=== PATIENT | male | born 1955 | race African-American/Black ===

== ENCOUNTER 2017-11-27 15:04 | Inpatient (IN) | payer OTHER ==
[~2017-11-27] VITALS: Ht 180.3 cm; Wt 129.4 kg
[~2017-11-27 15:04] MED LIST: AMMONIUM LACTA226 GM TOP; AUGMENTIN 875-1 EACH PO; CARVEDILOL12.5 M1 PO; CARVEDILOL25 M1 PO; ELIQUIS5 M1 PO; FUROSEMIDE40 M1 PO; GABAPENTIN300 M2 PO; HUMALOG100 UNIT/2 SC; HYDROCHLOROTH12.5 M2 PO; KEFLEX500 M1 PO; LATUDA20 M1; LATUDA60 M1 PO; LEVEMIR FL100 UNIT/1 SC; LISINOPRIL20 M1 PO; METFORMIN HCL1000 M1 PO; NORCO 5-325 TA1 EACH PO; NOVOLOG FL100 UNIT/1 SC; PRAVASTATIN SOD40 M2 PO; SERTRALINE HCL25 MG PO; STIOLTO RESPIMAT4 GM INH; VENTOLIN HFA18 GM INH; VICTOZA 3-0.6 MG/0.1 SC; ZOFRAN ODT4 M1 SL
--- NOTE | 2017-11-27 15:27 | ED CARDIAC/CP/PALPITATIONS ---
History of Present Illness General Chief Complaint: General Adult Stated Complaint: BIBA ?RAPID AFIB Source: patient Exam Limitations: no limitations Vital Signs & Intake/Output Vital Signs & Intake/Output Vital Signs Date Time Temp Pulse Resp B/P B/P Pulse O2 O2 Flow FiO2 Mean Ox Delivery Rate 11/27 2239 112 18 139/84 94 Room Air 11/27 2230 124 139/84 11/27 2057 98.6 136 18 123/73 11/27 2056 136 18 123/73 97 Room Air 11/27 2041 113 11/27 1937 139 18 116/85 95 Room Air 11/27 1926 143 111/86 11/27 1813 141 18 106/70 97 Room Air 11/27 1749 143 111/86 11/27 1749 142 18 111/86 97 Room Air 11/27 1704 146 18 120/81 95 Room Air 11/27 1515 Room Air 11/27 1515 98.6 150 18 115/70 94 Room Air Allergies Coded Allergies: No Known Allergies (11/19/16) Reconcile Medications Albuterol Sulfate (Ventolin Hfa) 90 MCG HFA.AER.AD 2 PUF INH AD PRN COPD ( Reported) Ammonium Lactate 12 % LOTION 1 MARISOL TOP PRN RIGHT FOOT (Reported) Apixaban (Eliquis) 5 MG TABLET 1 TAB PO BID BLOOD THINNER (Reported) Carvedilol 25 MG TABLET 1 TAB PO BID HEART/BP (Reported) Furosemide 40 MG TABLET 1 TAB PO BID DIURETIC (Reported) Gabapentin 300 MG CAPSULE 1 CAP PO TID NERVE PAIN (Reported) Insulin Aspart, Recombinant (Novolog Flexpen) (Unknown Strength) INSULN.PEN ( Unknown Dose) SC TIDAC DIABETES (Reported) Insulin Detemir (Levemir Flextouch) 100 UNIT/ML (3 ML) INSULN.PEN 50 UNITS SC QPM DM (Reported) Liraglutide (Victoza 3-Alberto) 0.6 MG/0.1 ML (18 MG/3 ML) PEN.INJCTR 1.8 MG SC DAILY DM (Reported) Lisinopril 20 MG TABLET 1 TAB PO DAILY HEART (Reported) Lurasidone HCl (Latuda) 60 MG TABLET 1 TAB PO DAILY MENTAL HEALTH (Reported) Metformin HCl 1,000 MG TABLET 1 TAB PO Q12H DM (Reported) Pravastatin Sodium 40 MG TABLET 1 TAB PO QPM CHOLESTEROL (Reported) Tiotropium Br/Olodaterol HCl (Stiolto Respimat Inhal [place]) 2.5 MCG-2.5 MCG/ ACTUATION MIST.INHAL 2 PUFF INH BID BREATHING PROBLEMS (Reported) Triage Note: PT [facility] FOR CABAG HAD DONE IN 2016. WHEN PT ARRIVED HR WAS 150'S. REHAB STATED PT WAS IN AFIB, HX OF. PT COMING FROM EMS, 151 SINUS TACHY. NO THINNERS. DENIES CHEST PAIN OR SOB. Triage Nurses Notes Reviewed? yes Onset: Abrupt Duration: day(s): (1), constant, continues in ED Timing: single episode today Activities at Onset: none Prior Chest Pain/Card Workup: stress test, cabg Nitro Today/Relief: no nitro taken today Aspirin Today: no aspirin today HPI: 62 year old male hx of afib, hld, asthma, chf, presents for eval of tachycardia. Patient was going to cardiac rehabilitation today when he took his vital signs as noted that he was tachycardic to the 150. He has a history of atrial afib so it was thought he was in rapid A. fib. Patient offers no complaints she has no chest pain or shortness of breath or palpitations or dizziness no lightheadedness. He feels fine. He's been taking his medications as directed. No recent surgery no lower extremity edema no hemoptysis. (Paul Esparza) Past History Travel History Traveled to [place] past 21 day No Medical History Any Pertinent Medical History? 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 No (Paul Esparza) Review of Systems Review of Systems Constitutional: Reports: no symptoms. EENTM: Reports: no symptoms. Respiratory: Reports: no symptoms. Cardiovascular: Reports: no symptoms. GI: Reports: no symptoms. Genitourinary: Reports: no symptoms. Musculoskeletal: Reports: no symptoms. Skin: Reports: no symptoms. Neurological/Psychological: Reports: no symptoms. Hematologic/Endocrine: Reports: no symptoms. Immunologic/Allergic: Reports: no symptoms. All Other Systems: Reviewed and Negative (Paul Esparza) Physical Exam Physical Exam General Appearance: well developed/nourished, no apparent distress, alert, awake , obese Head: atraumatic, normal appearance Eyes: Bilateral: normal appearance, PERRL, EOMI. Ears, Nose, Throat: normal pharynx, normal ENT inspection, hearing grossly normal Neck: normal inspection, supple, full range of motion Respiratory: normal breath sounds, chest non-tender, no respiratory distress, lungs clear Cardiovascular: normal peripheral pulses, tachycardia Peripheral Pulses: 2+ radial (R), 2+ radial (L) Gastrointestinal: normal bowel sounds, soft, non-tender, no organomegaly Back: normal inspection, normal range of motion Extremities: normal inspection, normal range of motion, no edema Neurologic/Psych: no motor/sensory deficits, awake, alert, oriented x 3, normal gait, normal mood/affect Skin: intact, normal color, warm/dry Core Measures ACS in differential dx? No CVA/TIA Diagnosis No Sepsis Present: No Sepsis Focused Exam Completed? No (Paul Esparza) Progress Differential Diagnosis: AMI, atrial fibrillation, CHF/pulm edema, hyperkalemia, hypovolemia, myocarditis, pancreatitis, pericarditis, pneumonia, pneumothorax, PSVT, pulmonary embolism, PUD/GERD, PVCs/PACs, unstable angina, V-fib/V-Tach, WPW syndrome Plan of Care: Orders Procedure Date/time Status Regular Diet 11/28 B Active ECHOCARDIOGRAM 11/28 0800 Active TROPONIN LEVEL 11/28 0400 Active MAGNESIUM 11/28 0400 Active CBC WITHOUT DIFFERENTIAL 11/28 0400 Active BASIC ELECTROLYTES PLUS BUN&CR 11/28 0400 Active EKG 11/28 0400 Active TROPONIN LEVEL 11/27 2200 Complete EKG 11/27 2199 Active Pathway - chart 11/27 2148 Active Patient Data 11/27 2021 Active OXYGEN SETUP (GEN) 11/27 2017 Active Saline Lock 11/27 2017 Active Admit to inpatient 11/27 2017 Active Vital Signs 11/27 2017 Active Activity/Ambulation 11/27 2017 Active Code Status 11/27 2017 Active Add-on Test (ER Only) 11/27 1540 Active Add-on Test (ER Only) 11/27 1526 Active LACTIC ACID 11/27 1524 Complete D-DIMER 11/27 1524 Complete B-TYPE NATRIURETIC PEP (BNP) 11/27 1524 Complete Intake & Output 11/27 1514 Active TSH REFLEX 11/27 1512 Complete TROPONIN LEVEL 11/27 151 Complete PARTIAL THROMBOPLASTIN TIME 11/27 151 Complete PROTHROMBIN TIME 11/27 1512 Complete MAGNESIUM 11/27 151 Complete COMPREHENSIVE METABOLIC PANEL 11/27 151 Complete CBC WITHOUT DIFFERENTIAL 11/27 151 Complete EKG 11/27 1504 Active VTE Mechanical Prophylaxis 11/27 UNK Active FingerStick- Glucose 11/27 UNK Active Current Medications Sig/[place] Start time Last Medication Dose Stop Time Status Admin Insulin Detemir 50 UNITS QPM 11/28 2100 AC (Levemir) Pravastatin Sodium 40 MG 1700 11/28 1700 AC (Pravachol) Lisinopril 20 MG DAILY 11/28 0900 AC (Prinivil) Insulin Aspart 0 TIDAC 11/28 0800 AC (NovoLOG) Diltiazem HCl 125 MG Q24H 11/27 220 AC (Cardizem DRIP) Sodium Chloride 100 ML (Normal Saline 0.9%) Acetaminophen 650 MG Q6P PRN 11/27 2144 AC (Tylenol) Albuterol Sulfate 2 PUF Q6-PRN PRN 11/27 2144 AC (Ventolin) Apixaban 5 MG BID 11/27 2140 AC 11/27 (Eliquis) 2237 Carvedilol 25 MG BID 11/27 2140 AC 11/27 (Coreg) 2237 Furosemide 40 MG BID 11/27 2140 AC 11/27 (Lasix) 2237 Gabapentin 300 MG TID 11/27 2140 AC 11/27 (Neurontin) 2237 Laboratory Tests 11/27/17 2200: Troponin I 0.05 11/27/17 1601: Anion Gap 10, Estimated GFR > 60, BUN/Creatinine Ratio 18.3, Glucose 177 H, Lactic Acid 1.6, Calcium 9.4, Magnesium 1.3 L, Total Bilirubin 0.5, AST 16 L, ALT 19 L, Alkaline Phosphatase 75, Troponin I 0.06, Fjw-D-Cbyvgkbewfz Pept 4550 H, Total Protein 5.9 L, Albumin 3.1 L, Globulin 2.8, Albumin/Globulin Ratio 1.1, TSH &T3 &Free T4 Intrp 0.489 11/27/17 1524: PT 14.1 H, INR 1.29 H, APTT 32, D-Dimer High Sensitivty < 200, CBC w Diff NO MAN DIFF REQ, RBC 4.96, MCV 88.4, MCH 29.4, MCHC 33.3, RDW 15.2 H, MPV 8.8, Gran % 53.7, Lymphocytes % 34.5, Monocytes % 8.5, Eosinophils % 3.0, Basophils % 0.3, Absolute Granulocytes 4.9, Absolute Lymphocytes 3.1, Absolute Monocytes 0.8 H, Absolute Eosinophils 0.3, Absolute Basophils 0 Patient is here for evaluation of tachycardia. He feels completely fine no symptoms. Labs EKG chest x-ray ordered patient was monitored on telemetry. IV fluids ordered. Blood work is unremarkable other than a mildly decreased magnesium of 1.3. IV magnesium was ordered patient did not respond IV fluids. 5 Lopressor ordered. Negative d-dimer chest x-ray unremarkable. An additional 5 mg of Lopressor was ordered with only a drop in his blood pressure to 100s over 50s. Patient does have a history of CHF making additional fluids risky. Spoke with Dr. Rodriguez the patient's truck sales representative who will review the EKG. Patient will likely need admission. Dr. Rodriguez recommends getting 5 mg of IV Cardizem if this works started on a drip. Patient will be admitted to the hospital for further evaluation and treatment case discussed with Dr. norton and he agrees. Diagnostic Imaging: Viewed by Me: Radiology Read. Discussed w/RAD: Radiology Read. 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 TECHNIQUE: Portable AP semierect view of the chest was obtained. FINDINGS : The patient is status post median sternotomy. EKG leads overlie the chest. The cardiomediastinal silhouette is enlarged, unchanged. Lungs bilaterally are symmetrically expanded. There is some thickening of the right minor fissure, likely due to trace amount of pleural fluid. This is unchanged. No evidence of pulmonary edema, focal consolidation, or pneumothorax is seen. Crowding of bronchovascular lung markings in the medial right lung base are noted. Included bony structures are grossly unremarkable. IMPRESSION: 1. Cardiomegaly. 2. Possible trace pleural fluid in the right minor fissure versus pleural thickening. Findings are unchanged from prior exam. 3. No focal acute pulmonary process seen. DICTATED BY: Maggie Castillo MD DATE/TIME DICTATED:11/27/171553 WOOD FINISHER APPRENTICE:MARQUIS DATE/TIME TRANSCRIBED:11/27/171553 CONFIDENTIAL, DO NOT COPY WITHOUT APPROPRIATE AUTHORIZATION. Initial ED EKG: SINUS TACH RATE 151, LEFT ATRIAL ABN, LVH, ANT ST ELEVATION RELATED TO LVH (Paul Esparza) Departure Departure Disposition: STILL A PATIENT Condition: Stable Clinical Impression Primary Impression: Tachycardia Referrals: Radha Luevano APRN (PCP/Family) Departure Forms: Customer Survey General Discharge Information Admission Note Spoke With: Jo Chua MD Documentation of Exam: Documentation of any treatments & extenuating circumstances including Concerns Regarding Discharge (functional status, medication knowledge or non-compliance, living conditions, etc.) that warrant an admission rather than observation: [ Serial lab serial EKGs telemetry cardiology consult, IV rate control meds] (Paul Esparza) PA/DIESEL ENGINE ASSEMBLER Co-Sign Statement Statement: ED Attending supervision documentation- x I saw and evaluated the patient. I have also reviewed all the pertinent lab results and diagnostic results. I agree with the findings and the plan of care as documented in the PA's/DIESEL ENGINE ASSEMBLER's documentation. Tachycardia not responsive to IV betablocker. [] I have reviewed the ED Record and agree with the PA's/DIESEL ENGINE ASSEMBLER's documentation. [] Additions or exceptions (if any) to the PAs/DIESEL ENGINE ASSEMBLER's note and plan are summarized below: [] (Juanpablo Norton MD) Critical Care Note Critical Care Note Critical Care Time: 75-104 min (Paul Esparza)
[2017-11-27 15:47] LABS: ABSOLUTE BASOPHIL COUNT 0 /CUMM (0.0-0.2); ABSOLUTE EOSINOPHIL COUNT 0.3 /CUMM (0.0-0.7); ABSOLUTE GRANULOCYTE CT 4.9 /CUMM (1.4-6.5); ABSOLUTE LYMPH COUNT 3.1 /CUMM (1.2-3.4); ABSOLUTE MONOCYTE COUNT 0.8 /CUMM (0.10-0.60); BASOPHIL % 0.3 % (0.0-2.0); GRANULOCYTE % 53.7 % (42.2-75.2); HEMATOCRIT 43.8 % (42-52); MEAN CORPUSCULAR HGB 29.4 PG (27.0-31.0); MEAN CORPUSCULAR HGB CONC 33.3 G/DL (33.0-37.0); MEAN CORPUSCULAR VOLUME 88.4 FL (80.0-94.0); MEAN PLATELET VOLUME 8.8 FL (7.4-10.4); PLATELET COUNT 291 /CUMM (130-400); RBC DISTRIBUTION WIDTH 15.2 % (11.5-14.5); RED BLOOD CELL CT 4.96 /CUMM (4.70-6.10); WHITE BLOOD CELL COUNT 9.1 /CUMM (4.8-10.8)
[2017-11-27 15:48] LABS: PT 14.1 SEC (9.4-12.5); PTT 32 SEC (25-37)
--- NOTE | 2017-11-27 16:01 | RADIOLOGY REPORT ---
EXAMINATION: XR PORTABLE CHEST CLINICAL INFORMATION: Atrial fibrillation with rapid ventricular response COMPARISON: Chest x-ray dated 08/12/2017. TECHNIQUE: Portable AP semierect view of the chest was obtained. FINDINGS: The patient is status post median sternotomy. EKG leads overlie the chest. The cardiomediastinal silhouette is enlarged, unchanged. Lungs bilaterally are symmetrically expanded. There is some thickening of the right minor fissure, likely due to trace amount of pleural fluid. This is unchanged. No evidence of pulmonary edema, focal consolidation, or pneumothorax is seen. Crowding of bronchovascular lung markings in the medial right lung base are noted. Included bony structures are grossly unremarkable. IMPRESSION: 1. Cardiomegaly. 2. Possible trace pleural fluid in the right minor fissure versus pleural thickening. Findings are unchanged from prior exam. 3. No focal acute pulmonary process seen.
--- NOTE | 2017-11-27 21:00 | History & Physical ---
Sanju Jenkins MD 11/27/17 2100: General Information and HPI History of Present Illness: 62-year-old man with past medical history of atrial fibrillation on Eliquis, HFpEF (LVEF >60%), CAD status post CABG, hyperlipidemia, asthma, COPD, and insulin-dependent diabetes mellitus sent in from cardiac rehab for tachycardia. Patient reports waking up today feeling well and in his normal state of health. He performs his morning routine including eating breakfast, taking his meds, and getting ready to go out without any symptoms or difficulty. He arrived to cardiac rehab this afternoon where he was found to reportedly have a heart rate around "150" for which she was referred to the [place] ED. Review of systems He otherwise denies any headache, fever, chills, blurred/double vision, lightheadedness/dizziness, chest pain, palpitations, heartburn, shortness breath , cough, nausea, vomiting, diarrhea, abdominal pain, urinary complaints, numbness, tingling, or weakness. Objective Vitals: Temp 98.6, HR 139-150, RR 18, BP 106-120/70-6, SPO2 94-97% on room air Physical exam -General: Well-developed, morbidly obese middle-aged black man in no acute distress -HEENT: NCAT, Patricia, EOMI, anicteric sclera -Neck: Supple, no JVP, trachea midline, no accessory respiratory muscle use -Cardio: Normal S1/S2; tachycardic, irregularly irregular -Pulmonary: Diminished bibasilar airflow -Abdomen: Soft, nontender, nondistended, bowel sounds intact -Neuro: Awake and alert, cranial nerves II through XII grossly intact -Extremities: No edema, normal pulses Labs/imaging/studies -CBC: WBC 9.1, hemoglobin 14.6, hematocrit 43.8, platelet 291 -BMP: NA 140, K 3.6, CL 102, CO2 29, BUN 22, creatinine 1.2, anion gap 10, glucose 177 -LFT: Within normal limits -Miscellaneous: Lactic acid 1.6, magnesium 1.3, troponin I 0.06, INR 1.29, TSH 0.49, BNP 4500, d-dimer <200 -EKG: Regular narrow complex tachycardia, rapid A. fib versus AVNRT/AVRT -Echocardiogram 02/25/17: LVEF >65% without regional wall motion abnormalities and stage I diastolic dysfunction and moderate concentric LVH -CXR: 1. Cardiomegaly. 2. Possible trace pleural fluid in the right minor fissure versus pleural thickening. Findings are unchanged from prior exam. 3. No focal acute pulmonary process seen. Assessment 62-year-old morbidly obese man with multiple medical problems significant for known A. fib on Eliquis, CAD status post CABG, HFpEF, and insulin-dependent diabetes mellitus sent in from cardiac rehab for evaluation of tachycardia. Patient continues to deny any complaints and feels well. Vital signs are significant for heart rate ranging 130s-150s. Physical examination demonstrates a middle-aged man in no acute distress with a tachycardic irregularly irregular rhythm and is otherwise unremarkable. Significant labs include magnesium 1.3, troponin I 0.06, BNP 4500. Chest x-ray demonstrates cardiomegaly with trace right pleural effusion. EKG demonstrates a regular narrow complex tachycardia concerning for rapid A. fib versus AVNRT/AVRT. In the ED the patient received 2 L of normal saline, magnesium sulfate 1 g IV, metoprolol tartrate 5 mg IV 2, and Cardizem 5 mg IV. Clinically patient appears to have atrial fibrillation with rapid ventricular response in the context of known atrial fibrillation previously on anticoagulation and rate control medications. Patient is completely unaware of his symptoms and it is unclear how long he has been in this uncontrolled tachycardic rhythm. Patient was given several boluses of intravenous Cardizem with adequate rate control and was placed on a Cardizem drip and continued on his previous cardiac meds. Patient is to be admitted to the telemetry floor for telemetry monitoring, serial troponin/EKG, transthoracic echocardiogram, rate control, and cardiology consultation. Problem list -Atrial fibrillation, with rapid ventricular response -History of atrial fibrillation, on Eliquis -HFpEF, LVEF >60% with stage I diastolic dysfunction -CAD status post CABG -COPD -Asthma -Insulin-dependent diabetes mellitus -Distant history of drug abuse, last use 5 years ago -Current smoker, 5-6 cigarettes per day -Morbid obesity Plan -Admit to telemetry floor -Telemetry monitoring -Accu-Cheks 3 times daily before meals/at bedtime -Cardizem drip at 5 mL/h, titrate up to heart rate <110 -Continue home meds: Albuterol, Eliquis, Coreg, Lasix, gabapentin, Levemir, lisinopril, pravastatin -Hold oral hypoglycemics, NovoLog sliding scale insulin while in hospital -consult with cardiology for A. fib with RVR -Trend troponin/EKG until peak or 3 negative sets -Transthoracic echocardiogram -Pain control with acetaminophen -Regular diet -DVT prophylaxis with Eliquis -Full code Allergies/Medications Allergies: Coded Allergies: No Known Allergies (11/19/16) Home Med list Albuterol Sulfate (Ventolin Hfa) 90 MCG HFA.AER.AD 2 PUF INH AD PRN COPD ( Reported) Ammonium Lactate 12 % LOTION 1 MARISOL TOP PRN RIGHT FOOT (Reported) Apixaban (Eliquis) 5 MG TABLET 1 TAB PO BID BLOOD THINNER (Reported) Carvedilol 25 MG TABLET 1 TAB PO BID HEART/BP (Reported) Furosemide 40 MG TABLET 1 TAB PO BID DIURETIC (Reported) Gabapentin 300 MG CAPSULE 1 CAP PO TID NERVE PAIN (Reported) Insulin Aspart, Recombinant (Novolog Flexpen) (Unknown Strength) INSULN.PEN ( Unknown Dose) SC TIDAC DIABETES (Reported) Insulin Detemir (Levemir Flextouch) 100 UNIT/ML (3 ML) INSULN.PEN 50 UNITS SC QPM DM (Reported) Liraglutide (Victoza 3-Alberto) 0.6 MG/0.1 ML (18 MG/3 ML) PEN.INJCTR 1.8 MG SC DAILY DM (Reported) Lisinopril 20 MG TABLET 1 TAB PO DAILY HEART (Reported) Lurasidone HCl (Latuda) 60 MG TABLET 1 TAB PO DAILY MENTAL HEALTH (Reported) Metformin HCl 1,000 MG TABLET 1 TAB PO Q12H DM (Reported) Pravastatin Sodium 40 MG TABLET 1 TAB PO QPM CHOLESTEROL (Reported) Tiotropium Br/Olodaterol HCl (Stiolto Respimat Inhal [place]) 2.5 MCG-2.5 MCG/ ACTUATION MIST.INHAL 2 PUFF INH BID BREATHING PROBLEMS (Reported) Past History Travel History Traveled to [place] past 21 day No Medical History Neurological: peripheral neuropathy EENT: NONE Cardiovascular: AFIB, hyperlipidemia Respiratory: asthma, CHF Gastrointestinal: NONE Hepatic: NONE Renal: NONE Musculoskeletal: NONE Psychiatric: NONE Endocrine: diabetes Blood Disorders: NONE Cancer(s): NONE 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 Exam & Diagnostic Data Last 24 Hrs of Vital Signs/I&O Vital Signs Date Time Temp Pulse Resp B/P B/P Pulse O2 O2 Flow FiO2 Mean Ox Delivery Rate 11/28 0025 138 112/62 11/28 0025 138 110/62 11/27 2310 140 18 132/83 11/27 2239 112 18 139/84 94 Room Air 11/27 2230 124 139/84 11/27 205 98.6 136 18 123/73 11/27 2056 136 18 123/73 97 Room Air 11/27 2041 113 11/27 1937 139 18 116/85 95 Room Air 11/27 1926 143 111/86 11/27 1813 141 18 106/70 97 Room Air 11/27 1749 143 111/86 11/27 1749 142 18 111/86 97 Room Air 11/27 1704 146 18 120/81 95 Room Air 11/27 1515 Room Air 11/27 1515 98.6 150 18 115/70 94 Room Air Intake & Output 11/28 0800 11/28 0000 11/27 1600 Intake Total Output Total Balance Patient 127.006 kg Weight Weight Estimated Measurement Method Assessment/Plan As Ranked By This Provider Problem List: 1. Tachycardia Core Measures/Misc (01/20) Acute Coronary Syndrome ACS Diagnosis: No Congestive Heart Failure Congestive Heart Failure Diagnosis No Cerebrovascular Accident CVA/TIA Diagnosis: No VTE (View Protocol) VTE Risk Factors Age>40 No Mechanical VTE Prophylaxis d/t N/A MechProphylax Ordered No VTE Pharm Prophylaxis d/t NA PharmProphylax ordered Sepsis (View protocol) Sepsis Present: No If YES complete Sepsis Event Note If YES complete Sepsis Event Note Jo Chua MD 11/28/17 0127: Core Measures/Misc (01/20) Sepsis (View protocol) If YES complete Sepsis Event Note If YES complete Sepsis Event Note Attending MD Review Statement Attending Statement Attending MD Statement: examined this patient, discuss w/resident/PA/COLLOID MILL OPERATOR, agreed w/resident/PA/COLLOID MILL OPERATOR, reviewed EMR data (avail) Attending Assessment/Plan: 62M PMH IDDM, HTN, paroxysmal atrial fibrillation on Eliquis, CAD was at cardiac rehab when his HR was noted to be in the 150's. He was unaware of this and completely asymptomatic. He was sent to the ED where he continued to be asymptomatic. His HR was 150's in afib in the ER, though at times, particulary on EMS rhythm strip, he was in SVT. He was given Metoprolol 5mg x2 with minimal response, and was placed on Cardizem drip. Patient denies fever, chills, headache, lightheadedness, palpitations, SOB, chest pain, abdominal pain, diarrhea, dysuria. Labs unremarkable, exam benign. 1. Paroxysmal atrial fibrillation with RVR Plan - Admit to telemetry - Cardizem drip - Cardiology consult - Check TSH, Mg - Echocardiogram - Continue Eliquis - Continue Levemir and remaining home medications - DVT PPx
--- NOTE | 2017-11-28 01:31 | Admission Certification ---
Admission Certification Certification Statement - As attending physician, I certify that at the time of - admission, based on clinical presentation, severity of - symptoms, need for further diagnostic testing and - therapeutic interventions, and risk of adverse outcomes - without in-hospital treatment, in my clinical assessment, - this patient requires an acute hospital stay for a minimum - of two nights or longer. I have also considered psychsocial - factors such as support system, advanced age, financial - issues, cognitive issues, and failed out-patient treatments, - past re-admission history, safety of patient, and lack of - compliance as applicable. Specific rationale supporting this admission is: Rapid atrial fibrillation with RVR
[2017-11-28 04:23] LABS: ABSOLUTE BASOPHIL COUNT 0.1 /CUMM (0.0-0.2); ABSOLUTE EOSINOPHIL COUNT 0.3 /CUMM (0.0-0.7); ABSOLUTE GRANULOCYTE CT 4.3 /CUMM (1.4-6.5); ABSOLUTE LYMPH COUNT 3.7 /CUMM (1.2-3.4); ABSOLUTE MONOCYTE COUNT 0.7 /CUMM (0.10-0.60); BASOPHIL % 0.7 % (0.0-2.0); EOSINOPHIL % 3.2 % (0-5); GRANULOCYTE % 47.1 % (42.2-75.2); HEMATOCRIT 40.3 % (42-52); MEAN CORPUSCULAR HGB 29.6 PG (27.0-31.0); MEAN CORPUSCULAR HGB CONC 33.3 G/DL (33.0-37.0); MEAN CORPUSCULAR VOLUME 88.8 FL (80.0-94.0); MEAN PLATELET VOLUME 8.6 FL (7.4-10.4); PLATELET COUNT 256 /CUMM (130-400); RBC DISTRIBUTION WIDTH 15.3 % (11.5-14.5); RED BLOOD CELL CT 4.54 /CUMM (4.70-6.10); WHITE BLOOD CELL COUNT 9.1 /CUMM (4.8-10.8)
--- NOTE | 2017-11-28 07:31 | PN- Housestaff ---
Dilan Harrington 11/28/17 0730: Subjective Follow-up For: Leslie camargo with rapid ventricular rate Complaints: no complaints Tele-Events Since Last Visit: Nahed. raman with rates varying between 100-120 Subjective: Patient was seen and examined this morning. He is alert awake and oriented to time place and person. No acute events noticed . He denies any chest pain short of breath, palpitations, fever or chills. He feels completely asymptomatic Review of Systems Constitutional: Reports: see HPI. Objective Last 24 Hrs of Vital Signs/I&O Vital Signs Date Time Temp Pulse Resp B/P B/P Pulse O2 O2 Flow FiO2 Mean Ox Delivery Rate 11/28 1027 97.9 100 18 11/28 0957 97.9 100 18 11/28 0935 97.9 100 18 102 96 Room Air 11/28 0515 97.8 97 16 112/65 95 Room Air 11/28 0045 105 106/80 11/28 0025 138 112/62 11/28 0025 138 110/62 11/27 2310 140 18 132/83 11/27 2239 112 18 139/84 94 Room Air 11/27 2230 124 139/84 11/278 98.6 136 18 123/73 11/27 2057 136 18 123/73 97 Room Air 11/27 2041 113 11/27 1937 139 18 116/85 95 Room Air 11/27 1926 143 111/86 11/27 1813 141 18 106/70 97 Room Air 11/27 1749 143 111/86 11/27 1749 142 18 111/86 97 Room Air 11/27 1704 146 18 120/81 95 Room Air 11/27 1515 Room Air 11/27 1515 98.6 150 18 115/70 94 Room Air Physical Exam General Appearance: Alert, Oriented X3, Cooperative, No Acute Distress Other Physical Findings: HEENT: NCAT, Patricia, EOMI, anicteric sclera -Neck: Supple, no JVP, trachea midline, no accessory respiratory muscle use -Cardio: Normal S1/S2; tachycardic, irregularly irregular -Pulmonary: Diminished bibasilar airflow -Abdomen: Soft, nontender, nondistended, bowel sounds intact -Neuro: Awake and alert, cranial nerves II through XII grossly intact -Extremities: No edema, normal pulses Current Medications: Current Medications Sig/[place] Start time Last Medication Dose Route Stop Time Status Admin Acetaminophen 650 MG Q6P PRN 11/27 2144 AC PO Albuterol Sulfate 2 PUF Q6-PRN PRN 11/27 2144 AC INH Apixaban 5 MG BID 11/27 214 AC 11/28 PO 1027 Carvedilol 25 MG BID 11/27 2140 AC 11/28 PO 1027 Diltiazem HCl 0 .STK-MED ONE 11/28 0017 DC .ROUTE Diltiazem HCl 10 MG ONCE ONE 11/285 DC 11/28 IV 11/28 0016 0025 Diltiazem HCl 0 .STK-MED ONE 11/27 2214 DC .ROUTE Diltiazem HCl 5 MG ONCE ONE 11/27 2199 DC 11/27 IV 11/27 Diltiazem HCl 125 MG Q24H 11/27 2199 11/27 Sodium Chloride 100 ML IV 2306 Diltiazem HCl 0 .STK-MED ONE 11/28 2051 DC .ROUTE Diltiazem HCl 5 MG ONCE ONE 11/27 2014 DC 11/27 IV 11/27 Furosemide 0 .STK-MED ONE 11/27 2152 DC PO Furosemide 40 MG BID 11/27 2140 AC 11/27 PO 2238 Gabapentin 0 .STK-MED ONE 11/27 2152 DC PO Gabapentin 300 MG TID 11/27 2140 AC 11/28 PO 1027 Insulin Aspart 0 TIDAC 11/28 0800 AC 11/28 AK 1138 Insulin Detemir 50 UNITS QPM 11/28 2100 11/27 AK 2329 Lisinopril 20 MG DAILY 11/28 0900 AC PO Magnesium Sulfate 1 GM Q2H 11/28 1100 AC 11/28 Dextrose/Water 100 ML IV 11/28 1459 1222 Magnesium Sulfate 0 .STK-MED ONE 11/27 171 DC .ROUTE Magnesium Sulfate 1 GM Q2H 11/27 1700 DC 11/27 Dextrose/Water 100 ML IV 11/27 2058 193 Metoprolol Tartrate 0 .STK-MED ONE 11/27 1924 DC IV Metoprolol Tartrate 5 MG ONCE ONE 11/27 191 DC 11/27 IV 11/28 1915 192 Metoprolol Tartrate 0 .STK-MED ONE 11/27 1740 DC IV Metoprolol Tartrate 5 MG ONCE ONE 11/27 1730 DC 11/27 IV 11/27 1731 1749 Potassium Chloride 0 .STK-MED ONE 11/28 1215 DC PO Potassium Chloride 40 MEQ ONCE ONE 11/28 1100 DC 11/28 PO 11/28 1101 1222 Pravastatin Sodium 40 MG 1700 11/28 1700 AC PO Sodium Chloride 1,000 ML BOLUS ONE 11/27 1915 DC 11/27 IV 11/27 2013 192 Sodium Chloride 1,000 ML BOLUS ONE 11/27 1600 DC 11/27 IV 11/27 1659 1606 Last 24 Hrs of Lab/Jose J Results Last 24 Hrs of Labs/Mics: Laboratory Tests 11/28/17 0412: Anion Gap 10, Estimated GFR > 60, BUN/Creatinine Ratio 19.2, Magnesium 1.5 L, Troponin I 0.06, CBC w Diff MAN DIFF ORDERED, RBC 4.54 L, MCV 88.8, MCH 29.6, MCHC 33.3, RDW 15.3 H, MPV 8.6, Gran % 47.1, Lymphocytes % 41.1, Monocytes % 7.9, Eosinophils % 3.2, Basophils % 0.7, Absolute Granulocytes 4.3, Segmented Neutrophils 48, Absolute Lymphocytes 3.7 H, Lymphocytes 41, Monocytes 7, Absolute Monocytes 0.7 H, Eosinophils 4, Absolute Eosinophils 0.3, Absolute Basophils 0.1, Platelet Estimate ADEQUATE, Normochromic RBCs VERIFIED, Ovalocytes FEW, Elliptocytes RARE, Fld Total RBCs Counted 100 11/27/17 2200: Troponin I 0.05 11/27/17 1601: Anion Gap 10, Estimated GFR > 60, BUN/Creatinine Ratio 18.3, Glucose 177 H, Lactic Acid 1.6, Calcium 9.4, Magnesium 1.3 L, Total Bilirubin 0.5, AST 16 L, ALT 19 L, Alkaline Phosphatase 75, Troponin I 0.06, Ivc-F-Htzqnulhmmn Pept 4550 H, Total Protein 5.9 L, Albumin 3.1 L, Globulin 2.8, Albumin/Globulin Ratio 1.1, TSH &T3 &Free T4 Intrp 0.489 11/27/17 1524: PT 14.1 H, INR 1.29 H, APTT 32, D-Dimer High Sensitivty < 200, CBC w Diff NO MAN DIFF REQ, RBC 4.96, MCV 88.4, MCH 29.4, MCHC 33.3, RDW 15.2 H, MPV 8.8, Gran % 53.7, Lymphocytes % 34.5, Monocytes % 8.5, Eosinophils % 3.0, Basophils % 0.3, Absolute Granulocytes 4.9, Absolute Lymphocytes 3.1, Absolute Monocytes 0.8 H, Absolute Eosinophils 0.3, Absolute Basophils 0 Assessment/Plan Assessment: 62-year-old man with past medical history of atrial fibrillation status post cardioversion on Eliquis, HFpEF (LVEF >60%), CAD status post CABG 2015, hyperlipidemia, asthma, COPD, and insulin-dependent diabetes mellitus sent in from cardiac rehab for tachycardia. Patient reports feeling well and in his normal state of health. He arrived to cardiac rehab 11/27 where he was found to reportedly have a heart rate around "150" for which he was referred to the [place] ED. he is completely asymptomatic without chest pain, palpitations, short of breath Objective Vitals: Temp 98.6, HR 139-150, RR 18, BP 106-120/70-6, SPO2 94-97% on room air Labs/imaging/studies -CBC: WBC 9.1, hemoglobin 14.6, hematocrit 43.8, platelet 291 -BMP: NA 140, K 3.6, CL 102, CO2 29, BUN 22, creatinine 1.2, anion gap 10, glucose 177 -LFT: Within normal limits -Miscellaneous: Lactic acid 1.6, magnesium 1.3, troponin I 0.06, INR 1.29, TSH 0.49, BNP 4500, d-dimer <200 -EKG: Regular narrow complex tachycardia, rapid A. fib versus AVNRT/AVRT -Echocardiogram 02/25/17: LVEF >65% without regional wall motion abnormalities and stage I diastolic dysfunction and moderate concentric LVH -CXR: 1. Cardiomegaly. 2. Possible trace pleural fluid in the right minor fissure versus pleural thickening. Findings are unchanged from prior exam. 3. No focal acute pulmonary process seen Atrial fibrillation with rapid ventricular response Clinically patient appears to have atrial fibrillation with rapid ventricular response in the context of known atrial fibrillation previously on anticoagulation and rate control medications. Patient is completely unaware of his symptoms and it is unclear how long he has been in this uncontrolled tachycardic rhythm. Patient was given several boluses of intravenous metoprolol with inadequate rate control and was placed on a Cardizem drip and continued on his previous cardiac meds. * Admitted to telemetry floor * Telemetry monitoring * Vitals every shift * Cardizem drip at 5 mL/h, titrate up to heart rate less than 110 * Continue home dose of Coreg * Continue home dose of apixaban 5 twice daily * Cardiology consulted * Planning to get transthoracic echocardiogram * Patient will be n.p.o. tonight for planned cardioversion tomorrow HFpEF, LVEF >60% with stage I diastolic dysfunction Continue Lasix 40 twice daily follow-up echocardiogram CAD status post CABG Continue home medication Coreg, lisinopril COPD TRC nebs Insulin-dependent diabetes mellitus Accu-Cheks Insulin sliding scale Hold oral hypoglycemic agents Distant history of drug abuse, last use 5 years ago Current smoker, 5-6 cigarettes per day Morbid obesity DVT Prophylaxis on apixaban Pain pathway ordered Full code Consistent carbohydrate diet Problem List: 1. Tachycardia Pain Ratin Pain Location: N./A Pain Goal: Remain pain free Pain Plan: TYLINOL Tomorrow's Labs & Rationales: CBC BEP Dustin Villavicenciomiguel 11/28/17 1243: Attending MD Review Statement Attending Statement Attending MD Statement: examined this patient, discuss w/resident/PA/CHILDREN'S MINISTRY DIRECTOR, agreed w/resident/PA/CHILDREN'S MINISTRY DIRECTOR, discussed with family, reviewed EMR data (avail), discussed with nursing, discussed with case mgmt Attending Assessment/Plan: afib / aflutter with RVR. on eliquis and coreg at home. sent in from cardiac rehab for high HR. Found to be in aflutter with rates around 150-180s. Got iv metoprolol in ER times 2 and then put on cardizem drip. Pt had cardioversion previously in May 2016 at [facility]. Rates now better on cardizem drip. will f/u on cardiology note. Possible cardioversion tomorrow. Hypomagnesemia- will recheck today level and replace accordingly. d/w pt and pts sister over the phone the care plan.
--- NOTE | 2017-11-28 10:04 | Cons- Cardiology ---
General Information and HPI Consulting Request Date of Consult: 11/28/17 Requested By: Saud TANNER,Phil Rasheed Reason for Consult: Recurrent atrial fibrillation/flutter Source of Information: patient, old records Exam Limitations: no limitations History of Present Illness: Deana Rock is a 62-year-old male with multiple risk factors including diabetes, obesity, positive family history of heart disease, and smoking. The patient had coronary bypass surgery in January 2016. Subsequently when he was in rehab he had an episode of atrial fibrration requiring cardioversion in 2015. He was previously followed by Dr. Navarro in [place], but has now moved to the [place] and wants to transfer his care here. At the time of his initial visit I ordered a stress test and an echocardiogram. The echo was done on 02/25/2017 and showed LVH with good left ventricular systolic function, some mild thickening of his mitral valve, otherwise normal valves. Pulmonary artery pressure could not be calculated. He did not have the stress test because of malfunction of the nuclear camera at [place], and this was rescheduled. Some of Deana's records were reviewed from [facility]. This showed that he had bypass surgery on 01/27/2016 with a SEALS to the LAD, saphenous vein graft to the first diagonal, saphenous vein graft to the obtuse marginal. He also had atrial fibrillation with a cardioversion on 04/20/2016, which was a CAMILLA guided cardioversion. Subsequently he had an ER visit for chest pain with a negative evaluation in June 2016. He had a pharmacologic stress test done on 03/12/17 which showed an ejection fraction of 38% although on the echo his ejection fraction previously was normal. There was a small fixed perfusion abnormality involving the inferior wall. Subsequently he has been doing well. I referred him to cardiac rehab, which he has been doing intermittently because of transportation issues. He did have one ER visit on 08/12/2017. He was actually sent from cardiac rehab as a rapid response because of chest pain. This turned out to actually be abdominal pain and he had a mild case of pancreatitis which subsequently resolved. He does complain of shortness of breath on more than usual exertion which is unchanged, but no chest pain, palpitations, dizziness, or syncope. He is currently on carvedilol, Eliquis, Lasix, and pravastatin from a cardiac standpoint. Otherwise the patient was doing well until yesterday. He actually had an appointment to see me today, but he was in cardiac rehab yesterday and was noted to be tachycardic on routine vital signs. Deana was not aware of this. He denied any palpitations chest pain or excessive shortness of breath. He was sent to the emergency room where his initial EKG showed atrial flutter with 2-1 conduction at a rate in the 140s. He was given some beta-srinivas without much effect but then at my advice was started on Cardizem and his ventricular response started to come down. This morning he is feeling fine. He is still on a Cardizem drip. He has been fully anticoagulated for a couple of years. He has no awareness of tachycardia or palpitations, chest pain or shortness of breath at rest. Allergies/Medications Allergies: Coded Allergies: No Known Allergies (11/19/16) Home Med List: Albuterol Sulfate (Ventolin Hfa) 90 MCG HFA.AER.AD 2 PUF INH AD PRN COPD ( Reported) Ammonium Lactate 12 % LOTION 1 MARISOL TOP PRN RIGHT FOOT (Reported) Apixaban (Eliquis) 5 MG TABLET 1 TAB PO BID BLOOD THINNER (Reported) Carvedilol 25 MG TABLET 1 TAB PO BID HEART/BP (Reported) Furosemide 40 MG TABLET 1 TAB PO BID DIURETIC (Reported) Gabapentin 300 MG CAPSULE 1 CAP PO TID NERVE PAIN (Reported) Insulin Aspart, Recombinant (Novolog Flexpen) (Unknown Strength) INSULN.PEN ( Unknown Dose) SC TIDAC DIABETES (Reported) Insulin Detemir (Levemir Flextouch) 100 UNIT/ML (3 ML) INSULN.PEN 50 UNITS SC QPM DM (Reported) Liraglutide (Victoza 3-Alberto) 0.6 MG/0.1 ML (18 MG/3 ML) PEN.INJCTR 1.8 MG SC DAILY DM (Reported) Lisinopril 20 MG TABLET 1 TAB PO DAILY HEART (Reported) Lurasidone HCl (Latuda) 60 MG TABLET 1 TAB PO DAILY MENTAL HEALTH (Reported) Metformin HCl 1,000 MG TABLET 1 TAB PO Q12H DM (Reported) Pravastatin Sodium 40 MG TABLET 1 TAB PO QPM CHOLESTEROL (Reported) Tiotropium Br/Olodaterol HCl (Stiolto Respimat Inhal Cocoa) 2.5 MCG-2.5 MCG/ ACTUATION MIST.INHAL 2 PUFF INH BID BREATHING PROBLEMS (Reported) Current Medications: Current Medications Sig/[place] Start time Last Medication Dose Route Stop Time Status Admin Acetaminophen 650 MG Q6P PRN 11/27 2144 AC PO Albuterol Sulfate 2 PUF Q6-PRN PRN 11/27 2144 AC INH Apixaban 5 MG BID 11/27 2140 AC 11/27 PO 223 Carvedilol 25 MG BID 11/27 2140 AC 11/27 PO 223 Diltiazem HCl 0 .STK-MED ONE 11/287 DC .ROUTE Diltiazem HCl 10 MG ONCE ONE 11/28 14 DC 11/28 IV 11/29 15 0025 Diltiazem HCl 0 .STK-MED ONE 11/27 2214 DC .ROUTE Diltiazem HCl 5 MG ONCE ONE 11/27 2199 DC 11/27 IV 11/27 Diltiazem HCl 125 MG Q24H 11/27 2199 11/27 Sodium Chloride 100 ML IV 2306 Diltiazem HCl 0 .STK-MED ONE 11/28 2051 DC .ROUTE Diltiazem HCl 5 MG ONCE ONE 11/27 2014 DC 11/27 IV 11/27 Furosemide 0 .STK-MED ONE 11/27 2152 DC PO Furosemide 40 MG BID 11/27 2140 AC 11/27 PO 2237 Gabapentin 0 .STK-MED ONE 11/27 2152 DC PO Gabapentin 300 MG TID 11/27 2140 AC 11/27 PO 223 Insulin Aspart 0 TIDAC 11/28 08 AC SC Insulin Detemir 50 UNITS QPM 11/28 2100 AC 11/27 SC 2329 Lisinopril 20 MG DAILY 11/28 09 AC PO Magnesium Sulfate 0 .STK-MED ONE 11/27 171 DC .ROUTE Magnesium Sulfate 1 GM Q2H 11/27 1700 DC 11/27 Dextrose/Water 100 ML IV 11/27 2058 193 Metoprolol Tartrate 0 .STK-MED ONE 11/27 192 DC IV Metoprolol Tartrate 5 MG ONCE ONE 11/27 1915 DC 11/27 IV 11/27 Metoprolol Tartrate 0 .STK-MED ONE 11/27 1740 DC IV Metoprolol Tartrate 5 MG ONCE ONE 11/27 1730 DC 11/27 IV 11/27 1731 1749 Pravastatin Sodium 40 MG 1700 11/28 1700 AC PO Sodium Chloride 1,000 ML BOLUS ONE 11/27 1915 DC 11/27 IV 11/27 2013 192 Sodium Chloride 1,000 ML BOLUS ONE 11/27 1600 DC 11/27 IV 11/27 1659 1606 Review of Systems Review of Systems: Shortness of breath on exertion, which is not a new complaint Past History Travel History Traveled to [place] past 21 day No Medical History Neurological: peripheral neuropathy EENT: NONE Cardiovascular: AFIB, hyperlipidemia Respiratory: asthma, CHF Gastrointestinal: NONE Hepatic: NONE Renal: NONE Musculoskeletal: NONE Psychiatric: NONE Endocrine: diabetes Blood Disorders: NONE Cancer(s): NONE 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 Surgical History Surgical History: CABG Psychosocial History ETOH Use: denies use Illicit Drug Use: denies illicit drug use Exam & Diagnostic Data Vital Signs and I&O Vital Signs Date Time Temp Pulse Resp B/P B/P Pulse O2 O2 Flow FiO2 Mean Ox Delivery Rate 11/28 0935 97.9 100 18 102/67 96 Room Air 11/28 0515 97.8 97 16 112/65 95 Room Air 11/28 0045 105 106/80 11/28 0025 138 112/62 11/28 0025 138 110/62 11/27 2310 140 18 132/83 11/27 2238 112 18 139/84 94 Room Air 11/27 2229 124 139/84 11/27 2057 98.6 136 18 123/73 11/27 2056 136 18 123/73 97 Room Air 11/27 2041 113 11/27 1937 139 18 116/85 95 Room Air 11/27 1926 143 111/86 11/27 1813 141 18 106/70 97 Room Air 11/27 1749 143 111/86 11/27 1749 142 18 111/86 97 Room Air 11/27 1704 146 18 120/81 95 Room Air 11/27 1515 Room Air 11/27 1515 98.6 150 18 115/70 94 Room Air Intake & Output 11/28 1600 11/28 0811/28 0000 11/27 1600 11/27 0800 11/27 0000 Intake Total Output Total Balance Patient 280 lb Weight Weight Estimated Measurement Method Physical Exam: Obese male in no acute distress HEENT exam normal Chest a few rhonchi Heart somewhat irregular rhythm, no murmurs or gallops Extremities no edema Labs/Jose J Results: Laboratory Tests 11/28 11/27 11/27 0412 2200 1601 Chemistry Sodium (137 - 145 mmol/L) 141 140 Potassium (3.5 - 5.1 mmol/L) 3.6 3.6 Chloride (98 - 107 mmol/L) 105 102 Carbon Dioxide (22 - 30 mmol/L) 25 29 Anion Gap (5 - 16) 10 10 BUN (9 - 20 mg/dL) 23 H 22 H Creatinine (0.7 - 1.2 mg/dL) 1.2 1.2 Estimated GFR (>60 ml/min) > 60 > 60 BUN/Creatinine Ratio (7 - 25 %) 19.2 18.3 Glucose (65 - 99 mg/dL) 177 H Lactic Acid (0.7 - 2.1 mmol/L) 1.6 Calcium (8.4 - 10.2 mg/dL) 9.4 Magnesium (1.6 - 2.3 mg/dL) 1.5 L 1.3 L Total Bilirubin (0.2 - 1.3 mg/dL) 0.5 AST (17 - 59 U/L) 16 L ALT (21 - 72 U/L) 19 L Alkaline Phosphatase (< 127 U/L) 75 Troponin I (<0.11 ng/ml) 0.06 0.05 0.06 Ccs-U-Kamtnibtabo Pept (<125 pg/mL) 4550 H Total Protein (6.3 - 8.2 g/dL) 5.9 L Albumin (3.5 - 5.0 g/dL) 3.1 L Globulin (1.9 - 4.2 gm/dL) 2.8 Albumin/Globulin Ratio (1.1 - 2.2 %) 1.1 TSH &T3 &Free T4 Intrp (0.27 - 4.20 uIU/mL) 0.489 Hematology CBC w Diff MAN DIFF ORDERED WBC (4.8 - 10.8 /CUMM) 9.1 RBC (4.70 - 6.10 /CUMM) 4.54 L Hgb (14.0 - 18.0 G/DL) 13.4 L Hct (42 - 52 %) 40.3 L MCV (80.0 - 94.0 FL) 88.8 MCH (27.0 - 31.0 PG) 29.6 MCHC (33.0 - 37.0 G/DL) 33.3 RDW (11.5 - 14.5 %) 15.3 H Plt Count (130 - 400 /CUMM) 256 MPV (7.4 - 10.4 FL) 8.6 Gran % (42.2 - 75.2 %) 47.1 Lymphocytes % (20.5 - 51.1 %) 41.1 Monocytes % (1.7 - 9.3 %) 7.9 Eosinophils % (0 - 5 %) 3.2 Basophils % (0.0 - 2.0 %) 0.7 Absolute Granulocytes (1.4 - 6.5 /CUMM) 4.3 Segmented Neutrophils (42.2 - 75.2 %) 48 Absolute Lymphocytes (1.2 - 3.4 /CUMM) 3.7 H Lymphocytes (20.5 - 51.1 %) 41 Monocytes (1.7 - 9.3 %) 7 Absolute Monocytes (0.10 - 0.60 /CUMM) 0.7 H Eosinophils (0 - 5.0 %) 4 Absolute Eosinophils (0.0 - 0.7 /CUMM) 0.3 Absolute Basophils (0.0 - 0.2 /CUMM) 0.1 Platelet Estimate (ADEQUATE) ADEQUATE Normochromic RBCs VERIFIED Ovalocytes FEW Elliptocytes RARE Other Body Source Fld Total RBCs Counted (%) 100 07/25 1524 Coagulation PT (9.4 - 12.5 SEC) 14.1 H INR (0.90 - 1.17) 1.29 H APTT (25 - 37 SEC) 32 D-Dimer High Sensitivty (0 - 243 ng/ml) < 200 Hematology CBC w Diff NO MAN DIFF REQ WBC (4.8 - 10.8 /CUMM) 9.1 RBC (4.70 - 6.10 /CUMM) 4.96 Hgb (14.0 - 18.0 G/DL) 14.6 Hct (42 - 52 %) 43.8 MCV (80.0 - 94.0 FL) 88.4 MCH (27.0 - 31.0 PG) 29.4 MCHC (33.0 - 37.0 G/DL) 33.3 RDW (11.5 - 14.5 %) 15.2 H Plt Count (130 - 400 /CUMM) 291 MPV (7.4 - 10.4 FL) 8.8 Gran % (42.2 - 75.2 %) 53.7 Lymphocytes % (20.5 - 51.1 %) 34.5 Monocytes % (1.7 - 9.3 %) 8.5 Eosinophils % (0 - 5 %) 3.0 Basophils % (0.0 - 2.0 %) 0.3 Absolute Granulocytes (1.4 - 6.5 /CUMM) 4.9 Absolute Lymphocytes (1.2 - 3.4 /CUMM) 3.1 Absolute Monocytes (0.10 - 0.60 /CUMM) 0.8 H Absolute Eosinophils (0.0 - 0.7 /CUMM) 0.3 Absolute Basophils (0.0 - 0.2 /CUMM) 0 Diagnostic Data EKG Results EKG on presentation showed atrial flutter ventricular rate 141, repeat EKG shows atrial flutter with ventricular rate around 100. CXR Results PATIENT: DEANA ROCK PRESENT AGE: 62 PATIENT ACCOUNT NO: [id number] : 57 LOCATION: [facility] ORDERING PHYSICIAN: Paul BURRELL SERVICE DATE: 11/27/17 EXAM TYPE: RAD - XRY-PORTABLE CHEST XRAY EXAMINATION: XR PORTABLE CHEST CLINICAL INFORMATION: Atrial fibrillation with rapid ventricular response COMPARISON: Chest x-ray dated 08/12/2017. TECHNIQUE: Portable AP semierect view of the chest was obtained. FINDINGS: The patient is status post median sternotomy. EKG leads overlie the chest. The cardiomediastinal silhouette is enlarged, unchanged. Lungs bilaterally are symmetrically expanded. There is some thickening of the right minor fissure, likely due to trace amount of pleural fluid. This is unchanged. No evidence of pulmonary edema, focal consolidation, or pneumothorax is seen. Crowding of bronchovascular lung markings in the medial right lung base are noted. Included bony structures are grossly unremarkable. IMPRESSION: 1. Cardiomegaly. 2. Possible trace pleural fluid in the right minor fissure versus pleural thickening. Findings are unchanged from prior exam. 3. No focal acute pulmonary process seen. DICTATED BY: Anna TANNER,Maggie Freeman DATE/TIME DICTATED:11/27/171553 OUTREACH ASSISTANT:MARQUIS DATE/TIME TRANSCRIBED:11/27/171553 CONFIDENTIAL, DO NOT COPY WITHOUT APPROPRIATE AUTHORIZATION. <Electronically signed in Other Vendor System> SIGNED BY: Maggie Castillo MD N. [id number] Assessment/Plan Assessment/Plan Deana Rock is a 62-year-old man who presents with recurrent atrial arrhythmias. Previously I believe he had atrial fibrillation which also occurred in a cardiac rehab program at [place]. Currently he is in atrial flutter. I would recommend continuing him on IV Cardizem to try and keep his heart rate under 100. If he does not convert spontaneously to sinus rhythm I would suggest a cardioversion, which we can do tomorrow. Since he has been on long-term anticoagulation this can be done without a transesophageal echocardiogram. I would however repeat his transthoracic echocardiogram today. Please keep him n.p.o. after midnight for the cardioversion. Consult Acknowledgment - Thank you for your consult request.
--- NOTE | 2017-11-28 16:02 | Patient Discharge Instructions ---
Discharge Instructions General Discharge Information You were seen/treated for: Atrial fib with rapid ventricular response Special Instructions: Follow-up with PCP in 1 week after discharge Follow-up with cardiology in 1 week after discharge Follow-up with endocrinology on 12/03/2017 at [address] Ulises Grimes after discharge Follow-up with tobacco blender Dr. Garcia in 1-2 weeks after discharge for COPD and obstructive sleep apnea Patient had uncontrolled blood sugars from IV methylprednisolone in the hospital. We are discharging him on an adjusted regimen of NovoLog and Levemir. Patient was instructed about these changes. Diet Continue normal diet: Yes Activity Full Activity/No Limits: Yes Acute Coronary Syndrome Inclusion Criteria At DC or during hospital stay patient has or had the following: ACS DIAGNOSIS No Discharge Core Measures Meds if any: Prescribed or Continued at Discharge Meds if any: NOT Prescribed or Continued at Discharge Congestive Heart Failure Inclusion Criteria At DC or during hospital stay patient has or had the following: CHF DIAGNOSIS No Discharge Core Measures Meds if any: Prescribed or Continued at Discharge Meds if any: NOT Prescribed or Continued at Discharge Cerebrovascular accident Inclusion Criteria At DC or during hospital stay patient has or had the following: CVA/TIA Diagnosis No Discharge Core Measures Meds if any: Prescribed or Continued at Discharge Meds if any: NOT Prescribed or Continued at Discharge Venous thromboembolism Inclusion Criteria VTE Diagnosis No VTE Type NONE VTE Confirmed by (Test) NONE Discharge Core Measures - Per Current guidelines, there needs to be overlap - treatment for the first 5 days of Warfarin therapy. - If discharged on Warfarin prior to 5 days of - overlap therapy, the patient will need to be - assessed for post discharge needs including - *Post discharge parental anticoagulation - *Warfarin and/or parental anticoagulation education - *Follow up date to check INR post discharge At least 5 days overlap therapy as Inpatient No Meds if any: Prescribed or Continued at Discharge Note: Overlap Therapy is Warfarin and Anticoagulant Meds if any: NOT Prescribed or Continued at Discharge
--- NOTE | 2017-11-28 16:02 | Discharge Summary ---
Visit Information Visit Dates Admission Date: 11/27/17 Discharge Date: 12/02/2017 Hospital Course Course Attending Physician: Saud TANNER,Phil Rasheed Primary Care Physician: Radha Luevano APRN Hospital Course: 62-year-old man with past medical history of atrial fibrillation status post cardioversion on Eliquis, HFpEF (LVEF >60%), CAD status post CABG 2016, hyperlipidemia, asthma, COPD, and insulin-dependent diabetes mellitus sent in from cardiac rehab for tachycardia. Patient reported feeling well and in his normal state of health. He arrived to cardiac rehab 11/27 where he was found to reportedly have a heart rate around "150" for which he was referred to the [place] ED. he is completely asymptomatic without chest pain, palpitations, short of breath Objective Vitals: Temp 98.6, HR 139-150, RR 18, BP 106-120/70-6, SPO2 94-97% on room air Labs/imaging/studies -CBC: WBC 9.1, hemoglobin 14.6, hematocrit 43.8, platelet 291 -BMP: NA 140, K 3.6, CL 102, CO2 29, BUN 22, creatinine 1.2, anion gap 10, glucose 177 -LFT: Within normal limits -Miscellaneous: Lactic acid 1.6, magnesium 1.3, troponin I 0.06, INR 1.29, TSH 0.49, BNP 4500, d-dimer <200 -EKG: Regular narrow complex tachycardia, rapid A. fib versus AVNRT/AVRT -Echocardiogram 02/25/17: LVEF >65% without regional wall motion abnormalities and stage I diastolic dysfunction and moderate concentric LVH -CXR: 1. Cardiomegaly. 2. Possible trace pleural fluid in the right minor fissure versus pleural thickening. Findings are unchanged from prior exam. 3. No focal acute pulmonary process seen Atrial fibrillation with rapid ventricular response Clinically patient appeared to have atrial fibrillation with rapid ventricular response in the context of known atrial fibrillation previously on anticoagulation and rate control medications. Patient is completely unaware of his symptoms and it is unclear how long he has been in this uncontrolled tachycardic rhythm. Patient was given several boluses of intravenous metoprolol with inadequate rate control and was placed on a Cardizem drip and continued on his previous cardiac meds. Patient was continued on Cardizem drip. [employer] Policy Specialist on board. He underwent cardioversion 11/29/2017, successful conversion to sinus rhythm. After successful conversion to normal sinus rhythm, Cardizem drip was stopped and he was started on flecainide 100 mg twice daily to maintain sinus rhythm. She was continued on home dose of Coreg and apixaban 5 twice daily Acute hypercarbic respiratory failure on BiPAP most possibly from COPD/asthma exacerbation and MIRZA patient was found to have acutely shortness of breath associated with anxiety after his cardioversion. Stat ABG showed respiratory acidosis 7.22, 55, 201, 22. He was kept on BiPAP on and off with improvement of respiratory status. He is off from BiPAP on the day of discharge, saturating on room air. D-dimers were elevated CTA was done, ruled out pulmonary embolism. Received IV methylprednisolone for couple of days. However after improvement of respiratory status steroids were discontinued. He was given TRC nebs, pulmonary referral was provided for outpatient sleep study and follow-up for MIRZA and COPD Insulin-dependent diabetes mellitus-uncontrolled during hospitalization Patient sugars were running high because of steroids and he feels that he is not taking metformin and Victoza in the hospital. His sugars were above 400 status post steroid treatments. We consulted Dr. urbina ballistic technician. We changed his long-acting and bolus insulin. Patient wants to leave the hospital. We arranged appointment with Dr. Montgomery ballistic technician 12/03/2017 at 11 AM. Patient was given instructions about new regimen and close outpatient follow-up. Heart failure diastolic Continued Lasix 40 twice daily follow-up echocardiogram showed ejection fraction 50% CAD status post CABG Continued home medication Coreg, lisinopril COPD TRC nebs Insulin-dependent diabetes mellitus Accu-Cheks Insulin sliding scale Held oral hypoglycemic agents Distant history of drug abuse, last use 5 years ago Current smoker, 5-6 cigarettes per day Morbid obesity DVT Prophylaxis on apixaban Pain pathway ordered Full code Consistent carbohydrate diet Total time spent counselling pt and coordinating discharge was 38 minutes Allergies: Coded Allergies: No Known Allergies (11/19/16) Significant Procedures: Procedure Date: 11/29/17 Cardiology Procedure(s): electrical cardioversion Pre-Operative Diagnosis: Atrial flutter Post-Operative Diagnosis: Converted to sinus rhythm Estimated Blood Loss: n/a Anesthesia: local monitored anesthesi Procedure Findings: The patient is 62-year-old male with known heart disease, bypass surgery about 2 years ago, previous episode of atrial fibrillation with electrical cardioversion. The patient presented at cardiac rehab 2 days ago tachycardic. He was sent to the ER and found to be in atrial flutter with 2-1 conduction. He has been treated with Cardizem and his rate has improved but he has remained in atrial flutter. The patient has been fully anticoagulated for some time. He was recommended cardioversion. Because he has been anticoagulated it was not felt necessary to do a transesophageal echocardiogram. The patient was brought to the procedure room in the fasting state. Informed consent was signed and timeout was taken and all agreed with the patient, procedure and personnel. The patient was sedated by anesthesia personnel. When he was adequately sedated a 200 J synchronized shock was delivered through anterior-posterior pads. He converted instantly to sinus rhythm. He will be watched until he is fully recovered from anesthesia and then returned to the floor. The Cardizem drip will be discontinued. Impression: Successful electrical cardioversion from atrial flutter to sinus rhythm. Pertinent Lab Results: FINDINGS Left Ventricle Normal size left ventricle. Moderate concentric left ventricular hypertrophy. Mildly reduced global left ventricular systolic function. Left ventricular ejection fraction is estimated at 45-50 %. No obvious regional wall motion abnormalities. Right Ventricle The right ventricle is normal in size and function. Right Atrium The right atrium is normal in size. Left Atrium Moderate left atrial dilatation. Mitral Valve Mild thickening/calcification of the mitral valve leaflets. Mild-to- moderate mitral regurgitation. Aortic Valve Focal thickening of the aortic valve cusps. No aortic stenosis. No aortic regurgitation. Tricuspid Valve Tricuspid valve is normal in structure and function. Mild tricuspid regurgitation. Right ventricular systolic pressure estimated to be elevated at 40-45 mmHg. Pulmonic Valve Pulmonic valve not well visualized, grossly normal. Trace pulmonic regurgitation. Pericardium Normal pericardium without effusion. No pleural effusion. Great Vessels Normal aortic root dimension. The aortic arch and great vessels are not well seen. CONCLUSIONS Moderate concentric left ventricular hypertrophy. Mildly reduced global left ventricular systolic function. Left ventricular ejection fraction is estimated at 45-50 %. Moderate left atrial dilatation. Mild thickening/calcification of the mitral valve leaflets. [id number] mitral regurgitation. Focal thickening of the aortic valve cusps. No aortic stenosis. Right ventricular systolic pressure estimated to be elevated at 40- 45 mmHg. The aortic arch and great vessels are not well seen. Disposition Summary Disposition Principal Diagnosis: A. fib with rapid ventricular rate Acute hypercarbic respiratory failure Uncontrolled blood sugar from IV steroids Additional Diagnosis: status post cardioversion Discharge Disposition: home or self care Discharge Instructions General Discharge Information Code Status: Full Code Patient's Diet: As tolerated Patient's Activity: As tolerated Follow-Up Instructions/Appts: Follow-up with PCP in 1 week after discharge Follow-up with corsetier in 1 week after discharge Follow-up with ballistic technician Dr Montgomery on 12/03/2017 at 11 AM for diabetes follow-up Medications at Discharge Discharge Medications: Continue taking these medications: Furosemide (Furosemide) 40 MG TABLET 1 Tablet ORAL TWICE DAILY Qty = 90 Comments: NOT GIVEN Apixaban (Eliquis) 5 MG TABLET 1 Tablet ORAL TWICE DAILY Qty = 60 Comments: Last Taken: 12/02/17 Time: 9:00 AM Metformin HCl (Metformin HCl) 1,000 MG TABLET 1 Tablet ORAL Q12H Qty = 180 Comments: NOT GIVEN Gabapentin (Gabapentin) 300 MG CAPSULE 1 Capsule ORAL THREE TIMES DAILY Qty = 270 Comments: Last Taken: 12/02/17 Time: 9:00 AM Pravastatin Sodium (Pravastatin Sodium) 40 MG TABLET 1 Tablet ORAL Every night Qty = 90 Comments: Last Taken: 12/01/17 Time: 5:00 PM Tiotropium Br/Olodaterol HCl (Stiolto Respimat Inhal [place]) 2.5 MCG-2.5 MCG/ ACTUATION MIST.INHAL 2 PUFF Inhale through mouth TWICE DAILY Qty = 4 Comments: NOT GIVEN Albuterol Sulfate (Ventolin Hfa) 90 MCG HFA.AER.AD 2 Puff Inhale through mouth As Directed as needed for COPD Qty = 18 Comments: Last Taken: 12/02/17 Time: 9:00 AM Liraglutide (Victoza 3-Alberto) 0.6 MG/0.1 ML (18 MG/3 ML) PEN.INJCTR 1.8 Milligram SC DAILY Qty = 9 Comments: NOT GIVEN Lurasidone HCl (Latuda) 60 MG TABLET 1 Tablet ORAL DAILY Qty = 30 Comments: NOT GIVEN Insulin Detemir (Levemir Flextouch) 100 UNIT/ML (3 ML) INSULN.PEN 40 Units SC TWICE DAILY Qty = 15 Comments: Last Taken: 12/02/17 Time: 9:00 AM Ammonium Lactate (Ammonium Lactate) 12 % LOTION 1 Application On the skin as needed for RIGHT FOOT Qty = 225 Comments: NOT GIVEN Carvedilol (Carvedilol) 25 MG TABLET 1 Tablet ORAL TWICE DAILY Comments: Last Taken: 12/02/17 Time: 9:00 AM Insulin Aspart, Recombinant (Novolog Flexpen) (Unknown Strength) INSULN.PEN Unknown Dose SC 3 TIMES DAILY BEFORE MEALS Instructions: 80-150 10U 151-200 13U 201-250 16U 251-300 19U 301-350 22U 351-400 24U >400- 26U BEDTIME 201-250 2U 251-300 4U 301-350 6U 351-400 8U >400 10U Comments: SHORT ACTING NOVOLOG GIVEN PER SLIDING SCALE Last Taken: 12/02/17 Time: 11:OO AM Lisinopril (Lisinopril) 20 MG TABLET 1 Tablet ORAL DAILY Qty = 90 Comments: Last Taken: 12/02/17 Time: 9:00 AM Start taking the following new medications: Flecainide Acetate (Flecainide Acetate) 100 MG TABLET 1 Tablet ORAL TWICE DAILY Qty = 60 No Refills Instructions: . Comments: Last Taken: 12/02/17 Time: 8:00 AM Copies To: Radha Luevano APRN; Michael TANNER,Julian Mancera
[2017-11-28 18:06] VITALS: BP 142/70
[2017-11-28 22:40] VITALS: BP 140/88
[2017-11-29 06:12] VITALS: BP 122/80
--- NOTE | 2017-11-29 07:18 | PN- Housestaff ---
SravannidhiDilan vincent 11/29/17 0717: Subjective Follow-up For: Leslie camargo with rapid ventricular rate Complaints: no complaints Tele-Events Since Last Visit: SINUS AFTER CARDIOVERSION Subjective: Patient was seen and examined this morning. He is alert awake and oriented to time place and person. No acute events noticed . He denies any chest pain short of breath, palpitations, fever or chills. He feels completely asymptomatic He underwent cardioversion, successfully converted to sinus rhythm Review of Systems Constitutional: Reports: see HPI. Objective Last 24 Hrs of Vital Signs/I&O Vital Signs Date Time Temp Pulse Resp B/P B/P Pulse O2 O2 Flow FiO2 Mean Ox Delivery Rate 11/29 1439 97.5 76 20 126/84 96 Room Air 11/29 0858 100 142/78 11/29 0857 100 142/78 11/29 0800 Room Air Room Air 11/29 0612 98.1 93 20 122/80 94 Room Air 11/29 0000 Room Air 11/28 2240 98.4 109 20 140/88 94 Room Air 11/28 2134 100 18 138/60 11/28 1816 Room Air 11/28 1806 97.7 92 20 142/70 96 Room Air 11/28 1724 98.0 93 18 161/75 100 Room Air Intake & Output 11/29 1600 11/29 0800 11/29 0000 Intake Total 830 120 120 Output Total Balance 830 120 120 Intake, IV 80 Intake, Oral 750 120 120 Patient 135.369 kg Weight Weight Bed scale Measurement Method Physical Exam General Appearance: Alert, Oriented X3, Cooperative, No Acute Distress Other Physical Findings: HEENT: NCAT, Patricia, EOMI, anicteric sclera -Neck: Supple, no JVP, trachea midline, no accessory respiratory muscle use -Cardio: Normal S1/S2; tachycardic, irregularly irregular -Pulmonary: Diminished bibasilar airflow -Abdomen: Soft, nontender, nondistended, bowel sounds intact -Neuro: Awake and alert, cranial nerves II through XII grossly intact -Extremities: No edema, normal pulses Current Medications: Current Medications Sig/[place] Start time Last Medication Dose Route Stop Time Status Admin Acetaminophen 650 MG Q6P PRN 11/27 2144 AC PO Albuterol Sulfate 2 PUF Q6-PRN PRN 11/27 2144 AC INH Apixaban 5 MG BID 11/27 2140 AC 11/29 PO 0858 Carvedilol 25 MG BID 11/27 2141 AC 11/29 PO 0858 Dextrose/Sodium 1,000 ML Q13H 11/29 0030 DC Chloride IV Diltiazem HCl 125 MG Q24H 11/28 1900 DC 11/28 Sodium Chloride 100 ML IV 1840 Flecainide Acetate 100 MG BID 11/29 1145 AC 11/29 PO 1323 Furosemide 40 MG BID 11/27 2141 AC 11/29 PO 0857 Gabapentin 300 MG TID 11/27 2141 AC 11/29 PO 1322 Insulin Aspart 0 TIDAC 11/29 1230 AC 11/29 SC 1321 Insulin Aspart 0 TIDAC 11/28 0800 UT 11/28 SC 1737 Insulin Detemir 50 UNITS QPM 11/28 2100 AC 11/27 SC 2329 Insulin Human Regular 0 Q6 11/29 0029 UT 11/29 SC 0719 Lisinopril 20 MG DAILY 11/28 0900 11/29 PO 0857 Magnesium Sulfate 1 GM ONCE ONE 11/29 0900 DC 11/29 Dextrose/Water 100 ML IV 11/29 1259 1226 Patient Medication 1 ED ONE ONE 11/29 1430 DC Teaching ED 11/29 1431 Pravastatin Sodium 40 MG 1700 11/28 1700 11/28 PO 1840 Last 24 Hrs of Lab/Jose J Results Last 24 Hrs of Labs/Mics: Laboratory Tests 11/29/17 0738: Anion Gap 11, Estimated GFR > 60, BUN/Creatinine Ratio 19.1, Magnesium 1.5 L Assessment/Plan Assessment: 62-year-old man with past medical history of atrial fibrillation status post cardioversion on Eliquis, HFpEF (LVEF >60%), CAD status post CABG 2015, hyperlipidemia, asthma, COPD, and insulin-dependent diabetes mellitus sent in from cardiac rehab for tachycardia. Patient reports feeling well and in his normal state of health. He arrived to cardiac rehab 11/27 where he was found to reportedly have a heart rate around "150" for which he was referred to the [place] ED. he is completely asymptomatic without chest pain, palpitations, short of breath Objective Vitals: Temp 98.6, HR 139-150, RR 18, BP 106-120/70-6, SPO2 94-97% on room air Labs/imaging/studies -CBC: WBC 9.1, hemoglobin 14.6, hematocrit 43.8, platelet 291 -BMP: NA 140, K 3.6, CL 102, CO2 29, BUN 22, creatinine 1.2, anion gap 10, glucose 177 -LFT: Within normal limits -Miscellaneous: Lactic acid 1.6, magnesium 1.3, troponin I 0.06, INR 1.29, TSH 0.49, BNP 4500, d-dimer <200 -EKG: Regular narrow complex tachycardia, rapid A. fib versus AVNRT/AVRT -Echocardiogram 02/25/17: LVEF >65% without regional wall motion abnormalities and stage I diastolic dysfunction and moderate concentric LVH -CXR: 1. Cardiomegaly. 2. Possible trace pleural fluid in the right minor fissure versus pleural thickening. Findings are unchanged from prior exam. 3. No focal acute pulmonary process seen Atrial fibrillation with rapid ventricular response Clinically patient appears to have atrial fibrillation with rapid ventricular response in the context of known atrial fibrillation previously on anticoagulation and rate control medications. Patient is completely unaware of his symptoms and it is unclear how long he has been in this uncontrolled tachycardic rhythm. Patient was given several boluses of intravenous metoprolol with inadequate rate control and was placed on a Cardizem drip and continued on his previous cardiac meds. * Admitted to telemetry floor * Telemetry monitoring * Vitals every shift * Status post cardioversion 11/29/2017, successful conversion to sinus rhythm * Cardizem drip was stopped * Started flecainide 100 mg twice daily to maintain sinus rhythm * Continue home dose of Coreg * Continue home dose of apixaban 5 twice daily Heart failure diastolic Continue Lasix 40 twice daily follow-up echocardiogram showed ejection fraction 50% CAD status post CABG Continue home medication Coreg, lisinopril COPD TRC nebs Insulin-dependent diabetes mellitus Accu-Cheks Insulin sliding scale Hold oral hypoglycemic agents Distant history of drug abuse, last use 5 years ago Current smoker, 5-6 cigarettes per day Morbid obesity DVT Prophylaxis on apixaban Pain pathway ordered Full code Consistent carbohydrate diet Problem List: 1. Tachycardia Pain Ratin Pain Location: N/A Pain Goal: Remain pain free Pain Plan: TYLENOL Tomorrow's Labs & Rationales: CBC BEP Phil Villavicencio 11/29/17 1150: Attending Review Statement Attending Statement Attending MD Statement: examined this patient, discuss w/resident/PA/[employer], agreed w/resident/PA/[employer], reviewed EMR data (avail), discussed with nursing, discussed with case mgmt Attending Assessment/Plan: 62-year-old man with past medical history of atrial fibrillation status post cardioversion on Eliquis, HFpEF (LVEF >60%), CAD status post CABG 2015, hyperlipidemia, asthma, COPD, and insulin-dependent diabetes mellitus sent in from cardiac rehab for tachycardia and found to be in afib/aflutter with RVR. afib / aflutter with RVR. on eliquis and coreg at home. sent in from cardiac rehab for high HR. Found to be in aflutter with rates around 150-180s. Got iv metoprolol in ER times 2 and then put on cardizem drip. Pt had cardioversion previously in May 2016 at [facility]. Currently on coreg and started on flecanide. Pt going for cardioversion today. will see how he does post cardioversion. Rates this morning were still going up to 140s with exertion. Hypomagnesemia- will replace and recheck in am .
--- NOTE | 2017-11-29 09:00 | ECHOCARDIOGRAM REPORT ---
DEANA WINTERS Age: 62 : 1955 Gender: M Exam Date: 11/28/2017 16:35 Exam Location: ER Ht (in): 71 Wt (lb): 280 BSA: 2.57 BP: 102 / 67 Ordering Physician: Sanju Jenkins MD Referring Physician: Julian Rodriguez MD Chief, SoC Technologist: Elizabeth Merida STEPHANIE Room Number: [id number] Indications: Afib/flutter Rhythm: Sinus Technical Quality: Good FINDINGS Left Ventricle Normal size left ventricle. Moderate concentric left ventricular hypertrophy. Mildly reduced global left ventricular systolic function. Left ventricular ejection fraction is estimated at 45-50 %. No obvious regional wall motion abnormalities. Right Ventricle The right ventricle is normal in size and function. Right Atrium The right atrium is normal in size. Left Atrium Moderate left atrial dilatation. Mitral Valve Mild thickening/calcification of the mitral valve leaflets. Mild-to- moderate mitral regurgitation. Aortic Valve Focal thickening of the aortic valve cusps. No aortic stenosis. No aortic regurgitation. Tricuspid Valve Tricuspid valve is normal in structure and function. Mild tricuspid regurgitation. Right ventricular systolic pressure estimated to be elevated at 40-45 mmHg. Pulmonic Valve Pulmonic valve not well visualized, grossly normal. Trace pulmonic regurgitation. Pericardium Normal pericardium without effusion. No pleural effusion. Great Vessels Normal aortic root dimension. The aortic arch and great vessels are not well seen. CONCLUSIONS Moderate concentric left ventricular hypertrophy. Mildly reduced global left ventricular systolic function. Left ventricular ejection fraction is estimated at 45-50 %. Moderate left atrial dilatation. Mild thickening/calcification of the mitral valve leaflets. [id number] mitral regurgitation. Focal thickening of the aortic valve cusps. No aortic stenosis. Right ventricular systolic pressure estimated to be elevated at 40- 45 mmHg. The aortic arch and great vessels are not well seen. Julian Rodriguez M.D. (Electronically Signed) Final Date: 29 November 2017 08:56 MEASUREMENTS (Male / Female) Normal Values 2D ECHO LV Diastolic Diameter PLAX 4.6 cm 4.2 - 5.9 / 3.9 - 5.3 cm LV Systolic Diameter PLAX 4.0 cm 2.1 - 4.0 cm LV Fractional Shortening PLAX 13.0 % 25 - 46 % LV Ejection Fraction 2D Teich 28.1 % IVS Diastolic Thickness 1.4 cm LVPW Diastolic Thickness 1.4 cm LV Relative Wall Thickness 0.6 RV Internal Dim ED PLAX 3.2 cm 1.9 - 3.8 cm LVOT Diameter 1.8 cm Aortic Root Diameter 2.6 cm LA Systolic Diameter LX 4.7 cm 3.0 - 4.0 / 2.7 - 3.8 cm LV Diastolic Length 4C 7.4 cm 6.9 - 10.3 cm LV Diastolic Area 4C 23.0 cm LV Diastolic Volume MOD 4C 60.0 cm LV Ejection Fraction MOD 4C 28.3 % LV Stroke Volume MOD 4C 17.0 cm LV Systolic Length 4C 6.6 cm LV Systolic Area 4C 18.2 cm LV Systolic Volume MOD 4C 43.0 cm LV Ejection Fraction MOD 2C 38.0 % LV Diastolic Volume 4C AL 61.1 cm 85 - 139 / 69 - 109 cm LV Systolic Volume 4C AL 42.4 cm LV Ejection Fraction 4C AL 30.6 % LV Stroke Volume 4C AL 18.7 cm LV Ejection Fraction 2C AL 39.6 % LA Volume 96.0 cm 18 - 58 / 22 - 52 cm Ascending Aorta Diameter 3.0 cm DOPPLER AV Peak Velocity 100.0 cm/s AV Peak Gradient 4.0 mmHg AV Mean Velocity 75.1 cm/s AV Mean Gradient 3.0 mmHg AV Velocity Time Integral 20.9 cm LVOT Peak Velocity 118.0 cm/s LVOT Peak Gradient 5.6 mmHg LVOT Mean Velocity 76.5 cm/s LVOT Mean Gradient 3.0 mmHg LVOT Velocity Time Integral 22.4 cm LVOT Stroke Volume 57.0 cm AV Area Cont Eq vti 2.7 cm AV Area Cont Eq pk 3.0 cm MV Peak Velocity 187.0 cm/s MV Peak Gradient 14.0 mmHg MV Mean Velocity 85.4 cm/s MV Mean Gradient 4.0 mmHg Mitral E Point Velocity 133.0 cm/s Mitral A Point Velocity 133.0 cm/s Mitral E to A Ratio 1.0 MV PHT Velocity 193.0 cm/s MV Deceleration Limestone 1115.0 cm/s MV Pressure Half Time 51.9 ms MV Area PHT 4.2 cm MV Deceleration Time 204.0 ms TR Peak Velocity 284.0 cm/s TR Peak Gradient 32.3 mmHg Right Atrial Pressure 10.0 mmHg Pulmonary Artery Systolic Pressure 42.3 mmHg Right Ventricular Systolic Pressure 42.3 mmHg PV Peak Velocity 67.6 cm/s PV Peak Gradient 1.8 mmHg PV Mean Velocity 52.0 cm/s PV Mean Gradient 1.0 mmHg PV Velocity Time Integral 15.0 cm LV E' Lateral Velocity 7.5 cm/s Mitral E to LV E' Lateral Ratio 17.7 LV E' Septal Velocity 8.1 cm/s Mitral E to LV E' Septal Ratio 16.4
--- NOTE | 2017-11-29 11:28 | Proc Note Cardiology ---
Cardiology Procedure Procedure Date: 11/29/17 Cardiology Procedure(s): electrical cardioversion Pre-Operative Diagnosis: Atrial flutter Post-Operative Diagnosis: Converted to sinus rhythm Estimated Blood Loss: n/a Anesthesia: local monitored anesthesi Procedure Findings: The patient is 62-year-old male with known heart disease, bypass surgery about 2 years ago, previous episode of atrial fibrillation with electrical cardioversion. The patient presented at cardiac rehab 2 days ago tachycardic. He was sent to the ER and found to be in atrial flutter with 2-1 conduction. He has been treated with Cardizem and his rate has improved but he has remained in atrial flutter. The patient has been fully anticoagulated for some time. He was recommended cardioversion. Because he has been anticoagulated it was not felt necessary to do a transesophageal echocardiogram. The patient was brought to the procedure room in the fasting state. Informed consent was signed and timeout was taken and all agreed with the patient, procedure and personnel. The patient was sedated by anesthesia personnel. When he was adequately sedated a 200 J synchronized shock was delivered through anterior-posterior pads. He converted instantly to sinus rhythm. He will be watched until he is fully recovered from anesthesia and then returned to the floor. The Cardizem drip will be discontinued. Impression: Successful electrical cardioversion from atrial flutter to sinus rhythm.
--- NOTE | 2017-11-29 11:33 | PN- Cardiology ---
Subjective Subjective: The patient has remained in atrial flutter overnight. He remains on Cardizem drip for rate control. He is n.p.o. for cardioversion. His echocardiogram showed adequate LV function and dilated atrium. Objective Vital Signs and I&Os Vital Signs Date Time Temp Pulse Resp B/P B/P Pulse O2 O2 Flow FiO2 Mean Ox Delivery Rate 11/29 0858 100 142/78 11/29 0857 100 142/78 11/29 0800 Room Air Room Air 11/29 0612 98.1 93 20 122/80 94 Room Air 11/29 0000 Room Air 11/28 2240 98.4 109 20 140/88 94 Room Air 11/28 2134 100 18 138/60 11/28 1816 Room Air 11/28 1806 97.7 92 20 142/70 96 Room Air 11/28 1724 98.0 93 18 161/75 100 Room Air Intake & Output 11/29 1600 11/29 0800 11/29 0000 11/28 1600 11/28 0800 11/28 0000 Intake Total 120 120 Output Total Balance 120 120 Intake, Oral 120 120 Patient 298 lb Weight Weight Bed scale Measurement Method Physical Exam: No distress HEENT exam normal Chest clear Heart irregular rhythm, no murmurs Extremities no edema Current Medications: Current Medications Sig/[place] Start time Last Medication Dose Route Stop Time Status Admin Acetaminophen 650 MG Q6P PRN 11/27 2144 AC PO Albuterol Sulfate 2 PUF Q6-PRN PRN 11/27 2144 AC INH Apixaban 5 MG BID 11/27 2140 11/29 PO 0858 Carvedilol 25 MG BID 11/27 2140 11/29 PO 0858 Dextrose/Sodium 1,000 ML Q13H 11/29 0030 DC Chloride IV Diltiazem HCl 125 MG Q24H 11/28 1900 11/28 Sodium Chloride 100 ML IV 1840 Diltiazem HCl 125 MG Q24H 11/27 2200 DC 11/27 Sodium Chloride 100 ML IV 2307 Furosemide 40 MG BID 11/27 2140 AC 11/29 PO 0857 Gabapentin 300 MG TID 11/27 2140 AC 11/29 PO 0859 Insulin Aspart 0 TIDAC 11/28 0800 DC 11/28 SC 1737 Insulin Detemir 50 UNITS QPM 11/28 2100 AC 11/27 SC 2329 Insulin Human Regular 0 Q6 11/29 0029 AC 11/29 SC 0719 Lisinopril 20 MG DAILY 11/28 0900 AC 11/29 PO 0857 Magnesium Sulfate 1 GM ONCE ONE 11/29 0900 AC Dextrose/Water 100 ML IV 11/29 1259 Magnesium Sulfate 1 GM Q2H 11/28 1100 DC 11/28 Dextrose/Water 100 ML IV 11/28 1459 1540 Potassium Chloride 0 .STK-MED ONE 11/28 1215 DC PO Pravastatin Sodium 40 MG 1700 11/28 1700 AC 11/28 PO 1840 Results Last 48 Hrs of Labs/Mics: Laboratory Tests 11/29/17 0738: Anion Gap 11, Estimated GFR > 60, BUN/Creatinine Ratio 19.1, Magnesium 1.5 L 11/28/17 0412: Anion Gap 10, Estimated GFR > 60, BUN/Creatinine Ratio 19.2, Magnesium 1.5 L, Troponin I 0.06, CBC w Diff MAN DIFF ORDERED, RBC 4.54 L, MCV 88.8, MCH 29.6, MCHC 33.3, RDW 15.3 H, MPV 8.6, Gran % 47.1, Lymphocytes % 41.1, Monocytes % 7.9, Eosinophils % 3.2, Basophils % 0.7, Absolute Granulocytes 4.3, Segmented Neutrophils 48, Absolute Lymphocytes 3.7 H, Lymphocytes 41, Monocytes 7, Absolute Monocytes 0.7 H, Eosinophils 4, Absolute Eosinophils 0.3, Absolute Basophils 0.1, Platelet Estimate ADEQUATE, Normochromic RBCs VERIFIED, Ovalocytes FEW, Elliptocytes RARE, Fld Total RBCs Counted 100 11/27/17 2200: Troponin I 0.05 11/27/17 1601: Anion Gap 10, Estimated GFR > 60, BUN/Creatinine Ratio 18.3, Glucose 177 H, Lactic Acid 1.6, Calcium 9.4, Magnesium 1.3 L, Total Bilirubin 0.5, AST 16 L, ALT 19 L, Alkaline Phosphatase 75, Troponin I 0.06, Zdw-G-[id number] Pept 4550 H, Total Protein 5.9 L, Albumin 3.1 L, Globulin 2.8, Albumin/Globulin Ratio 1.1, TSH &T3 &Free T4 Intrp 0.489 11/27/17 1524: PT 14.1 H, INR 1.29 H, APTT 32, D-Dimer High Sensitivty < 200, CBC w Diff NO MAN DIFF REQ, RBC 4.96, MCV 88.4, MCH 29.4, MCHC 33.3, RDW 15.2 H, MPV 8.8, Gran % 53.7, Lymphocytes % 34.5, Monocytes % 8.5, Eosinophils % 3.0, Basophils % 0.3, Absolute Granulocytes 4.9, Absolute Lymphocytes 3.1, Absolute Monocytes 0.8 H, Absolute Eosinophils 0.3, Absolute Basophils 0 Recent Imaging Studies: CONCLUSIONS Moderate concentric left ventricular hypertrophy. Mildly reduced global left ventricular systolic function. Left ventricular ejection fraction is estimated at 45-50 %. Moderate left atrial dilatation. Mild thickening/calcification of the mitral valve leaflets. [id number] mitral regurgitation. Focal thickening of the aortic valve cusps. No aortic stenosis. Right ventricular systolic pressure estimated to be elevated at 40- 45 mmHg. The aortic arch and great vessels are not well seen. Julian Rodriguez M.D. (Electronically Signed) Final Date: 29 November 2017 08:56 Assessment/Plan Assessment/Plan The patient underwent successful electrical cardioversion. His IV Cardizem can be discontinued. I would recommend starting him on an antiarrhythmic drug as this is his second episode of atrial fibrillation. I suggest flecainide 100 mg twice daily. If the patient is stable and remains in sinus rhythm he can be discharged in the a.m. Continue telemetry? Yes
[2017-11-29 14:39] VITALS: BP 126/84
[2017-11-29] MEDS ORDERED: FLECAINIDE ACE100 M1 PO (15:51)
[2017-11-29 21:41] VITALS: BP 160/88
--- NOTE | 2017-11-30 02:14 | RADIOLOGY REPORT ---
EXAMINATION: CHEST 1 VIEW CLINICAL INFORMATION: Shortness of breath. COPD. COMPARISON: November 27, 2017. TECHNIQUE: An AP view of the chest is provided. Evaluation is quite limited due to overlying external hardware obscuring the right hemithorax. FINDINGS: The cardiac silhouette is prominent, though stable. Intact midline sternal wires are present. The mediastinal and hilar contours are unremarkable. There are neither pleural effusions nor pneumothoraces. There are no consolidations. The osseous structures are stable. IMPRESSION: Limited examination as stated above. Stable mildly enlarged cardiac silhouette.
--- NOTE | 2017-11-30 03:15 | Event Note ---
Event Note Event Note: Situation-rapid response was called for shortness of breath Background-patient is a 62-year-old gentleman with past medical history of asthma, diabetes, heart failure with preserved ejection fraction, hyperlipidemia CABG, COPD, atrial fibrillation on Eliquis status post cardioversion day 2 suddenly developed shortness of breath Assessment Patient is on 4 L of oxygen sitting on his bed requesting neb treatment. He said he is scared. Patient appears to be in mild distress. Morbidly obese, cardiovascular [id number] no murmur, respiratory system-bilateral lung examination decreased air entry both sides. Plan stat nebulization was given. Patient felt better after nebulization. Stat ABG, chest x-ray, CBCs, BP, d-dimer, CTA was ordered. We will get pulmonology consult in the AM. Patient family has been updated his ABG shows respiratory acidosis. Patient was put on BiPAP. We will do a repeat ABG in an hour to check for improvement of respiratory status.
[2017-11-30 03:39] LABS: ABSOLUTE BASOPHIL COUNT 0 /CUMM (0.0-0.2); ABSOLUTE EOSINOPHIL COUNT 0.2 /CUMM (0.0-0.7); ABSOLUTE LYMPH COUNT 2.3 /CUMM (1.2-3.4); BASOPHIL % 0.2 % (0.0-2.0)
[2017-11-30 03:41] LABS: ABSOLUTE GRANULOCYTE CT 9.2 /CUMM (1.4-6.5); ABSOLUTE MONOCYTE COUNT 0.2 /CUMM (0.10-0.60); EOSINOPHIL % 1.6 % (0-5); MEAN CORPUSCULAR HGB 28.8 PG (27.0-31.0); MEAN CORPUSCULAR HGB CONC 32.1 G/DL (33.0-37.0); MEAN CORPUSCULAR VOLUME 89.8 FL (80.0-94.0); MEAN PLATELET VOLUME 8.9 FL (7.4-10.4); PLATELET COUNT 282 /CUMM (130-400); RBC DISTRIBUTION WIDTH 14.9 % (11.5-14.5); RED BLOOD CELL CT 5.18 /CUMM (4.70-6.10); WHITE BLOOD CELL COUNT 11.8 /CUMM (4.8-10.8)
[2017-11-30 03:44] LABS: GRANULOCYTE % 77.5 % (42.2-75.2); HEMATOCRIT 46.5 % (42-52)
[2017-11-30 04:06] LABS: PT 14.7 SEC (9.4-12.5)
[2017-11-30 06:42] VITALS: BP 138/80
--- NOTE | 2017-11-30 10:51 | PN- Housestaff ---
Dilan Harrington 11/30/17 1044: Subjective Follow-up For: Leslie camargo with rapid ventricular rate Tele-Events Since Last Visit: SINUS AFTER CARDIOVERSION Subjective: Patient was seen and examined this morning. He is alert awake and oriented to time place and person. Rapid response was called early this morning given his shortness of breath and anxiety. Stat ABG was done which showed respiratory acidosis. He was kept on BiPAP overnight. With improvement of ABG. He was given 2 doses of IV methylprednisone and 1 dose of Ativan for anxiety. He continues to report shortness of breath. Denies any chest pain, palpitations , fever or chills. He is status post cardioversion now in sinus rhythm Review of Systems Constitutional: Reports: see HPI. Objective Last 24 Hrs of Vital Signs/I&O Vital Signs Date Time Temp Pulse Resp B/P B/P Pulse O2 O2 Flow FiO2 Mean Ox Delivery Rate 11/30 0900 88 97 11/30 0800 94 BIPAP 40% 11/30 0710 97 Nasal 2.0L Cannula 11/30 0642 97.5 85 22 138/80 98 BIPAP 11/30 0605 83 97 11/30 0559 82 98 11/30 0347 91 98 11/30 0333 95 98 11/30 0051 96 Nasal 2.0L Cannula 11/30 0020 95 Nasal 2.0L Cannula 11/29 2200 93 Nasal 2.0L Cannula 11/29 2141 98.0 80 24 160/88 90 11/29 2132 84 160/88 11/29 1439 97.5 76 20 126/84 96 Room Air Intake & Output 11/30 1600 11/30 0800 11/30 0000 Intake Total 480 480 Output Total Balance 480 480 Intake, Oral 480 480 Number 0 Bowel Movements Physical Exam General Appearance: Alert, Oriented X3, Cooperative, No Acute Distress Other Physical Findings: HEENT: NCAT, Patricia, EOMI, anicteric sclera -Neck: Supple, no JVP, trachea midline, no accessory respiratory muscle use -Cardio: Normal S1/S2; tachycardic, irregularly irregular -Pulmonary: Diminished bibasilar airflow -Abdomen: Soft, nontender, nondistended, bowel sounds intact -Neuro: Awake and alert, cranial nerves II through XII grossly intact -Extremities: No edema, normal pulses Current Medications: Current Medications Sig/[place] Start time Last Medication Dose Route Stop Time Status Admin Acetaminophen 650 MG Q6P PRN 11/27 2145 AC PO Albuterol Sulfate 3 ML ONCE ONE 11/30 0300 DC 11/30 INH 11/30 0301 0254 Albuterol Sulfate 3 ML ONCE ONE 11/30 0045 DC 11/30 INH 11/30 0046 0035 Albuterol Sulfate 2 PUF Q6-PRN PRN 11/27 2145 AC 11/29 INH 2100 Apixaban 5 MG BID 11/27 2141 AC 11/30 PO 1005 Carvedilol 25 MG BID 11/27 2141 AC 11/30 PO 1009 Diltiazem HCl 125 MG Q24H 11/28 1900 DC 11/28 Sodium Chloride 100 ML IV 1840 Flecainide Acetate 100 MG BID 11/29 1145 AC 11/30 PO 1005 Furosemide 40 MG BID 11/27 2141 AC 11/30 PO 1005 Gabapentin 300 MG TID 11/27 2141 AC 11/30 PO 1005 Insulin Aspart 0 TIDAC 11/29 1230 AC 11/30 SC 1009 Insulin Detemir 50 UNITS QPM 11/28 2100 AC 11/29 SC 2132 Insulin Human Regular 0 Q6 11/29 0029 DC 11/29 SC 0719 Ipratropium [place] 2.5 ML ONCE ONE 11/30 0045 DC 11/30 INH 11/30 0046 0035 Lisinopril 20 MG DAILY 11/28 0900 AC 11/30 PO 1005 Lorazepam 0.5 MG ONCE ONE 11/30 0400 DC 11/30 IV 11/30 0401 0401 Magnesium Sulfate 1 GM ONCE ONE 11/29 0900 DC 11/29 Dextrose/Water 100 ML IV 11/29 1259 1226 Methylprednisolone 80 MG ONCE ONE 11/30 0330 DC 11/30 IV 11/30 0331 0336 Methylprednisolone 40 MG ONCE ONE 11/30 0130 DC 11/30 IV 11/30 0131 0148 Patient Medication 1 ED ONE ONE 11/29 1430 DE Teaching ED 11/29 1431 Pravastatin Sodium 40 MG 1700 11/28 1700 AC 11/29 PO 1737 Last 24 Hrs of Lab/Jose J Results Last 24 Hrs of Labs/Mics: Laboratory Tests 11/30/17 0915: pH 7.31 L, pCO2 49 H, pO2 122 H, HCO3 24, ABG O2 Sat (Measured) 97.0, Carboxyhemoglobin 0.8 L, O2 Concentration % 40%, Respiration Rate 24, O2 Delivery Method BIPAP, Vent Mode ST, Expiratory Pressure 6, Inspiratory Pressure 22, Phlebotomy Draw Site RIGHT RADIAL 11/30/17 0700: Anion Gap 11, Estimated GFR 56 L, BUN/Creatinine Ratio 21.5, Magnesium 1.6 11/30/17 0320: Anion Gap 10, Estimated GFR 56 L, BUN/Creatinine Ratio 22.3, Magnesium 1.5 L, PT 14.7 H, INR 1.34 H, D-Dimer High Sensitivty 438 H, CBC w Diff NO MAN DIFF REQ, RBC 5.18, MCV 89.8, MCH 28.8, MCHC 32.1 L, RDW 14.9 H, MPV 8.9, Gran % 77.5 H, Lymphocytes % 19.1 L, Monocytes % 1.6 L, Eosinophils % 1.6, Basophils % 0.2, Absolute Granulocytes 9.2 H, Absolute Lymphocytes 2.3, Absolute Monocytes 0.2, Absolute Eosinophils 0.2, Absolute Basophils 0 11/30/17 0310: pH 7.22 *L, pCO2 55 H, pO2 201 H, HCO3 22, ABG O2 Sat (Measured) 98.0, P-50 ( Temp Corrected) N, Carboxyhemoglobin 0.6 L, O2 Concentration % 100%, Temperature 98.6, O2 Delivery Method NRB, Phlebotomy Draw Site RIGHT RADIAL 11/30/17 0100: Troponin I 0.05 Assessment/Plan Assessment: 62-year-old man with past medical history of atrial fibrillation status post cardioversion on Eliquis, HFpEF (LVEF >60%), CAD status post CABG 2015, hyperlipidemia, asthma, COPD, and insulin-dependent diabetes mellitus sent in from cardiac rehab for tachycardia. Patient reports feeling well and in his normal state of health. He arrived to cardiac rehab 11/27 where he was found to reportedly have a heart rate around "150" for which he was referred to the [place] ED. he is completely asymptomatic without chest pain, palpitations, short of breath Objective Vitals: Temp 98.6, HR 139-150, RR 18, BP 106-120/70-6, SPO2 94-97% on room air Labs/imaging/studies -CBC: WBC 9.1, hemoglobin 14.6, hematocrit 43.8, platelet 291 -BMP: NA 140, K 3.6, CL 102, CO2 29, BUN 22, creatinine 1.2, anion gap 10, glucose 177 -LFT: Within normal limits -Miscellaneous: Lactic acid 1.6, magnesium 1.3, troponin I 0.06, INR 1.29, TSH 0.49, BNP 4500, d-dimer <200 -EKG: Regular narrow complex tachycardia, rapid A. fib versus AVNRT/AVRT -Echocardiogram 02/25/17: LVEF >65% without regional wall motion abnormalities and stage I diastolic dysfunction and moderate concentric LVH -CXR: 1. Cardiomegaly. 2. Possible trace pleural fluid in the right minor fissure versus pleural thickening. Findings are unchanged from prior exam. 3. No focal acute pulmonary process seen Atrial fibrillation with rapid ventricular response STATUS post cardioversion Clinically patient appears to have atrial fibrillation with rapid ventricular response in the context of known atrial fibrillation previously on anticoagulation and rate control medications. Patient is completely unaware of his symptoms and it is unclear how long he has been in this uncontrolled tachycardic rhythm. Patient was given several boluses of intravenous metoprolol with inadequate rate control and was placed on a Cardizem drip and continued on his previous cardiac meds. * Admitted to telemetry floor * Telemetry monitoring * Vitals every shift * Status post cardioversion 11/29/2017, successful conversion to sinus rhythm * Cardizem drip was stopped * Started flecainide 100 mg twice daily to maintain sinus rhythm * Continue home dose of Coreg * Continue home dose of apixaban 5 twice daily Acute hypercarbic respiratory failure on BiPAP Overnight patient was found to have shortness of breath associated with anxiety. Stat ABG showed respiratory acidosis 7.22, 55, 201, 22. He was kept on BiPAP overnight. * Continue BiPAP * Follow-up ABG * Patient GOT 80 mg of methylprednisolone * D-dimers were elevated however patient is refusing to get CTA * Consider Pulm CONSULT Heart failure diastolic Continue Lasix 40 twice daily follow-up echocardiogram showed ejection fraction 50% CAD status post CABG Continue home medication Coreg, lisinopril COPD TRC nebs Insulin-dependent diabetes mellitus Accu-Cheks Insulin sliding scale Hold oral hypoglycemic agents Distant history of drug abuse, last use 5 years ago Current smoker, 5-6 cigarettes per day Morbid obesity DVT Prophylaxis on apixaban Pain pathway ordered Full code Consistent carbohydrate diet Problem List: 1. Tachycardia Pain Ratin Pain Location: N/A Pain Goal: Remain pain free Pain Plan: TYLINOL Tomorrow's Labs & Rationales: CBC BEP Jonathan TANNER,Amir 11/30/17 1543: Attending MD Review Statement Attending Statement Attending MD Statement: examined this patient, discuss w/resident/PA/BRIM SETTER, agreed w/resident/PA/BRIM SETTER, reviewed EMR data (avail), discussed with nursing Attending Assessment/Plan: events from last night noted. f/u Pulm recs Cont to monitor on tele and f/u cards recs
--- NOTE | 2017-11-30 13:08 | CT SCAN REPORT ---
EXAMINATION: CT ANGIOGRAM OF THE CHEST WITH AND WITHOUT CONTRAST (CT PULMONARY ANGIOGRAM FOR PE) CLINICAL INFORMATION: Shortness of breath. Question PE COMPARISON: 08/12/2017 TECHNIQUE: Prior to contrast administration, noncontrast localization images were obtained. Subsequently, multidetector volumetric imaging was performed from the thoracic inlet to below the diaphragms following the administration of 94 mL Optiray 320 intravenous contrast. No contrast reaction reported. Sagittal, coronal, and MIP oblique sagittal reformatted images were obtained on the CT workstation, uploaded to PACS, and reviewed. FINDINGS: QUALITY OF STUDY/CONTRAST BOLUS: Suboptimal due to patient respiratory motion artifact and contrast under filling particularly in the lower lobes. PULMONARY ARTERIES: No central pulmonary embolus seen. THORACIC AORTA: No aneurysm or dissection. LUNG: There are patchy areas of groundglass opacity and nodular consolidation in the right lower lobe. There is some groundglass opacity in the left lower lobe, as well as motion artifact. There may be subtle peripheral interlobular septal thickening of the right upper lobe. Posterior dependent right lower lobe atelectasis. PLEURA: There is a small right pleural effusion with pleural fluid tracking in the right minor fissure. Trace left pleural effusion. MEDIASTINUM: Borderline right hilar lymphadenopathy. Prominent mediastinal lymph nodes. There is subcarinal lymphadenopathy measuring 3.1 x 1.4 cm. Sternal wires and mediastinal vascular clips. Mild cardiomegaly. No evidence of septal bowing or right heart strain. CHEST WALL/AXILLA: Bilateral gynecomastia. No internal mammary or axillary lymphadenopathy. OSSEOUS STRUCTURES: No acute or suspicious osseous abnormality. Degenerative changes of the visualized thoracolumbar spine. UPPER ABDOMEN: No adrenal mass. There is reflux of contrast into the hepatic veins consistent with right-sided heart failure. IMPRESSION: Although the study is suboptimal, no central pulmonary embolus is seen. There is reflux of contrast into the hepatic veins suggesting right-sided heart failure. There is also subtle peripheral interlobular septal thickening of the right upper lobe which can be seen with interstitial pulmonary edema. There is a small right, trace left pleural effusions as well. There are patchy areas of groundglass opacity and nodular consolidation in the right lower lobe. The appearance is nonspecific. The findings are new since 08/12/2017 arguing against a neoplasm. These could represent infection, inflammation, atelectasis, or pulmonary edema. Borderline right hilar lymphadenopathy and prominent mediastinal lymph nodes including subcarinal lymphadenopathy. Findings are nonspecific, possibly reactive.
[2017-11-30 18:03] VITALS: BP 142/80
[2017-11-30 22:25] VITALS: BP 172/98
[2017-12-01 07:07] VITALS: BP 166/90
[2017-12-01 08:37] LABS: ABSOLUTE BASOPHIL COUNT 0 /CUMM (0.0-0.2); ABSOLUTE EOSINOPHIL COUNT 0 /CUMM (0.0-0.7); ABSOLUTE GRANULOCYTE CT 15.3 /CUMM (1.4-6.5); ABSOLUTE LYMPH COUNT 1.3 /CUMM (1.2-3.4); ABSOLUTE MONOCYTE COUNT 0.4 /CUMM (0.10-0.60); BASOPHIL % 0.2 % (0.0-2.0); EOSINOPHIL % 0 % (0-5); HEMATOCRIT 43.5 % (42-52); MEAN CORPUSCULAR HGB CONC 33.5 G/DL (33.0-37.0); MEAN CORPUSCULAR VOLUME 89.6 FL (80.0-94.0); MEAN PLATELET VOLUME 9.7 FL (7.4-10.4); PLATELET COUNT 249 /CUMM (130-400); RED BLOOD CELL CT 4.85 /CUMM (4.70-6.10)
--- NOTE | 2017-12-01 09:23 | PN- Housestaff ---
Subjective Follow-up For: Leslie camargo with rapid ventricular rate Acute hypercarbic respiratory failure Tele-Events Since Last Visit: SINUS AFTER CARDIOVERSION Subjective: Patient was seen and examined this morning. He is alert awake and oriented to time place and person. He continues to report shortness of breath. Denies any chest pain, palpitations , fever or chills. He is status post cardioversion now in sinus rhythm. He is on 3 L nasal cannula oxygen supplementation. Off from BiPAP Reports choking on his food this morning, will get formal swallow evaluation Review of Systems Constitutional: Reports: see HPI. Objective Last 24 Hrs of Vital Signs/I&O Vital Signs Date Time Temp Pulse Resp B/P B/P Pulse O2 O2 Flow FiO2 Mean Ox Delivery Rate 12/01 0824 90 166/90 12/01 0707 98.4 90 22 166/90 91 12/01 0000 95 Nasal 3.0L Cannula 11/30 2315 94 Nasal 3.0L Cannula 11/30 2225 98.0 86 18 172/98 97 Nasal 3.0L Cannula 11/30 2143 164/82 11/30 1803 98.3 90 20 142/80 95 Nasal 3.0L Cannula 11/30 1600 Nasal 3.0L Cannula 11/30 1327 Nasal 3.0L Cannula 11/30 1130 88 94 Intake & Output 12/01 1600 12/01 0800 12/01 0000 Intake Total 600 600 Output Total Balance 600 600 Intake, Oral 600 600 Patient 129.444 kg Weight Weight Chair scale Measurement Method Physical Exam General Appearance: Alert, Oriented X3, Cooperative, No Acute Distress Other Physical Findings: -HEENT: NCAT, Patricia, EOMI, anicteric sclera -Neck: Supple, no JVP, trachea midline, no accessory respiratory muscle use -Cardio: Normal S1/S2; tachycardic, irregularly irregular -Pulmonary: Diminished bibasilar airflow -Abdomen: Soft, nontender, nondistended, bowel sounds intact -Neuro: Awake and alert, cranial nerves II through XII grossly intact -Extremities: No edema, normal pulses Current Medications: Current Medications Sig/[place] Start time Last Medication Dose Route Stop Time Status Admin Acetaminophen 650 MG Q6P PRN 11/27 2145 AC PO Albuterol Sulfate 2 PUF Q6 11/30 1800 AC 11/30 INH 1723 Albuterol Sulfate 3 ML Q4P PRN 11/30 1300 AC INH Albuterol Sulfate 2 PUF Q6-PRN PRN 11/27 2145 DC 11/29 INH 2100 Apixaban 5 MG BID 11/27 214 AC 12/01 PO 0824 Azithromycin 500 MG DAILY 11/30 1600 DC PO Carvedilol 25 MG BID 11/27 2141 AC 12/01 PO 0824 Flecainide Acetate 100 MG BID 11/29 1145 AC 12/01 PO 0824 Furosemide 40 MG BID 11/27 214 AC 12/01 PO 0824 Gabapentin 300 MG TID 11/27 214 AC 12/01 PO 0824 Insulin Aspart 0 TIDAC/HS 11/30 1200 AC 12/01 SC 0823 Insulin Detemir 50 UNITS QPM 11/28 2100 AC 11/30 SC 2144 Lisinopril 20 MG DAILY 11/28 0900 AC 12/01 PO 0824 Lorazepam 1 MG ONCE ONE 11/30 1200 DC 11/30 IV 11/30 1201 1204 Methylprednisolone 40 MG Q12 11/30 2100 AC 12/01 IV 12/01 2300 0828 Pravastatin Sodium 40 MG 1700 11/28 1700 AC 11/30 PO 1722 Prednisone 40 MG DAILY 12/02 0900 AC PO Last 24 Hrs of Lab/Jose J Results Last 24 Hrs of Labs/Mics: Laboratory Tests 12/01/17 0710: Anion Gap 12, Estimated GFR > 60, BUN/Creatinine Ratio 28.2 H, CBC w Diff NO MAN DIFF REQ, RBC 4.85, MCV 89.6, MCH 30.0, MCHC 33.5, RDW 15.0 H, MPV 9.7, Gran % 89.5 H, Lymphocytes % 7.7 L, Monocytes % 2.6, Eosinophils % 0, Basophils % 0.2, Absolute Granulocytes 15.3 H, Absolute Lymphocytes 1.3, Absolute Monocytes 0.4, Absolute Eosinophils 0, Absolute Basophils 0 Assessment/Plan Assessment: 62-year-old man with past medical history of atrial fibrillation status post cardioversion on Eliquis, HFpEF (LVEF >60%), CAD status post CABG 2015, hyperlipidemia, asthma, COPD, and insulin-dependent diabetes mellitus sent in from cardiac rehab for tachycardia. Patient reports feeling well and in his normal state of health. He arrived to cardiac rehab 11/27 where he was found to reportedly have a heart rate around "150" for which he was referred to the [place] ED. he is completely asymptomatic without chest pain, palpitations, short of breath Objective Vitals: Temp 98.6, HR 139-150, RR 18, BP 106-120/70-6, SPO2 94-97% on room air Labs/imaging/studies -CBC: WBC 9.1, hemoglobin 14.6, hematocrit 43.8, platelet 291 -BMP: NA 140, K 3.6, CL 102, CO2 29, BUN 22, creatinine 1.2, anion gap 10, glucose 177 -LFT: Within normal limits -Miscellaneous: Lactic acid 1.6, magnesium 1.3, troponin I 0.06, INR 1.29, TSH 0.49, BNP 4500, d-dimer <200 -EKG: Regular narrow complex tachycardia, rapid A. fib versus AVNRT/AVRT -Echocardiogram 02/25/17: LVEF >65% without regional wall motion abnormalities and stage I diastolic dysfunction and moderate concentric LVH -CXR: 1. Cardiomegaly. 2. Possible trace pleural fluid in the right minor fissure versus pleural thickening. Findings are unchanged from prior exam. 3. No focal acute pulmonary process seen Atrial fibrillation with rapid ventricular response STATUS post cardioversion Clinically patient appears to have atrial fibrillation with rapid ventricular response in the context of known atrial fibrillation previously on anticoagulation and rate control medications. Patient is completely unaware of his symptoms and it is unclear how long he has been in this uncontrolled tachycardic rhythm. Patient was given several boluses of intravenous metoprolol with inadequate rate control and was placed on a Cardizem drip and continued on his previous cardiac meds. * Admitted to telemetry floor * Telemetry monitoring * Vitals every shift * Status post cardioversion 11/29/2017, successful conversion to sinus rhythm * Cardizem drip was stopped * Started flecainide 100 mg twice daily to maintain sinus rhythm * Continue home dose of Coreg * Continue home dose of apixaban 5 twice daily Acute hypercarbic respiratory failure on BiPAP most possibly from COPD and asthma exacerbation patient was found to have shortness of breath associated with anxiety. Stat ABG showed respiratory acidosis 7.22, 55, 201, 22. He was kept on BiPAP on and off with improvement of respiratory status * Continue BiPAP as needed * On IV methylprednisone 40 every 12 * D-dimers were elevated CTA was done, ruled out pulmonary embolism * Patient is requiring 3 L oxygen supplementation * TRC nebs Heart failure diastolic Continue Lasix 40 twice daily follow-up echocardiogram showed ejection fraction 50% CAD status post CABG Continue home medication Coreg, lisinopril COPD TRC nebs Insulin-dependent diabetes mellitus Accu-Cheks Insulin sliding scale Hold oral hypoglycemic agents Distant history of drug abuse, last use 5 years ago Current smoker, 5-6 cigarettes per day Morbid obesity DVT Prophylaxis on apixaban Pain pathway ordered Full code Consistent carbohydrate diet Problem List: 1. Tachycardia Pain Ratin Pain Location: n/a Pain Goal: Remain pain free Pain Plan: tylinol Tomorrow's Labs & Rationales: cbc bep
[2017-12-01 09:52] LABS: GRANULOCYTE % 89.5 % (42.2-75.2)
--- NOTE | 2017-12-01 12:30 | PN- Cardiology ---
Subjective Subjective: Patient continues to complain of cough which is primarily nonproductive. Tells me he feels like he was choking on his food this morning. Objective Vital Signs and I&Os Vital Signs Date Time Temp Pulse Resp B/P B/P Pulse O2 O2 Flow FiO2 Mean Ox Delivery Rate 12/01 1223 91 Nasal 3.0L Cannula 12/01 0824 90 166/90 12/01 0707 98.4 90 22 166/90 91 12/01 0000 95 Nasal 3.0L Cannula 11/30 2315 94 Nasal 3.0L Cannula 11/30 2225 98.0 86 18 172/98 97 Nasal 3.0L Cannula 11/30 2143 164/82 11/30 1803 98.3 90 20 142/80 95 Nasal 3.0L Cannula 11/30 1600 Nasal 3.0L Cannula 11/30 1327 Nasal 3.0L Cannula Intake & Output 12/01 1600 12/01 0800 12/01 0000 11/30 1600 11/30 0800 11/30 0000 Intake Total 600 600 500 480 480 Output Total Balance 600 600 500 480 480 Intake, Oral 600 600 500 480 480 Number 0 Bowel Movements Patient 285 lb Weight Weight Chair scale Measurement Method Physical Exam: General: no apparent distress. Alert. Eyes: No obvious scleral icterus. HEENT: No jugular venous distention or abnormal jugular venous pulsations. Cardiovascular: Normal intensity S1/S2. Regular Respiratory: Trace scattered wheezes Abdomen: guarding or rebound tenderness. Musculoskeletal: No clubbing or cyanosis noted Skin: warm Current Medications: Current Medications Sig/[place] Start time Last Medication Dose Route Stop Time Status Admin Acetaminophen 650 MG Q6P PRN 11/27 2144 AC PO Albuterol Sulfate 2 PUF Q6 11/30 1800 AC 12/01 INH 1211 Albuterol Sulfate 3 ML Q4P PRN 11/30 1300 AC INH Albuterol Sulfate 2 PUF Q6-PRN PRN 11/27 2145 DC 11/29 INH 2100 Apixaban 5 MG BID 11/27 2140 AC 12/01 PO 0824 Azithromycin 500 MG DAILY 11/30 1600 DC PO Carvedilol 25 MG BID 11/27 214 AC 12/01 PO 0824 Flecainide Acetate 100 MG BID 11/29 1145 AC 12/01 PO 0824 Furosemide 40 MG BID 11/27 2140 AC 12/01 PO 0824 Gabapentin 300 MG TID 11/27 2141 AC 12/01 PO 0824 Insulin Aspart 0 TIDAC/HS 11/30 1200 AC 12/01 SD 1211 Insulin Detemir 50 UNITS QPM 11/28 2099 11/30 SC 214 Lisinopril 20 MG DAILY 11/28 0900 AC 12/01 PO 0824 Methylprednisolone 40 MG Q12 11/30 2099 AC 12/01 IV 12/01 2300 0828 Pravastatin Sodium 40 MG 1700 11/28 1700 AC 11/30 PO 1722 Prednisone 40 MG DAILY 12/02 09 PO Results Last 48 Hrs of Labs/Mics: Laboratory Tests 12/01/17 0710: Anion Gap 12, Estimated GFR > 60, BUN/Creatinine Ratio 28.2 H, CBC w Diff NO MAN DIFF REQ, RBC 4.85, MCV 89.6, MCH 30.0, MCHC 33.5, RDW 15.0 H, MPV 9.7, Gran % 89.5 H, Lymphocytes % 7.7 L, Monocytes % 2.6, Eosinophils % 0, Basophils % 0.2, Absolute Granulocytes 15.3 H, Absolute Lymphocytes 1.3, Absolute Monocytes 0.4, Absolute Eosinophils 0, Absolute Basophils 0 11/30/17 0915: pH 7.31 L, pCO2 49 H, pO2 122 H, HCO3 24, ABG O2 Sat (Measured) 97.0, Carboxyhemoglobin 0.8 L, O2 Concentration % 40%, Respiration Rate 24, O2 Delivery Method BIPAP, Vent Mode ST, Expiratory Pressure 6, Inspiratory Pressure 22, Phlebotomy Draw Site RIGHT RADIAL 11/30/17 0700: Anion Gap 11, Estimated GFR 56 L, BUN/Creatinine Ratio 21.5, Magnesium 1.6 11/30/17 0500: Methadone Screen Cancelled, Barbiturate Screen Cancelled, Ur Phencyclidine Scrn Cancelled, Amphetamines Screen Cancelled, U Benzodiazepines Scrn Cancelled, Urine Cocaine Screen Cancelled, Urine Cannabis Screen Cancelled 11/30/17 0320: Anion Gap 10, Estimated GFR 56 L, BUN/Creatinine Ratio 22.3, Magnesium 1.5 L, PT 14.7 H, INR 1.34 H, D-Dimer High Sensitivty 438 H, CBC w Diff NO MAN DIFF REQ, RBC 5.18, MCV 89.8, MCH 28.8, MCHC 32.1 L, RDW 14.9 H, MPV 8.9, Gran % 77.5 H, Lymphocytes % 19.1 L, Monocytes % 1.6 L, Eosinophils % 1.6, Basophils % 0.2, Absolute Granulocytes 9.2 H, Absolute Lymphocytes 2.3, Absolute Monocytes 0.2, Absolute Eosinophils 0.2, Absolute Basophils 0 11/30/17 0310: pH 7.22 *L, pCO2 55 H, pO2 201 H, HCO3 22, ABG O2 Sat (Measured) 98.0, P-50 ( Temp Corrected) N, Carboxyhemoglobin 0.6 L, O2 Concentration % 100%, Temperature 98.6, O2 Delivery Method NRB, Phlebotomy Draw Site RIGHT RADIAL 11/30/17 0100: Troponin I 0.05 Recent Imaging Studies: Telemetry tracings are personally reviewed and shows sinus rhythm Assessment/Plan Assessment/Plan 1. Cough 2. Coronary artery disease 3. Paroxysmal atrial fibrillation status post cardioversion 4. Hypertension Agree with swallow evaluation. Hemoglobin remains stable on Eliquis. He remains in sinus rhythm. If blood pressure remains above goal can consider adding extended release Cardizem. Ankit Brower MD [facility] Continue telemetry? Yes
[2017-12-01 14:58] VITALS: BP 142/76
[2017-12-01 21:36] VITALS: BP 158/82
[2017-12-02 05:50] VITALS: BP 138/86
--- NOTE | 2017-12-02 07:30 | PN- Housestaff ---
Dilan Harrington 12/02/17 0730: Subjective Follow-up For: Leslie camargo with rapid ventricular rate Acute hypercarbic respiratory failure uncontrolleed diabetes mellitus Complaints: no complaints Tele-Events Since Last Visit: SINUS AFTER CARDIOVERSION Subjective: Patient was seen and examined this morning. He is alert awake and oriented to time place and person. He denied shortness of breath. Denies any chest pain, palpitations, fever or chills. He is status post cardioversion now in sinus rhythm. Saturating at 95% on room air, off from BiPAP Blood sugars are not under control since last evening from high dose of steroids he received in the past 48 hours. He is getting extra doses of NovoLog. Review of Systems Constitutional: Reports: see HPI. Objective Last 24 Hrs of Vital Signs/I&O Vital Signs Date Time Temp Pulse Resp B/P B/P Pulse O2 O2 Flow FiO2 Mean Ox Delivery Rate 12/02 1111 95 Room Air Room Air 12/02 0822 96 148/86 12/02 0821 96 148/86 12/02 0800 Room Air Room Air 12/02 0550 98.2 86 18 138/86 95 12/02 0000 Nasal 2.0L Cannula 12/01 2136 98.4 93 20 158/82 97 Nasal 2.0L Cannula 12/01 2129 98 Nasal 3.0L Cannula 12/01 2119 94 18 158/82 12/01 1600 93 Room Air 12/01 1458 97.5 86 18 142/76 94 Nasal Cannula 12/01 1223 91 Nasal 3.0L Cannula Intake & Output 12/02 1600 12/02 0800 12/02 0000 Intake Total 120 240 Output Total Balance 120 240 Intake, Oral 120 240 Patient 129.444 kg Weight Physical Exam General Appearance: Alert, Oriented X3, Cooperative, No Acute Distress Other Physical Findings: -HEENT: NCAT, Patricia, EOMI, anicteric sclera -Neck: Supple, no JVP, trachea midline, no accessory respiratory muscle use -Cardio: Normal S1/S2; tachycardic, irregularly irregular -Pulmonary: Diminished bibasilar airflow -Abdomen: Soft, nontender, nondistended, bowel sounds intact -Neuro: Awake and alert, cranial nerves II through XII grossly intact -Extremities: No edema, normal pulses Current Medications: Current Medications Sig/[place] Start time Last Medication Dose Route Stop Time Status Admin Acetaminophen 650 MG Q6P PRN 11/27 2145 AC PO Albuterol Sulfate 2 PUF Q6 11/30 1800 AC 12/02 INH 1052 Albuterol Sulfate 3 ML Q4P PRN 11/30 1300 AC INH Apixaban 5 MG BID 11/27 2141 AC 12/02 PO 0821 Carvedilol 25 MG BID 11/27 2141 AC 12/02 PO 0821 Flecainide Acetate 100 MG BID 11/29 1145 AC 12/02 PO 0822 Furosemide 40 MG BID 11/27 2141 AC 12/02 PO 0821 Gabapentin 300 MG TID 11/27 2141 AC 12/02 PO 0821 Insulin Aspart 10 UNITS ONCE ONE 12/02 2345 [facility] 12/02 2346 Insulin Aspart 10 UNITS ONCE ONE 12/02 1045 DC 12/02 TN 12/02 1046 1052 Insulin Aspart 10 UNITS ONCE ONE 12/02 0830 [place] 12/02 TN 12/02 0831 0838 Insulin Aspart 14 UNITS ONCE ONE 12/02 0430 MI 12/02 TN 12/02 0431 0456 Insulin Aspart 10 UNITS ONCE ONE 12/02 0045 DC 12/02 TN 12/02 0046 0046 Insulin Aspart 0 TIDAC/HS 11/30 1200 AC 12/02 TN 0818 Insulin Detemir 40 UNITS BID 12/02 2100 AC TN Insulin Detemir 35 UNITS BID 12/02 0900 DC 12/02 TN 0838 Insulin Detemir 50 UNITS .STK-MED ONE 12/02 2127 [facility] 12/01 2128 Insulin Detemir 50 UNITS QPM 11/28 2100 [place] 12/01 TN 213 Insulin Human Regular 6 UNITS ONCE ONE 12/01 2100 DC 12/01 TN 12/01 210 213 Lisinopril 20 MG DAILY 11/28 0900 AC 12/02 PO 0822 Methylprednisolone 40 MG Q12 11/30 2100 DC 12/01 IV 12/01 2300 2134 Pravastatin Sodium 40 MG 1700 11/28 1700 AC 12/01 PO 1715 Prednisone 40 MG DAILY 12/02 0900 CAN PO Last 24 Hrs of Lab/Jose J Results Last 24 Hrs of Labs/Mics: Laboratory Tests 12/02/17 0956: Anion Gap 13, Estimated GFR > 60, BUN/Creatinine Ratio 25.8 H, Magnesium 1.9, CBC w Diff NO MAN DIFF REQ, RBC 4.88, MCV 89.6, MCH 29.2, MCHC 32.6 L, RDW 15.3 H, MPV 9.1, Gran % 91.0 H, Lymphocytes % 5.0 L, Monocytes % 4.0, Eosinophils % 0, Basophils % 0, Absolute Granulocytes 16.8 H, Absolute Lymphocytes 0.9 L, Absolute Monocytes 0.7 H, Absolute Eosinophils 0, Absolute Basophils 0 Assessment/Plan Assessment: 62-year-old man with past medical history of atrial fibrillation status post cardioversion on Eliquis, HFpEF (LVEF >60%), CAD status post CABG 2015, hyperlipidemia, asthma, COPD, and insulin-dependent diabetes mellitus sent in from cardiac rehab for tachycardia. Patient reports feeling well and in his normal state of health. He arrived to cardiac rehab 11/27 where he was found to reportedly have a heart rate around "150" for which he was referred to the [place] ED. he is completely asymptomatic without chest pain, palpitations, short of breath Objective Vitals: Temp 98.6, HR 139-150, RR 18, BP 106-120/70-6, SPO2 94-97% on room air Labs/imaging/studies -CBC: WBC 9.1, hemoglobin 14.6, hematocrit 43.8, platelet 291 -BMP: NA 140, K 3.6, CL 102, CO2 29, BUN 22, creatinine 1.2, anion gap 10, glucose 177 -LFT: Within normal limits -Miscellaneous: Lactic acid 1.6, magnesium 1.3, troponin I 0.06, INR 1.29, TSH 0.49, BNP 4500, d-dimer <200 -EKG: Regular narrow complex tachycardia, rapid A. fib versus AVNRT/AVRT -Echocardiogram 02/25/17: LVEF >65% without regional wall motion abnormalities and stage I diastolic dysfunction and moderate concentric LVH -CXR: 1. Cardiomegaly. 2. Possible trace pleural fluid in the right minor fissure versus pleural thickening. Findings are unchanged from prior exam. 3. No focal acute pulmonary process seen Atrial fibrillation with rapid ventricular response STATUS post cardioversion Clinically patient appears to have atrial fibrillation with rapid ventricular response in the context of known atrial fibrillation previously on anticoagulation and rate control medications. Patient is completely unaware of his symptoms and it is unclear how long he has been in this uncontrolled tachycardic rhythm. Patient was given several boluses of intravenous metoprolol with inadequate rate control and was placed on a Cardizem drip and continued on his previous cardiac meds. * Admitted to telemetry floor * Telemetry monitoring * Vitals every shift * Status post cardioversion 11/29/2017, successful conversion to sinus rhythm * Cardizem drip was stopped * Started flecainide 100 mg twice daily to maintain sinus rhythm * Continue home dose of Coreg * Continue home dose of apixaban 5 twice daily Acute hypercarbic respiratory failure on BiPAP most possibly from COPD and asthma exacerbation cersus MIRZA patient was found to have shortness of breath associated with anxiety. Stat ABG showed respiratory acidosis 7.22, 55, 201, 22. He was kept on BiPAP on and off with improvement of respiratory status. He is off from BiPAP now, saturating on room air. * D-dimers were elevated CTA was done, ruled out pulmonary embolism * Stopped steroids * TRC nebs * Pulmonology Referal was provided for outpatient sleep study. Heart failure diastolic Continue Lasix 40 twice daily follow-up echocardiogram showed ejection fraction 50% CAD status post CABG Continue home medication Coreg, lisinopril COPD TRC nebs Insulin-dependent diabetes mellitus Patient sugars were running high because of steroids and he feels that he is not taking metformin and Victoza in the hospital. Overnight his sugars were above 400. We consulted Dr. urbina card tender. We changed his long-acting and bolus insulin. Patient wants to leave today. We arranged appointment with Dr. Montgomery card tender tomorrow at 11 AM. Patient was given instructions about new regimen and close outpatient follow-up. Distant history of drug abuse, last use 5 years ago Current smoker, 5-6 cigarettes per day Morbid obesity DVT Prophylaxis on apixaban Pain pathway ordered Full code Consistent carbohydrate diet Problem List: 1. Tachycardia Pain Ratin Pain Location: n/a Pain Goal: Remain pain free Pain Plan: tylenol Tomorrow's Labs & Rationales: none Dayna Cobb MD 12/02/17 1143: Attending MD Review Statement Attending Statement Attending MD Statement: examined this patient, discuss w/resident/PA/DECK[employer] CLAM [employer]EDGE, agreed w/resident/PA/DE[employer]HAND CLAM [employer]EDGE, reviewed EMR data (avail), discussed with nursing, discussed with case mgmt, reviewed images Attending Assessment/Plan: Pt feels well and is very eager to go home. He feels his sugars are high because of steroids and because he did not get his metformin and Victoza in the hospital. This is a 62-year-old male with a past medical history of diabetes on insulin and Victoza and metformin as an outpatient with Leslie camargo. He is here status post cardioversion and now on flecainide to keep him in normal sinus rhythm. We spoke to Dr. urbina at length. We are going to let the patient leave, he is going to take his Victoza, metformin and a changed dose of the long-acting and bolus insulin. We spoke to him at length and he clearly understands the need for close outpatient follow-up. He has an appointment with Dr. Montgomery - the card tender for tomorrow that is the day after discharge at 11 AM and we have talked to him at length about keeping that appointment. He is stable to leave on the new insulin regimen with close outpatient follow-up.
[2017-12-02 08:22] VITALS: BP 148/86
--- NOTE | 2017-12-02 09:05 | PN- Cardiology ---
Subjective Subjective: The patient remained in the hospital over the weekend because of acute respiratory distress and hypercarbic respiratory failure. He is better from that now. He required BiPAP for a period. He has fortunately remained in sinus rhythm since the cardioversion and is tolerating flecainide well. The patient's diabetes has become uncontrolled with the use of steroids and endocrine will be seeing him. Objective Vital Signs and I&Os Vital Signs Date Time Temp Pulse Resp B/P B/P Pulse O2 O2 Flow FiO2 Mean Ox Delivery Rate 12/02 0822 96 148/86 12/02 0821 96 148/86 12/02 0550 98.2 86 18 138/86 95 12/02 0000 Nasal 2.0L Cannula 12/01 2136 98.4 93 20 158/82 97 Nasal 2.0L Cannula 12/01 2129 98 Nasal 3.0L Cannula 12/01 2119 94 18 158/82 12/01 1600 93 Room Air 12/01 1458 97.5 86 18 142/76 94 Nasal Cannula 12/01 1223 91 Nasal 3.0L Cannula Intake & Output 12/02 1600 12/02 0800 12/02 0000 12/01 1600 12/01 0800 12/01 0000 Intake Total 120 240 600 600 600 Output Total Balance 120 240 600 600 600 Intake, Oral 120 240 600 600 600 Patient 285 lb Weight Weight Chair scale Measurement Method Physical Exam: HEENT exam normal Chest clear Heart regular rhythm and no murmurs Assessment/Plan Assessment/Plan Patient is stable from a cardiac standpoint. He remains in sinus rhythm. His respiratory status seems improved. His diabetes is going to require some adjustment of medications. Hopefully he can be discharged today. I will see him in the office soon. Continue telemetry? Yes
[2017-12-02] MEDS ORDERED: FLECAINIDE ACE100 M1 PO (10:45)
--- NOTE | 2017-12-02 11:05 | Cons- Endocrinology ---
See Addendum General Information and HPI Consulting Request Date of Consult: 12/02/17 Requested By: medical team Reason for Consult: management of uncontrolled diabetes. Source of Information: patient, old records Exam Limitations: no limitations History of Present Illness: 62-year-old man with past medical history of atrial fibrillation on Eliquis, HFpEF (LVEF >60%), CAD status post CABG, hyperlipidemia, asthma, COPD, and diabetes type 2 who was admitted for tachycardia. At home, he was on Levemir 50 units daily, Novolog before meals between 8 and 14 units, metformin and victoza 1.8 mg daily. In hospital, he was put on solumedrol which was discontinued on 12/01/2017. His FSGs were > 400. His FSG was 485 this morning. Currently he is on Levemir 50 units daily, Novolog coverage before meals. Allergies/Medications Allergies: Coded Allergies: No Known Allergies (11/19/16) Home Med List: Albuterol Sulfate (Ventolin Hfa) 90 MCG HFA.AER.AD 2 PUF INH AD PRN COPD ( Reported) Ammonium Lactate 12 % LOTION 1 MARISOL TOP PRN RIGHT FOOT (Reported) Apixaban (Eliquis) 5 MG TABLET 1 TAB PO BID BLOOD THINNER (Reported) Carvedilol 25 MG TABLET 1 TAB PO BID HEART/BP (Reported) Flecainide Acetate 100 MG TABLET 1 TAB PO BID AFIB . Furosemide 40 MG TABLET 1 TAB PO BID DIURETIC (Reported) Gabapentin 300 MG CAPSULE 1 CAP PO TID NERVE PAIN (Reported) Insulin Aspart, Recombinant (Novolog Flexpen) (Unknown Strength) INSULN.PEN ( Unknown Dose) SC TIDAC DIABETES (Reported) 80-150 10U 151-200 13U 201-250 16U 251-300 19U 301-350 22U 351-400 24U >400- 26U BEDTIME 201-250 2U 251-300 4U 301-350 6U 351-400 8U >400 10U Insulin Detemir (Levemir Flextouch) 100 UNIT/ML (3 ML) INSULN.PEN 40 UNITS SC BID DM (Reported) Liraglutide (Victoza 3-Alberto) 0.6 MG/0.1 ML (18 MG/3 ML) PEN.INJCTR 1.8 MG SC DAILY DM (Reported) Lisinopril 20 MG TABLET 1 TAB PO DAILY HEART (Reported) Lurasidone HCl (Latuda) 60 MG TABLET 1 TAB PO DAILY MENTAL HEALTH (Reported) Metformin HCl 1,000 MG TABLET 1 TAB PO Q12H DM (Reported) Pravastatin Sodium 40 MG TABLET 1 TAB PO QPM CHOLESTEROL (Reported) Tiotropium Br/Olodaterol HCl (Stiolto Respimat Inhal [place]) 2.5 MCG-2.5 MCG/ ACTUATION MIST.INHAL 2 PUFF INH BID BREATHING PROBLEMS (Reported) Review of Systems Review of Systems Constitutional: Reports: see HPI. Cardiovascular: Denies: chest pain. Respiratory: Denies: short of breath. GI: Denies: abdominal pain. Hematologic/Endocrine: Denies: polyuria, polydipsia. 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 Home Smoking Status: Current Everyday Smoker ETOH Use: denies use Illicit Drug Use: denies illicit drug use Exam & Diagnostic Data Last 24 Hrs of Vital Signs/I&O Vital Signs Date Time Temp Pulse Resp B/P B/P Pulse O2 O2 Flow FiO2 Mean Ox Delivery Rate 12/02 0822 96 148/86 12/02 0821 96 148/86 12/02 0800 Room Air Room Air 12/02 0550 98.2 86 18 138/86 95 12/02 0000 Nasal 2.0L Cannula 12/01 2136 98.4 93 20 158/82 97 Nasal 2.0L Cannula 12/01 2129 98 Nasal 3.0L Cannula 12/01 2119 94 18 158/82 12/01 1600 93 Room Air 12/01 1458 97.5 86 18 142/76 94 Nasal Cannula 12/01 1223 91 Nasal 3.0L Cannula Intake & Output 12/02 1600 12/02 0800 12/02 0000 Intake Total 120 240 Output Total Balance 120 240 Intake, Oral 120 240 Physical Exam General Appearance: no apparent distress Neck: normal inspection Respiratory: decreased breath sounds Cardiovascular: irregularly irregular Extremities: no edema Labs/Jose J Results: Laboratory Tests 12/02 0956 Chemistry Sodium Pending Potassium Pending Chloride Pending Carbon Dioxide Pending Anion Gap Pending BUN Pending Creatinine Pending BUN/Creatinine Ratio Pending Magnesium Pending Hematology CBC w Diff Pending WBC Pending RBC Pending Hgb Pending Hct Pending MCV Pending MCH Pending MCHC Pending RDW Pending Plt Count Pending MPV Pending Assessment/Plan Assessment/Plan 62-year-old man with past medical history of atrial fibrillation on Eliquis, HFpEF (LVEF >60%), CAD status post CABG, hyperlipidemia, asthma, COPD, and diabetes type 2 who was admitted for tachycardia. In hospital, he was put on solumedrol which was discontinued on 12/01/2017. His FSGs were > 400. At home, he was on Levemir 50 units daily, Novolog before meals between 8 and 14 units, metformin and victoza 1.8 mg daily. Plan: 1. increase Levemir to 35 units twice a day; 2. adjust Novolog coverage before meals and add Novolog coverage at bedtime; detail see the inpatient DM orders; 3. monitor FSGs. Inpatient Diabetes Orders Before Each Meal: Bolus Insulin: Novolog < 80 mg/dl: no coverage 80-100 mg/dl: 10 units 101-120 mg/dl: 10 units 121-150 mg/dl: 10 units 151-200 mg/dl: 13 units 201-250 mg/dl: 16 units 251-300 mg/dl: 19 units 301-350 mg/dl: 22 units 351-400 mg/dl: 24 units > 400 mg/dl: 26 units Bedtime: Bolus Insulin: Novolog < 80 mg/dl: no coverage 80-100 mg/dl: no coverage 101-120 mg/dl: no coverage 121-150 mg/dl: no coverage 151-200 mg/dl: no coverage 201-250 mg/dl: 2 units 251-300 mg/dl: 4 units 301-350 mg/dl: 6 units 351-400 mg/dl: 8 units > 400 mg/dl: 10 units Consult Acknowledgment - Thank you for your consult request.
[2017-12-02 11:06] LABS: ABSOLUTE BASOPHIL COUNT 0 /CUMM (0.0-0.2); ABSOLUTE EOSINOPHIL COUNT 0 /CUMM (0.0-0.7); ABSOLUTE GRANULOCYTE CT 16.8 /CUMM (1.4-6.5); ABSOLUTE LYMPH COUNT 0.9 /CUMM (1.2-3.4); ABSOLUTE MONOCYTE COUNT 0.7 /CUMM (0.10-0.60); BASOPHIL % 0 % (0.0-2.0); EOSINOPHIL % 0 % (0-5); HEMATOCRIT 43.7 % (42-52); MEAN CORPUSCULAR HGB 29.2 PG (27.0-31.0); MEAN CORPUSCULAR HGB CONC 32.6 G/DL (33.0-37.0); MEAN CORPUSCULAR VOLUME 89.6 FL (80.0-94.0); MEAN PLATELET VOLUME 9.1 FL (7.4-10.4); PLATELET COUNT 295 /CUMM (130-400); RBC DISTRIBUTION WIDTH 15.3 % (11.5-14.5); RED BLOOD CELL CT 4.88 /CUMM (4.70-6.10); WHITE BLOOD CELL COUNT 18.4 /CUMM (4.8-10.8)
[2017-12-03] MEDS ORDERED: ALBUTEROL2.5 MG/3 M INH/SOL (17:25)
[2017-12-03] MEDS ORDERED: LIDODERM1 EACH TOP (17:25)
== END 2017-12-02 12:00 | DRG 201 ==
LOC: ERH 15:04 → ERHI 20:18 → 1NO 20:18 → ERHI 11-28 07:32 → ENRESERV 11-28 13:21 → CANRESERV 11-28 13:21 → ENRESERV 11-28 15:37 → ENTRNSPT 11-28 17:34 → EDTRNSPTSTS 11-28 17:46 → EDTRNSPT 11-28 17:46 → 1NO 11-28 17:52 → CMPTRNSPT 11-28 18:08 → 1NO 11-29 20:52 → ENPENDDIS 12-02 11:00 → 1NO 12-02 12:00
PROVIDERS: Hospitalist; Internal Medicine Interventional Cardiology; Physician Assistant Medical; Student in an Organized Health Care Education/Training Program
PROC: 5A2204Z Restoration of Cardiac Rhythm, Single (ICD-10-PCS; principal; 2017-11-29)
PROC: 5A09357 Assistance with Respiratory Ventilation, Less than 24 Consecutive Hours, Continuous Positive Airway Pressure (ICD-10-PCS; 2017-11-30)
DX: I48.92 Unspecified atrial flutter (principal); I25.10 Atherosclerotic heart disease of native coronary artery without angina pectoris; Z95.1 Presence of aortocoronary bypass graft; Z68.39 Body mass index [BMI] 39.0-39.9, adult; E83.42 Hypomagnesemia; I50.32 Chronic diastolic (congestive) heart failure; Z79.01 Long term (current) use of anticoagulants; F17.210 Nicotine dependence, cigarettes, uncomplicated; E78.5 Hyperlipidemia, unspecified; I11.0 Hypertensive heart disease with heart failure; Z98.61 Coronary angioplasty status; E66.01 Morbid (severe) obesity due to excess calories; Z79.4 Long term (current) use of insulin; Z79.51 Long term (current) use of inhaled steroids; E11.42 Type 2 diabetes mellitus with diabetic polyneuropathy; I48.0 Paroxysmal atrial fibrillation; J96.02 Acute respiratory failure with hypercapnia; E11.65 Type 2 diabetes mellitus with hyperglycemia; J44.1 Chronic obstructive pulmonary disease with (acute) exacerbation; J45.901 Unspecified asthma with (acute) exacerbation; T38.0X5A Adverse effect of glucocorticoids and synthetic analogues, initial encounter
CPT/HCPCS: 1NP; 1NSP; ERO; 36415; 36592; 71045; 80307; 82436; 93005; 93010; 93306; 94799; 96365; 96375; 96376; 99291; J1815; J2920; J2930; J3490; Q9965

== ENCOUNTER 2018-01-14 12:01 | Inpatient (IN) | payer OTHER ==
[~2018-01-14] VITALS: Ht 180.3 cm; Wt 120.7 kg
[~2018-01-14 12:01] MED LIST changes: +ALBUTEROL2.5 MG/3 M INH/SOL; +FLECAINIDE ACE100 M1 PO; +LIDODERM1 EACH TOP
--- NOTE | 2018-01-14 12:09 | ED GENERAL ADULT ---
History of Present Illness General Chief Complaint: Dyspnea (COPD, CHF, Other) Stated Complaint: DIFFICULTY BREATHING WITH FLUID RETENTION Source: patient Exam Limitations: no limitations Vital Signs & Intake/Output Vital Signs & Intake/Output Vital Signs Date Time Temp Pulse Resp B/P B/P Pulse O2 O2 Flow FiO2 Mean Ox Delivery Rate 01/14 1329 93 Nasal 4.0L Cannula 01/14 1218 108 20 108/66 93 Nasal 4.0L Cannula Allergies Coded Allergies: No Known Allergies (11/19/16) Reconcile Medications Albuterol Sulfate (Ventolin Hfa) 90 MCG HFA.AER.AD 2 PUF INH AD PRN COPD ( Reported) Albuterol Sulfate 2.5 MG/3 ML (0.083 %) VIAL.NEB 1 Vial INH/LUPE Q4P PRN SOB Apixaban (Eliquis) 5 MG TABLET 1 TAB PO BID BLOOD THINNER (Reported) Carvedilol 25 MG TABLET 1 TAB PO BID HEART/BP (Reported) Diltiazem HCl (Diltiazem 24HR ER) 180 MG CAP.ER.24H 1 CAP PO DAILY HEART ( Reported) Empagliflozin (Jardiance) 10 MG TABLET 1 TAB PO DAILY DIABETES (Reported) Flecainide Acetate 100 MG TABLET 1 TAB PO BID AFIB . Fluticasone Propionate (Flovent Hfa) 110 MCG/ACTUATION AER.W.ADAP 2 PUF INH BID BREATHING PROBLEMS (Reported) Furosemide 40 MG TABLET 1 TAB PO BID DIURETIC (Reported) Gabapentin 300 MG CAPSULE 1 CAP PO TID NERVE PAIN (Reported) Insulin Aspart, Recombinant (Novolog Flexpen) (Unknown Strength) INSULN.PEN ( Unknown Dose) SC TIDAC DIABETES (Reported) 80-150 10U 151-200 13U 201-250 16U 251-300 19U 301-350 22U 351-400 24U >400- 26U BEDTIME 201-250 2U 251-300 4U 301-350 6U 351-400 8U >400 10U Insulin Detemir (Levemir Flextouch) 100 UNIT/ML (3 ML) INSULN.PEN 70 UNITS SC DAILY DIABETES (Reported) Liraglutide (Victoza 3-Alberto) 0.6 MG/0.1 ML (18 MG/3 ML) PEN.INJCTR 1.8 MG SC DAILY DM (Reported) Lisinopril 20 MG TABLET 1 TAB PO DAILY HEART (Reported) Metformin HCl 1,000 MG TABLET 1 TAB PO Q12H DM (Reported) Pravastatin Sodium 40 MG TABLET 1 TAB PO QPM CHOLESTEROL (Reported) Tiotropium Br/Olodaterol HCl (Stiolto Respimat Inhal [place]) 2.5 MCG-2.5 MCG/ ACTUATION MIST.INHAL 2 PUFF INH BID BREATHING PROBLEMS (Reported) Triage Nurses Notes Reviewed? yes HPI: This is a 62-year-old man with history of COPD, CAD status post CABG, insulin- dependent diabetes, CHF, hypertension, hyperlipidemia, prior drug abuse, A. fib on anticoagulation presented to the emergency department with progressive shortness of breath for several weeks which has been associated with bilateral leg edema, scrotal edema, abdominal edema. Patient states he has been compliant with all his medications, but has been eating a relatively high salt diet. He describes severe orthopnea and exertional dyspnea with inability to perform his ADLs secondary to shortness of breath. He endorses regular urination. He denies any fever, chills, cough, diaphoresis, nausea, abdominal pain. He does describe some mild chest tightness which is intermittent. Past History Travel History Traveled to [place] past 21 day No Medical History Any Pertinent Medical History? 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 No Review of Systems Review of Systems Constitutional: Reports: no symptoms. EENTM: Reports: no symptoms. Respiratory: Reports: orthopnea, short of breath. Cardiovascular: Reports: see HPI. All Other Systems: Reviewed and Negative Physical Exam Physical Exam General Appearance: well developed/nourished Comments: Obese middle-aged gentleman, obvious mild shortness of breath. Able to speak in 5-6 word sentences and is mildly hypoxic on 4 L of oxygen. Unable to lay flat secondary to dyspnea. HEENT exam unremarkable. Neuro exam unremarkable. Cardio pulmonary exam significant for diminished breath sounds bilateral bases with scattered rales. No obvious murmur. Abdomen exam significant for distention and edema. Scrotal edema noted. Bilateral pedal edema noted. Positive JVD. Core Measures ACS in differential dx? Yes CVA/TIA Diagnosis: No Sepsis Present: No Sepsis Focused Exam Completed? No Progress Differential Diagnoses I considered the following diagnoses in my evaluation of the patient: CHF exacerbation, concomitant reactive airway exacerbation, ACS, lower suspicion for pneumonia. Doubt pulmonary embolism at this time. Some concern for underlying metabolic derangement. Plan of Care: Orders Procedure Date/time Status CHF Diet 01/14 D Active Admit to inpatient 01/14 1352 Active Vital Signs 01/14 1352 Active Telemetry/Impregnation Operator 01/14 1352 Active Code Status 01/14 1352 Active TROPONIN LEVEL 01/14 1226 Complete MAGNESIUM 01/14 1226 Complete COMPREHENSIVE METABOLIC PANEL 01/14 1226 Complete CBC WITHOUT DIFFERENTIAL 01/14 1226 Complete B-TYPE NATRIURETIC PEP (BNP) 01/14 1226 Complete EKG 01/14 1219 Active Laboratory Tests 01/14/18 1231: Anion Gap 9, Estimated GFR > 60, BUN/Creatinine Ratio 15.0, Glucose 197 H, Calcium 8.5, Magnesium 1.8, Total Bilirubin 0.4, AST 21, ALT 27, Alkaline Phosphatase 106, Troponin I 0.02, Wsq-H-Idrbsevtghb Pept 1410 H, Total Protein 6.0 L, Albumin 3.1 L, Globulin 2.9, Albumin/Globulin Ratio 1.1, CBC w Diff NO MAN DIFF REQ, RBC 4.71, MCV 90.5, MCH 29.5, MCHC 32.6 L, RDW 15.1 H, MPV 8.2, Gran % 63.5, Lymphocytes % 26.0, Monocytes % 8.4, Eosinophils % 1.6, Basophils % 0.5, Absolute Granulocytes 5.1, Absolute Lymphocytes 2.1, Absolute Monocytes 0.7 H, Absolute Eosinophils 0.1, Absolute Basophils 0 Labs, CXR, ECG, Lasix, likely admission. Labs and imaging consistent with CHF exacerbation. Patient admitted to hospitalist service for further management. Initial ED EKG: normal axis, normal intervals, a flutter; lateral TWI noted; no ALANNA Departure Departure Time of Disposition: 1349 Disposition: STILL A PATIENT Condition: Stable Clinical Impression Primary Impression: CHF exacerbation Secondary Impressions: Hypoxia, Pulmonary edema Referrals: Radha Luevano APRN (PCP/Family) Departure Forms: Customer Survey General Discharge Information Admission Note Spoke With: Phil Villavicencio MD Documentation of Exam: Documentation of any treatments & extenuating circumstances including Concerns Regarding Discharge (functional status, medication knowledge or non-compliance, living conditions, etc.) that warrant an admission rather than observation: IV diuresis, telemetry, frequent labs and reassessment, physical therapy. Critical Care Note Critical Care Note Critical Care Time: non-applicable
[2018-01-14 12:43] LABS: ABSOLUTE BASOPHIL COUNT 0 /CUMM (0.0-0.2); ABSOLUTE EOSINOPHIL COUNT 0.1 /CUMM (0.0-0.7); ABSOLUTE GRANULOCYTE CT 5.1 /CUMM (1.4-6.5); ABSOLUTE LYMPH COUNT 2.1 /CUMM (1.2-3.4); ABSOLUTE MONOCYTE COUNT 0.7 /CUMM (0.10-0.60); BASOPHIL % 0.5 % (0.0-2.0); EOSINOPHIL % 1.6 % (0-5); GRANULOCYTE % 63.5 % (42.2-75.2); HEMATOCRIT 42.7 % (42-52); MEAN CORPUSCULAR HGB 29.5 PG (27.0-31.0); MEAN CORPUSCULAR HGB CONC 32.6 G/DL (33.0-37.0); MEAN CORPUSCULAR VOLUME 90.5 FL (80.0-94.0); MEAN PLATELET VOLUME 8.2 FL (7.4-10.4); PLATELET COUNT 313 /CUMM (130-400); RBC DISTRIBUTION WIDTH 15.1 % (11.5-14.5); RED BLOOD CELL CT 4.71 /CUMM (4.70-6.10)
[2018-01-14] MEDS ORDERED: DILTIAZEM 24HR180 MG PO (13:06)
--- NOTE | 2018-01-14 13:09 | RADIOLOGY REPORT ---
EXAMINATION: XR CHEST CLINICAL INFORMATION: Shortness of breath. Presumptive diagnosis of CHF. COMPARISON: Chest x-ray dated 12/03/2017, 11/30/2017, 11/27/2017, and 08/12/2017. TECHNIQUE: AP semierect and lateral views of the chest were obtained. FINDINGS: The patient is status post median sternotomy and CABG surgery. The cardiomediastinal silhouette is enlarged. Right pulmonary hilum is enlarged as well, unchanged from prior exam and shown on prior CTA of the chest from 11/30/2017 to represent right hilar adenopathy. Trace right-sided pleural effusion is seen tracking into the right minor fissure. No definite left-sided pleural effusion is seen. There is central vascular indistinctness and enlargement with perihilar reticular prominence, consistent with central vascular congestion and mild pulmonary edema, similar to the prior exam. No pneumothorax is seen. Bony structures are unremarkable. IMPRESSION: 1. Findings are consistent with mild congestive heart failure, similar to the previous exam. 2. Right hilar adenopathy is also similar to prior exam.
[2018-01-14] MEDS ORDERED: JARDIANCE10 M1 PO (13:10)
[2018-01-14] MEDS ORDERED: FLOVENT HFA12 G1 INH (13:11)
--- NOTE | 2018-01-14 15:06 | History & Physical ---
Ildefonso Sung 01/14/18 1506: General Information and HPI MD Statement: I have seen and personally examined DEANA WINTERS and documented this H&P. The patient is a 62 year old M who presented with a patient stated chief complaint of [shortness of breath]. Source of Information: patient, old records Exam Limitations: no limitations History of Present Illness: This is a 18-year-old gentleman with past medical history of hypertension hyperlipidemia coronary artery disease status post triple-vessel bypass in 2016 who is presenting with several days history of progressive shortness of breath. Patient reports that today the shortness of breath was so bad he felt like he is going to and because of that decided to come to the ER. He was last admitted here in November 27, 2017 when he presented with A. fib and rapid ventricular rate. He volunteers history of orthopnea paroxysmal nocturnal dyspnea and lower limb edema that has been getting worse extending to the scrotum. He has been using 4 pillows to sleep and if during the night somehow changes to lying flat he wakes up from his sleep breathing very deeply. He denies any chest pain though he reports chest discomfort. The patient reports that he has been taking all his medications as instructed however this patient last HbA1c was above 10 and before I left the room he insisted that she will get regular diet and has nothing to do with diabetic diet during this hospital. He reports taking substantial amount of salt citing the fact that he lives with his sister and has no control of what kind of food he eats. He reports to follow with cardiac clinic 3 times a week although this information will need to be corroborated. Patient denies any fevers chills nausea vomiting decreased appetite or change in bowel motions. Has no dizziness or lightheadedness. Allergies/Medications Allergies: Coded Allergies: No Known Allergies (11/19/16) Home Med list Albuterol Sulfate (Ventolin Hfa) 90 MCG HFA.AER.AD 2 PUF INH AD PRN COPD ( Reported) Albuterol Sulfate 2.5 MG/3 ML (0.083 %) VIAL.NEB 1 Vial INH/ULPE Q4P PRN SOB Apixaban (Eliquis) 5 MG TABLET 1 TAB PO BID BLOOD THINNER (Reported) Carvedilol 25 MG TABLET 1 TAB PO BID HEART/BP (Reported) Diltiazem HCl (Diltiazem 24HR ER) 180 MG CAP.ER.24H 1 CAP PO DAILY HEART ( Reported) Empagliflozin (Jardiance) 10 MG TABLET 1 TAB PO DAILY DIABETES (Reported) Flecainide Acetate 100 MG TABLET 1 TAB PO BID AFIB . Fluticasone Propionate (Flovent Hfa) 110 MCG/ACTUATION AER.W.ADAP 2 PUF INH BID BREATHING PROBLEMS (Reported) Furosemide 40 MG TABLET 1 TAB PO BID DIURETIC (Reported) Gabapentin 300 MG CAPSULE 1 CAP PO TID NERVE PAIN (Reported) Insulin Aspart, Recombinant (Novolog Flexpen) (Unknown Strength) INSULN.PEN ( Unknown Dose) SC TIDAC DIABETES (Reported) 80-150 10U 151-200 13U 201-250 16U 251-300 19U 301-350 22U 351-400 24U >400- 26U BEDTIME 201-250 2U 251-300 4U 301-350 6U 351-400 8U >400 10U Insulin Detemir (Levemir Flextouch) 100 UNIT/ML (3 ML) INSULN.PEN 70 UNITS SC DAILY DIABETES (Reported) Liraglutide (Victoza 3-Alberto) 0.6 MG/0.1 ML (18 MG/3 ML) PEN.INJCTR 1.8 MG SC DAILY DM (Reported) Lisinopril 20 MG TABLET 1 TAB PO DAILY HEART (Reported) Metformin HCl 1,000 MG TABLET 1 TAB PO Q12H DM (Reported) Pravastatin Sodium 40 MG TABLET 1 TAB PO QPM CHOLESTEROL (Reported) Tiotropium Br/Olodaterol HCl (Stiolto Respimat Inhal [place]) 2.5 MCG-2.5 MCG/ ACTUATION MIST.INHAL 2 PUFF INH BID BREATHING PROBLEMS (Reported) Past History Travel History Traveled to [place] past 21 day No Medical History Neurological: peripheral neuropathy EENT: NONE Cardiovascular: AFIB, hyperlipidemia Respiratory: asthma, CHF Gastrointestinal: NONE Hepatic: NONE Renal: NONE Musculoskeletal: NONE Psychiatric: NONE Endocrine: diabetes Blood Disorders: NONE 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 Review of Systems Review of Systems Constitutional: Denies: chills, fever. Cardiovascular: Reports: see HPI, peripheral edema. Denies: chest pain, palpitations. Respiratory: Reports: see HPI, short of breath. Denies: cough. GI: Denies: no symptoms. Genitourinary: Denies: no symptoms. Musculoskeletal: Denies: no symptoms. All Other Systems: Reviewed and Negative Exam & Diagnostic Data Last 24 Hrs of Vital Signs/I&O Vital Signs Date Time Temp Pulse Resp B/P B/P Pulse O2 O2 Flow FiO2 Mean Ox Delivery Rate 01/14 1415 98.0 108 20 122/79 97 Room Air 01/14 1329 93 Nasal 4.0L Cannula 01/14 1218 108 20 108/66 93 Nasal 4.0L Cannula Intake & Output 01/14 1600 01/14 0800 01/14 0000 Intake Total 0 Output Total 300 Balance -300 Intake, IV 0 Output, Urine 300 Patient 300 lb Weight Weight Estimated Measurement Method Physical Exam General Appearance Alert, Oriented X3, Cooperative, Mild Distress Skin No Rashes, venous stasis changes on bilateral lower limbs Skin Temp/Moisture Exam: Warm/Dry Sepsis Skin Exam (color): Normal for Ethnicity HEENT Atraumatic, Mucous Membr. moist/pink Neck Supple, JVD raised Cardiovascular Normal S1, Normal S2, Irregularly irregular Lungs Bilateral basal cracles, expiratory wheeze Abdomen Normal Bowel Sounds, Soft, No Tenderness, globally distended Neurological Normal Speech, Normal Tone Extremities No Clubbing, No Cyanosis, Pitting edema bilaterally to above the knees Last 24 Hrs of Labs/Jose J: Laboratory Tests 01/14/18 1231: Anion Gap 9, Estimated GFR > 60, BUN/Creatinine Ratio 15.0, Glucose 197 H, Hemoglobin A1c Pending, Calcium 8.5, Magnesium 1.8, Total Bilirubin 0.4, AST 21, ALT 27, Alkaline Phosphatase 106, Troponin I 0.02, Vfa-K-Jsgrjvwrote Pept 1410 H, Total Protein 6.0 L, Albumin 3.1 L, Globulin 2.9, Albumin/Globulin Ratio 1.1, CBC w Diff NO MAN DIFF REQ, RBC 4.71, MCV 90.5, MCH 29.5, MCHC 32.6 L, RDW 15.1 H, MPV 8.2, Gran % 63.5, Lymphocytes % 26.0, Monocytes % 8.4, Eosinophils % 1.6, Basophils % 0.5, Absolute Granulocytes 5.1, Absolute Lymphocytes 2.1, Absolute Monocytes 0.7 H, Absolute Eosinophils 0.1, Absolute Basophils 0 Diagnostic Data EKG Results Atrial flutter irregularly irregular CXR Results Mild pulmonary congestion Assessment/Plan Assessment: This is a 62 years gentleman with past medical history of CHF, coronary artery disease status post triple bypass, diabetes mellitus who is presenting with several week history of progressive shortness of breath that is getting worse associated with orthopnea paroxysmal nocturnal dyspnea and edema of the lower limbs. On presentation the patient was found to have raised JVD, edema of the lower limbs to above the knees, bilateral basilar crackles with x-ray showing evidence of pulmonary congestion. CHF exacerbation Uncontrolled diabetes mellitus last HbA1c above 10 A. fib with rate controlled Pulmonary hypertension Probably obstructive sleep apnea Morbid obesity Admit the patient to telemetry floor Continuous media monitor Strict I and O's Daily weights Lasix 40 mg IV twice daily Serial troponin and EKG 3 sets Accu-Cheks before meals Levemir insulin 70 units daily Insulin sliding scale medium level Endo consult a.m. Check HBA1c For A. fib continue home medication carvedilol 25 mg twice a day, diltiazem 180 mg daily and flecainide 100 mg daily Continue oral anticoagulation with apixaban 5 mg twice a day Peripheral neuropathy continue gabapentin 300 mg 3 times a day Patient is full code Will be on CHF diet As Ranked By This Provider Problem List: 1. CHF exacerbation 2. Hyperglycemia 3. Diabetes mellitus Core Measures/Misc (01/20) Acute Coronary Syndrome ACS Diagnosis: No Congestive Heart Failure Congestive Heart Failure Diagnosis Yes Last Known EF % 45 Cerebrovascular Accident CVA/TIA Diagnosis: No VTE (View Protocol) VTE Risk Factors Age>40 No Mechanical VTE Prophylaxis d/t N/A MechProphylax Ordered No VTE Pharm Prophylaxis d/t NA PharmProphylax ordered Sepsis (View protocol) Sepsis Present: No If YES complete Sepsis Event Note If YES complete Sepsis Event Note Phil Villavicencio 01/14/18 1659: Core Measures/Misc (01/20) Sepsis (View protocol) If YES complete Sepsis Event Note If YES complete Sepsis Event Note Attending MD Review Statement Attending Statement Attending MD Statement: examined this patient, discuss w/resident/PA/METROLOGY TECHNICIAN, agreed w/resident/PA/METROLOGY TECHNICIAN, reviewed EMR data (avail), discussed with nursing Attending Assessment/Plan: 62 yr M with pmh of HTN, HLD and CAD s/p triple-vessel bypass in 2016, Nicotine dependence ( currently smokes 6 cigs/day- previously a heavy smoker), prior substance abuse with cocaine , DM - uncontrolled , CHF systolic with EF of 45-50 % on echo in 11/2017 who is presenting with several days history of progressive shortness of breath. Pt gives h/o being non compliant with his DM diet and does not follow salt restricted diet. Pt was eating doritos and chips while in ER out of his bag. Pt gives h/o orthopnea, PND and uses lots of pillows at night. Looking back he has gianed about 9 kg of wt since his prior discharge. Pt in ER on cxr was found to be in fluid overload. Acute on chronic systolic chf- likely secondaty to his non compliance with salt intake. will start him on iv lasix 40mg iv bid and will monitor him on tele and will f/u on intake and output. will consider increasing the lasix to tid if not appropriate response. will get cardiology consult in am. Uncontrolled DM - pt is non compliant with his DM diet. Pt after discussion with him finally agreed to be on diabetic diet. Nicotine dependenc- encouraged pt to quit smoking. will put him on 7mg/daily nicotine patch. d/w pt the care plan.
--- NOTE | 2018-01-14 16:42 | Admission Certification ---
Admission Certification Certification Statement - As attending physician, I certify that at the time of - admission, based on clinical presentation, severity of - symptoms, need for further diagnostic testing and - therapeutic interventions, and risk of adverse outcomes - without in-hospital treatment, in my clinical assessment, - this patient requires an acute hospital stay for a minimum - of two nights or longer. I have also considered psychsocial - factors such as support system, advanced age, financial - issues, cognitive issues, and failed out-patient treatments, - past re-admission history, safety of patient, and lack of - compliance as applicable. Specific rationale supporting this admission is: acute on chronic chf systolic and ? COPD exacerbation
[2018-01-14 16:45] VITALS: BP 140/90
[2018-01-14 22:52] VITALS: BP 124/80
[2018-01-15 06:32] VITALS: BP 112/76
--- NOTE | 2018-01-15 08:04 | PN- Housestaff ---
Subjective Follow-up For: Acute hypoxic respiratory failure due to acute on chronic diastolic congestive heart failure. Uncontrolled diabetes Tele-Events Since Last Visit: Patient remained a flutter with heart rate between [id number] Subjective: No overnight events. Patient remained afebrile. Seen and examined this morning. He denies chest pain, palpitation, nausea, vomiting, chill, fever, abdominal pain dysuria. Patient is eating drinking orally. Patient is on room air maintaining saturation 96%. His urine output is adequate on IV Lasix. Review of Systems Constitutional: Denies: chills, fever. EENTM: Denies: blurred vision, visual changes. Cardiovascular: Denies: chest pain, palpitations, syncope. Respiratory: Denies: cough, short of breath, sputum production. Gastrointestinal: Denies: abdominal pain, constipation, diarrhea, nausea, vomiting. Genitourinary: Reports: no symptoms. Musculoskeletal: Reports: no symptoms. Neurological/Psychological: Denies: anxiety, confusion, depressed, headache. Objective Last 24 Hrs of Vital Signs/I&O Vital Signs Date Time Temp Pulse Resp B/P B/P Pulse O2 O2 Flow FiO2 Mean Ox Delivery Rate 01/15 0844 140/90 01/15 0844 96 140/90 01/15 0814 94 Nasal 1.0L Cannula 01/15 0632 97.8 96 20 112/76 96 Nasal Cannula 01/15 0000 Nasal 4.0L Cannula 01/14 2252 98.4 110 20 124/80 98 Nasal Cannula 01/14 2005 98 Nasal 4.0L Cannula 01/14 1957 92 162/80 01/14 1929 98 Nasal 4.0L Cannula 01/14 1922 Nasal 4.0L Cannula 01/14 1645 97.9 108 20 140/90 98 Nasal 4.0L Cannula 01/14 1643 97 Nasal 4.0L Cannula 01/14 1415 98.0 108 20 122/79 97 Room Air 01/14 1329 93 Nasal 4.0L Cannula 01/14 1218 108 20 108/66 93 Nasal 4.0L Cannula Intake & Output 01/15 1600 12 0800 01/15 0000 Intake Total 350 Output Total 300 Balance 350 -300 Intake, Oral 350 Output, Urine 300 Patient 257 lb Weight Weight Bed scale Measurement Method Physical Exam General Appearance: Alert, Oriented X3, Cooperative Skin Temp/Moisture Exam: Warm/Dry Sepsis Skin Exam (color): Normal for Ethnicity HEENT: Atraumatic, PERRLA, EOMI Neck: Supple Cardiovascular: Normal S1, Normal S2 Lungs: Clear to Auscultation Abdomen: Soft, No Tenderness Neurological: Normal Speech, Strength at 5/5 X4 Ext, Normal Tone, Sensation Intact Extremities: B/L PEDAL EDEMA Assessment/Plan Assessment: 62 yo M, currently smokes 6 cigs/day- previously a heavy smoker with PMH of HTN , HLD and CAD s/p triple-vessel bypass in 2016, A. fib on anticoagulation, nicotine dependence, prior substance abuse with cocaine , uncontrolled diabetes, CHF with EF of 45-50% on echo in 11/2017 who is presenting with several days history of progressive shortness of breath. Seeing the patient on telemetry floor for following problems: Acute hypoxic respiratory failure due to acute on chronic diastolic and systolic heart failure:(improving) -Patient has last echocardiogram in November 2017 that showed mild reduced global left ventricular systolic function with ejection fraction 4550% and moderate concentric ventricular hypertrophy. -Continue IV Lasix 40 mg daily -Continue monitoring his input and output -His troponin and EKGs remain negative. -Continue monitoring his weight daily -His oxygen was discontinued and he is saturating 95% on room air. -Follow-up cardiology recommendations History of CAD status post CABG: -Continue lisinopril -Continue carvedilol History of A. fib: -Continue Eliquis -Continue diltiazem for rate control -Continue flecainide for rhythm control History of hypertension hyperlipidemia: -Continue lisinopril and diltiazem -Continue Lipitor History of uncontrolled diabetes: -On admission his HbA1c was 9.1 -Continue Accu-Cheks. His blood sugar was 233 this morning. -Continue Levemir 70 units daily -Follow-up endocrinology recommendations -Holding his metformin and jardiance. History of peripheral neuropathy: -Continue gabapentin History of COPD: -Continue nebulizer treatment -TRC nebulization as needed DVT prophylaxis; Mechanical and patient already on Eliquis CODE STATUS: Full Problem List: 1. Hypoxia 2. CHF exacerbation 3. Uncontrolled diabetes mellitus Pain Ratin Pain Location: none Pain Goal: Remain pain free Pain Plan: pain pathway Tomorrow's Labs & Rationales: bep/mag
--- NOTE | 2018-01-15 10:06 | PN- Att Addend ---
Attending Addendum Attending Brief Note Patient seen and examined. Agree with resident's note. This is a 62-year-old male with a past medical history of hypertension, diabetes with difficult to control blood sugar, CHF with chronic diastolic heart failure, CAD and obesity. He is here with what appears to be an acute on chronic diastolic heart failure exacerbation. We switched his p.o. Lasix to IV Lasix and will follow his I's and O's and electrolytes closely. We have also called endocrinology to see him to help us out with the sugar management and will follow closely.
--- NOTE | 2018-01-15 12:57 | Cons- Endocrinology ---
General Information and HPI Consulting Request Date of Consult: 01/15/18 Requested By: medical team Reason for Consult: uncontriolled diabetes Source of Information: patient, old records Exam Limitations: poor historian History of Present Illness: This 62-year-old male has a known history of diabetes type 2 for at least 10 years associated with morbid obesity. Apparently he does have some background retinopathy but denies any evidence of kidney disease. The patient came to the emergency room because of shortness of breath. He has a history of coronary artery disease status post CABG and also atrial fibrillation. He has noticed increased swelling of his legs. At home with regard to his diabetes the patient takes 70 units of Levemir and sliding scale NovoLog before meals starting with 10 units of 880-150. His hemoglobin A1c which was over 14% is now 9.1% on this admission. The patient was also on Jardiance and Victoza at home. There is a mention of an episode of mild pancreatitis in August 2018 with a lipase of over 800. The patient suffers from diabetic neuropathy. Allergies/Medications Allergies: Coded Allergies: No Known Allergies (11/19/16) Home Med List: Albuterol Sulfate (Ventolin Hfa) 90 MCG HFA.AER.AD 2 PUF INH AD PRN COPD ( Reported) Albuterol Sulfate 2.5 MG/3 ML (0.083 %) VIAL.NEB 1 Vial INH/LUPE Q4P PRN SOB Apixaban (Eliquis) 5 MG TABLET 1 TAB PO BID BLOOD THINNER (Reported) Carvedilol 25 MG TABLET 1 TAB PO BID HEART/BP (Reported) Diltiazem HCl (Diltiazem 24HR ER) 180 MG CAP.ER.24H 1 CAP PO DAILY HEART ( Reported) Empagliflozin (Jardiance) 10 MG TABLET 1 TAB PO DAILY DIABETES (Reported) Flecainide Acetate 100 MG TABLET 1 TAB PO BID AFIB . Fluticasone Propionate (Flovent Hfa) 110 MCG/ACTUATION AER.W.ADAP 2 PUF INH BID BREATHING PROBLEMS (Reported) Furosemide 40 MG TABLET 1 TAB PO BID DIURETIC (Reported) Gabapentin 300 MG CAPSULE 1 CAP PO TID NERVE PAIN (Reported) Insulin Aspart, Recombinant (Novolog Flexpen) (Unknown Strength) INSULN.PEN ( Unknown Dose) SC TIDAC DIABETES (Reported) 80-150 10U 151-200 13U 201-250 16U 251-300 19U 301-350 22U 351-400 24U >400- 26U BEDTIME 201-250 2U 251-300 4U 301-350 6U 351-400 8U >400 10U Insulin Detemir (Levemir Flextouch) 100 UNIT/ML (3 ML) INSULN.PEN 70 UNITS SC DAILY DIABETES (Reported) Liraglutide (Victoza 3-Alberto) 0.6 MG/0.1 ML (18 MG/3 ML) PEN.INJCTR 1.8 MG SC DAILY DM (Reported) Lisinopril 20 MG TABLET 1 TAB PO DAILY HEART (Reported) Metformin HCl 1,000 MG TABLET 1 TAB PO Q12H DM (Reported) Pravastatin Sodium 40 MG TABLET 1 TAB PO QPM CHOLESTEROL (Reported) Tiotropium Br/Olodaterol HCl (Stiolto Respimat Inhal [place]) 2.5 MCG-2.5 MCG/ ACTUATION MIST.INHAL 2 PUFF INH BID BREATHING PROBLEMS (Reported) Review of Systems Review of Systems Constitutional: Denies: chills, fever. Cardiovascular: Denies: chest pain. Respiratory: Reports: short of breath. GI: Denies: nausea, vomiting. Genitourinary: Reports: no symptoms. Skin: Reports: change in skin color (lower legs). Neurological/Psychological: Reports: anxiety. 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 Psychosocial History Smoking Status: Former Smoker Exam & Diagnostic Data Last 24 Hrs of Vital Signs/I&O Vital Signs Date Time Temp Pulse Resp B/P B/P Pulse O2 O2 Flow FiO2 Mean Ox Delivery Rate 01/15 0844 140/90 01/15 0844 96 140/90 01/15 0814 94 Nasal 1.0L Cannula 01/15 0800 100 Nasal 4.0L Cannula 01/15 0632 97.8 96 20 112/76 96 Nasal Cannula 01/15 0000 Nasal 4.0L Cannula 01/142 98.4 110 20 124/80 98 Nasal Cannula 09/11 2005 98 Nasal 4.0L Cannula 01/14 1957 92 162/80 01/14 1929 98 Nasal 4.0L Cannula 01/14 192 Nasal 4.0L Cannula 01/14 1645 97.9 108 20 140/90 98 Nasal 4.0L Cannula 01/14 164 97 Nasal 4.0L Cannula 01/14 1415 98.0 108 20 122/79 97 Room Air 01/14 1329 93 Nasal 4.0L Cannula Intake & Output 01/15 0801/15 0000 Intake Total 350 Output Total 300 Balance 350 -300 Intake, Oral 350 Output, Urine 300 Patient 257 lb Weight Weight Bed scale Measurement Method Vital Signs Date Time Temp Pulse Resp B/P B/P Pulse O2 O2 Flow FiO2 Mean Ox Delivery Rate 01/15 0844 140/90 01/15 0844 96 140/90 01/15 0814 94 Nasal 1.0L Cannula 01/15 0800 100 Nasal 4.0L Cannula 01/15 0632 97.8 96 20 112/76 96 Nasal Cannula 01/15 0000 Nasal 4.0L Cannula 01/14 2252 98.4 110 20 124/80 98 Nasal Cannula 01/14 2005 98 Nasal 4.0L Cannula 01/14 1957 92 162/80 01/14 1929 98 Nasal 4.0L Cannula 01/14 1922 Nasal 4.0L Cannula 01/14 1645 97.9 108 20 140/90 98 Nasal 4.0L Cannula 01/14 1643 97 Nasal 4.0L Cannula 01/14 1415 98.0 108 20 122/79 97 Room Air 01/14 1329 93 Nasal 4.0L Cannula Intake & Output 01/15 0801/15 0000 Intake Total 350 Output Total 300 Balance 350 -300 Intake, Oral 350 Output, Urine 300 Patient 257 lb Weight Weight Bed scale Measurement Method Physical Exam General Appearance: alert, awake, obese Head: normal appearance Eyes: Bilateral: normal appearance. Neck: normal inspection Respiratory: normal breath sounds Cardiovascular: regular rate/rhythm, tachycardia Gastrointestinal: normal bowel sounds, distention Extremities: swelling Labs/Jose J Results: Laboratory Tests 01/15 01/15 01/14 01/14 0619 0010 1855 1231 Chemistry Sodium (137 - 145 mmol/L) 137 138 Potassium (3.5 - 5.1 mmol/L) 3.7 3.8 Chloride (98 - 107 mmol/L) 99 101 Carbon Dioxide (22 - 30 mmol/L) 33 H 28 Anion Gap (5 - 16) 5 9 BUN (9 - 20 mg/dL) 18 18 Creatinine (0.7 - 1.2 mg/dL) 1.1 1.2 Estimated GFR (>60 ml/min) > 60 > 60 BUN/Creatinine Ratio (7 - 25 %) 16.4 15.0 Glucose (65 - 99 mg/dL) 197 H Hemoglobin A1c (4.2 - 5.8 %) 9.1 H Calcium (8.4 - 10.2 mg/dL) 8.5 Magnesium (1.6 - 2.3 mg/dL) 1.8 Total Bilirubin (0.2 - 1.3 mg/dL) 0.4 AST (17 - 59 U/L) 21 ALT (21 - 72 U/L) 27 Alkaline Phosphatase (< 127 U/L) 106 Troponin I (<0.11 ng/ml) 0.03 0.02 0.02 Saq-Q-Zokfljcjofo Pept (<125 pg/mL) 1410 H Total Protein (6.3 - 8.2 g/dL) 6.0 L Albumin (3.5 - 5.0 g/dL) 3.1 L Globulin (1.9 - 4.2 gm/dL) 2.9 Albumin/Globulin Ratio (1.1 - 2.2 %) 1.1 Hematology CBC w Diff NO MAN DIFF REQ WBC (4.8 - 10.8 /CUMM) 8.0 RBC (4.70 - 6.10 /CUMM) 4.71 Hgb (14.0 - 18.0 G/DL) 13.9 L Hct (42 - 52 %) 42.7 MCV (80.0 - 94.0 FL) 90.5 MCH (27.0 - 31.0 PG) 29.5 MCHC (33.0 - 37.0 G/DL) 32.6 L RDW (11.5 - 14.5 %) 15.1 H Plt Count (130 - 400 /CUMM) 313 MPV (7.4 - 10.4 FL) 8.2 Gran % (42.2 - 75.2 %) 63.5 Lymphocytes % (20.5 - 51.1 %) 26.0 Monocytes % (1.7 - 9.3 %) 8.4 Eosinophils % (0 - 5 %) 1.6 Basophils % (0.0 - 2.0 %) 0.5 Absolute Granulocytes (1.4 - 6.5 /CUMM) 5.1 Absolute Lymphocytes (1.2 - 3.4 /CUMM) 2.1 Absolute Monocytes (0.10 - 0.60 /CUMM) 0.7 H Absolute Eosinophils (0.0 - 0.7 /CUMM) 0.1 Absolute Basophils (0.0 - 0.2 /CUMM) 0 01/13 01/13 1457 1457 Chemistry Sodium (137 - 145 mmol/L) 139 Potassium (3.5 - 5.1 mmol/L) 3.5 Chloride (98 - 107 mmol/L) 101 Carbon Dioxide (22 - 30 mmol/L) 31 H Anion Gap (5 - 16) 7 BUN (9 - 20 mg/dL) 20 Creatinine (0.7 - 1.2 mg/dL) 1.2 Estimated GFR (>60 ml/min) > 60 BUN/Creatinine Ratio (7 - 25 %) 16.7 Glucose (65 - 99 mg/dL) 216 H Calcium (8.4 - 10.2 mg/dL) 8.4 C-Telopeptide Pending Urines Ur Random Creatinine (mg/dL) 44.7 Ur Random Microalbumin (<1.7 mg/dl) 11.4 H U Cystine/Creat Ratio (mcg/mg) 255.03 Assessment/Plan Assessment/Plan This patient has type 2 diabetes associated with morbid obesity. He presents with evidence of congestive heart failure and massive fluid overload. He states that he had a history of asthma in the past. He has evidence of atrial fibrillation with increased ventricular rate. With regard to the patient's diabetes he is presently on 70 units of Levemir once a day.The patient's fingerstick blood sugar this morning was 233 before breakfast, and his sugar before lunch was 236. He is on a relatively small dose of NovoLog before meals. Suggest reduce the patient's Levemir to 60 units once a day. Change his sliding scale NovoLog before meals to 80-150 give 8 units NovoLog, 151-200 give 10 units NovoLog, 201-250 give 12 units NovoLog, 251-300 give 14 units NovoLog, 301-350 give 16 units NovoLog, 351-400 give 18 units NovoLog. A separate bedtime sliding scale NovoLog should be written. Sliding scale NovoLog at bedtime should be less than 250 give no insulin, 251-300 give 3 units NovoLog, 301-350 give 4 units NovoLog, 351-400 give 5 units NovoLog. The patient would benefit from restarting his Jardiance 10 mg once a day because this will help with not only controlling his blood sugar but also in bringing about a better diuresis. Continue to follow his BUN/creatinine and electrolytes carefully. I would not place the patient back on Victoza in view of the fact that he had an episode of mild pancreatitis in August 2017. Cardiology consult should be obtained. In addition the patient should be investigated for obstructive sleep apnea. We should also collect a 24-hour urine for total protein to try to quantify the amount of protein in his urine. In view of the history of mild pancreatitis in the past a lipid profile including triglycerides should be done. Consult Acknowledgment - Thank you for your consult request.
[2018-01-15 14:34] VITALS: BP 144/88
--- NOTE | 2018-01-15 14:53 | Cons- Cardiology ---
General Information and HPI Consulting Request Date of Consult: 01/15/18 Requested By: Reza TANNER,Dayna Nelson Reason for Consult: CHF History of Present Illness: Mr Rock is a patient of Dr Rodriguez who last saw him at the clinic on 2017. He is a 62-year-old male with multiple risk factors including diabetes, obesity, positive family history of heart disease, and smoking. The patient had coronary bypass surgery in January 2016. He had an initial echocardiogram with Dr Rodriguez on 02/25/2017 which showed LVH with good left ventricular systolic function, some mild thickening of his mitral valve, otherwise normal valves. The records from [facility] showed that he had bypass surgery on 01/27/2016 with a SEALS to the LAD, saphenous vein graft to the first diagonal, saphenous vein graft to the obtuse marginal. He also had atrial fibrillation with a cardioversion on 04/20/2016, which was a CAMILLA guided cardioversion. Subsequently he had an ER visit for chest pain with a negative evaluation in June 2016. . He had a pharmacologic stress test done on 03/12/17 which showed an ejection fraction of 38%, although on the echo his ejection fraction previously was normal. There was a small fixed perfusion abnormality involving the inferior wall. He had one ER visit on 08/12/2017. He was actually sent from cardiac rehab as a rapid response because of chest pain. This turned out to actually be abdominal pain and he had a mild case of pancreatitis which has subsequently resolved. Subsequently Frantz was admitted to the hospital on 11/27/2017. He was found to have a heart rate of 150. In the ED his EKG showed atrial flutter with 2:1 AV conduction, echocardiogram showed a LVEF of 45-50%. He was started on Cardizem, sent out to the floor, and monitored for a couple of days. His heart rate improved, but it did not go back to sinus rhythm spontaneously so dr Rodriguez did a cardioversion on him on 11/29. This was a straight cardioversion as he had been permanently anticoagulated already. He was able to be cardioverted to sinus rhythm with a single 200 Joule synchronized shock. He was also started on flecainide for rhythm control and referred to Dr Jones in , whom he has not seen yet, for flutter ablation. He has returned with SOB and atrial flutter with a rate of ~110 bpm, and bipedal edema. Allergies/Medications Allergies: Coded Allergies: No Known Allergies (11/19/16) Home Med List: Albuterol Sulfate (Ventolin Hfa) 90 MCG HFA.AER.AD 2 PUF INH AD PRN COPD ( Reported) Albuterol Sulfate 2.5 MG/3 ML (0.083 %) VIAL.NEB 1 Vial INH/LUPE Q4P PRN SOB Apixaban (Eliquis) 5 MG TABLET 1 TAB PO BID BLOOD THINNER (Reported) Carvedilol 25 MG TABLET 1 TAB PO BID HEART/BP (Reported) Diltiazem HCl (Diltiazem 24HR ER) 180 MG CAP.ER.24H 1 CAP PO DAILY HEART ( Reported) Empagliflozin (Jardiance) 10 MG TABLET 1 TAB PO DAILY DIABETES (Reported) Flecainide Acetate 100 MG TABLET 1 TAB PO BID AFIB . Fluticasone Propionate (Flovent Hfa) 110 MCG/ACTUATION AER.W.ADAP 2 PUF INH BID BREATHING PROBLEMS (Reported) Furosemide 40 MG TABLET 1 TAB PO BID DIURETIC (Reported) Gabapentin 300 MG CAPSULE 1 CAP PO TID NERVE PAIN (Reported) Insulin Aspart, Recombinant (Novolog Flexpen) (Unknown Strength) INSULN.PEN ( Unknown Dose) SC TIDAC DIABETES (Reported) 80-150 10U 151-200 13U 201-250 16U 251-300 19U 301-350 22U 351-400 24U >400- 26U BEDTIME 201-250 2U 251-300 4U 301-350 6U 351-400 8U >400 10U Insulin Detemir (Levemir Flextouch) 100 UNIT/ML (3 ML) INSULN.PEN 70 UNITS SC DAILY DIABETES (Reported) Liraglutide (Victoza 3-Alberto) 0.6 MG/0.1 ML (18 MG/3 ML) PEN.INJCTR 1.8 MG SC DAILY DM (Reported) Lisinopril 20 MG TABLET 1 TAB PO DAILY HEART (Reported) Metformin HCl 1,000 MG TABLET 1 TAB PO Q12H DM (Reported) Pravastatin Sodium 40 MG TABLET 1 TAB PO QPM CHOLESTEROL (Reported) Tiotropium Br/Olodaterol HCl (Stiolto Respimat Inhal [place]) 2.5 MCG-2.5 MCG/ ACTUATION MIST.INHAL 2 PUFF INH BID BREATHING PROBLEMS (Reported) Past History Travel History Traveled to [place] past 21 day No Medical History Neurological: peripheral neuropathy EENT: NONE Cardiovascular: AFIB, hyperlipidemia Respiratory: asthma, CHF Gastrointestinal: NONE Hepatic: NONE Renal: NONE Musculoskeletal: NONE Psychiatric: NONE Endocrine: diabetes Blood Disorders: NONE 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 Psychosocial History Smoking Status: Former Smoker Exam & Diagnostic Data Vital Signs and I&O Vital Signs Date Time Temp Pulse Resp B/P B/P Pulse O2 O2 Flow FiO2 Mean Ox Delivery Rate 01/15 1434 97.3 113 20 144/88 93 Room Air 01/15 0844 140/90 01/15 0844 96 140/90 01/15 0814 94 Nasal 1.0L Cannula 01/15 0800 100 Nasal 4.0L Cannula 01/15 0632 97.8 96 20 112/76 96 Nasal Cannula 01/15 0000 Nasal 4.0L Cannula 01/14 2252 98.4 110 20 124/80 98 Nasal Cannula 01/14 2005 98 Nasal 4.0L Cannula 01/14 195 92 162/80 01/14 1929 98 Nasal 4.0L Cannula 01/14 192 Nasal 4.0L Cannula 01/14 1645 97.9 108 20 140/90 98 Nasal 4.0L Cannula 01/14 1643 97 Nasal 4.0L Cannula Intake & Output 01/15 1600 01/15 0800 01/15 0000 01/14 1600 01/14 0800 01/14 0000 Intake Total 600 350 0 Output Total 850 300 300 Balance -250 350 -300 -300 Intake, IV 0 Intake, Oral 600 350 Output, Urine 850 300 300 Patient 257 lb 300 lb Weight Weight Bed scale Estimated Measurement Method Physical Exam: General Appearance: Alert, Oriented X3, Cooperative HEENT: Atraumatic, PERRLA, EOMI Neck: Supple, trachea midline, jugulars 10 cm Cardiovascular: Normal S1, Normal S2, no audible murmur, no S4. Lungs: Clear to Auscultation, good air entry bilaterally Abdomen: Soft, No Tenderness Neurological: Normal Speech, Strength symmetrical in 4 limbs Extremities: Bilateral ankle edema Labs/Jose J Results: Laboratory Tests 01/15 01/15 01/14 01/14 0619 0010 1855 1231 Chemistry Sodium (137 - 145 mmol/L) 137 138 Potassium (3.5 - 5.1 mmol/L) 3.7 3.8 Chloride (98 - 107 mmol/L) 99 101 Carbon Dioxide (22 - 30 mmol/L) 33 H 28 Anion Gap (5 - 16) 5 9 BUN (9 - 20 mg/dL) 18 18 Creatinine (0.7 - 1.2 mg/dL) 1.1 1.2 Estimated GFR (>60 ml/min) > 60 > 60 BUN/Creatinine Ratio (7 - 25 %) 16.4 15.0 Glucose (65 - 99 mg/dL) 197 H Hemoglobin A1c (4.2 - 5.8 %) 9.1 H Calcium (8.4 - 10.2 mg/dL) 8.5 Magnesium (1.6 - 2.3 mg/dL) 1.8 Total Bilirubin (0.2 - 1.3 mg/dL) 0.4 AST (17 - 59 U/L) 21 ALT (21 - 72 U/L) 27 Alkaline Phosphatase (< 127 U/L) 106 Troponin I (<0.11 ng/ml) 0.03 0.02 0.02 Qbc-[id number]-Ewzlpxvaxkb Pept (<125 pg/mL) 1410 H Total Protein (6.3 - 8.2 g/dL) 6.0 L Albumin (3.5 - 5.0 g/dL) 3.1 L Globulin (1.9 - 4.2 gm/dL) 2.9 Albumin/Globulin Ratio (1.1 - 2.2 %) 1.1 Hematology CBC w Diff NO MAN DIFF REQ WBC (4.8 - 10.8 /CUMM) 8.0 RBC (4.70 - 6.10 /CUMM) 4.71 Hgb (14.0 - 18.0 G/DL) 13.9 L Hct (42 - 52 %) 42.7 MCV (80.0 - 94.0 FL) 90.5 MCH (27.0 - 31.0 PG) 29.5 MCHC (33.0 - 37.0 G/DL) 32.6 L RDW (11.5 - 14.5 %) 15.1 H Plt Count (130 - 400 /CUMM) 313 MPV (7.4 - 10.4 FL) 8.2 Gran % (42.2 - 75.2 %) 63.5 Lymphocytes % (20.5 - 51.1 %) 26.0 Monocytes % (1.7 - 9.3 %) 8.4 Eosinophils % (0 - 5 %) 1.6 Basophils % (0.0 - 2.0 %) 0.5 Absolute Granulocytes (1.4 - 6.5 /CUMM) 5.1 Absolute Lymphocytes (1.2 - 3.4 /CUMM) 2.1 Absolute Monocytes (0.10 - 0.60 /CUMM) 0.7 H Absolute Eosinophils (0.0 - 0.7 /CUMM) 0.1 Absolute Basophils (0.0 - 0.2 /CUMM) 0 01/13 01/13 1457 1457 Chemistry Sodium (137 - 145 mmol/L) 139 Potassium (3.5 - 5.1 mmol/L) 3.5 Chloride (98 - 107 mmol/L) 101 Carbon Dioxide (22 - 30 mmol/L) 31 H Anion Gap (5 - 16) 7 BUN (9 - 20 mg/dL) 20 Creatinine (0.7 - 1.2 mg/dL) 1.2 Estimated GFR (>60 ml/min) > 60 BUN/Creatinine Ratio (7 - 25 %) 16.7 Glucose (65 - 99 mg/dL) 216 H Calcium (8.4 - 10.2 mg/dL) 8.4 C-Telopeptide Pending Urines Ur Random Creatinine (mg/dL) 44.7 Ur Random Microalbumin (<1.7 mg/dl) 11.4 H U Cystine/Creat Ratio (mcg/mg) 255.03 Assessment/Plan Assessment/Plan Ischemic cardiomyopathy with secondary systolic and diastolic HF, with significant improvement of his LVEF. Recent onset atrial flutter which is very poorly tolerated. Failure of rhythm control post cardioversion + flecainide. History of atrial fibrillation. CAT: stop flecainide. Continue cardizem alone. Continue anticoagulation. Will see Dr Jones next week, to organize flutter ablation, until then we could attemp to temporarily return him to SR with electrical cardioversion (+/- CAMILLA, he has been anticoagulated for months). Consult Acknowledgment - Thank you for your consult request.
[2018-01-15 22:01] VITALS: BP 138/80
[2018-01-16 06:50] VITALS: BP 138/84
--- NOTE | 2018-01-16 07:44 | PN- Housestaff ---
[facility]: Subjective Follow-up For: Acute hypoxic respiratory failure due to acute on chronic diastolic congestive heart failure. Uncontrolled diabetes Atrial fibrillation Tele-Events Since Last Visit: Patient remained in A. fib with heart rate [place] [address] Subjective: No overnight events. Patient remained afebrile. Seen and examined this morning. Overnight he was using 1 L of oxygen and maintaining saturation 96%. Patient denied chest pain, short of breath, nausea, vomiting, chill, fever, abdominal pain dysuria. He reported that at home he was using his nebulizers frequently during nighttime but he is feeling better with 1 L of oxygen during nighttime. We will check his saturation on ambulation and at rest with and without oxygen today. Review of Systems Constitutional: Denies: chills, fever. EENTM: Reports: no symptoms. Cardiovascular: Denies: chest pain, palpitations. Respiratory: Denies: cough, short of breath, sputum production. Gastrointestinal: Denies: abdominal pain, bloating, constipation, diarrhea, nausea, vomiting. Genitourinary: Reports: no symptoms. Musculoskeletal: Reports: no symptoms. Neurological/Psychological: Reports: no symptoms. Objective Last 24 Hrs of Vital Signs/I&O Vital Signs Date Time Temp Pulse Resp B/P B/P Pulse O2 O2 Flow FiO2 Mean Ox Delivery Rate 01/16 0650 97.5 64 20 138/84 96 Nasal 1.0L Cannula 01/16 0107 87 Room Air 01/16 0000 88 Room Air 01/15 2201 97.9 114 20 138/80 90 Room Air 01/15 2015 113 144/88 01/15 1607 94 Nasal 1.0L Cannula 01/15 1434 97.3 113 20 144/88 93 Room Air 01/15 0844 140/90 01/15 0844 96 140/90 01/15 0814 94 Nasal 1.0L Cannula 01/15 0800 100 Nasal 4.0L Cannula Intake & Output 01/16 0800 01/16 0000 01/15 1600 Intake Total 600 600 Output Total 2380 850 Balance -1780 -250 Intake, Oral 600 600 Output, Urine 2380 850 Patient 307 lb Weight Weight Bed scale Measurement Method Physical Exam General Appearance: Alert, Oriented X3, Cooperative Skin Temp/Moisture Exam: Warm/Dry Sepsis Skin Exam (color): Normal for Ethnicity HEENT: Atraumatic, PERRLA, EOMI Neck: Supple Cardiovascular: Normal S1, Normal S2 Lungs: Clear to Auscultation Abdomen: Soft, No Tenderness Neurological: Normal Speech, Strength at 5/5 X4 Ext, Normal Tone Extremities: b/l pedal edema Assessment/Plan Assessment: 62 yo M, morbid obese, currently smokes 6 cigs/day- previously a heavy smoker with PMH of HTN, HLD and CAD s/p triple-vessel bypass in 2016, A. fib on anticoagulation, nicotine dependence, prior substance abuse with cocaine , uncontrolled diabetes, CHF with EF of 45-50% on echo in 11/2017 who is presenting with several days history of progressive shortness of breath. Seeing the patient on telemetry floor for following problems: Acute hypoxic respiratory failure due to acute on chronic diastolic and systolic heart failure:(improving) -Patient has last echocardiogram in November 2017 that showed mild reduced global left ventricular systolic function with ejection fraction 4550% and moderate concentric ventricular hypertrophy. -Patient is using 1 L of oxygen during nighttime and maintaining saturation 96%. -Supplemental oxygen as needed to keep his saturation above 92%. -Continue IV Lasix 40 mg bid -Continue monitoring his input and output -His troponin and EKGs remain negative. -Continue monitoring his weight daily -His oxygen was discontinued and he is saturating 95% on room air. -Follow-up cardiology recommendations History of CAD status post CABG: -Continue lisinopril -Disontinued carvedilol History of A. fib: -Continue Eliquis -Continue diltiazem for rate control -His flecainide was discontinued as it did not convert the patient to sinus rhythm and he is in heart failure at this point. -Amiodarone 400mg bid started and carvedilol was disontinued -Possible electrical cardioversion today to convert his rhythm back to sinus. History of hypertension hyperlipidemia: -Continue lisinopril and diltiazem -Continue Lipitor History of uncontrolled diabetes: -On admission his HbA1c was 9.1 -Continue Accu-Cheks. His blood sugar was 231 this morning. -Continue Levemir 70 units daily -Follow-up endocrinology recommendations -Holding his metformin. -Continue jauardiance 10 mg that can help to get rate of excessive fluid and to control blood sugar level. History of peripheral neuropathy: -Continue gabapentin History of COPD: -Continue nebulizer treatment -TRC nebulization as needed DVT prophylaxis; Mechanical and patient already on Eliquis CODE STATUS: Full code Problem List: 1. CHF exacerbation 2. Uncontrolled diabetes mellitus 3. Hypoxia Pain Ratin Pain Location: none Pain Goal: Remain pain free Pain Plan: pain pathway Tomorrow's Labs & Rationales: bep/Dayna Vera MD 01/16/18 0943: Attending MD Review Statement Attending Statement Attending MD Statement: examined this patient, discuss w/resident/PA/[employer]YE[employer] STITCHER, agreed w/resident/PA/GO[employer]YEAR STITCHER, reviewed EMR data (avail), discussed with nursing, discussed with case mgmt Attending Assessment/Plan: Patient feels well and is eager to leave. Appreciate cardiology evaluation and we are stopping his flecainide, continuing the IV Lasix. Endocrine has recommended restarting the Jardiance for osmotiic diuresis and to stop the Victoza because of the history of pancreatitis. Will touch base with cardiology regarding optimal discharge date.
--- NOTE | 2018-01-16 07:48 | PN- Diabetes ---
Assessment/Plan Diabetes Assessment: This 62-year-old male has a history of diabetes mellitus type 2 associated with morbid obesity. He was on large doses of insulin at home prior to admission as well as Jardiance and Victoza. The patient entered the hospital with congestive heart failure and fluid overload. He has a degree of proteinuria. He also suffers from diabetic neuropathy. Patient states he feels improved. He has diuresed a lot of fluid. Jardiance was restarted because it can help with his diuresis as well as control his sugar. His breathing is better. He remains in atrial fibrillation. The patient's insulin regimen was adjusted yesterday. His blood sugars later in the day yesterday were 276 before dinner and 242 at bedtime. This morning his fingerstick blood sugar is 231. He is presently n.p.o. considering whether or not he may undergo a cardioversion. Plan: Suggest continue the present insulin. Continue Jardiance. Continue to monitor BUN/creatinine and electrolytes carefully. Subjective Subjective: Feels improved Review of Systems Constitutional: Denies: chills, fever. Cardiovascular: Denies: chest pain. Respiratory: Reports: short of breath. Gastrointestinal: Denies: abdominal pain, nausea, vomiting. Skin: Reports: no symptoms. Objective Last 24 Hrs of Vital Signs/I&O Vital Signs Date Time Temp Pulse Resp B/P B/P Pulse O2 O2 Flow FiO2 Mean Ox Delivery Rate 01/16 0650 97.5 64 20 138/84 96 Nasal 1.0L Cannula 01/16 0107 87 Room Air 01/16 0000 88 Room Air 01/151 97.9 114 20 138/80 90 Room Air 01/15 2015 113 144/88 01/15 1607 94 Nasal 1.0L Cannula 01/15 1434 97.3 113 20 144/88 93 Room Air 01/15 0844 140/90 01/15 0844 96 140/90 01/15 0814 94 Nasal 1.0L Cannula 01/15 0800 100 Nasal 4.0L Cannula Vital Signs Date Time Temp Pulse Resp B/P B/P Pulse O2 O2 Flow FiO2 Mean Ox Delivery Rate 01/16 0650 97.5 64 20 138/84 96 Nasal 1.0L Cannula 01/16 0107 87 Room Air 01/16 0000 88 Room Air 01/15 2201 97.9 114 20 138/80 90 Room Air 01/15 2015 113 144/88 01/15 1607 94 Nasal 1.0L Cannula 01/15 1434 97.3 113 20 144/88 93 Room Air 01/15 0844 140/90 01/15 0844 96 140/90 01/15 0814 94 Nasal 1.0L Cannula 01/15 0800 100 Nasal 4.0L Cannula Intake & Output 01/16 0800 01/16 0000 01/15 1600 Intake Total 600 600 Output Total 2380 850 Balance -1780 -250 Intake, Oral 600 600 Output, Urine 2380 850 Patient 307 lb Weight Weight Bed scale Measurement Method Physical Exam General Appearance: alert, awake, comfortable Head: normal appearance Neck: normal inspection Cardiovascular: tachycardia Abdomen: normal bowel sounds Extremities: swelling Current Medications: Current Medications Sig/[place] Start time Last Medication Dose Route Stop Time Status Admin Albuterol Sulfate 3 ML EVERY 4 HRS/AWAKE 01/15 1600 AC 01/16 INH 0547 Albuterol Sulfate 1 PUF Q2P PRN 01/15 0100 AC 01/16 INH 0051 Albuterol Sulfate 3 ML EVERY 4 HRS/AWAKE .. 01/14 1950 DC 01/15 INH 01/15 1559 1246 Apixaban 5 MG BID 01/14 2100 AC 01/15 PO 2015 Carvedilol 25 MG BID 01/14 2100 AC 01/15 PO 2015 Diltiazem HCl 180 MG DAILY 01/15 09 AC 01/15 PO 0844 Flecainide Acetate 100 MG DAILY 01/15 0900 DC 01/15 PO 0844 Fluticasone 2 PUF BID 01/14 2100 AC 01/15 Propionate INH 2028 Furosemide 40 MG 0800 & 1700 01/14 1700 AC 01/15 IV 1715 Gabapentin 300 MG TID 01/14 2100 AC 01/15 PO 2015 Insulin Aspart 0 .STK-MED ONE 01/15 1710 DC SC Insulin Aspart 0 TIDAC/HS 01/15 1700 AC 01/15 SC 2332 Insulin Aspart 0 TIDAC 01/14 1700 DC 01/15 SC 1156 Insulin Detemir 60 UNITS DAILY 01/16 0900 AC SC Insulin Detemir 70 UNITS DAILY 01/15 0900 DC 01/15 SC 0816 Lisinopril 20 MG DAILY 01/15 0900 AC 01/15 PO 0844 Non-Formulary 0 SEE ADMIN CRITERIA 01/15 0100 CAN Medication ANY Patient Own 2 UNIT DAILY 01/16 0900 DC Medication INH Patient Own 1 UNIT DAILY 01/15 1800 AC 01/15 Medication PO 2014 Patient Own 2 UNIT DAILY 01/15 1400 AC 01/15 Medication INH 1325 Potassium Chloride 40 MEQ ONCE ONE 01/15 1030 DC 01/15 PO 01/15 1031 1156 Pravastatin Sodium 20 MG 1700 01/14 1700 AC 01/15 PO 1715 Findings Pertinent Lab/Jose J Results: Laboratory Tests 01/16 01/15 01/15 01/15 01/14 0615 1548 0619 0010 1855 Chemistry Sodium (137 - 145 mmol/L) Pending 137 Potassium (3.5 - 5.1 mmol/L) Pending 3.7 Chloride (98 - 107 mmol/L) Pending 99 Carbon Dioxide (22 - 30 mmol/L) Pending 33 H Anion Gap (5 - 16) Pending 5 BUN (9 - 20 mg/dL) Pending 18 Creatinine (0.7 - 1.2 mg/dL) Pending 1.1 Estimated GFR (>60 ml/min) > 60 BUN/Creatinine Ratio (7 - 25 %) Pending 16.4 Magnesium Pending Troponin I (<0.11 ng/ml) 0.03 0.02 Total Protein Cancelled Triglycerides Pending Cholesterol Pending LDL Cholesterol, Calc Pending HDL Cholesterol Pending Cholesterol/HDL Ratio Pending 01/14 1231 Chemistry Sodium (137 - 145 mmol/L) 138 Potassium (3.5 - 5.1 mmol/L) 3.8 Chloride (98 - 107 mmol/L) 101 Carbon Dioxide (22 - 30 mmol/L) 28 Anion Gap (5 - 16) 9 BUN (9 - 20 mg/dL) 18 Creatinine (0.7 - 1.2 mg/dL) 1.2 Estimated GFR (>60 ml/min) > 60 BUN/Creatinine Ratio (7 - 25 %) 15.0 Glucose (65 - 99 mg/dL) 197 H Hemoglobin A1c (4.2 - 5.8 %) 9.1 H Calcium (8.4 - 10.2 mg/dL) 8.5 Magnesium (1.6 - 2.3 mg/dL) 1.8 Total Bilirubin (0.2 - 1.3 mg/dL) 0.4 AST (17 - 59 U/L) 21 ALT (21 - 72 U/L) 27 Alkaline Phosphatase (< 127 U/L) 106 Troponin I (<0.11 ng/ml) 0.02 Ndk-P-Nqxdzzpfigt Pept (<125 pg/mL) 1410 H Total Protein (6.3 - 8.2 g/dL) 6.0 L Albumin (3.5 - 5.0 g/dL) 3.1 L Globulin (1.9 - 4.2 gm/dL) 2.9 Albumin/Globulin Ratio (1.1 - 2.2 %) 1.1 Hematology CBC w Diff NO MAN DIFF REQ WBC (4.8 - 10.8 /CUMM) 8.0 RBC (4.70 - 6.10 /CUMM) 4.71 Hgb (14.0 - 18.0 G/DL) 13.9 L Hct (42 - 52 %) 42.7 MCV (80.0 - 94.0 FL) 90.5 MCH (27.0 - 31.0 PG) 29.5 MCHC (33.0 - 37.0 G/DL) 32.6 L RDW (11.5 - 14.5 %) 15.1 H Plt Count (130 - 400 /CUMM) 313 MPV (7.4 - 10.4 FL) 8.2 Gran % (42.2 - 75.2 %) 63.5 Lymphocytes % (20.5 - 51.1 %) 26.0 Monocytes % (1.7 - 9.3 %) 8.4 Eosinophils % (0 - 5 %) 1.6 Basophils % (0.0 - 2.0 %) 0.5 Absolute Granulocytes (1.4 - 6.5 /CUMM) 5.1 Absolute Lymphocytes (1.2 - 3.4 /CUMM) 2.1 Absolute Monocytes (0.10 - 0.60 /CUMM) 0.7 H Absolute Eosinophils (0.0 - 0.7 /CUMM) 0.1 Absolute Basophils (0.0 - 0.2 /CUMM) 0
[2018-01-16 15:27] VITALS: BP 142/92
--- NOTE | 2018-01-16 21:03 | PN- Cardiology ---
Subjective Subjective: Patient is still in atrial flutter it seems. No EKG today. HR remains ~100. Patient is still dyspneic with minor efforts but has improved. No chest pains. Objective Vital Signs and I&Os Vital Signs Date Time Temp Pulse Resp B/P B/P Pulse O2 O2 Flow FiO2 Mean Ox Delivery Rate 01/16 2031 96 Nasal 1.0L Cannula 01/16 1527 97.6 95 20 142/92 97 Nasal Cannula 01/16 1319 105 130/82 01/16 0857 64 138/84 01/16 0856 64 138/84 01/16 0843 95 Nasal 1.0L Cannula 01/16 0800 96 Nasal 1.0L Cannula 01/16 0650 97.5 64 20 138/84 96 Nasal 1.0L Cannula 01/16 0107 87 Room Air 01/16 0000 88 Room Air 01/15 2201 97.9 114 20 138/80 90 Room Air Intake & Output 01/16 1600 01/16 0800 01/16 0000 01/15 1600 01/15 0800 01/15 0000 Intake Total 715 600 600 350 Output Total 1025 2380 850 300 Balance -310 -1780 -250 350 -300 Intake, IV 15 Intake, Oral 700 600 600 350 Output, Urine 1025 2380 850 300 Patient 307 lb 257 lb Weight Weight Bed scale Bed scale Measurement Method Physical Exam: General Appearance: Alert, Oriented X3, Cooperative HEENT: Atraumatic, PERRLA, EOMI Neck: Supple, trachea midline Cardiovascular: no audible murmur, no S4. Lungs: Clear to Auscultation, good air entry bilaterally Abdomen: Soft, No Tenderness Neurological: Normal Speech, Strength symmetrical in 4 limbs Extremities: Bilateral ankle edema Current Medications: Current Medications Sig/[place] Start time Last Medication Dose Route Stop Time Status Admin Acetaminophen 650 MG Q6P PRN 01/16 0830 AC PO Albuterol Sulfate 3 ML BID 01/16 2100 AC 01/16 INH 203 Albuterol Sulfate 3 ML EVERY 4 HRS/AWAKE 01/15 1600 DC 01/16 INH 1222 Albuterol Sulfate 1 PUF Q2P PRN 01/15 0100 AC 01/16 INH 0051 Amiodarone HCl 400 MG BID 01/16 1300 AC 01/16 PO 1319 Apixaban 5 MG BID 01/14 2100 AC 01/16 PO 09 Carvedilol 25 MG BID 01/14 2100 DC 01/16 PO 0856 Diltiazem HCl 180 MG DAILY 01/15 0900 AC 01/16 PO 0856 Fluticasone 2 PUF BID 01/14 2100 AC 01/16 Propionate INH 0907 Furosemide 40 MG 0800 & 1700 01/14 1700 AC 01/16 IV 1713 Gabapentin 300 MG TID 01/14 2100 AC 01/16 PO 1303 Insulin Aspart 0 TIDAC/HS 01/15 1700 AC 01/16 SC 1712 Insulin Detemir 60 UNITS DAILY 01/16 0900 AC 01/16 SC 0903 Lisinopril 20 MG DAILY 01/15 0900 AC 01/16 PO 0857 Patient Own 2 UNIT DAILY 01/16 0900 DC Medication INH Patient Own 1 UNIT DAILY 01/15 1800 AC 01/16 Medication PO 0858 Patient Own 2 UNIT DAILY 01/15 1400 AC 01/16 Medication INH 0907 Pravastatin Sodium 20 MG 1700 01/14 1700 AC 01/16 PO 1712 Results Last 48 Hrs of Labs/Mics: Laboratory Tests 01/16/18 0615: Anion Gap 7, Estimated GFR 56 L, BUN/Creatinine Ratio 18.5, Magnesium 2.2, Triglycerides 93, Cholesterol 124, LDL Cholesterol, Calc 62 L, HDL Cholesterol 44, Cholesterol/HDL Ratio 3 01/15/18 2005: Urine Total Volume 4200 H, Ur Total Protein 24 Hr 1176.0 H 01/15/18 1548: Total Protein Cancelled 01/15/18 0619: Anion Gap 5, Estimated GFR > 60, BUN/Creatinine Ratio 16.4 01/15/18 0010: Troponin I 0.03 Assessment/Plan Assessment/Plan Atrial flutter seems to be the main problem in this patient with diastolic heart failure. He has in past presented atrial fibrillation, but i do believe he has been in flutter since admission (although some EKGs are less obvious). After discussion with dr Jones, patient will be started on amiodarone 400 mg PO bid, an electrical cardioversion will be attempted tomorrow (without prior CAMILLA as he has been continuously anticoagulated for >3 months), for symptomatic relief, and will be evaluated by dr Jones on saturday to plan ablation (flutter + /- afib). Please repeat EKG in the morning. Continue telemetry? Yes
[2018-01-16 22:41] VITALS: BP 130/80
--- NOTE | 2018-01-17 04:03 | Event Note ---
Event Note Event Note: Situation: I was notified by the nurse the patient is asking for albuterol because he believes that he has asthma attack. Background: He is a 62-year-old gentleman with a past medical history significant for COPD, asthma, hypertension, hyperlipidemia, coronary artery disease S/P triple-vessel bypass in 2016 who presented to ED with chief complaint of progressive shortness of breath for the past few days. He also has history of atrial fibrillation, title examiner believes that the patient has had atrial flutter although it was not easily visible on EKGs. Assessment: I visited and examined the patient, he was anxious and sitting in his bed stating that he had difficulty breathing, but he was able to speak in full sentences with no difficulty. On chest examination minimal diffuse rales was heard but no wheezing. I explained to the patient that this medication is going to cause tachycardia and is going to worsen your atrial fibrillation. He was not convinced and he insisted on having albuterol and said that he will leave if he does not have the medication. I talked to the pharmacist to see if they have levalbuterol (which has less tachycardic effects) available, or any other short acting bronchodilator which does not cause tachycardia; he said that they do not have anything available. Plan: Since the patient is already in the hospital in the have him on the rn cardiac and his current heart rate was in low 80s, and he has been on diltiazem and amiodarone I think it is prudent to give him 2 puffs of albuterol. After he had 2 puffs of albuterol, he was relieved and not anxious anymore. I followed up the heart rates, no tachycardia was induced, and will continue to monitor the patient closely. I discussed the case with my senior resident.
--- NOTE | 2018-01-17 07:16 | PN- Housestaff ---
See Addendum [place] 01/17/18 0715: Subjective Follow-up For: Acute hypoxic respiratory failure due to acute on chronic diastolic congestive heart failure. Uncontrolled diabetes Atrial fibrillation/flutter PRAVEEN Tele-Events Since Last Visit: remained in a.flutter/fib with HR between 80-85 Subjective: Over night patient was asking for albuterol inhaler as patient was assuming asthema attack. He was using one liter O2 and maintaining sat 95%. He denied chest pain, palpitation, shortness of breath and abdominal pain. He is npo for cardioversion today. Review of Systems Constitutional: Denies: chills, fever. EENTM: Reports: no symptoms. Cardiovascular: Denies: chest pain, palpitations, syncope. Respiratory: Denies: cough, short of breath, sputum production. Gastrointestinal: Denies: abdominal pain, constipation, diarrhea, nausea, vomiting. Genitourinary: Reports: no symptoms. Musculoskeletal: Reports: no symptoms. Neurological/Psychological: Reports: no symptoms. Objective Last 24 Hrs of Vital Signs/I&O Vital Signs Date Time Temp Pulse Resp B/P B/P Pulse O2 O2 Flow FiO2 Mean Ox Delivery Rate 01/17 0830 90 126/80 01/17 0830 90 126/80 01/17 0800 96 Nasal 1.0L Cannula 01/17 0718 97.8 80 20 126/80 95 Nasal Cannula 01/17 0000 Room Air 01/16 2241 97.6 88 20 130/80 95 Room Air 01/16 2141 88 134/64 01/16 2031 96 Nasal 1.0L Cannula 01/16 1527 97.6 95 20 142/92 97 Nasal Cannula 01/16 1319 105 130/82 Intake & Output 01/17 1600 01/17 0800 01/17 0000 Intake Total 600 Output Total 500 750 Balance -500 -150 Intake, Oral 600 Number 0 Bowel Movements Output, Urine 500 750 Patient 266 lb Weight Weight Bed scale Measurement Method Physical Exam General Appearance: Alert, Oriented X3, Cooperative Skin Temp/Moisture Exam: Warm/Dry Sepsis Skin Exam (color): Normal for Ethnicity HEENT: Atraumatic, PERRLA, EOMI Neck: Supple Cardiovascular: Normal S1, Normal S2 Lungs: Clear to Auscultation Abdomen: Soft, No Tenderness Neurological: Normal Speech, Strength at 5/5 X4 Ext, Normal Tone Extremities: b/l pedal edema Assessment/Plan Assessment: 62 yo M, morbid obese, currently smokes 6 cigs/day- previously a heavy smoker with PMH of HTN, HLD and CAD s/p triple-vessel bypass in 2016, A. fib on anticoagulation, nicotine dependence, prior substance abuse with cocaine , uncontrolled diabetes, CHF with EF of 45-50% on echo in 11/2017 who is presenting with several days history of progressive shortness of breath. Seeing the patient on telemetry floor for following problems: Acute hypoxic respiratory failure due to acute on chronic diastolic and systolic heart failure:(improving) -Patient has last echocardiogram in November 2017 that showed mild reduced global left ventricular systolic function with ejection fraction 4550% and moderate concentric ventricular hypertrophy. -Patient is using 1 L of oxygen during nighttime and maintaining saturation 96%. -Supplemental oxygen as needed to keep his saturation above 92%. -IV lasix changed to po 80mg bid as recommended by cardiology. -Continue monitoring his input and output -His troponin and EKGs remain negative. -Continue monitoring his weight daily -His oxygen was discontinued and he is saturating 95% on room air. -Follow-up cardiology recommendations Acute kidney injury: -Cr 1.3 and GFR is 56 -possibly due to lasix use. -We will follow his kidney functions History of CAD status post CABG: -Continue lisinopril -Disontinued carvedilol History of A. fib: -At this time patient is in atrial flutter and this arrhythmia also contributing to patient's heart failure. -Continue Eliquis -Continue diltiazem for rate control -His flecainide was discontinued as it did not convert the patient to sinus rhythm and he is in heart failure at this point. -Amiodarone 400mg bid started and carvedilol was disontinued -Possible electrical cardioversion today to convert his rhythm back to sinus. History of hypertension hyperlipidemia: -Continue lisinopril and diltiazem -Continue Lipitor History of uncontrolled diabetes: -On admission his HbA1c was 9.1 -Continue Accu-Cheks. His blood sugar was 231 this morning. -Continue Levemir 70 units daily -Follow-up endocrinology recommendations -Holding his metformin. -Continue jauardiance 10 mg that can help to get rate of excessive fluid and to control blood sugar level. History of peripheral neuropathy: -Continue gabapentin History of COPD: -Continue nebulizer treatment -TRC nebulization as needed DVT prophylaxis; Mechanical and patient already on Eliquis CODE STATUS: Full code Problem List: 1. Uncontrolled diabetes mellitus 2. CHF exacerbation 3. Acute kidney injury Pain Ratin Pain Location: none Pain Goal: Remain pain free Pain Plan: pain pathway Tomorrow's Labs & Rationales: gabriel Cobb MD,Dayna 01/17/18 0949: Attending MD Review Statement Attending Statement Attending MD Statement: examined this patient, discuss w/resident/PA/JUNIOR ORACLE DBA, agreed w/resident/PA/JUNIOR ORACLE DBA, reviewed EMR data (avail), discussed with nursing, discussed with case mgmt, reviewed images Attending Assessment/Plan: Patient is doing okay. He is n.p.o. for cardioversion today. He is a 62-year- old male with obesity, brittle diabetes, diastolic heart failure and atrial flutter. We have him on amiodarone with loading him as every time he goes into a flutter his heart failure gets worse. Will follow-up as per cardiology after the cardioversion.
[2018-01-17 07:18] VITALS: BP 126/80
--- NOTE | 2018-01-17 09:44 | PN- Diabetes ---
Assessment/Plan Diabetes Assessment: This 62-year-old male has a history of diabetes mellitus type 2 associated with morbid obesity. He was on 70 units of Levemir, metformin 1000 mg bid, Victoza 1.8 mg daily, and Jardiance 10 mg daily at home. The patient entered the hospital with congestive heart failure and fluid overload. He has a degree of proteinuria. He also suffers from diabetic neuropathy. His blood glucose has gone below 200 now. Plan: Please change diet to carbohydrate level 1. Please continue current insulin regimen and Jardiance. He will have an appointment with me on Jan 30. He should not take Victoza after discharge (it can precipitate tachycardia and pancreatitis) Will follow Subjective Subjective: He feels better today. His glucose level went down below 200. Objective Last 24 Hrs of Vital Signs/I&O Vital Signs Date Time Temp Pulse Resp B/P B/P Pulse O2 O2 Flow FiO2 Mean Ox Delivery Rate 01/17 0830 90 126/80 01/17 0830 90 126/80 01/17 0800 96 Nasal 1.0L Cannula 01/17 0718 97.8 80 20 126/80 95 Nasal Cannula 01/17 0000 Room Air 01/16 2241 97.6 88 20 130/80 95 Room Air 01/16 2141 88 134/64 01/16 2031 96 Nasal 1.0L Cannula 01/16 1527 97.6 95 20 142/92 97 Nasal Cannula 01/16 1319 105 130/82 Intake & Output 01/17 1600 01/17 0800 01/17 0000 Intake Total 600 Output Total 500 750 Balance -500 -150 Intake, Oral 600 Number 0 Bowel Movements Output, Urine 500 750 Patient 266 lb Weight Weight Bed scale Measurement Method
--- NOTE | 2018-01-17 13:11 | Patient Discharge Instructions ---
Discharge Instructions General Discharge Information You were seen/treated for: Acute hypoxic respiratory failure due to acute on chronic systolic and diastolic heart failure. A.flutter/fib Uncontrolled diabetes Watch for these problems: Chest pain, shortness of breath, palpitation, lightheadedness, increased swelling in legs, nausea, vomiting and abdominal pain. If you experience any of the symptoms please come to endocardial primary care physician. Special Instructions: Follow-up with your primary care physician in 1 week Follow-up with your occupational psychologist in 1 week Follow-up with your side laster staple on 30 January. -Please follow-up outpatient pulmonology for sleep study for obstructive sleep apnea Diet Recommended Diet: Diabetic Activity Activity Self Limited: Yes Acute Coronary Syndrome Inclusion Criteria At DC or during hospital stay patient has or had the following: ACS DIAGNOSIS No Discharge Core Measures Meds if any: Prescribed or Continued at Discharge Meds if any: NOT Prescribed or Continued at Discharge Congestive Heart Failure Inclusion Criteria At DC or during hospital stay patient has or had the following: CHF DIAGNOSIS Yes Discharge Core Measures Meds if any: Prescribed or Continued at Discharge Meds if any: NOT Prescribed or Continued at Discharge Comment already on lISINOPRIL Cerebrovascular accident Inclusion Criteria At DC or during hospital stay patient has or had the following: CVA/TIA Diagnosis No Discharge Core Measures Meds if any: Prescribed or Continued at Discharge Meds if any: NOT Prescribed or Continued at Discharge Venous thromboembolism Inclusion Criteria VTE Diagnosis No VTE Type NONE VTE Confirmed by (Test) NONE Discharge Core Measures - Per Current guidelines, there needs to be overlap - treatment for the first 5 days of Warfarin therapy. - If discharged on Warfarin prior to 5 days of - overlap therapy, the patient will need to be - assessed for post discharge needs including - *Post discharge parental anticoagulation - *Warfarin and/or parental anticoagulation education - *Follow up date to check INR post discharge At least 5 days overlap therapy as Inpatient No Meds if any: Prescribed or Continued at Discharge Note: Overlap Therapy is Warfarin and Anticoagulant Meds if any: NOT Prescribed or Continued at Discharge
--- NOTE | 2018-01-17 13:30 | Discharge Summary ---
Visit Information Visit Dates Admission Date: 01/14/18 Discharge Date: 01/18/18 Hospital Course Course Attending Physician: Reza TANNER,Dayna Nelson Primary Care Physician: Radha Luevano APRN Hospital Course: 62 yo M, morbid obese, currently smokes 6 cigs/day- previously a heavy smoker with PMH of HTN, HLD and CAD s/p triple-vessel bypass in 2016, A. fib on anticoagulation, nicotine dependence, prior substance abuse with cocaine , uncontrolled diabetes, CHF with EF of 45-50% on echo in 11/2017 who is presenting with several days history of progressive shortness of breath. ED course: Vital: Temperature 97.8, respiratory rate 20, pulse 108, blood pressure 108/66, oxygen saturation 93% on 4 L of oxygen. Labs: WBC count 9.0, hemoglobin 13.9, hematocrit 42.7, platelet count 313, sodium 138, potassium 3.8, BUN 10, creatinine 1.2, glucose 197, calcium 8.5, proBNP 1410, troponin 0 0.02, AST 21, ALT 27, alkaline phosphatase 106 Acute hypoxic respiratory failure due to acute on chronic diastolic and systolic heart failure: Patient was presented with acute hypoxic respiratory failure due to acute on chronic diastolic and systolic heart failure. His last echocardiogram was done in November 2017 that showed mild reduced global left ventricular systolic function with ejection fraction 4550% and moderate concentric ventricular hypertrophy. Initially he was kept on 4 L of oxygen to keep his saturation above 92%. Later on his oxygen was titrated down to room air and he was maintaining saturation above 92%. Patient possibly has obstructive sleep apnea and he will follow outpatient pulmonology for sleep study. He was using 1 L of oxygen at nighttime and keeping his saturation above 92%. Patient was started on IV Lasix to diurese him. His electrolytes were monitored while on Lasix. Daily weight and input output was monitored. Patient was strictly instructed to use low-salt diet. His troponins remain negative for any ischemic cardiac injury. Later on his Lasix was changed to p.o. Patient was instructed to follow cardiology as outpatient. He was instructed to follow Dr. Ernst as outpatient on Saturday, 01/20 for assessment of possible ablation in future. He was also instructed to follow pulmonology as outpatient for sleep study for possible obstructive sleep apnea. Atrial flutter status post electrical cardioversion: Patient was found to be in atrial flutter rhythm that was also contributing to his heart failure. Patient was using flecainide so considering his heart failure and left ventricular changes that was discontinued by cardiology. Patient was started on amiodarone but his rhythm remained in flutter. Later on elective electrical cardioversion was done and his rhythm was changed to sinus. Patient was already on anticoagulation with Eliquis for months so CAMILLA was not done. Patient will follow Dr. Ernst as outpatient for possible ablation therapy in the future. Acute kidney injury: During hospital stay due to use of Lasix patient's creatinine level elevated to 1.3 and GFR was in 50s. His kidney function and electrolytes were followed while he was on Lasix. History of CAD status post CABG: His lisinopril was continued but carvedilol was discontinued as patient was on Cardizem and amiodarone. History of A. fib: Patient had history of atrial fibrillation but this time he presented with atrial flutter. His Eliquis was continued for anticoagulation to prevent stroke. His flecainide was discontinued considering his left ventricular changes in heart failure. We continued Cardizem for rate control. Considering the patient was found in atrial flutter amiodarone was added to convert the rhythm to sinus. Later on as patient remained in flutter elective electrical cardioversion was done. History of hypertension hyperlipidemia: His lisinopril and Lipitor were continued. History of uncontrolled diabetes: On admission his HbA1c was 9.1. Accu-Cheks were done and patient was placed on diabetic diet to control his diabetes. Endocrinology consult with obtained and recommendations were followed. His Levemir units were decreased to 66 units daily and he was getting insulin NovoLog according to sliding scale. His metformin was held while in hospital. Patient's juardiance 10 mg tablet was continued and it will help her to get rid of excessive fluid and will control his blood sugar level. His Victoza was discontinued as it could precipitate his pancreatitis and his tachycardia. We will keep him off from Victoza even after the discharge. Patient was instructed to follow his disc recordist on 30 January after the discharge. History of peripheral neuropathy: Continued gabapentin History of COPD: The continue TRC nebulization as needed and his inhalers. DVT prophylaxis; Mechanical and patient already on Eliquis CODE STATUS: Full code Allergies: Coded Allergies: No Known Allergies (11/19/16) Pertinent Lab Results: Chest x-ray on 01/14/18: IMPRESSION: 1. Findings are consistent with mild congestive heart failure, similar to the previous exam. 2. Right hilar adenopathy is also similar to prior exam. Disposition Summary Disposition Principal Diagnosis: Acute hypoxic respiratory failure due to acute on chronic diastolic and systolic heart failure Atrial flutter status post electrical cardioversion Uncontrolled diabetes Acute kidney injury Additional Diagnosis: History of atrial fibrillation History of peripheral neuropathy History of COPD History of CAD status post CABG Discharge Disposition: home or self care Discharge Instructions General Discharge Information Code Status: Full Code Patient's Diet: Diabetic diet Patient's Activity: Self-limited Follow-Up Instructions/Appts: Follow-up with your primary care physician in 1 week Follow-up with your tap grinder in 1 week Follow-up with your disc recordist in 1 week Medications at Discharge Discharge Medications: Stop taking the following medications: Liraglutide (Victoza 3-Alberto) 0.6 MG/0.1 ML (18 MG/3 ML) PEN.INJCTR SC DAILY Qty = 9 Carvedilol (Carvedilol) 25 MG TABLET ORAL TWICE DAILY Flecainide Acetate (Flecainide Acetate) 100 MG TABLET ORAL TWICE DAILY Qty = 60 Continue taking these medications: Apixaban (Eliquis) 5 MG TABLET 1 Tablet ORAL TWICE DAILY Qty = 60 Comments: Last Taken: 01/18/18 Time: 8:00 AM Metformin HCl (Metformin HCl) 1,000 MG TABLET 1 Tablet ORAL Q12H Qty = 180 Comments: NOT GIVEN Gabapentin (Gabapentin) 300 MG CAPSULE 1 Capsule ORAL THREE TIMES DAILY Qty = 270 Comments: Last Taken: 01/18/18 Time: 8:00 AM Pravastatin Sodium (Pravastatin Sodium) 40 MG TABLET 1 Tablet ORAL Every night Qty = 90 Comments: Last Taken: 01/17/18 Time: 4:30 PM Tiotropium Br/Olodaterol HCl (Stiolto Respimat Inhal [place]) 2.5 MCG-2.5 MCG/ ACTUATION MIST.INHAL 2 PUFF Inhale through mouth TWICE DAILY Qty = 4 Comments: Last Taken: 01/18/18 Time: 8:00 AM Albuterol Sulfate (Ventolin Hfa) 90 MCG HFA.AER.AD 2 Puff Inhale through mouth As Directed as needed for COPD Qty = 18 Comments: Last Taken: 01/17/18 Time: 3:00 AM Lisinopril (Lisinopril) 20 MG TABLET 1 Tablet ORAL DAILY Qty = 90 Comments: Last Taken: 01/18/18 Time: 8:00 AM Albuterol Sulfate (Albuterol Sulfate) 2.5 MG/3 ML (0.083 %) VIAL.NEB 1 Vial Inhale Solution EVERY 4 HOURS NEEDED as needed for SOB Qty = 50 Comments: Last Taken: 01/18/18 Time: 8:30 AM Diltiazem HCl (Diltiazem 24HR ER) 180 MG CAP.ER.24H 1 Capsule ORAL DAILY Qty = 60 Comments: Last Taken: 01/18/18 Time: 8:00 AM Empagliflozin (Jardiance) 10 MG TABLET 1 Tablet ORAL DAILY Qty = 90 Comments: NOT GIVEN Fluticasone Propionate (Flovent Hfa) 110 MCG/ACTUATION AER.W.ADAP 2 Puff Inhale through mouth TWICE DAILY Qty = 12 Comments: Last Taken: 01/18/18 Time: 8:00 AM Start taking the following new medications: Amiodarone (Cordarone) 200 MG TAB 2 Tablet ORAL TWICE DAILY Qty = 30 No Refills Comments: Last Taken: 01/18/18 Time: 8:00 AM The following medications have been changed: Old: Furosemide (Furosemide) 40 MG TABLET 1 Tablet ORAL TWICE DAILY Qty = 90 New: Furosemide (Furosemide) 40 MG TABLET 1 Tablet ORAL TWICE DAILY Qty = 90 Instructions: TAKE TWO PILLS TWICE A DAY TILL 01/20/18 AND FROM Saturday01/21/18 START TAKING 1 PILL TWICE A DAY. Comments: Last Taken: 01/18/18 Time: 8:00 AM Old: Insulin Detemir (Levemir Flextouch) 100 UNIT/ML (3 ML) INSULN.PEN 70 Units SC DAILY Qty = 15 New: Insulin Detemir (Levemir Flextouch) 100 UNIT/ML (3 ML) INSULN.PEN 66 Units SC DAILY Qty = 15 Comments: Last Taken: 01/18/18 Time: 8:00 AM Old: Insulin Aspart, Recombinant (Novolog Flexpen) (Unknown Strength) INSULN.PEN Unknown Dose SC 3 TIMES DAILY BEFORE MEALS New: Insulin Aspart, Recombinant (Novolog Flexpen) 100 UNIT/ML INSULN.PEN 0 SC BEFORE MEALS AND AT BEDTIME Qty = 20 Instructions: Before Each Meal: < 80 mg/dl: 0 80-100 mg/dl: 8 101-120 mg/dl: 10 121-150 mg/dl: 10 151-200 mg/dl: 12 201-250 mg/dl: 14 251-300 mg/dl: 16 301-350 mg/dl: 18 351-400 mg/dl: 20 > 400 mg/dl: 22 Bedtime: 151-200 mg/dl: 2 201-250 mg/dl: 4 251-300 mg/dl: 6 301-350 mg/dl: 8 351-400 mg/dl: 10 > 400 mg/dl: 12 Comments: Before Each Meal: < 80 mg/dl: 0 80-100 mg/dl: 8 101-120 mg/dl: 10 121-150 mg/dl: 10 151-200 mg/dl: 12 201-250 mg/dl: 14 251-300 mg/dl: 16 301-350 mg/dl: 18 351-400 mg/dl: 20 > 400 mg/dl: 22 Bedtime: 151-200 mg/dl: 2 201-250 mg/dl: 4 251-300 mg/dl: 6 301-350 mg/dl: 8 351-400 mg/dl: 10 > 400 mg/dl: 12 SHORT ACTING NOVOLOG GIVEN PER SLIDING SCALE Last Taken: 12/02/17 Time: 11:OO AM Copies To: Radha Luevano APRN; Michael TANNER,Julian Mancera; Ulises TANNER,Cornelio
[2018-01-17 14:40] VITALS: BP 108/70
[2018-01-17 22:28] LABS: ABSOLUTE BASOPHIL COUNT 0 /CUMM (0.0-0.2); ABSOLUTE EOSINOPHIL COUNT 0.2 /CUMM (0.0-0.7); ABSOLUTE GRANULOCYTE CT 6.5 /CUMM (1.4-6.5); BASOPHIL % 0.2 % (0.0-2.0); EOSINOPHIL % 1.7 % (0-5); GRANULOCYTE % 67.2 % (42.2-75.2); HEMATOCRIT 42.8 % (42-52); MEAN CORPUSCULAR HGB 29.4 PG (27.0-31.0); MEAN CORPUSCULAR HGB CONC 32.4 G/DL (33.0-37.0); MEAN CORPUSCULAR VOLUME 90.6 FL (80.0-94.0); MEAN PLATELET VOLUME 7.7 FL (7.4-10.4); PLATELET COUNT 330 /CUMM (130-400); RBC DISTRIBUTION WIDTH 15.6 % (11.5-14.5); RED BLOOD CELL CT 4.72 /CUMM (4.70-6.10); WHITE BLOOD CELL COUNT 9.7 /CUMM (4.8-10.8)
[2018-01-17 22:30] VITALS: BP 148/80
[2018-01-18 07:13] VITALS: BP 112/84
--- NOTE | 2018-01-18 07:21 | PN- Housestaff ---
[facility]: Subjective Follow-up For: Acute hypoxic respiratory failure due to acute on chronic diastolic congestive heart failure. Uncontrolled diabetes Atrial fibrillation/flutter status post electrical cardioversion PRAVEEN Tele-Events Since Last Visit: Patient remained in sinus rhythm with heart rate between 6778 Subjective: Patient remained afebrile. Seen and examined this morning. Patient reported difficulty in breathing last night he was using 1 L of oxygen and maintaining saturation 99%. Later on he was kept on 3 L and he received Ativan 0.5. Then he slept. He also received 1 dose of Solu-Medrol 125 mg. Patient was asking for CPAP use. Patient denied chest pain, palpitation, nausea, vomiting, short of breath, abdominal pain dysuria. Last night ABGs were ordered that showed pH 7.42, PCO2 43 and PO2 65. Review of Systems Constitutional: Denies: chills, fever. EENTM: Reports: no symptoms. Cardiovascular: Denies: chest pain, palpitations. Respiratory: Denies: cough, short of breath, sputum production. Gastrointestinal: Denies: abdominal pain, constipation, diarrhea, nausea, vomiting. Genitourinary: Reports: no symptoms. Neurological/Psychological: Reports: see HPI. Objective Last 24 Hrs of Vital Signs/I&O Vital Signs Date Time Temp Pulse Resp B/P B/P Pulse O2 O2 Flow FiO2 Mean Ox Delivery Rate 01/18 0713 98.4 69 22 112/84 99 Nasal Cannula 01/18 0000 Nasal 3.0L Cannula 01/17 2240 67 108/70 01/17 2230 98.6 64 22 148/80 96 Nasal Cannula 01/17 1950 95 Nasal 2.0L Cannula 01/17 1600 94 Nasal 2.0L Cannula 01/17 1440 98.2 67 20 108/70 96 Nasal 2.0L Cannula 01/17 0830 90 126/80 01/17 0830 90 126/80 01/17 0800 96 Nasal 1.0L Cannula Intake & Output 01/18 0800 01/18 0000 01/17 1600 Intake Total 600 1200 400 Output Total 1000 650 Balance 600 200 -250 Intake, Oral 600 1200 400 Output, Urine 1000 650 Patient 266 lb Weight Weight Bed scale Measurement Method Physical Exam General Appearance: Alert, Oriented X3, Cooperative Skin Temp/Moisture Exam: Warm/Dry Sepsis Skin Exam (color): Normal for Ethnicity HEENT: Atraumatic, PERRLA, EOMI Neck: Supple Cardiovascular: Normal S1, Normal S2 Lungs: Clear to Auscultation Abdomen: Soft, No Tenderness Neurological: Normal Speech, Strength at 5/5 X4 Ext, Normal Tone Extremities: B/L PEDAL EDEMA Assessment/Plan Assessment: 62 yo M, morbid obese, currently smokes 6 cigs/day- previously a heavy smoker with PMH of HTN, HLD and CAD s/p triple-vessel bypass in 2016, A. fib on anticoagulation, nicotine dependence, prior substance abuse with cocaine , uncontrolled diabetes, CHF with EF of 45-50% on echo in 11/2017 who is presenting with several days history of progressive shortness of breath. Seeing the patient on telemetry floor for following problems: Acute hypoxic respiratory failure due to acute on chronic diastolic and systolic heart failure:(improving) -Patient has last echocardiogram in November 2017 that showed mild reduced global left ventricular systolic function with ejection fraction 4550% and moderate concentric ventricular hypertrophy. -Supplemental oxygen as needed to keep his saturation above 92%. -Continue p.o. Lasix 80 mg twice daily. -Continue monitoring his input and output -His troponin and EKGs remain negative. -Continue monitoring his weight daily -On room air maintaining saturation 99%. -Follow-up cardiology recommendations Acute kidney injury: -Cr 1.3 and GFR is 56 -possibly due to lasix use. -We will follow his kidney functions History of CAD status post CABG: -Continue lisinopril -Disontinued carvedilol Atrial flutter status post electrical cardioversion: -Patient had atrial flutter and he was cardioverted electrically yesterday. -Patient staying in sinus rhythm at this point. -Continue amiodarone 400 mg twice daily. -Continue Cardizem 180 mg daily History of A. fib: -Continue Eliquis -Continue diltiazem for rate control -His flecainide was discontinued as it did not convert the patient to sinus rhythm and he is in heart failure at this point. -Amiodarone 400mg bid started and carvedilol was disontinued -Possible electrical cardioversion today to convert his rhythm back to sinus. History of hypertension hyperlipidemia: -Continue lisinopril and diltiazem -Continue Lipitor History of uncontrolled diabetes: -On admission his HbA1c was 9.1 -Continue Accu-Cheks. His fasting blood sugar is 349 today. -Continue Levemir 60 units daily -Follow-up endocrinology recommendations -Holding his metformin. -Continue jauardiance 10 mg that can help to get rate of excessive fluid and to control blood sugar level. History of peripheral neuropathy: -Continue gabapentin History of COPD: -Continue nebulizer treatment -TRC nebulization as needed DVT prophylaxis; Mechanical and patient already on Eliquis CODE STATUS: Full code Problem List: 1. Acute kidney injury 2. Uncontrolled diabetes mellitus 3. CHF exacerbation Pain Ratin Pain Location: NONE Pain Goal: Remain pain free Pain Plan: PAIN PATHWAY Tomorrow's Labs & Rationales: CHRISTINE Cobb MD,Dayna 01/18/18 0910: Attending MD Review Statement Attending Statement Attending MD Statement: examined this patient, discuss w/resident/PA/STUDENT LIFE ADVISOR, agreed w/resident/PA/STUDENT LIFE ADVISOR, reviewed EMR data (avail), discussed with nursing, reviewed images Attending Assessment/Plan: Patient was short of breath yesterday. His Lasix has been changed from IV to p.o. but a higher dose of 80 p.o. twice daily. He has diastolic heart failure in association with atrial fibrillation and was cardioverted yesterday he is also being loaded on p.o. amiodarone. I am worried about his sugars as as it is he has brittle diabetes and now with the Solu-Medrol he got yesterday, the sugars out of control. Will need to talk to endocrinology. Will also need to talk to cardiology his heart rate is better and he is keen on going home if cleared by cardiology.
[2018-01-18] MEDS ORDERED: AMIODARONE HCL200 M1 PO (09:13)
--- NOTE | 2018-01-18 10:14 | PN- Diabetes ---
Assessment/Plan Diabetes Assessment: This 62-year-old male has a history of diabetes mellitus type 2 associated with morbid obesity. He was on 70 units of Levemir, metformin 1000 mg bid, Victoza 1.8 mg daily, and Jardiance 10 mg daily at home. The patient entered the hospital with congestive heart failure and fluid overload. He has a degree of proteinuria. He also suffers from diabetic neuropathy. He had received one dose of methylprednisolone last night, and BG went up over night. The primary team do not plan to give more steroid today. Plan: Please increase Levemir to 66 units a day. Please change the Novolog coverage according to the scale below. I am informed by the housestaff that patient might be discharged today. Patient should continue the same regimen after discharge as he is getting in the hospital (Levemir, Novolog or Humalog, and Jardiance) He will have an appointment with me on Jan 30. He should not take Victoza after discharge (it can precipitate tachycardia and pancreatitis). I will decide on whether he can resume metformin after he comes back for office visit He should continue to check blood glucose ACHS at home and bring the numbers back on the office visit. Informed the patient and discussed with housestaff Inpatient Diabetes Orders Before Each Meal: < 80 mg/dl: 0 80-100 mg/dl: 8 101-120 mg/dl: 10 121-150 mg/dl: 10 151-200 mg/dl: 12 201-250 mg/dl: 14 251-300 mg/dl: 16 301-350 mg/dl: 18 351-400 mg/dl: 20 > 400 mg/dl: 22 Bedtime: 151-200 mg/dl: 2 201-250 mg/dl: 4 251-300 mg/dl: 6 301-350 mg/dl: 8 351-400 mg/dl: 10 > 400 mg/dl: 12 Subjective Subjective: He received a dose of methylprednisolone last night, and his glucose level went up. Objective Last 24 Hrs of Vital Signs/I&O Vital Signs Date Time Temp Pulse Resp B/P B/P Pulse O2 O2 Flow FiO2 Mean Ox Delivery Rate 01/18 0850 94 Room Air 01/18 0800 94 Nasal 2.0L Cannula 01/18 0713 98.4 69 22 112/84 99 Nasal Cannula 01/18 0000 Nasal 3.0L Cannula 01/17 2240 67 108/70 01/17 2230 98.6 64 22 148/80 96 Nasal Cannula 01/17 1950 95 Nasal 2.0L Cannula 01/17 1600 94 Nasal 2.0L Cannula 01/17 1440 98.2 67 20 10870 96 Nasal 2.0L Cannula Intake & Output 01/18 1600 01/18 0800 01/18 0000 Intake Total 600 1200 Output Total 1000 Balance 600 200 Intake, Oral 600 1200 Output, Urine 1000 Patient 266 lb Weight Weight Bed scale Measurement Method
[2018-01-18] MEDS ORDERED: LEVEMIR FL100 UNIT/1 SC (11:28)
[2018-01-18] MEDS ORDERED: NOVOLOG FL100 UNIT/1 SC (11:28)
[2018-01-18] MEDS ORDERED: FUROSEMIDE40 M1 PO (11:45)
--- NOTE | 2018-01-18 13:12 | PN- Cardiology ---
Subjective Subjective: Patient cardioverted to sinus rhythm yesterday with 1 shock of 200J. Has been in SR since. Walking on the unit this morning, making himself breakfast in the kitchen. Is on room air this morning, still complaining of SOB. No chest pains. Objective Vital Signs and I&Os Vital Signs Date Time Temp Pulse Resp B/P B/P Pulse O2 O2 Flow FiO2 Mean Ox Delivery Rate 01/18 0850 94 Room Air 01/18 0800 94 Nasal 2.0L Cannula 01/18 0713 98.4 69 22 112/84 99 Nasal Cannula 01/18 0000 Nasal 3.0L Cannula 01/17 2240 67 108/70 01/17 2230 98.6 64 22 148/80 96 Nasal Cannula 01/17 1950 95 Nasal 2.0L Cannula 01/17 1600 94 Nasal 2.0L Cannula 01/17 1440 98.2 67 20 108/70 96 Nasal 2.0L Cannula Intake & Output 01/18 1600 01/18 0800 01/18 0000 01/17 1600 01/17 0800 01/17 0000 Intake Total 600 1200 400 600 Output Total 1000 650 500 750 Balance 600 200 -250 -500 -150 Intake, Oral 600 1200 400 600 Number 0 Bowel Movements Output, Urine 1000 650 500 750 Patient 266 lb 266 lb Weight Weight Bed scale Bed scale Measurement Method Physical Exam: General Appearance: Alert, Oriented X3, Cooperative Neck: Supple, trachea midline Cardiovascular: no audible murmur, no S4. Lungs: Clear to Auscultation, good air entry bilaterally Abdomen: Soft, No Tenderness Neurological: Normal Speech, Strength symmetrical in 4 limbs Extremities: Bilateral ankle edema Current Medications: Current Medications Sig/[place] Start time Last Medication Dose Route Stop Time Status Admin Acetaminophen 650 MG Q6P PRN 01/16 0830 AC PO Albuterol Sulfate 3 ML BID 01/16 2100 AC 01/18 INH 0833 Albuterol Sulfate 1 PUF Q2P PRN 01/15 0100 AC 01/17 INH 0308 Amiodarone HCl 400 MG BID 01/16 1300 AC 01/18 PO 0808 Apixaban 5 MG BID 01/14 2100 AC 01/18 PO 0807 Diltiazem HCl 180 MG DAILY 01/15 09 AC 01/18 PO 0808 Fluticasone 2 PUF BID 01/14 2100 AC 01/18 Propionate INH 0811 Furosemide 80 MG 7:30 AM, & 4:30 PM 01/17 1630 AC 01/18 PO 0808 Gabapentin 300 MG TID 01/14 2100 AC 01/18 PO 1238 Insulin Aspart 0 TIDAC/HS 01/15 1700 AC 01/18 SC 1238 Insulin Detemir 66 UNITS DAILY 01/19 0900 AC SC Insulin Detemir 60 UNITS DAILY 01/16 0900 DC 01/18 SC 0807 Lisinopril 20 MG DAILY 01/15 0900 AC 01/18 PO 0807 Lorazepam 0.5 MG ONCE ONE 01/18 0030 DC 01/18 PO 01/18 0031 0029 Lorazepam 0 .STK-MED ONE 01/18 0028 DC PO Methylprednisolone 125 MG ONCE ONE 01/17 2145 DC 01/17 IV 01/17 2146 2239 Patient Medication 1 ED ONE ONE 01/18 2000 [place] Teaching ED 01/17 2001 Patient Own 1 UNIT DAILY 01/15 1800 AC 01/18 Medication PO 0808 Patient Own 2 UNIT DAILY 01/15 1400 AC 01/18 Medication INH 0811 Pravastatin Sodium 20 MG 1700 01/14 1700 AC 01/17 PO 1641 Results Last 48 Hrs of Labs/Mics: Laboratory Tests 01/18/18 0615: Anion Gap 12, Estimated GFR 52 L, BUN/Creatinine Ratio 26.4 H 01/17/18 2200: Anion Gap 9, Estimated GFR 48 L, BUN/Creatinine Ratio 21.3, Magnesium 2.1, Troponin I 0.03, D-Dimer High Sensitivty < 200, CBC w Diff NO MAN DIFF REQ, RBC 4.72, MCV 90.6, MCH 29.4, MCHC 32.4 L, RDW 15.6 H, MPV 7.7, Gran % 67.2, Lymphocytes % 20.9, Monocytes % 10.0 H, Eosinophils % 1.7, Basophils % 0.2, Absolute Granulocytes 6.5, Absolute Lymphocytes 2.0, Absolute Monocytes 1.0 H, Absolute Eosinophils 0.2, Absolute Basophils 0 01/17/185: pH 7.42, pCO2 43, pO2 65 L, HCO3 28, ABG O2 Sat (Measured) 91.0 L, Carboxyhemoglobin 1.2 L, O2 Concentration % 2LPM, O2 Delivery Method NC, Phlebotomy Draw Site LEFT RADIAL 01/17/18 0625: Anion Gap 7, Estimated GFR 56 L, BUN/Creatinine Ratio 20.8 Assessment/Plan Assessment/Plan Atrial flutter seems to be the main problem in this patient with diastolic heart failure. He has in past presented atrial fibrillation also. Cardioversion successful on 01/17/2018, and amiodarone to be continued at 400 mg PO bid. Patient still has some fluid overload, i would discharge hime with lasix 80 mg PO bid X 2 days and then reduce to 40 mg PO bid. Will see Dr Jones on saturday01/20/2018 to evaluate/plan ablation. Continue telemetry? No
--- NOTE | 2018-01-18 16:40 | Event Note ---
Event Note Event Note: Mr Rock wanted to get a copy of his medical records before he gets discharged. He was explained that he can get all his records fromthe medical records depatment which opens up on Saturday. The webpage for the medical record section to register an account is non-functional today and he was explained that as well. He seemed upset about that too, but agreed that he will follow up with medical records section/department on Saturday as he was getting discharged. Attending and nursing staff well aware of the issue as we all tried explaining him the same.
== END 2018-01-18 16:40 | DRG 194 ==
LOC: ERH 12:01 → 1NO 13:52 → ERHI 13:52 → ENRESERV 14:21 → ENTRNSPT 16:12 → EDTRNSPTSTS 16:14 → 1NO 16:41 → CMPTRNSPT 16:44 → 1NO 01-15 08:33 → ENTRNSPT 01-18 16:28 → 1NO 01-18 16:40 → CMPTRNSPT 01-18 16:45
PROVIDERS: Student in an Organized Health Care Education/Training Program
PROC: 5A2204Z Restoration of Cardiac Rhythm, Single (ICD-10-PCS; principal; 2018-01-17)
DX: I11.0 Hypertensive heart disease with heart failure (principal); I50.43 Acute on chronic combined systolic (congestive) and diastolic (congestive) heart failure; E78.5 Hyperlipidemia, unspecified; I48.91 Unspecified atrial fibrillation; Z79.01 Long term (current) use of anticoagulants; I25.10 Atherosclerotic heart disease of native coronary artery without angina pectoris; Z91.11 Patient's noncompliance with dietary regimen; Z68.39 Body mass index [BMI] 39.0-39.9, adult; E11.65 Type 2 diabetes mellitus with hyperglycemia; E11.42 Type 2 diabetes mellitus with diabetic polyneuropathy; Z79.4 Long term (current) use of insulin; Z79.84 Long term (current) use of oral hypoglycemic drugs; R09.02 Hypoxemia; I27.20 Pulmonary hypertension, unspecified; G47.33 Obstructive sleep apnea (adult) (pediatric); E66.01 Morbid (severe) obesity due to excess calories; F14.11 Cocaine abuse, in remission; J44.9 Chronic obstructive pulmonary disease, unspecified; I25.5 Ischemic cardiomyopathy; I48.92 Unspecified atrial flutter; N17.9 Acute kidney failure, unspecified; Z98.61 Coronary angioplasty status; Z79.51 Long term (current) use of inhaled steroids; F17.210 Nicotine dependence, cigarettes, uncomplicated; Z95.1 Presence of aortocoronary bypass graft
CPT/HCPCS: 1NP; 1NSP; 82523; 36415; 36592; 71046; 82436; 82570; 93005; 93010; 96374; 99291; J1815; J1940; J2930; J3490

== ENCOUNTER 2018-01-20 09:56 | Inpatient (IN) | payer OTHER ==
[~2018-01-20] VITALS: Ht 180.3 cm; Wt 128.4 kg
[~2018-01-20 09:56] MED LIST changes: +AMIODARONE HCL200 M1 PO; +DILTIAZEM 24HR180 MG PO; +FLOVENT HFA12 G1 INH; +JARDIANCE10 M1 PO
[2018-01-20 10:46] LABS: ABSOLUTE BASOPHIL COUNT 0 /CUMM (0.0-0.2); ABSOLUTE EOSINOPHIL COUNT 0.1 /CUMM (0.0-0.7); ABSOLUTE GRANULOCYTE CT 6.8 /CUMM (1.4-6.5); ABSOLUTE LYMPH COUNT 2.2 /CUMM (1.2-3.4); ABSOLUTE MONOCYTE COUNT 0.7 /CUMM (0.10-0.60); BASOPHIL % 0.5 % (0.0-2.0); EOSINOPHIL % 0.8 % (0-5); GRANULOCYTE % 69.5 % (42.2-75.2); HEMATOCRIT 41.7 % (42-52); MEAN CORPUSCULAR HGB 29.4 PG (27.0-31.0); MEAN CORPUSCULAR HGB CONC 32.6 G/DL (33.0-37.0); MEAN CORPUSCULAR VOLUME 90.1 FL (80.0-94.0); MEAN PLATELET VOLUME 8.1 FL (7.4-10.4); PLATELET COUNT 315 /CUMM (130-400); RBC DISTRIBUTION WIDTH 15.3 % (11.5-14.5); RED BLOOD CELL CT 4.62 /CUMM (4.70-6.10); WHITE BLOOD CELL COUNT 9.8 /CUMM (4.8-10.8)
--- NOTE | 2018-01-20 11:52 | ED DYSPNEA/ASTHMA COMPLAINT ---
History of Present Illness General Chief Complaint: Dyspnea (COPD, CHF, Other) Stated Complaint: SOB Source: patient Exam Limitations: no limitations Vital Signs & Intake/Output Vital Signs & Intake/Output Vital Signs Date Time Temp Pulse Resp B/P B/P Pulse O2 O2 Flow FiO2 Mean Ox Delivery Rate 01/23 1421 98.3 69 17 148/80 98 Nasal 2.0L Cannula 01/23 0907 98.3 73 20 138/62 01/23 0906 98.3 73 20 138/62 01/23 0834 98 Nasal 3.0L Cannula 01/23 0800 Nasal 3.0L Cannula 01/23 0556 98.3 73 20 138/62 96 Nasal Cannula 01/22 2222 98.6 78 20 130/76 93 Nasal Cannula 01/22 2040 93 Nasal 3.0L Cannula 01/22 203 78 130/76 01/22 2035 78 130/76 ED Intake and Output 01/23 0000 01/22 1200 Intake Total 1860 Output Total 2600 Balance -740 Intake, Oral 1860 Number 1 Bowel Movements Output, Urine 2600 Patient 283 lb Weight Allergies Coded Allergies: No Known Allergies (11/19/16) Triage Note: PT TO ED C/O CP/SOB. STATES THAT HE WAS ADMITTED LAST WEEK FOR THE SAME WITH CHF AND ALSO HAD A CARDIOVERSION. PT STATES HE HAS AN APPT WITH PULMONOLOGY TODAY AT 1PM, ALSO IS REQUESTING THAT HE HAS PROOF THAT HE WAS HERE IN THE ER TO BE SENT TO THE [facility]. Triage Nurses Notes Reviewed? yes HPI: Patient is a 62-year-old male with a past medical history of hypertension, hyperlipidemia, coronary artery, diabetes mellitus, CHF who is presenting to the emergency department with complaints of shortness of breath. Patient was recently hospitalized from 01/14-01/18 for several days of progressive shortness of breath. During the admission patient was treated with IV Lasix, which resulted in improvement in the patient's symptoms, however today he is stating that on Saturday he was still experiencing shortness of breath upon discharge. Patient does endorse drinking a lot of water while at home because he said his mouth continue to feel thirsty, endorses eating a high salt diet. (Jd TANNER,Nathanael) Reconcile Medications Albuterol Sulfate (Ventolin Hfa) 90 MCG HFA.AER.AD 2 PUF INH Q4P PRN COPD ( Reported) Albuterol Sulfate 2.5 MG/3 ML (0.083 %) VIAL.NEB 1 Vial INH/LUPE Q4P PRN SOB Amiodarone (Cordarone) 200 MG TAB 400 MG PO BID afib You will take this dose for one month and then decrease to 200MG BID till when reviewed by your Associate Web Developer Amiodarone (Cordarone) 200 MG TAB 2 TAB PO BID Heart rhythm Apixaban (Eliquis) 5 MG TABLET 1 TAB PO BID BLOOD THINNER (Reported) Carvedilol 6.25 MG TABLET 6.25 MG PO BID AFIB Diltiazem HCl (Diltiazem 24HR ER) 180 MG CAP.ER.24H 1 CAP PO DAILY HEART ( Reported) Empagliflozin (Jardiance) 10 MG TABLET 1 TAB PO DAILY DIABETES (Reported) [ENTRESTO 49MG/51MG] 1 TAB PO BID CHF Fluticasone Propionate (Flovent Hfa) 110 MCG/ACTUATION AER.W.ADAP 2 PUF INH BID BREATHING PROBLEMS (Reported) Furosemide 40 MG TABLET 1 TAB PO BID DIURETIC TAKE TWO PILLS TWICE A DAY TILL 01/20/18 AND FROM Saturday01/21/18 START TAKING 1 PILL TWICE A DAY. Gabapentin 300 MG CAPSULE 1 CAP PO TID NERVE PAIN (Reported) Insulin Aspart, Recombinant (Novolog Flexpen) 100 UNIT/ML INSULN.PEN 0 SC TIDAC/HS DIABETES Before Each Meal: < 80 mg/dl: 0 80-100 mg/dl: 8 101-120 mg/dl: 10 121-150 mg/dl: 10 151-200 mg/dl: 12 201-250 mg/dl: 14 251-300 mg/dl: 16 301-350 mg/dl: 18 351-400 mg/dl: 20 > 400 mg/dl: 22 Bedtime: 151-200 mg/dl: 2 201-250 mg/dl: 4 251-300 mg/dl: 6 301-350 mg/dl: 8 351-400 mg/dl: 10 > 400 mg/dl: 12 Insulin Detemir (Levemir Flextouch) 100 UNIT/ML (3 ML) INSULN.PEN 66 UNITS SC DAILY DIABETES Lisinopril 20 MG TABLET 1 TAB PO DAILY HEART (Reported) Metformin HCl 1,000 MG TABLET 1 TAB PO Q12H DM (Reported) Pravastatin Sodium 40 MG TABLET 1 TAB PO QPM CHOLESTEROL (Reported) Tiotropium Br/Olodaterol HCl (Stiolto Respimat Inhal [place]) 2.5 MCG-2.5 MCG/ ACTUATION MIST.INHAL 2 PUFF INH BID BREATHING PROBLEMS (Reported) (Sofia TANNER,Franko Mason) Past History Travel History Traveled to [place] past 21 day No Medical History Any Pertinent Medical History? 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 Hx Contributory? Yes (Nathanael Miles MD) Review of Systems Review of Systems Constitutional: Reports: see HPI. (Jd TANNER,Nathanael) Physical Exam Physical Exam General Appearance: well developed/nourished, mild distress Head: atraumatic, normal appearance Eyes: Bilateral: PERRL, EOMI. Neck: normal inspection, Did not appreciate carotid bruit or JVD Respiratory: normal breath sounds Cardiovascular: regular rate/rhythm Peripheral Pulses: 4+ dorsalis pedis (R), 4+ dorsalis pedis (L) Gastrointestinal: normal bowel sounds, non-tender, Tense, distended abdomen Extremities: +2 Pitting edema bilat. Skin: intact, normal color Core Measures ACS in differential dx? No CVA/TIA Diagnosis No Sepsis Present: No Sepsis Focused Exam Completed? No (Nathanael Miles MD) Progress Differential Diagnosis: Acute on chronic CHF Exacerbation Plan of Care: Orders Procedure Date/time Status MAGNESIUM 01/24 06 Active BASIC ELECTROLYTES PLUS BUN&CR 01/24 06 Active Anticipated Discharge 01/23 UNK Active SOCIAL WORK CONSULT 01/23 UNK Active AEROSOL CHG 01/22 UNK Complete OXYGEN 01/22 UNK Complete OXYGEN DAILY CHARGE 01/22 UNK Complete Current Medications Sig/[place] Start time Last Medication Dose Stop Time Status Admin Escitalopram Oxalate 10 MG DAILY 01/24 0900 AC (Lexapro) Insulin Detemir 66 UNITS QAM 01/24 09 AC (Levemir) Insulin Detemir 10 UNITS QPM 01/23 2100 AC (Levemir) Sacubitril/Valsartan 1 TAB BID 01/23 0900 AC 01/23 (ENTRESTO 49MG/51MG) 0915 Acetaminophen 650 MG Q4P PRN 01/23 0100 AC 01/23 (Tylenol) 0059 Neomycin/Polymyxin/ 1 MARISOL BID PRN 01/22 0930 AC Bacitracin (Neosporin Ointment) Ipratropium [place] 2.5 ML Q4P PRN 01/21 0945 AC 01/23 (Atrovent) 0843 Furosemide 80 MG 7:30 AM, & 4:30 PM 01/21 0745 AC 01/23 (Lasix) 1749 Amiodarone HCl 400 MG BID 01/20 2100 AC 01/23 (Cordarone) 0907 Apixaban 5 MG BID 01/20 2100 AC 01/23 (Eliquis) 0906 Carvedilol 6.25 MG BID 01/20 2100 AC 01/23 (Coreg) 0906 Nicotine 21 MG DAILY 01/20 1836 AC 01/20 (Nicoderm) 1934 Insulin Aspart 0 TIDAC/HS 01/20 1700 AC 01/23 (NovoLOG) 1750 Pravastatin Sodium 40 MG 1700 01/20 1700 AC 01/23 (Pravachol) 1750 Albuterol Sulfate 3 ML Q4P PRN 01/20 1400 AC 01/23 (Proventil) 0843 Gabapentin 300 MG TID 01/20 1400 AC 01/23 (Neurontin) 1504 Laboratory Tests 01/23/18 0606: Anion Gap 10, Estimated GFR 52 L, BUN/Creatinine Ratio 20.7 Initial ED EKG: normal axis, normal intervals, normal QRS complex, normal sinus rhythm Comments: Patient is sitting upright in bed and currently on 2 L of oxygen, continues to complain of shortness of breath which she states has not improved since being admitted. I had an extensive conversation with the patient in regards to his CHF, drinking excess fluids, smoking. At one point patient had asked "Doc how much time do I have?". He states to understand the severity of his medical comorbidities. (Miles Nathanael TANNER) Departure Departure Disposition: STILL A PATIENT Condition: Stable Clinical Impression Primary Impression: CHF (congestive heart failure), NYHA class IV Qualifiers: Congestive heart failure type: systolic Congestive heart failure chronicity: acute on chronic Qualified Code: I50.23 - Acute on chronic systolic (congestive) heart failure Secondary Impressions: Hyperlipidemia Qualifiers: Hyperlipidemia type: unspecified Qualified Code: E78.5 - Hyperlipidemia, unspecified Hypertension Uncontrolled diabetes mellitus Qualifiers: Diabetes mellitus type: type 2 Glycemic state: with hypoglycemia Coma presence: without coma Qualified Code: E11.649 - Type 2 diabetes mellitus with hypoglycemia without coma Referrals: Radha Luevano APRN (PCP/Family) Departure Forms: Customer Survey General Discharge Information Admission Note Spoke With: Reza TANNER,Dayna Nelson Documentation of Exam: Documentation of any treatments & extenuating circumstances including Concerns Regarding Discharge (functional status, medication knowledge or non-compliance, living conditions, etc.) that warrant an admission rather than observation: -acute on chronic CHF exacerbation-patient requires inpatient therapy with IV Lasix with constant renal monitoring -Patient requires continued continued cardiac monitoring with his history of atrial fibrillation and atrial flutter -Patient does not seem that he would be able to tolerate much walking, in combination bilateral lower extremity edema he would be unsafe to treat patient as an outpatient before maximizing his cardiac function (Nathanael Miles MD) Departure Prescriptions: Current Visit Scripts [ENTRESTO 49MG/51MG] 1 TAB PO BID #60 TAB Amiodarone (Cordarone) 400 MG PO BID #60 TAB You will take this dose for one month and then decrease to 200MG BID till when reviewed by your Associate Web Developer Carvedilol 6.25 MG PO BID #60 TAB Resident Co-Sign Statement Statement: ED Attending supervision documentation- [X] I saw and evaluated the patient. I have also reviewed all the pertinent lab results and diagnostic results. I agree with the findings and the plan of care as documented in the Resident's documentation. [] I have reviewed the ED Record and agree with the Resident's documentation. [] Additions or exceptions (if any) to the Resident's note and plan are summarized below: [] (Sofia TANNER,Franko Mason) Critical Care Note Critical Care Note Critical Care Time: non-applicable (Nathanael Miles MD)
--- NOTE | 2018-01-20 12:48 | RADIOLOGY REPORT ---
EXAMINATION: XR CHEST CLINICAL INFORMATION: Signs of fluid overload. Shortness of breath. Presumptive diagnosis of CHF. COMPARISON: Chest x-ray dated 01/14/2018. TECHNIQUE: 2 views of the chest were obtained on 3 images. FINDINGS: The patient is status post median sternotomy and CABG surgery. The cardiac mediastinal silhouette is enlarged, unchanged. Central vascular congestion is seen with streaky perihilar opacities, consistent with mild pulmonary edema. Trace right-sided pleural effusion is seen, unchanged. Right hilar fullness is again noted, found to represent adenopathy on prior imaging. Bony structures are unremarkable. IMPRESSION: No significant change in pulmonary edema and trace right-sided pleural effusion.
--- NOTE | 2018-01-20 13:14 | History & Physical ---
Devon Marquez 01/20/18 1313: General Information and HPI MD Statement: I have seen and personally examined DEANA WINTERS and documented this H&P. The patient is a 62 year old M who presented with a patient stated chief complaint of DYSPNEA. Source of Information: patient Exam Limitations: no limitations History of Present Illness: 62 year old male with past medical history of hypertension, hyperlipidemia, coronary artery disease status post triple-vessel bypass in 2016, new onset atrial fibrillation recently admitted at [facility] and cardioverted, discharged 2 days ago, who is presenting with progressive shortness of breath. Patient states that after he was discharged 2 days ago, he was fine for a few hours, but then the shortness of breath began again. He states that he is continuing to have shortness of breath, especially when lying down, and his lower limb edema has returned. It extends up to scrotum Patient denies any chest pain. Patient states that he took all of his medications today except his insulin. Of note the patient did not increase his Lasix after discharge. In the emergency department, patient was found to have maintained sinus rhythm, rate controlled, but does show some premature atrial complexes. Blood glucose was notable at 262, urine glucose over 1000, proBNP 1240. Patient is being admitted to telemetry for agressive diuresis and to monitor his heart for possible atrial arrhythmias. 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 Psychosocial History Where do you live? Home Primary Language: Omani Smoking Status: Current Everyday Smoker Functional Ability ADLs Independent: dressing, eating, toileting, bathing. Ambulation: independent IADLs Independent: shopping, housework, finances, food prep, telephone, transportation , medication admin. Review of Systems Review of Systems Constitutional: Denies: chills, fever. EENTM: Reports: no symptoms. Cardiovascular: Reports: edema. Denies: chest pain, palpitations, syncope. Respiratory: Reports: cough, orthopnea, short of breath, sputum production, wheezing. GI: Reports: bloating, distention. Denies: constipation, diarrhea, vomiting. Genitourinary: Reports: frequency. Musculoskeletal: Reports: no symptoms. Skin: Reports: no symptoms. Neurological/Psychological: Reports: no symptoms. Exam & Diagnostic Data Last 24 Hrs of Vital Signs/I&O Vital Signs Date Time Temp Pulse Resp B/P B/P Pulse O2 O2 Flow FiO2 Mean Ox Delivery Rate 01/20 1220 98.0 68 16 154/72 97 Nasal 2.0L Cannula 01/20 1143 96 Nasal 2.0L Cannula 01/20 1023 96.0 64 16 134/72 91 Room Air Intake & Output 01/20 1600 01/20 0800 01/20 0000 Intake Total 0 Output Total 625 Balance -625 Intake, Oral 0 Output, Urine 625 Physical Exam General Appearance Alert, Oriented X3, Cooperative, Moderate Distress Skin No Rashes, No Breakdown, No Significant Lesion Skin Temp/Moisture Exam: Warm/Dry HEENT Atraumatic, PERRLA, EOMI, Mucous Membr. moist/pink Neck Supple, No JVD, No thryomegaly Cardiovascular Regular Rate, Normal S1, Normal S2, No Murmurs, Gallops, Rubs Lungs wheezes, right > left; globally decreased air movement Abdomen hard, distended; no appreciable sign of ascites Neurological Normal Speech, Strength at 5/5 X4 Ext, Normal Tone, Sensation Intact Extremities No Clubbing, No Cyanosis, edema, bilateral lower extremities, up to the level of the waist Last 24 Hrs of Labs/Jose J: Laboratory Tests 01/20/18 1330: pH 7.34 L, pCO2 56 H, pO2 92, HCO3 29 H, ABG O2 Sat (Measured) 94.0 L, Carboxyhemoglobin 2.2, O2 Concentration % 2L, O2 Delivery Method NC, Phlebotomy Draw Site LEFT RADIAL 01/20/18 1205: Urine Color STRAW, Urine Clarity CLEAR, Urine pH 6.0, Ur Specific [place] 1.010, Urine Protein NEG, Urine Ketones NEG, Urine Nitrite NEG, Urine Bilirubin NEG, Urine Urobilinogen 0.2, Ur Leukocyte Esterase NEG, Ur Microscopic SEDIMENT EXAMINED, Urine RBC 1-3, Ur Epithelial Cells RARE, Urine Hemoglobin SMALL H, Urine Glucose >=1000 H 01/20/18 1034: Anion Gap 8, Estimated GFR 52 L, BUN/Creatinine Ratio 28.6 H, Glucose 262 H, Calcium 8.7, Total Bilirubin 0.4, AST 19, ALT 33, Alkaline Phosphatase 114, Troponin I 0.02, Abd-X-Elsatumqqwv Pept 1240 H, Total Protein 6.0 L, Albumin 3.3 L, Globulin 2.7, Albumin/Globulin Ratio 1.2, CBC w Diff NO MAN DIFF REQ, RBC 4.62 L, MCV 90.1, MCH 29.4, MCHC 32.6 L, RDW 15.3 H, MPV 8.1, Gran % 69.5 , Lymphocytes % 22.1, Monocytes % 7.1, Eosinophils % 0.8, Basophils % 0.5, Absolute Granulocytes 6.8 H, Absolute Lymphocytes 2.2, Absolute Monocytes 0.7 H, Absolute Eosinophils 0.1, Absolute Basophils 0 Diagnostic Data EKG Results Sinus rhythm, with some premature atrial complexes. Normal QRS copmplex CXR Results SERVICE DATE: 01/20/18-1150 EXAM TYPE: RAD - XRY-CHEST XRAY, TWO VIEWS IMPRESSION: No significant change in pulmonary edema and trace right-sided pleural effusion. Assessment/Plan Assessment: 62 year old male with past medical history of hypertension, hyperlipidemia, coronary artery disease status post triple-vessel bypass in 2016, new onset atrial fibrillation recently admitted at [facility] and cardioverted, discharged 2 days ago, who is presenting with progressive shortness of breath. List/plan: CHF exacerbation Uncontrolled diabetes Previous atrial fibrillation Morbid obesity Probable obstructive sleep apnea DVT prophylaxis: Patient on Eliquis, ALPS ordered CHF diet Patient is full code As Ranked By This Provider Problem List: 1. CHF exacerbation 2. Uncontrolled diabetes mellitus Qualifiers Diabetes mellitus type: type 2 Glycemic state: with hypoglycemia Coma presence: without coma Qualified Code: E11.649 - Type 2 diabetes mellitus with hypoglycemia without coma Core Measures/Misc (01/20) Acute Coronary Syndrome ACS Diagnosis: No Congestive Heart Failure Congestive Heart Failure Diagnosis Yes Last Known EF % 50 Cerebrovascular Accident CVA/TIA Diagnosis: No VTE (View Protocol) VTE Risk Factors Age>40 No Mechanical VTE Prophylaxis d/t N/A MechProphylax Ordered No VTE Pharm Prophylaxis d/t NA PharmProphylax ordered Sepsis (View protocol) Sepsis Present: No If YES complete Sepsis Event Note If YES complete Sepsis Event Note Ildefonso Sung 01/20/18 1438: Core Measures/Misc (01/20) Sepsis (View protocol) If YES complete Sepsis Event Note If YES complete Sepsis Event Note Resident Review Statement Resident Statement: examined this patient, discussed with biology internship, agreed with biology internship, discussed with family, reviewed EMR data (avail), reviewed images, amended to note Other Findings: This is a 62-year-old gentleman with past medical history of hypertension hyperlipidemia coronary artery disease status post triple-vessel bypass in 2016 who is presenting with 2 day history of progressive shortness of breath citing the fact that he has not gotten better since when he was discharged from [facility] on Saturday, January 18. Patient reports that he continue taking Lasix 40 mg daily as his previous prescription and instruction instead of taking 80 mg twice a day discharge instruction. He feels like his abdomen has continued to swell and also his lower limbs are more swollen and heavy can him have an unsteady gait. 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 He reports a wheeze and has been taking his nebulizers without any significant relief. Patient volunteers cough reducing slightly yellowish phlegm. He denies any fever chills nausea vomiting chest pain, abdominal pain pain during micturition sense of incomplete bladder emptying. On arrival the patient was afebrile 96.0 heart rate of 64 respiration of 16 blood pressure 134/72 and saturating 91% on room air Physical examination: Patient seated comfortably on the bed not in acute distress calm and cooperative alert and oriented to time place and person Head and neck: Short neck with no evidence of JVD raised Lungs: Decreased breath sounds with mild crackles in the bases more predominantly on the right than the left (significant improvement from previous admission) Heart: Normal S1-S2 regular rate and rhythm no murmurs Extremities: Pitting edema bilaterally with venous stasis changes no cyanosis or clubbing Labs proBNP 1240 this is lower compared to previous admission, initial troponin 0.01, creatinine 1.4 slightly raised BUN of 40 normal WBC of 9.8 CXR no significant change in pulmonary edema and a trace right-sided pleural effusion EKG sinus rhythm with multiple preventricular contractions rate of [address]- T wave changes and QTC of 487 Assessment and plan 62 years old gentleman with extensive cardiac history on diastolic CHF presenting with shortness of breath for the past 2 days since being discharged from [facility]. Patient was not on the recommended dose of Lasix as he was supposed to double his dosage to 80 mg twice a day. He has edema of the lower limbs, abdominal distention and basilar crackles. CHF exacerbation Diastolic heart failure Diabetes mellitus Admit the patient to telemetry floor Continuous potline monitor Vital signs every shift Strict I&O's, daily weights, 2 g sodium limit Diuresis with Lasix 40 mg twice a day Serial troponin and EKG 3 sets Accu-Cheks Levemir 60 units daily NovoLog sliding scale Continued Jardiance to help with diuresis TRC, continue with nebulization and inhalers Consider inpatient Pulmonary consult James for DVT prophylaxis Patient is full code Nurse Unit Manager carbohydrate 1 marian Cobb MD,Dayna 01/20/18 1504: General Information and HPI Allergies/Medications Home Med list Albuterol Sulfate (Ventolin Hfa) 90 MCG HFA.AER.AD 2 PUF INH Q4P PRN COPD ( Reported) Albuterol Sulfate 2.5 MG/3 ML (0.083 %) VIAL.NEB 1 Vial INH/LUPE Q4P PRN SOB Amiodarone (Cordarone) 200 MG TAB 400 MG PO BID afib You will take this dose for one month and then decrease to 200MG BID till when reviewed by your Car Body Inspector Amiodarone (Cordarone) 200 MG TAB 2 TAB PO BID Heart rhythm Apixaban (Eliquis) 5 MG TABLET 1 TAB PO BID BLOOD THINNER (Reported) Carvedilol 6.25 MG TABLET 6.25 MG PO BID AFIB Diltiazem HCl (Diltiazem 24HR ER) 180 MG CAP.ER.24H 1 CAP PO DAILY HEART ( Reported) Empagliflozin (Jardiance) 10 MG TABLET 1 TAB PO DAILY DIABETES (Reported) Fluticasone Propionate (Flovent Hfa) 110 MCG/ACTUATION AER.W.ADAP 2 PUF INH BID BREATHING PROBLEMS (Reported) Furosemide 40 MG TABLET 1 TAB PO BID DIURETIC TAKE TWO PILLS TWICE A DAY TILL 01/20/18 AND FROM Saturday01/21/18 START TAKING 1 PILL TWICE A DAY. Gabapentin 300 MG CAPSULE 1 CAP PO TID NERVE PAIN (Reported) Insulin Aspart, Recombinant (Novolog Flexpen) 100 UNIT/ML INSULN.PEN 0 SC TIDAC/HS DIABETES Before Each Meal: < 80 mg/dl: 0 80-100 mg/dl: 8 101-120 mg/dl: 10 121-150 mg/dl: 10 151-200 mg/dl: 12 201-250 mg/dl: 14 251-300 mg/dl: 16 301-350 mg/dl: 18 351-400 mg/dl: 20 > 400 mg/dl: 22 Bedtime: 151-200 mg/dl: 2 201-250 mg/dl: 4 251-300 mg/dl: 6 301-350 mg/dl: 8 351-400 mg/dl: 10 > 400 mg/dl: 12 Insulin Detemir (Levemir Flextouch) 100 UNIT/ML (3 ML) INSULN.PEN 66 UNITS SC DAILY DIABETES Lisinopril 20 MG TABLET 1 TAB PO DAILY HEART (Reported) Metformin HCl 1,000 MG TABLET 1 TAB PO Q12H DM (Reported) Pravastatin Sodium 40 MG TABLET 1 TAB PO QPM CHOLESTEROL (Reported) Tiotropium Br/Olodaterol HCl (Stiolto Respimat Inhal [place]) 2.5 MCG-2.5 MCG/ ACTUATION MIST.INHAL 2 PUFF INH BID BREATHING PROBLEMS (Reported) Core Measures/Misc (01/20) Sepsis (View protocol) If YES complete Sepsis Event Note If YES complete Sepsis Event Note Attending MD Review Statement Attending Statement Attending MD Statement: examined this patient, discuss w/resident/PA/ANIMAL HANDLER, agreed w/resident/PA/ANIMAL HANDLER, reviewed EMR data (avail), discussed with nursing, discussed with case mgmt, reviewed images Attending Assessment/Plan: 62-year-old male past medical history of diabetes, obesity, difficult to control blood sugar, systolic heart failure acute on chronic and atrial flutter. He was on my service where we treated him for acute systolic heart failure, he was cardioverted on Saturday, January 17, continued on anticoagulation and discharged on Saturday on a higher dose of Lasix at 80 twice daily. It is unclear whether he took the medicine as prescribed and whether he is compliant with his diet as he does admit to drinking a lot of fluid. He is here with what appears to be in acute systolic heart failure exacerbation. His BUN and creatinine are slightly elevated but will bring him and diurese him with IV Lasix and follow that closely. Continue his anticoagulation, continue amiodarone loading him with p.o. Cardizem. Continue his antidiabetic med Giardia and switch promote osmotic diuresis and keep the sugars with the long- acting and bolus insulin as prescribed by endocrinology. Given his underlying history of obstructive sleep apnea would also call pulmonary to see him.
--- NOTE | 2018-01-20 14:56 | Cons- Cardiology ---
General Information and HPI Consulting Request Date of Consult: 01/20/18 Requested By: Yu TANNER,Jeffrey Borrego MD Reason for Consult: I was asked to see Mr. Rock in regards to atrial fibrillation and flutter. He is now admitted with congestive heart failure. He had an appointment with me this afternoon. I have discussed this case in the past with Dr. Borrego. Source of Information: patient, old records Exam Limitations: no limitations History of Present Illness: I was asked by Dr. Rodriguez and Dr. Borrego to see this patient in regards to atrial fibrillation and flutter. He is now admitted in sinus rhythm with congestive heart failure. I discussed this case over the phone with Dr. Borrego in the past and recommended amiodarone. To review his history Mr. Rock is a very pleasant 62-year-old man who has coronary artery disease status post CABG on 01/27/2016 with a SEALS to the LAD and saphenous vein graft to the first diagonal and a saphenous vein graft to the obtuse marginal. He did have post operative atrial fibrillation as far as we can tell had a cardioversion on 04/20/2016. He was found to have an EF of 38% on a stress test on 03/12/2017. He presented with atrial flutter on 11/27/2017 with rapid conduction with 2-1 AV conduction with a heart rate of 150 bpm. An echocardiogram done on 11/28/2017 showed a left atrial size of 4.7 cm and moderate concentric LVH with an EF of 45 -50%. The RV systolic pressure was elevated at 40-50. He did undergo a cardioversion on 11/30/2017 and flecainide was begun. He represented on 01/14/2018 with recurrent atrial flutter. I discussed this case with Dr. Borrego and I recommended stopping the flecainide given the fact that it was not working but also given the fact that the patient had an ischemic cardiomyopathy. He was begun on amiodarone and was successfully cardioverted on 01/17/2018. He was discharged on 01/18/2018 but back in the ER 01/20/2018 and then discharged again. He is now admitted with increasing shortness of breath abdominal girth etc. He has been fairly uncomfortable and is almost definitely in significant congestive heart failure. He is on monitor maintaining sinus rhythm. Allergies/Medications Allergies: Coded Allergies: No Known Allergies (11/19/16) Home Med List: Albuterol Sulfate (Ventolin Hfa) 90 MCG HFA.AER.AD 2 PUF INH Q4P PRN COPD ( Reported) Albuterol Sulfate 2.5 MG/3 ML (0.083 %) VIAL.NEB 1 Vial INH/LUPE Q4P PRN SOB Amiodarone (Cordarone) 200 MG TAB 2 TAB PO BID Heart rhythm Apixaban (Eliquis) 5 MG TABLET 1 TAB PO BID BLOOD THINNER (Reported) Diltiazem HCl (Diltiazem 24HR ER) 180 MG CAP.ER.24H 1 CAP PO DAILY HEART ( Reported) Empagliflozin (Jardiance) 10 MG TABLET 1 TAB PO DAILY DIABETES (Reported) Fluticasone Propionate (Flovent Hfa) 110 MCG/ACTUATION AER.W.ADAP 2 PUF INH BID BREATHING PROBLEMS (Reported) Furosemide 40 MG TABLET 1 TAB PO BID DIURETIC TAKE TWO PILLS TWICE A DAY TILL 01/20/18 AND FROM Saturday01/21/18 START TAKING 1 PILL TWICE A DAY. Gabapentin 300 MG CAPSULE 1 CAP PO TID NERVE PAIN (Reported) Insulin Aspart, Recombinant (Novolog Flexpen) 100 UNIT/ML INSULN.PEN 0 SC TIDAC/HS DIABETES Before Each Meal: < 80 mg/dl: 0 80-100 mg/dl: 8 101-120 mg/dl: 10 121-150 mg/dl: 10 151-200 mg/dl: 12 201-250 mg/dl: 14 251-300 mg/dl: 16 301-350 mg/dl: 18 351-400 mg/dl: 20 > 400 mg/dl: 22 Bedtime: 151-200 mg/dl: 2 201-250 mg/dl: 4 251-300 mg/dl: 6 301-350 mg/dl: 8 351-400 mg/dl: 10 > 400 mg/dl: 12 Insulin Detemir (Levemir Flextouch) 100 UNIT/ML (3 ML) INSULN.PEN 66 UNITS SC DAILY DIABETES Lisinopril 20 MG TABLET 1 TAB PO DAILY HEART (Reported) Metformin HCl 1,000 MG TABLET 1 TAB PO Q12H DM (Reported) Pravastatin Sodium 40 MG TABLET 1 TAB PO QPM CHOLESTEROL (Reported) Tiotropium Br/Olodaterol HCl (Stiolto Respimat Inhal [place]) 2.5 MCG-2.5 MCG/ ACTUATION MIST.INHAL 2 PUFF INH BID BREATHING PROBLEMS (Reported) Current Medications: Current Medications Sig/[place] Start time Last Medication Dose Route Stop Time Status Admin Albuterol Sulfate 3 ML Q4P PRN 01/20 1400 AC INH Albuterol Sulfate 2 PUF Q4-6 PRN PRN 01/20 1400 AC INH Amiodarone HCl 400 MG BID 01/20 2100 AC PO Apixaban 5 MG BID 01/20 2100 AC PO Diltiazem HCl 180 MG DAILY 01/21 0900 AC PO Fluticasone 2 PUF BID 01/20 2100 AC Propionate INH Furosemide 40 MG 7:30 AM, & 4:30 PM 01/20 1430 AC IV Gabapentin 0 .STK-MED ONE 01/20 1412 DC PO Gabapentin 300 MG TID 01/20 1400 AC 01/20 PO 1411 Insulin Aspart 0 TIDAC/HS 01/20 1700 AC SC Insulin Detemir 60 UNITS DAILY 01/20 1400 AC 01/20 SC 1411 Lisinopril 20 MG DAILY 01/21 0900 AC PO Non-Formulary 0 SEE ADMIN CRITERIA 01/20 1400 UNV Medication ANY Non-Formulary 0 SEE ADMIN CRITERIA 01/20 1400 DC Medication ANY Pravastatin Sodium 40 MG 1700 01/20 1700 AC PO Tiotropium [place] 1 PUF DAILY 01/21 0900 AC INH Review of Systems Review of Systems: Constitutional: Negative for decreased appetite, weakness, malaise/fatigue, weight gain, weight loss HENT: Negative for congestion, hearing loss, hoarse voice, nosebleeds, sore throat, tinnitus Eyes: Negative for blurred vision, double vision, photophobia, redness, visual disturbances Cardiovascular: Negative for chest pain, POSITIVE FOR shortness of breath, dyspnea on exertion, NEGATIVE FOR irregular heartbeat/palpitations, swelling, near syncope, syncope, orthopnea, paroxysmal nocturnal dyspnea, claudication, cyanosis Respiratory: Negative for cough, hemoptysis, shortness of breath, snoring, sleep apnea/sleep disordered breathing, sputum production, wheezing Endocrine: Negative for cold intolerance, heat intolerance, missed menstrual periods Hematologic/Lymphatic: Negative for adenopathy, abnormal bleeding, easy bruisability Skin: Negative for flushing, itching, rashes, skin cancer/suspicious lesions Musculoskeletal: Negative for arthritis, back pain, joint swelling, muscle cramps, muscle weakness Gastrointestinal: Negative for abdominal pain, change in bowel habits, constipation, diarrhea, dysphagia, heartburn, hemorrhoids, melena, nausea, vomiting Genitourinary: Negative for urinary incontinence, dysuria, flank pain, frequency , hematuria, nocturia, urgency Neurological: Negative for excessive daytime sleepiness, dizziness, focal weakness, headaches, lightheadedness, numbness, paresthesias, seizures, tremors, vertigo Psychiatric/behavioral: Negative for depression, hallucinations, memory loss, substance abuse, suicidal ideas, thoughts of violence, insomnia, nervousness/ anxiety Allergic/Immunologic: Negative for environmental allergies ALL OTHER SYSTEMS REVIEWED AND ARE NEGATIVE Past History Travel History Traveled to [place] past 21 day No Medical History Neurological: peripheral neuropathy EENT: NONE Cardiovascular: AFIB, hyperlipidemia Respiratory: asthma, CHF Gastrointestinal: NONE Hepatic: NONE Renal: NONE Musculoskeletal: NONE Psychiatric: NONE Endocrine: diabetes Blood Disorders: NONE Cancer(s): NONE 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 Psychosocial History Where Do You Live? Home Smoking Status: Current Everyday Smoker Functional Ability ADLs Independent: dressing, eating, toileting, bathing. Ambulation: independent IADLs Independent: shopping, housework, finances, food prep, telephone, transportation , medication admin. Exam & Diagnostic Data Vital Signs and I&O Vital Signs Date Time Temp Pulse Resp B/P B/P Pulse O2 O2 Flow FiO2 Mean Ox Delivery Rate 01/20 1220 98.0 68 16 154/72 97 Nasal 2.0L Cannula 01/20 1143 96 Nasal 2.0L Cannula 01/20 1023 96.0 64 16 134/72 91 Room Air Intake & Output 01/20 1600 01/20 0800 01/20 0000 01/19 1600 01/19 0800 01/19 0000 Intake Total 0 Output Total 625 Balance -625 Intake, Oral 0 Output, Urine 625 Physical Exam: General/Constitutional: Oriented to person, place, and time. In no distress. Well-developed, well-nourished. Vital signs: see above. Head: Normocephalic/atraumatic Eyes: No xanthelasma or scleral icterus. Conjunctivae normal. Mouth: Moist mucous membranes without pallor or cyanosis Neck: Supple. No jugular venous distention, carotid bruits, thyromegaly Thorax/lungs/pulmonary: No chest deformity. Effort normal without respiratory distress. Lungs clear without wheezes or rales. Heart/Cardiovascular: Normal S1, S2 without murmurs, S3, or S4 Abdomen/GI: ABDOMEN IS DISTENDED, tenderness or masses Extremities: No cyanosis, clubbing, or POSITIVE FOR EDEMA Neuro: Alert and oriented to person, place, time. Grossly non-focal. Skin: Warm and dry. No diaphoresis. No major rashes. No erythema. No pallor or cyanosis. Psychiatric: Normal mood and affect, behavior appears normal. Assessment/Plan Assessment/Plan My assessment is that Mr. Rock is maintaining sinus rhythm and therefore I cannot implicate his atrial arrhythmias in his heart failure unless he has a severe tachycardia induced cardiomyopathy that is lingering. Obviously he needs aggressive diuresis. I would stop his Cardizem and begin low -dose carvedilol 6.25 mg twice a day. This should not exacerbate COPD. I would also consider Entresto in his case as this may significantly help his heart failure. I would continue amiodarone 400 mg a day for a month and then reduce his dose down to 200 mg daily. If he has recurrent atrial arrhythmias on amiodarone I would recommend ablation. I suspect he will need both right and left atrial ablation given the fact that he has had both atrial fibrillation and flutter. We could ultimately stop his amiodarone and proceed with ablation in the future as well to keep him on chronic amiodarone. However he would need to be out of congestive heart failure significantly for this to occur. I would check another echo as the last was done in November and he has been in atrial arrhythmias most of the time since that point to see he had fact has a tachycardia induced cardiomyopathy. I will be available for any questions and happy to see him in the office subsequently as well. Copies To: Salima TANNER,José; Robert TANNER,Eligio Nelson; Michael TANNER,Julian Mancera Consult Acknowledgment - Thank you for your consult request.
--- NOTE | 2018-01-20 15:07 | Admission Certification ---
Admission Certification Certification Statement - As attending physician, I certify that at the time of - admission, based on clinical presentation, severity of - symptoms, need for further diagnostic testing and - therapeutic interventions, and risk of adverse outcomes - without in-hospital treatment, in my clinical assessment, - this patient requires an acute hospital stay for a minimum - of two nights or longer. I have also considered psychsocial - factors such as support system, advanced age, financial - issues, cognitive issues, and failed out-patient treatments, - past re-admission history, safety of patient, and lack of - compliance as applicable. Specific rationale supporting this admission is: Acute congestive heart failure needs IV Lasix.
[2018-01-20] MEDS ORDERED: AMIODARONE HCL200 M1 PO (15:43)
[2018-01-20] MEDS ORDERED: CARVEDILOL6.25 M1 PO (15:43)
--- NOTE | 2018-01-20 15:55 | Cons- Pulmonary ---
General Information and HPI Consulting Request Date of Consult: 01/20/18 Requested By: Dr. Cobb Reason for Consult: history of COPD, evaluation of hypercarbia Source of Information: patient, old records Exam Limitations: no limitations History of Present Illness: Consultation for COPD, evaluation of hypercarbia, concern for sleep apnea. Mr. Rock is 62 years old. PMH significant for HTN, HLD, CAD, hx of CABG in 2016, a.fib s/p recent cardioversion. Recent admission to . Significant dyspnea, orthopnea, leg edema. No chest pain, no nunez, no n/v/d/c. He is in congestive heart failure. CXR is supportive of fluid overload. He is evaluated by Dr. Jones and Tanisha Rodriguez. He is in NSR. BNP 1240. He had an appointment to see me in the office, however secondary to acute illness was not able to attend. In review of Mr. Rock's inhalers they appear to be excessive - they include and he actively takes - Flovent (ICS), Symbicort (ICS/LABA), Stiolto (LABA/LAMA) , proair/ventolin/proventil (mostly empty). PCO2 56 on ABG. Allergies/Medications Allergies: Coded Allergies: No Known Allergies (11/19/16) Home Med List: Albuterol Sulfate (Ventolin Hfa) 90 MCG HFA.AER.AD 2 PUF INH Q4P PRN COPD ( Reported) Albuterol Sulfate 2.5 MG/3 ML (0.083 %) VIAL.NEB 1 Vial INH/LUPE Q4P PRN SOB Amiodarone (Cordarone) 200 MG TAB 400 MG PO BID afib You will take this dose for one month and then decrease to 200MG BID till when reviewed by your Military Equipment Specialist Amiodarone (Cordarone) 200 MG TAB 2 TAB PO BID Heart rhythm Apixaban (Eliquis) 5 MG TABLET 1 TAB PO BID BLOOD THINNER (Reported) Carvedilol 6.25 MG TABLET 6.25 MG PO BID AFIB Diltiazem HCl (Diltiazem 24HR ER) 180 MG CAP.ER.24H 1 CAP PO DAILY HEART ( Reported) Empagliflozin (Jardiance) 10 MG TABLET 1 TAB PO DAILY DIABETES (Reported) Fluticasone Propionate (Flovent Hfa) 110 MCG/ACTUATION AER.W.ADAP 2 PUF INH BID BREATHING PROBLEMS (Reported) Furosemide 40 MG TABLET 1 TAB PO BID DIURETIC TAKE TWO PILLS TWICE A DAY TILL 01/20/18 AND FROM Saturday01/21/18 START TAKING 1 PILL TWICE A DAY. Gabapentin 300 MG CAPSULE 1 CAP PO TID NERVE PAIN (Reported) Insulin Aspart, Recombinant (Novolog Flexpen) 100 UNIT/ML INSULN.PEN 0 SC TIDAC/HS DIABETES Before Each Meal: < 80 mg/dl: 0 80-100 mg/dl: 8 101-120 mg/dl: 10 121-150 mg/dl: 10 151-200 mg/dl: 12 201-250 mg/dl: 14 251-300 mg/dl: 16 301-350 mg/dl: 18 351-400 mg/dl: 20 > 400 mg/dl: 22 Bedtime: 151-200 mg/dl: 2 201-250 mg/dl: 4 251-300 mg/dl: 6 301-350 mg/dl: 8 351-400 mg/dl: 10 > 400 mg/dl: 12 Insulin Detemir (Levemir Flextouch) 100 UNIT/ML (3 ML) INSULN.PEN 66 UNITS SC DAILY DIABETES Lisinopril 20 MG TABLET 1 TAB PO DAILY HEART (Reported) Metformin HCl 1,000 MG TABLET 1 TAB PO Q12H DM (Reported) Pravastatin Sodium 40 MG TABLET 1 TAB PO QPM CHOLESTEROL (Reported) Tiotropium Br/Olodaterol HCl (Stiolto Respimat Inhal [place]) 2.5 MCG-2.5 MCG/ ACTUATION MIST.INHAL 2 PUFF INH BID BREATHING PROBLEMS (Reported) Current Medications: Current Medications Sig/[place] Start time Last Medication Dose Route Stop Time Status Admin Albuterol Sulfate 3 ML Q4P PRN 01/20 1400 AC INH Albuterol Sulfate 2 PUF Q4-6 PRN PRN 01/20 1400 AC INH Amiodarone HCl 400 MG BID 01/20 2100 AC PO Apixaban 5 MG BID 01/20 2100 AC PO Carvedilol 6.25 MG BID 01/20 2100 AC PO Diltiazem HCl 180 MG DAILY 01/21 0900 CAN PO Fluticasone 2 PUF BID 01/20 2100 AC Propionate INH Furosemide 40 MG 7:30 AM, & 4:30 PM 01/20 1430 AC IV Gabapentin 0 .STK-MED ONE 01/20 1412 DC PO Gabapentin 300 MG TID 01/20 1400 AC 01/20 PO 1411 Insulin Aspart 0 TIDAC/HS 01/20 1700 AC SC Insulin Detemir 60 UNITS DAILY 01/20 1400 AC 01/20 SC 1411 Lisinopril 20 MG DAILY 01/21 0900 AC PO Non-Formulary 0 SEE ADMIN CRITERIA 01/20 1400 UNV Medication ANY Non-Formulary 0 SEE ADMIN CRITERIA 01/20 1400 DC Medication ANY Pravastatin Sodium 40 MG 1700 01/20 1700 AC PO Tiotropium [place] 1 PUF DAILY 01/21 0900 AC INH Review of Systems Comments 18pt ros reviewed pertinent positives and negatives in HPI otherwise negative Past History Travel History Traveled to [place] past 21 day No Medical History Neurological: peripheral neuropathy EENT: NONE Cardiovascular: AFIB, hyperlipidemia Respiratory: asthma, CHF Gastrointestinal: NONE Hepatic: NONE Renal: NONE Musculoskeletal: NONE Psychiatric: NONE Endocrine: diabetes Blood Disorders: NONE Cancer(s): NONE 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 Psychosocial History Where Do You Live? Home Primary Language: Puerto Rican Smoking Status: Current Everyday Smoker Functional Ability ADLs Independent: dressing, eating, toileting, bathing. Ambulation: independent IADLs Independent: shopping, housework, finances, food prep, telephone, transportation , medication admin. Exam & Diagnostic Data Last 24 Hrs of Vital Signs/I&O Vital Signs Date Time Temp Pulse Resp B/P B/P Pulse O2 O2 Flow FiO2 Mean Ox Delivery Rate 01/20 1730 97.8 60 18 150/90 20 01/20 1722 Nasal 2.0L Cannula 01/20 1648 98.2 58 18 140/74 98 Room Air 01/20 1220 98.0 68 16 154/72 97 Nasal 2.0L Cannula 01/20 1143 96 Nasal 2.0L Cannula 01/20 1023 96.0 64 16 134/72 91 Room Air Intake & Output 01/20 1600 01/20 0800 01/20 0000 Intake Total 0 Output Total 625 Balance -625 Intake, Oral 0 Output, Urine 625 Physical Exam Other Physical Findings: gen-awake, alert, somewhat lethargic but arousable and appropriate heent-o2, mallampati score 4 cvs-s1,s2 lungs-reduced bs bilaterally, rhonchi scattered abd-increased abdominal girth ext-significant edema Last 48 Hrs of Labs/Jose J: Laboratory Tests 01/20/18 1805: Troponin I Pending 01/20/18 1330: pH 7.34 L, pCO2 56 H, pO2 92, HCO3 29 H, ABG O2 Sat (Measured) 94.0 L, Carboxyhemoglobin 2.2, O2 Concentration % 2L, O2 Delivery Method NC, Phlebotomy Draw Site LEFT RADIAL 01/20/18 1205: Urine Color STRAW, Urine Clarity CLEAR, Urine pH 6.0, Ur Specific [place] 1.010, Urine Protein NEG, Urine Ketones NEG, Urine Nitrite NEG, Urine Bilirubin NEG, Urine Urobilinogen 0.2, Ur Leukocyte Esterase NEG, Ur Microscopic SEDIMENT EXAMINED, Urine RBC 1-3, Ur Epithelial Cells RARE, Urine Hemoglobin SMALL H, Urine Glucose >=1000 H 01/20/18 1034: Anion Gap 8, Estimated GFR 52 L, BUN/Creatinine Ratio 28.6 H, Glucose 262 H, Calcium 8.7, Total Bilirubin 0.4, AST 19, ALT 33, Alkaline Phosphatase 114, Troponin I 0.02, Kox-H-Ctoyzaenstm Pept 1240 H, Total Protein 6.0 L, Albumin 3.3 L, Globulin 2.7, Albumin/Globulin Ratio 1.2, CBC w Diff NO MAN DIFF REQ, RBC 4.62 L, MCV 90.1, MCH 29.4, MCHC 32.6 L, RDW 15.3 H, MPV 8.1, Gran % 69.5 , Lymphocytes % 22.1, Monocytes % 7.1, Eosinophils % 0.8, Basophils % 0.5, Absolute Granulocytes 6.8 H, Absolute Lymphocytes 2.2, Absolute Monocytes 0.7 H, Absolute Eosinophils 0.1, Absolute Basophils 0 Assessment/Plan Impression/Plan: Impression 62 year old man * acute decompensated chf * underlying COPD - poorly controlled and not optimized * hypercarbia - concern for underlying sleep apnea * tobacco dependence Plan -In review of Mr. Rock's inhalers they appear to be excessive - they include and he actively takes - Flovent (ICS), Symbicort (ICS/LABA), Stiolto (LABA/LAMA) , proair/ventolin/proventil (mostly empty). PCO2 56 on ABG. -at this time it would be best to treat his chf/fluid overload aggressively with diuresis and f/u cardiology recommendations -continue TRC/Nebulized therapy with albuterol and ipratropium -would discontinue hand held inhalers - it will create both confusion and excessive administration without any record of complete PFT's -he does not meet criteria for any non-invasive ventilation at this time -he is also on amiodarone and it is essential to obtain baseline lung volumes -he will benefit from outpatient sleep testing, this was discussed -smoking cessation counseling DVT prophylaxis at all times Consult Acknowledgment - Thank you for your consult request.
--- NOTE | 2018-01-20 16:21 | ULTRASOUND REPORT ---
EXAMINATION: US ABDOMEN LIMITED CLINICAL INFORMATION: Congestive heart failure exacerbation. Distended abdomen. Evaluate for ascites. COMPARISON: None TECHNIQUE: 4 quadrant survey of the abdomen was performed with ultrasound. FINDINGS: No ascites demonstrated. IMPRESSION: No ascites.
--- NOTE | 2018-01-20 16:41 | Cons- Cardiology ---
General Information and HPI Consulting Request Date of Consult: 01/20/18 Requested By: Dayna Nicholas MD. Reason for Consult: Recurrent congestive heart failure Source of Information: patient, old records Exam Limitations: no limitations History of Present Illness: Frantz Rock is a 62-year-old man with a history of bypass surgery, recurrent atrial fibrillation and atrial flutter. He was recently in the hospital in November and had a cardioversion for atrial flutter. He was rehospitalized just recently with recurrent congestive heart failure and recurrent atrial flutter and was again cardioverted. I had seen him in the office about a few days prior to the most recent hospitalization when he was back in atrial flutter and recommended outpatient consultation with Dr. Eligio Jones, from electrophysiology. However he came back to the emergency room this morning again complaining of marked shortness of breath and edema. Apparently he was only taking 40 mg of Lasix twice daily, whereas he had been discharged on 80 mg twice daily. He has not had any chest pain, palpitations, dizziness, syncope. In the emergency room he is still in sinus rhythm with some PACs. His chest x-ray documents congestive heart failure. His proBNP is 1240 and his troponin is negative. Allergies/Medications Allergies: Coded Allergies: No Known Allergies (11/19/16) Home Med List: Albuterol Sulfate (Ventolin Hfa) 90 MCG HFA.AER.AD 2 PUF INH Q4P PRN COPD ( Reported) Albuterol Sulfate 2.5 MG/3 ML (0.083 %) VIAL.NEB 1 Vial INH/LUPE Q4P PRN SOB Amiodarone (Cordarone) 200 MG TAB 400 MG PO BID afib You will take this dose for one month and then decrease to 200MG BID till when reviewed by your Vp Software Engineering Amiodarone (Cordarone) 200 MG TAB 2 TAB PO BID Heart rhythm Apixaban (Eliquis) 5 MG TABLET 1 TAB PO BID BLOOD THINNER (Reported) Carvedilol 6.25 MG TABLET 6.25 MG PO BID AFIB Diltiazem HCl (Diltiazem 24HR ER) 180 MG CAP.ER.24H 1 CAP PO DAILY HEART ( Reported) Empagliflozin (Jardiance) 10 MG TABLET 1 TAB PO DAILY DIABETES (Reported) Fluticasone Propionate (Flovent Hfa) 110 MCG/ACTUATION AER.W.ADAP 2 PUF INH BID BREATHING PROBLEMS (Reported) Furosemide 40 MG TABLET 1 TAB PO BID DIURETIC TAKE TWO PILLS TWICE A DAY TILL 01/20/18 AND FROM Saturday01/21/18 START TAKING 1 PILL TWICE A DAY. Gabapentin 300 MG CAPSULE 1 CAP PO TID NERVE PAIN (Reported) Insulin Aspart, Recombinant (Novolog Flexpen) 100 UNIT/ML INSULN.PEN 0 SC TIDAC/HS DIABETES Before Each Meal: < 80 mg/dl: 0 80-100 mg/dl: 8 101-120 mg/dl: 10 121-150 mg/dl: 10 151-200 mg/dl: 12 201-250 mg/dl: 14 251-300 mg/dl: 16 301-350 mg/dl: 18 351-400 mg/dl: 20 > 400 mg/dl: 22 Bedtime: 151-200 mg/dl: 2 201-250 mg/dl: 4 251-300 mg/dl: 6 301-350 mg/dl: 8 351-400 mg/dl: 10 > 400 mg/dl: 12 Insulin Detemir (Levemir Flextouch) 100 UNIT/ML (3 ML) INSULN.PEN 66 UNITS SC DAILY DIABETES Lisinopril 20 MG TABLET 1 TAB PO DAILY HEART (Reported) Metformin HCl 1,000 MG TABLET 1 TAB PO Q12H DM (Reported) Pravastatin Sodium 40 MG TABLET 1 TAB PO QPM CHOLESTEROL (Reported) Tiotropium Br/Olodaterol HCl (Stiolto Respimat Inhal [place]) 2.5 MCG-2.5 MCG/ ACTUATION MIST.INHAL 2 PUFF INH BID BREATHING PROBLEMS (Reported) Current Medications: Current Medications Sig/[place] Start time Last Medication Dose Route Stop Time Status Admin Albuterol Sulfate 3 ML Q4P PRN 01/20 1400 AC INH Albuterol Sulfate 2 PUF Q4-6 PRN PRN 01/20 1400 AC INH Amiodarone HCl 400 MG BID 01/20 2100 AC PO Apixaban 5 MG BID 01/20 2100 AC PO Carvedilol 6.25 MG BID 01/20 2100 AC PO Diltiazem HCl 180 MG DAILY 01/21 0900 CAN PO Fluticasone 2 PUF BID 01/20 2100 AC Propionate INH Furosemide 0 .STK-MED ONE 01/20 1631 DC IV Furosemide 40 MG 7:30 AM, & 4:30 PM 01/20 1430 AC 01/20 IV 1632 Gabapentin 0 .STK-MED ONE 01/20 1412 DC PO Gabapentin 300 MG TID 01/20 1400 AC 01/20 PO 1411 Insulin Aspart 0 TIDAC/HS 01/20 1700 AC 01/20 SC 1633 Insulin Detemir 60 UNITS DAILY 01/20 1400 AC 01/20 SC 1411 Lisinopril 20 MG DAILY 01/21 0900 AC PO Non-Formulary 0 SEE ADMIN CRITERIA 01/20 1400 UNV Medication ANY Non-Formulary 0 SEE ADMIN CRITERIA 01/20 1400 DC Medication ANY Pravastatin Sodium 40 MG 1700 01/20 1700 AC PO Tiotropium [place] 1 PUF DAILY 01/21 0900 AC INH Review of Systems Review of Systems: No other complaints Past History Travel History Traveled to [place] past 21 day No Medical History Neurological: peripheral neuropathy EENT: NONE Cardiovascular: AFIB, hyperlipidemia Respiratory: asthma, CHF Gastrointestinal: NONE Hepatic: NONE Renal: NONE Musculoskeletal: NONE Psychiatric: NONE Endocrine: diabetes Blood Disorders: NONE Cancer(s): NONE 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 Psychosocial History Where Do You Live? Home Primary Language: Kazakh Smoking Status: Current Everyday Smoker Functional Ability ADLs Independent: dressing, eating, toileting, bathing. Ambulation: independent IADLs Independent: shopping, housework, finances, food prep, telephone, transportation , medication admin. Exam & Diagnostic Data Vital Signs and I&O Vital Signs Date Time Temp Pulse Resp B/P B/P Pulse O2 O2 Flow FiO2 Mean Ox Delivery Rate 01/20 1220 98.0 68 16 154/72 97 Nasal 2.0L Cannula 01/20 1143 96 Nasal 2.0L Cannula 01/20 1023 96.0 64 16 134/72 91 Room Air Intake & Output 01/20 1600 01/20 0800 01/20 0000 01/19 1600 01/19 0800 01/19 0000 Intake Total 0 Output Total 625 Balance -625 Intake, Oral 0 Output, Urine 625 Physical Exam: Middle-aged man in mild respiratory distress HEENT exam normal Chest a few basilar rales Heart regular rhythm with some extrasystoles, no murmurs Abdomen distended Extremities 2+ edema Labs/Jose J Results: Laboratory Tests 01/20 01/20 1330 1205 Blood Gas pH (7.35 - 7.45 PH) 7.34 L pCO2 (35 - 45 TORR) 56 H pO2 (80 - 100 TORR) 92 HCO3 (21 - 28 MEQ/L) 29 H ABG O2 Sat (Measured) (>96.0 %) 94.0 L Carboxyhemoglobin (1.5 - 5.0 %) 2.2 O2 Concentration % 2L O2 Delivery Method NC Miscellaneous Phlebotomy Draw Site LEFT RADIAL Urines Urine Color (YEL,AMB,STR) STRAW Urine Clarity (CLEAR) CLEAR Urine pH (5.0 - 8.0) 6.0 Ur Specific [place] (1.001 - 1.035) 1.010 Urine Protein (NEG,<30 MG/DL) NEG Urine Ketones (NEG) NEG Urine Nitrite (NEG) NEG Urine Bilirubin (NEG) NEG Urine Urobilinogen (0.1 - 1.0 EU/dl) 0.2 Ur Leukocyte Esterase (NEG) NEG Ur Microscopic SEDIMENT EXAMINED Urine RBC (0 - 5 /HPF) 1-3 Ur Epithelial Cells (NONE,FEW) RARE Urine Hemoglobin (NEG) SMALL H Urine Glucose (N MG/DL) >=1000 H 01/20 1034 Chemistry Sodium (137 - 145 mmol/L) 137 Potassium (3.5 - 5.1 mmol/L) 4.6 Chloride (98 - 107 mmol/L) 98 Carbon Dioxide (22 - 30 mmol/L) 32 H Anion Gap (5 - 16) 8 BUN (9 - 20 mg/dL) 40 H Creatinine (0.7 - 1.2 mg/dL) 1.4 H Estimated GFR (>60 ml/min) 52 L BUN/Creatinine Ratio (7 - 25 %) 28.6 H Glucose (65 - 99 mg/dL) 262 H Calcium (8.4 - 10.2 mg/dL) 8.7 Total Bilirubin (0.2 - 1.3 mg/dL) 0.4 AST (17 - 59 U/L) 19 ALT (21 - 72 U/L) 33 Alkaline Phosphatase (< 127 U/L) 114 Troponin I (<0.11 ng/ml) 0.02 Akv-G-Lvfxlbhzfyi Pept (<125 pg/mL) 1240 H Total Protein (6.3 - 8.2 g/dL) 6.0 L Albumin (3.5 - 5.0 g/dL) 3.3 L Globulin (1.9 - 4.2 gm/dL) 2.7 Albumin/Globulin Ratio (1.1 - 2.2 %) 1.2 Hematology CBC w Diff NO MAN DIFF REQ WBC (4.8 - 10.8 /CUMM) 9.8 RBC (4.70 - 6.10 /CUMM) 4.62 L Hgb (14.0 - 18.0 G/DL) 13.6 L Hct (42 - 52 %) 41.7 L MCV (80.0 - 94.0 FL) 90.1 MCH (27.0 - 31.0 PG) 29.4 MCHC (33.0 - 37.0 G/DL) 32.6 L RDW (11.5 - 14.5 %) 15.3 H Plt Count (130 - 400 /CUMM) 315 MPV (7.4 - 10.4 FL) 8.1 Gran % (42.2 - 75.2 %) 69.5 Lymphocytes % (20.5 - 51.1 %) 22.1 Monocytes % (1.7 - 9.3 %) 7.1 Eosinophils % (0 - 5 %) 0.8 Basophils % (0.0 - 2.0 %) 0.5 Absolute Granulocytes (1.4 - 6.5 /CUMM) 6.8 H Absolute Lymphocytes (1.2 - 3.4 /CUMM) 2.2 Absolute Monocytes (0.10 - 0.60 /CUMM) 0.7 H Absolute Eosinophils (0.0 - 0.7 /CUMM) 0.1 Absolute Basophils (0.0 - 0.2 /CUMM) 0 Diagnostic Data EKG Results Sinus rhythm with PACs CXR Results CHF Assessment/Plan Assessment/Plan Frantz is in congestive heart failure again. We cannot blame it on atrial arrhythmias at this time since he has maintained sinus rhythm. Possibly he has worsened cardiomyopathy secondary to recent tachycardia. He has been somewhat noncompliant with his medications and probably diet as well. Of note is that his diabetes is very uncontrolled at this time. A follow-up echocardiogram will be useful. I would recommend IV Lasix 80 mg twice daily until his heart failure has resolved. We will keep him on amiodarone to try and keep him in sinus rhythm. He will be seen by Dr. Jones who will make further recommendations regarding management of his atrial arrhythmias. Copies To: Robert TANNER,Eligio A. Consult Acknowledgment - Thank you for your consult request.
[2018-01-20 17:30] VITALS: BP 150/90
[2018-01-20 21:52] VITALS: BP 140/80
[2018-01-21 06:52] VITALS: BP 136/78
--- NOTE | 2018-01-21 07:11 | PN- Housestaff ---
[facility] Subjective Follow-up For: Acute on chronic systolic and diastolic heart failure. Uncontrolled diabetes. Tele-Events Since Last Visit: Patient remained in sinus rhythm with heart rate between 5966 Subjective: Overnight events. Patient remained afebrile. Seen and examined this morning. Patient denied chest pain or palpitation, nausea, vomiting, chill, fever, abdominal pain dysuria. He is on 2 L of oxygen and maintaining saturation 95%. Review of Systems Constitutional: Denies: chills, fever. EENTM: Reports: no symptoms. Cardiovascular: Denies: chest pain, palpitations, syncope. Respiratory: Denies: cough, short of breath, sputum production. Gastrointestinal: Denies: abdominal pain, constipation, diarrhea, nausea, vomiting. Genitourinary: Denies: discharge, frequency. Musculoskeletal: Reports: see HPI. Neurological/Psychological: Reports: see HPI. Objective Last 24 Hrs of Vital Signs/I&O Vital Signs Date Time Temp Pulse Resp B/P B/P Pulse O2 O2 Flow FiO2 Mean Ox Delivery Rate 01/21 0652 98.1 59 18 136/78 95 Room Air 01/21 0011 98 Nasal 2.0L Cannula 01/21 0000 98 Nasal 2.0L Cannula 01/20 2152 98.7 63 20 140/80 96 Room Air 01/20 2047 64 128/64 01/20 1730 97.8 60 18 150/90 20 01/20 1722 Nasal 2.0L Cannula 01/20 1648 98.2 58 18 140/74 98 Room Air 01/20 1220 98.0 68 16 154/72 97 Nasal 2.0L Cannula 01/20 1143 96 Nasal 2.0L Cannula 01/20 1023 96.0 64 16 134/72 91 Room Air Intake & Output 01/21 1600 01/21 0800 01/21 0000 Intake Total 400 600 Output Total 600 1100 Balance -200 -500 Intake, Oral 400 600 Output, Urine 600 1100 Patient 332 lb 325 lb Weight Weight Bed scale Measurement Method Physical Exam General Appearance: Alert, Oriented X3, Cooperative Skin Temp/Moisture Exam: Warm/Dry Sepsis Skin Exam (color): Normal for Ethnicity HEENT: Atraumatic, PERRLA, EOMI Neck: Supple Cardiovascular: Normal S1, Normal S2 Lungs: Clear to Auscultation Abdomen: Soft, No Tenderness Neurological: Normal Speech, Strength at 5/5 X4 Ext, Normal Tone Extremities: b/l pedal edema Assessment/Plan Assessment: 62 YO M, morbid obese, currently smokes 6 cigs/day- previously a heavy smoker with PMH of HTN, HLD and CAD s/p triple-vessel bypass in 2015, A. fib on anticoagulation, prior substance abuse with cocaine , uncontrolled diabetes, CHF with EF of 45-50% on echo in 11/2017, atrial flutter status post cardioversion, discharged on 01/18/18 came to ED with chief complaint of shortness of breath. Seeing the patient on tele floor for following problems. Acute on chronic systolic and diastolic heart failure: -Non compliant to medication and in the setting of ischemic cardiomyopathy. -Supplemental oxygen as needed to keep his saturation above 92%. -Patient had last echocardiogram in November that showed ejection fraction 4550% with mild globally reduced left ventricular systolic function and moderate ventricular hypertrophy. -Continue Lasix IV 80 mg twice daily -Monitor input and output and daily weight -Echocardiogram results -Follow up cardiology recommended. Acute kidney injury: -Cr 1.4 and GFR is 56 -possibly due to lasix use. -We will follow his kidney functions Current smoker: -Smoking cessation -Nicotine patch as needed History of CAD status post CABG: -Discontinued lisinopril and we will start entresto after 36 hrs of washout of lisinopril after discontinuing it. -His carvedilol was continued. Atrial flutter/fibrillation status post electrical cardioversion: -Patient is in sinus rhythm -Continue Eliquis 5 mg twice daily for anticoagulation -Amiodarone 400 mg bid for rhythm control History of hypertension hyperlipidemia: -Continue lisinopril. -Continue Lipitor History of uncontrolled diabetes: -Continue Accu-Cheks. His fasting blood sugar is 247 today. -Continue Levemir 66 units daily -Follow-up endocrinology recommendations -Holding his metformin. -Continue jauardiance 10 mg that can help to get rate of excessive fluid and to control blood sugar level. History of peripheral neuropathy: -Continue gabapentin History of COPD: -Continue nebulizer treatment -TRC nebulization as needed -Follow-up pulmonology recommendations. -He will get outpatient sleep study. DVT prophylaxis: Mechanical and patient already on Eliquis CODE STATUS: Full code Problem List: 1. CHF exacerbation 2. Uncontrolled diabetes mellitus Pain Ratin Pain Location: NONE Pain Goal: Remain pain free Pain Plan: PAIN PATHWAY Tomorrow's Labs & Rationales: BEP/MAG Reza TANNERHoustona 01/21/18 1004: Attending MD Review Statement Attending Statement Attending MD Statement: examined this patient, discuss w/resident/PA/LEGAL REFEREE, agreed w/resident/PA/LEGAL REFEREE, reviewed EMR data (avail), discussed with nursing, discussed with case mgmt, reviewed images Attending Assessment/Plan: 62-year-old male with morbid obesity, diabetes, systolic heart failure and atrial fibrillation. We treated him for the systolic heart failure and discharged him on a high dose of Lasix but he returned with fluid overload. We think that he is not taking his medications as prescribed and is noncompliant with the diet as evidenced by his very high sugars. We could have nutrition see him about diet control, Dr. Montgomery his regular blow torch burner will see him as well. We have him on Lasix 80 mg IV twice daily and cardiology is now recommending Entresto, will need a washout period from the CARMELA inhibitor before we start that. We will keep a close watch on his BUN and creatinine on the Lasix.
--- NOTE | 2018-01-21 08:25 | PN- Cardiology ---
Subjective Subjective: Patient feeling less dyspneic today. Net fluid loss 1.2 L [address]. Evaluated by Dr Jones yesterday. Objective Vital Signs and I&Os Vital Signs Date Time Temp Pulse Resp B/P B/P Pulse O2 O2 Flow FiO2 Mean Ox Delivery Rate 01/21 0652 98.1 59 18 136/78 95 Room Air 01/21 0011 98 Nasal 2.0L Cannula 01/21 0000 98 Nasal 2.0L Cannula 01/20 2152 98.7 63 20 140/80 96 Room Air 01/20 2047 64 128/64 01/20 1730 97.8 60 18 150/90 20 01/20 1722 Nasal 2.0L Cannula 01/20 1648 98.2 58 18 140/74 98 Room Air 01/20 1220 98.0 68 16 154/72 97 Nasal 2.0L Cannula 01/20 1143 96 Nasal 2.0L Cannula 01/20 1023 96.0 64 16 134/72 91 Room Air Intake & Output 01/21 1600 01/21 0800 01/21 0000 01/20 1600 01/20 0800 01/20 0000 Intake Total 400 600 0 Output Total 600 1100 625 Balance -200 -500 -625 Intake, Oral 400 600 0 Output, Urine 600 1100 625 Patient 332 lb 325 lb Weight Weight Bed scale Measurement Method Physical Exam: General Appearance Alert, Oriented X3, Cooperative, Moderate Distress HEENT Atraumatic, PERRLA, EOMI, Mucous Membr. moist/pink Neck Supple, No JVD, No thryomegaly Cardiovascular Regular Rate, Normal S1, Normal S2, No Murmurs, Gallops, Rubs Lungs wheezes, right > left; globally decreased air movement Abdomen hard, distended; no appreciable sign of ascites Neurological Normal Speech, Strength at 5/5 X4 Ext, Normal Tone, Sensation Intact Extremities edema, bilateral lower extremities, up to the level of the waist Current Medications: Current Medications Sig/[place] Start time Last Medication Dose Route Stop Time Status Admin Albuterol Sulfate 3 ML Q4P PRN 01/20 1400 AC 01/21 INH 0010 Albuterol Sulfate 2 PUF Q4-6 PRN PRN 01/20 1400 DC 01/20 INH 204 Amiodarone HCl 400 MG BID 01/20 2100 AC 01/20 PO 2046 Apixaban 5 MG BID 01/20 2100 AC 01/20 PO 2046 Carvedilol 6.25 MG BID 01/20 2100 AC 01/20 PO 2047 Diltiazem HCl 180 MG DAILY 01/21 0900 CAN PO Fluticasone 2 PUF BID 01/20 2100 CAN Propionate INH Furosemide 80 MG 7:30 AM, & 4:30 PM 01/21 1630 DC IV Furosemide 80 MG 7:30 AM, & 4:30 PM 01/21 0745 AC IV Furosemide 0 .STK-MED ONE 01/20 1631 DC IV Furosemide 40 MG 7:30 AM, & 4:30 PM 01/20 1430 DC 01/20 IV 1632 Gabapentin 0 .STK-MED ONE 01/20 1412 DC PO Gabapentin 300 MG TID 01/20 1400 AC 01/20 PO 2046 Insulin Aspart 12 UNITS ONCE ONE 01/20 1830 DC 01/20 SC 01/20 1831 1831 Insulin Aspart 0 TIDAC/HS 01/20 1700 AC 01/20 SC 1633 Insulin Detemir 60 UNITS DAILY 01/20 1400 AC 01/20 SC 1411 Lisinopril 20 MG DAILY 01/21 0900 AC PO Nicotine 21 MG DAILY 01/20 1836 AC 01/20 TOP 1934 Non-Formulary 0 SEE ADMIN CRITERIA 01/20 1400 UNV Medication ANY Non-Formulary 0 SEE ADMIN CRITERIA 01/20 1400 DC Medication ANY Pravastatin Sodium 40 MG 1700 01/20 1700 AC 01/20 PO 1933 Tiotropium [place] 1 PUF DAILY 01/21 0900 CAN INH Results Last 48 Hrs of Labs/Mics: Laboratory Tests 01/21/18 0640: Sodium Pending, Potassium Pending, Chloride Pending, Carbon Dioxide Pending, Anion Gap Pending, BUN Pending, Creatinine Pending, BUN/Creatinine Ratio Pending 01/20/18 2300: Troponin I Cancelled 01/20/18 1805: Troponin I 0.02 01/20/18 1330: pH 7.34 L, pCO2 56 H, pO2 92, HCO3 29 H, ABG O2 Sat (Measured) 94.0 L, Carboxyhemoglobin 2.2, O2 Concentration % 2L, O2 Delivery Method NC, Phlebotomy Draw Site LEFT RADIAL 01/20/18 1205: Urine Color STRAW, Urine Clarity CLEAR, Urine pH 6.0, Ur Specific [place] 1.010, Urine Protein NEG, Urine Ketones NEG, Urine Nitrite NEG, Urine Bilirubin NEG, Urine Urobilinogen 0.2, Ur Leukocyte Esterase NEG, Ur Microscopic SEDIMENT EXAMINED, Urine RBC 1-3, Ur Epithelial Cells RARE, Urine Hemoglobin SMALL H, Urine Glucose >=1000 H 01/20/18 1034: Anion Gap 8, Estimated GFR 52 L, BUN/Creatinine Ratio 28.6 H, Glucose 262 H, Calcium 8.7, Total Bilirubin 0.4, AST 19, ALT 33, Alkaline Phosphatase 114, Troponin I 0.02, Obb-W-Gdogmqpojye Pept 1240 H, Total Protein 6.0 L, Albumin 3.3 L, Globulin 2.7, Albumin/Globulin Ratio 1.2, CBC w Diff NO MAN DIFF REQ, RBC 4.62 L, MCV 90.1, MCH 29.4, MCHC 32.6 L, RDW 15.3 H, MPV 8.1, Gran % 69.5 , Lymphocytes % 22.1, Monocytes % 7.1, Eosinophils % 0.8, Basophils % 0.5, Absolute Granulocytes 6.8 H, Absolute Lymphocytes 2.2, Absolute Monocytes 0.7 H, Absolute Eosinophils 0.1, Absolute Basophils 0 Assessment/Plan Assessment/Plan CHF in patient with ischemic cardiomyopathy and recent onset atrial flutter which was successfully cardioverted last week, and remains in sinus rhythm. History of atrial fibrillation and plan would be to ablate both flutter and fibrillation should he have a recurrence. For the moment we are optimizing CHF treatment, maintain lasix 80 mg IV bid. Continue amiodarone same dose until discharge (400 mg po bid), then 400 mg PO daily. Replace lisonopril with entresto 50 (need 36 hrs washout period after last dose of lisinopril before giving entresto). Continue telemetry? Yes
--- NOTE | 2018-01-21 12:17 | PN- Pulmonary ---
Subjective HPI/Critical Care Issues: pt seen and examined feeling much better able to ambulate dyspnea improved no n/v/d/c, no cp, no nunez Objective Current Medications: Current Medications Sig/[place] Start time Last Medication Dose Route Stop Time Status Admin Albuterol Sulfate 3 ML Q4P PRN 01/20 1400 AC 01/21 INH 1003 Albuterol Sulfate 2 PUF Q4-6 PRN PRN 01/20 1400 DC 01/20 INH 2041 Amiodarone HCl 400 MG BID 01/20 2100 AC 01/21 PO 0839 Apixaban 5 MG BID 01/20 2100 AC 01/21 PO 0838 Carvedilol 6.25 MG BID 01/20 2100 AC 01/21 PO 0839 Diltiazem HCl 180 MG DAILY 01/21 09 CAN PO Fluticasone 2 PUF BID 01/20 2100 CAN Propionate INH Furosemide 80 MG 7:30 AM, & 4:30 PM 01/21 1630 DC IV Furosemide 80 MG 7:30 AM, & 4:30 PM 01/21 0745 AC 01/21 IV 0837 Furosemide 0 .STK-MED ONE 01/20 1631 DC IV Furosemide 40 MG 7:30 AM, & 4:30 PM 01/20 1430 DC 01/20 IV 1632 Gabapentin 0 .STK-MED ONE 01/20 1412 DC PO Gabapentin 300 MG TID 01/20 1400 AC 01/21 PO 0838 Insulin Aspart 12 UNITS ONCE ONE 01/20 1830 DC 01/20 SC 01/20 1831 1831 Insulin Aspart 0 TIDAC/HS 01/20 1700 AC 01/21 SC 0837 Insulin Detemir 66 UNITS DAILY 01/22 0900 AC SC Insulin Detemir 60 UNITS DAILY 01/20 1400 DC 01/21 SC 0837 Ipratropium [place] 2.5 ML Q4P PRN 01/21 0945 AC 01/21 INH 1003 Lisinopril 20 MG DAILY 01/21 0900 DC 01/21 PO 0838 Nicotine 21 MG DAILY 01/20 1836 AC 01/20 TOP 1934 Non-Formulary See Dose DAILY 01/23 09 UNV Medication Insts (1) ANY Non-Formulary 0 SEE ADMIN CRITERIA 01/20 1400 DC Medication ANY Pravastatin Sodium 40 MG 1700 01/20 1700 AC 01/20 PO 1933 Tiotropium [place] 1 PUF DAILY 01/21 0900 CAN INH Dose Instructions: (1)Non-Formulary Medication: Entresto 50 mg daily Vital Signs & I&O Last 24 Hrs of Vitals and I&O: Vital Signs Date Time Temp Pulse Resp B/P B/P Pulse O2 O2 Flow FiO2 Mean Ox Delivery Rate 01/21 1014 Nasal 2.0L Cannula 01/21 1011 95 Nasal 2.0L Cannula 01/21 0839 136/7 01/21 0839 89 136/78 01/21 0838 89 136/78 01/21 0800 95 Nasal 2.0L Cannula 01/21 0652 98.1 59 18 136/78 95 Room Air 01/21 0011 98 Nasal 2.0L Cannula 01/21 0000 98 Nasal 2.0L Cannula 01/20 2152 98.7 63 20 140/80 96 Room Air 01/20 2047 64 128/64 01/20 1730 97.8 60 18 150/90 20 01/20 1722 Nasal 2.0L Cannula 01/20 1648 98.2 58 18 140/74 98 Room Air 01/20 1220 98.0 68 16 154/72 97 Nasal 2.0L Cannula Intake & Output 01/21 1600 01/21 0800 01/21 0000 Intake Total 300 400 600 Output Total 1134 451 2326 Balance -1200 -200 -500 Intake, Oral 300 400 600 Output, Urine 1191 972 0801 Patient 332 lb 325 lb Weight Weight Bed scale Measurement Method Exam Other Physical Findings: gen-awake, alert, somewhat lethargic but arousable and appropriate heent-o2, mallampati score 4 cvs-s1,s2 lungs-reduced bs bilaterally, rhonchi scattered abd-increased abdominal girth ext-edema Results Last 24 Hrs of Lab Results: Laboratory Tests 01/21/18 0640: Anion Gap 8, Estimated GFR 52 L, BUN/Creatinine Ratio 26.4 H, Magnesium 2.4 H 01/20/18 2300: Troponin I Cancelled 01/20/18 1805: Troponin I 0.02 01/20/18 1330: pH 7.34 L, pCO2 56 H, pO2 92, HCO3 29 H, ABG O2 Sat (Measured) 94.0 L, Carboxyhemoglobin 2.2, O2 Concentration % 2L, O2 Delivery Method NC, Phlebotomy Draw Site LEFT RADIAL Impression/Plan Impression/Plan Impression/Plan: Impression 62 year old man * acute decompensated chf * underlying COPD - poorly controlled and not optimized * hypercarbia - concern for underlying sleep apnea * tobacco dependence Plan -In review of Mr. Rock's inhalers they appear to be excessive - they include and he actively takes - Flovent (ICS), Symbicort (ICS/LABA), Stiolto (LABA/LAMA) , proair/ventolin/proventil (mostly empty). These could have contributed to tachycardia PCO2 56 on ABG. -at this time it would be best to treat his chf/fluid overload aggressively with diuresis and f/u cardiology recommendations -continue TRC/Nebulized therapy with albuterol and ipratropium -would discontinue hand held inhalers - it will create both confusion and excessive administration without any record of complete PFT's -he does not meet criteria for any non-invasive ventilation at this time -he is also on amiodarone and it is essential to obtain baseline lung volumes -he will benefit from outpatient sleep testing, this was discussed -smoking cessation counseling DVT prophylaxis at all times
--- NOTE | 2018-01-21 12:55 | Cons- Endocrinology ---
General Information and HPI Consulting Request Date of Consult: 01/21/18 Requested By: primary team History of Present Illness: This is a 62-year-old gentleman who presented with shortness of breath and was found to have CHF exacerbation. Patient was recently discharged. His home regimen for type 2 diabetes includes 66 units of Levemir daily, 8 units of NovoLog before each meal and sliding scale NovoLog 2: 50 above 150. He is also on jardiance 10 mg daily. He said he was too short of breath that he did not take any insulin yesterday. His glucose level was found to be 500 when he presented to the hospital. Now glucose level has started to go down. Allergies/Medications Allergies: Coded Allergies: No Known Allergies (11/19/16) Home Med List: Albuterol Sulfate (Ventolin Hfa) 90 MCG HFA.AER.AD 2 PUF INH Q4P PRN COPD ( Reported) Albuterol Sulfate 2.5 MG/3 ML (0.083 %) VIAL.NEB 1 Vial INH/LUPE Q4P PRN SOB Amiodarone (Cordarone) 200 MG TAB 400 MG PO BID afib You will take this dose for one month and then decrease to 200MG BID till when reviewed by your Dural Mechanic Amiodarone (Cordarone) 200 MG TAB 2 TAB PO BID Heart rhythm Apixaban (Eliquis) 5 MG TABLET 1 TAB PO BID BLOOD THINNER (Reported) Carvedilol 6.25 MG TABLET 6.25 MG PO BID AFIB Diltiazem HCl (Diltiazem 24HR ER) 180 MG CAP.ER.24H 1 CAP PO DAILY HEART ( Reported) Empagliflozin (Jardiance) 10 MG TABLET 1 TAB PO DAILY DIABETES (Reported) Fluticasone Propionate (Flovent Hfa) 110 MCG/ACTUATION AER.W.ADAP 2 PUF INH BID BREATHING PROBLEMS (Reported) Furosemide 40 MG TABLET 1 TAB PO BID DIURETIC TAKE TWO PILLS TWICE A DAY TILL 01/20/18 AND FROM Saturday01/21/18 START TAKING 1 PILL TWICE A DAY. Gabapentin 300 MG CAPSULE 1 CAP PO TID NERVE PAIN (Reported) Insulin Aspart, Recombinant (Novolog Flexpen) 100 UNIT/ML INSULN.PEN 0 SC TIDAC/HS DIABETES Before Each Meal: < 80 mg/dl: 0 80-100 mg/dl: 8 101-120 mg/dl: 10 121-150 mg/dl: 10 151-200 mg/dl: 12 201-250 mg/dl: 14 251-300 mg/dl: 16 301-350 mg/dl: 18 351-400 mg/dl: 20 > 400 mg/dl: 22 Bedtime: 151-200 mg/dl: 2 201-250 mg/dl: 4 251-300 mg/dl: 6 301-350 mg/dl: 8 351-400 mg/dl: 10 > 400 mg/dl: 12 Insulin Detemir (Levemir Flextouch) 100 UNIT/ML (3 ML) INSULN.PEN 66 UNITS SC DAILY DIABETES Lisinopril 20 MG TABLET 1 TAB PO DAILY HEART (Reported) Metformin HCl 1,000 MG TABLET 1 TAB PO Q12H DM (Reported) Pravastatin Sodium 40 MG TABLET 1 TAB PO QPM CHOLESTEROL (Reported) Tiotropium Br/Olodaterol HCl (Stiolto Respimat Inhal [place]) 2.5 MCG-2.5 MCG/ ACTUATION MIST.INHAL 2 PUFF INH BID BREATHING PROBLEMS (Reported) Review of Systems Comments GENERAL/CONSTITUTIONAL: No fever HEAD, EYES, EARS, NOSE AND THROAT: No loss of vision or loss of hearing CARDIOVASCULAR: shortness of breath RESPIRATORY: No cough. GASTROINTESTINAL: No vomiting or abdominal pain. MUSCULOSKELETAL: No muscle tenderness. SKIN: No hives NEUROLOGIC: No fainting or loss of consciousness PSYCHIATRIC: Alert and oriented. ENDOCRINE: see HPI. Past History Travel History Traveled to [place] past 21 day No Medical History Blood Transfusion Hx: No Neurological: peripheral neuropathy EENT: NONE Cardiovascular: AFIB, hyperlipidemia Respiratory: asthma, CHF Gastrointestinal: NONE Hepatic: NONE Renal: NONE Musculoskeletal: NONE Psychiatric: NONE Endocrine: diabetes Blood Disorders: NONE Cancer(s): NONE BAG MENDER/Reproductive: NONE Surgical History Surgical History: CABG Family History Relations & Conditions If Any: FATHER (Diabetes mellitus). Psychosocial History Where Do You Live? Home Services at Home: None Primary Language: Irish Smoking Status: Current Everyday Smoker Functional Ability ADLs Independent: dressing, eating, toileting, bathing. Ambulation: independent IADLs Independent: shopping, housework, finances, food prep, telephone, transportation , medication admin. Exam & Diagnostic Data Last 24 Hrs of Vital Signs/I&O Vital Signs Date Time Temp Pulse Resp B/P B/P Pulse O2 O2 Flow FiO2 Mean Ox Delivery Rate 01/21 1014 Nasal 2.0L Cannula 01/21 1011 95 Nasal 2.0L Cannula 01/21 0839 136/7 01/21 0839 89 136/78 01/21 0838 89 136/78 01/21 0800 95 Nasal 2.0L Cannula 01/21 0652 98.1 59 18 136/78 95 Room Air 01/21 0011 98 Nasal 2.0L Cannula 01/21 0000 98 Nasal 2.0L Cannula 01/20 2152 98.7 63 20 140/80 96 Room Air 01/20 2047 64 128/64 01/20 1730 97.8 60 18 150/90 20 01/20 1722 Nasal 2.0L Cannula 01/20 1648 98.2 58 18 140/74 98 Room Air Intake & Output 01/21 1600 01/21 0800 01/21 0000 Intake Total 300 400 600 Output Total 4834 568 3697 Balance -1200 -200 -500 Intake, Oral 300 400 600 Output, Urine 8386 964 8321 Patient 332 lb 325 lb Weight Weight Bed scale Measurement Method GENERAL APPEARANCE: overweight, in mild distress from SOB. SKIN: no hives, moist, no acanthosis nigricans in the back of the neck Eyes: conjunctivae were pink and moist. Extraocular movements were intact. ENT: External inspection of the ears and nose showed no masses. Normal hearing LUNGS: Auscultation of the lungs revealed decreasedl breath sounds,normal breath effort. CARDIOVASCULAR: normal rate on auscultation. ABDOMEN: obese abdomen, no lipodystrophy, mild brusing near the umbilicus MUSCULOSKELETAL: Gait was not assessed. Normal strength of extremities Psychiatry: Alert and oriented x 3. Stable mood Assessment/Plan Assessment/Plan This is 62-year-old gentleman with type 2 diabetes presented with CHF exacerbation. We will resume home regimen of Levemir 66 units daily, NovoLog according to the following scales and jardiance 10 mg daily. Carbohydrate level 1 diet. Check BG before meals and at bedtime. I instructed him that he should rotate injection sites more widely in the future. We will follow. Inpatient Diabetes Orders Before Each Meal: < 80 mg/dl: 0 80-100 mg/dl: 8 101-120 mg/dl: 8 121-150 mg/dl: 8 151-200 mg/dl: 10 201-250 mg/dl: 12 251-300 mg/dl: 14 301-350 mg/dl: 16 351-400 mg/dl: 18 > 400 mg/dl: 20 Bedtime: < 80 mg/dl: 0 80-100 mg/dl: 0 101-120 mg/dl: 0 121-150 mg/dl: 0 151-200 mg/dl: 2 201-250 mg/dl: 4 251-300 mg/dl: 6 301-350 mg/dl: 8 351-400 mg/dl: 10 > 400 mg/dl: 12 Consult Acknowledgment - Thank you for your consult request.
[2018-01-21 14:52] VITALS: BP 168/90
[2018-01-21 22:10] VITALS: BP 154/90
[2018-01-22 07:11] VITALS: BP 160/98
--- NOTE | 2018-01-22 07:16 | PN- Housestaff ---
[facility] Subjective Follow-up For: Acute on chronic systolic and diastolic congestive heart failure. Uncontrolled diabetes Tele-Events Since Last Visit: Patient remained in sinus rhythm with heart rate between 7079 Subjective: No overnight events. Patient remained afebrile. Seen and examined this morning. He denied chest pain, short of breath, nausea, vomiting, chill, fever, abdominal pain dysuria. Patient reported burning sensation in genital region. His blood sugar fasting this morning is 330. His blood sugar level is not under control and we will change his NovoLog sliding scale as recommended by endocrinology. Patient may need wound consult as his legs are weeping. Review of Systems Constitutional: Denies: chills, fever, weakness. EENTM: Reports: no symptoms. Cardiovascular: Denies: chest pain, palpitations. Respiratory: Denies: cough, short of breath, sputum production. Gastrointestinal: Denies: abdominal pain, constipation, diarrhea, nausea, vomiting. Genitourinary: Denies: discharge, dysuria, frequency. Musculoskeletal: Reports: no symptoms. Neurological/Psychological: Reports: no symptoms. Objective Last 24 Hrs of Vital Signs/I&O Vital Signs Date Time Temp Pulse Resp B/P B/P Pulse O2 O2 Flow FiO2 Mean Ox Delivery Rate 01/22 0840 77 150/76 01/22 0840 77 150/76 01/22 0831 96 Nasal 3.0L Cannula 01/22 0711 97.8 76 20 160/98 97 01/22 0110 93 Nasal 3.0L Cannula 01/22 0000 Nasal 3.0L Cannula 01/21 2210 98.2 71 20 154/90 98 Room Air 01/21 2119 97 Nasal 2.0L Cannula 01/21 2037 98.0 72 18 168/90 01/21 1529 94 Room Air 01/21 1452 98.0 72 18 168/90 92 Room Air 01/21 1014 Nasal 2.0L Cannula 01/21 1011 95 Nasal 2.0L Cannula Intake & Output 01/22 1600 01/22 0800 01/22 0000 Intake Total 240 Output Total Balance 240 Intake, Oral 240 Patient 283 lb Weight Physical Exam General Appearance: Alert, Oriented X3, Cooperative Skin Temp/Moisture Exam: Warm/Dry Sepsis Skin Exam (color): Normal for Ethnicity HEENT: Atraumatic, PERRLA, EOMI Neck: Supple Cardiovascular: Normal S1, Normal S2 Lungs: DECREASED BREATH SOUNDS B/L Abdomen: Soft, No Tenderness Neurological: Normal Speech, Strength at 5/5 X4 Ext, Normal Tone Extremities: B/L PEDAL EDEMA WITH BLISTERS Assessment/Plan Assessment: 62 YO M, morbid obese, currently smokes 6 cigs/day- previously a heavy smoker with PMH of HTN, HLD and CAD s/p triple-vessel bypass in 2015, A. fib on anticoagulation, prior substance abuse with cocaine , uncontrolled diabetes, CHF with EF of 45-50% on echo in 11/2017, atrial flutter status post cardioversion, discharged on 01/18/18 came to ED with chief complaint of shortness of breath. Seeing the patient on tele floor for following problems. Acute on chronic systolic and diastolic heart failure: -Non compliant to medication and in the setting of ischemic cardiomyopathy. -Supplemental oxygen as needed to keep his saturation above 92%. -Patient had last echocardiogram in November that showed ejection fraction 4550% with mild globally reduced left ventricular systolic function and moderate ventricular hypertrophy. -Continue Lasix IV 80 mg twice daily -Monitor input and output and daily weight -Echocardiogram results -Follow up cardiology recommended. Acute kidney injury: -Cr 1.5 and GFR is 48 -possibly due to lasix use. -We will follow his kidney functions Current smoker: -Smoking cessation -Nicotine patch as needed History of CAD status post CABG: -Discontinued lisinopril and we will start entresto after 36 hrs of washout of lisinopril after discontinuing it. -His carvedilol was continued. Atrial flutter/fibrillation status post electrical cardioversion: -Patient is in sinus rhythm -Continue Eliquis 5 mg twice daily for anticoagulation -Amiodarone 400 mg bid for rhythm control History of hypertension hyperlipidemia: -Discontinued lisinopril. We will start entresto 50mg daily from tomorrow. -Continue Lipitor History of uncontrolled diabetes: -Continue Accu-Cheks. His fasting blood sugar is 330 today. -Continue Levemir 66 units daily -Follow-up endocrinology recommendations -Holding his metformin. -Continue jauardiance 10 mg that can help to get rate of excessive fluid and to control blood sugar level. History of peripheral neuropathy: -Continue gabapentin History of COPD: -Continue nebulizer treatment -TRC nebulization as needed -Follow-up pulmonology recommendations. -He will get outpatient sleep study. DVT prophylaxis: Mechanical and patient already on Eliquis CODE STATUS: Full code Problem List: 1. Uncontrolled diabetes mellitus 2. Acute kidney injury 3. CHF (congestive heart failure) Pain Ratin Pain Location: NONE Pain Goal: Remain pain free Pain Plan: PAIN PATHWAY Tomorrow's Labs & Rationales: CHRISTINE Cobb MD,Dayna 01/22/18 1045: Attending MD Review Statement Attending Statement Attending MD Statement: examined this patient, discuss w/resident/PA/INSTALLATION ENGINEER, agreed w/resident/PA/INSTALLATION ENGINEER, reviewed EMR data (avail), discussed with nursing, discussed with case mgmt, reviewed images Attending Assessment/Plan: Pt is very noncompliant with the diet, he goes to the kitchen and helps himself to a lot of food as a result of which his sugars have been very elevated. We will continue IV Lasix for acute systolic heart failure. The plan is to start him on Enteresto and he is on the washout for the lisinopril. We have nutrition consult pending for dietary guidelines and will follow closely.
--- NOTE | 2018-01-22 09:11 | PN- Pulmonary ---
Subjective HPI/Critical Care Issues: pt seen and examined feeling much better able to ambulate dyspnea improved no n/v/d/c, no cp, no nunez significant leg edema Objective Current Medications: Current Medications Sig/[place] Start time Last Medication Dose Route Stop Time Status Admin Albuterol Sulfate 3 ML Q4P PRN 01/20 1400 AC 01/22 INH 0104 Amiodarone HCl 400 MG BID 01/20 2100 AC 01/22 PO 0840 Apixaban 5 MG BID 01/20 2100 AC 01/22 PO 0840 Carvedilol 6.25 MG BID 01/20 2100 AC 01/22 PO 0840 Furosemide 80 MG 7:30 AM, & 4:30 PM 01/21 0745 AC 01/22 IV 0630 Gabapentin 300 MG TID 01/20 1400 AC 01/22 PO 0628 Insulin Aspart 0 TIDAC/HS 01/20 1700 AC 01/22 SC 0749 Insulin Detemir 66 UNITS DAILY 01/22 0900 AC 01/22 SC 0839 Insulin Detemir 60 UNITS DAILY 01/20 1400 DC 01/21 SC 0837 Ipratropium [place] 2.5 ML Q4P PRN 01/21 0945 AC 01/22 INH 0103 Lisinopril 20 MG DAILY 01/21 0900 DC 01/21 PO 0838 Nicotine 21 MG DAILY 01/20 1836 01/20 TOP 1934 Non-Formulary See Dose DAILY 01/23 0900 UNV Medication Insts (1) ANY Patient Medication 1 ED ONE ONE 01/21 1815 DC 01/21 Teaching ED 01/21 1816 1900 Pravastatin Sodium 40 MG 1700 01/20 1700 01/21 PO 1738 Dose Instructions: (1)Non-Formulary Medication: Entresto 50 mg daily Vital Signs & I&O Last 24 Hrs of Vitals and I&O: Vital Signs Date Time Temp Pulse Resp B/P B/P Pulse O2 O2 Flow FiO2 Mean Ox Delivery Rate 01/22 0840 77 150/76 01/22 0840 77 150/76 01/22 0831 96 Nasal 3.0L Cannula 01/22 0711 97.8 76 20 160/98 97 01/22 0110 93 Nasal 3.0L Cannula 01/22 0000 Nasal 3.0L Cannula 01/210 98.2 71 20 154/90 98 Room Air 01/21 2119 97 Nasal 2.0L Cannula 01/21 2037 98.0 72 18 168/90 01/21 1529 94 Room Air 01/21 1452 98.0 72 18 168/90 92 Room Air 01/21 1014 Nasal 2.0L Cannula 01/21 1011 95 Nasal 2.0L Cannula Intake & Output 01/22 1600 01/22 0800 01/22 0000 Intake Total 240 Output Total Balance 240 Intake, Oral 240 Patient 283 lb Weight Exam Other Physical Findings: gen-awake, alert, somewhat lethargic but arousable and appropriate heent-o2, mallampati score 4 cvs-s1,s2 lungs-reduced bs bilaterally, rhonchi scattered abd-increased abdominal girth ext-edema Results Last 24 Hrs of Lab Results: Laboratory Tests 01/22/18 0644: Anion Gap 7, Estimated GFR 48 L, BUN/Creatinine Ratio 21.3 Impression/Plan Impression/Plan Impression/Plan: Impression 62 year old man * acute decompensated chf * underlying COPD - poorly controlled and not optimized * hypercarbia - concern for underlying sleep apnea * tobacco dependence Plan -consultation also requested for evaluation of likely underlying sleep apnea - patient has excessive daytime somnolence. ESS of 15, neck size >18. Snoring, gasping for air. Not feeling refreshed in the morning. Will order SPLIT study for patient and arrange this for him prior to our office visit follow up. -In review of Mr. Rock's inhalers they appear to be excessive - they include and he actively takes - Flovent (ICS), Symbicort (ICS/LABA), Stiolto (LABA/LAMA) , proair/ventolin/proventil (mostly empty). These could have contributed to tachycardia PCO2 56 on ABG. -at this time it would be best to treat his chf/fluid overload aggressively with diuresis and f/u cardiology recommendations -continue TRC/Nebulized therapy with albuterol and ipratropium -would discontinue hand held inhalers - it will create both confusion and excessive administration without any record of complete PFT's -he does not meet criteria for any non-invasive ventilation at this time -he is also on amiodarone and it is essential to obtain baseline lung volumes -he will benefit from outpatient sleep testing, this was discussed -smoking cessation counseling DVT prophylaxis at all times
--- NOTE | 2018-01-22 09:18 | ECHOCARDIOGRAM REPORT ---
DEANA WINTERS Age: 62 : 1955 Gender: M Exam Date: 01/21/2018 19:13 Exam Location: [address] Ht (in): 71 Wt (lb): 300 BSA: 2.67 BP: 136 / 78 Ordering Physician: Ildefonso Sung MD Referring Physician: Julian Rodriguez MD Chief, SoC Technologist: Elizabeth Merida [facility] Room Number: 175 Indications: Heart failure Rhythm: Sinus Technical Quality: Fair FINDINGS Left Ventricle Left ventricular cavity size at the upper limits of normal. Moderate concentric left ventricular hypertrophy. Left ventricular ejection fraction is estimated at 55-60 %. No obvious regional wall motion abnormalities. Normal left ventricular diastolic filling pattern for age. Right Ventricle The right ventricle is normal in size and function. Right Atrium The right atrium is normal in size. Left Atrium Mild left atrial dilatation. Mitral Valve Mild thickening/calcification of the mitral valve leaflets. Mild mitral regurgitation. Aortic Valve Focal thickening of the aortic valve cusps. No aortic stenosis. No aortic regurgitation. Tricuspid Valve Structurally normal tricuspid valve. Mild tricuspid regurgitation. Right ventricular systolic pressure estimated to be elevated at 40- 45 mmHg. Pulmonic Valve Structurally normal pulmonic valve. There is no pulmonic regurgitation. Pericardium Normal pericardium without effusion. No pleural effusion. Great Vessels Normal aortic root dimension. The aortic arch and great vessels are not well seen. CONCLUSIONS Left ventricular cavity size at the upper limits of normal. Moderate concentric left ventricular hypertrophy. Left ventricular ejection fraction is estimated at 55-60 %. No obvious regional wall motion abnormalities. Mild left atrial dilatation. Mild thickening/calcification of the mitral valve leaflets. Mild mitral regurgitation. Focal thickening of the aortic valve cusps. No aortic stenosis. Right ventricular systolic pressure estimated to be elevated at 40- 45 mmHg. The aortic arch and great vessels are not well seen. Julian Rodriguez M.D. (Electronically Signed) Final Date: 22 January 2018 09:13 MEASUREMENTS (Male / Female) Normal Values 2D ECHO LV Diastolic Diameter PLAX 5.1 cm 4.2 - 5.9 / 3.9 - 5.3 cm LV Systolic Diameter PLAX 3.8 cm 2.1 - 4.0 cm LV Fractional Shortening PLAX 25.5 % 25 - 46 % LV Ejection Fraction 2D Teich 50.0 % IVS Diastolic Thickness 1.4 cm LVPW Diastolic Thickness 1.4 cm LV Relative Wall Thickness 0.5 RV Internal Dim ED PLAX 3.1 cm 1.9 - 3.8 cm LVOT Diameter 2.0 cm Aortic Root Diameter 2.5 cm LA Systolic Diameter LX 5.0 cm 3.0 - 4.0 / 2.7 - 3.8 cm LA Volume 79.0 cm 18 - 58 / 22 - 52 cm Ascending Aorta Diameter 2.7 cm DOPPLER AV Peak Velocity 208.0 cm/s AV Peak Gradient 17.3 mmHg AV Mean Velocity 139.0 cm/s AV Mean Gradient 9.0 mmHg AV Velocity Time Integral 41.2 cm LVOT Peak Velocity 148.0 cm/s LVOT Peak Gradient 8.8 mmHg LVOT Mean Velocity 97.8 cm/s LVOT Mean Gradient 5.0 mmHg LVOT Velocity Time Integral 29.7 cm LVOT Stroke Volume 93.3 cm AV Area Cont Eq vti 2.3 cm AV Area Cont Eq pk 2.2 cm MV Peak Velocity 156.0 cm/s MV Peak Gradient 9.7 mmHg MV Mean Velocity 89.9 cm/s MV Mean Gradient 4.0 mmHg Mitral E Point Velocity 150.0 cm/s Mitral A Point Velocity 80.8 cm/s Mitral E to A Ratio 1.9 MV PHT Velocity 162.0 cm/s MV Deceleration [place] 481.0 cm/s MV Pressure Half Time 101.0 ms MV Area PHT 2.2 cm MV Deceleration Time 235.0 ms TR Peak Velocity 316.0 cm/s TR Peak Gradient 39.9 mmHg Right Atrial Pressure 5.0 mmHg Pulmonary Artery Systolic Pressure 44.9 mmHg Right Ventricular Systolic Pressure 44.9 mmHg PV Peak Velocity 112.0 cm/s PV Peak Gradient 5.0 mmHg PV Mean Velocity 78.2 cm/s PV Mean Gradient 3.0 mmHg PV Velocity Time Integral 22.1 cm LV E' Lateral Velocity 10.4 cm/s Mitral E to LV E' Lateral Ratio 14.4 LV E' Septal Velocity 6.7 cm/s Mitral E to LV E' Septal Ratio 22.5
--- NOTE | 2018-01-22 09:57 | PN- Diabetes ---
Assessment/Plan Diabetes Assessment: This is 62-year-old gentleman with type 2 diabetes presented with CHF exacerbation. Home regimen include Levemir 66 units daily, NovoLog sliding scales and jardiance 10 mg daily. Plan: Please increase Novolog coverage as belows. Continue Levemir at current dose. Inpatient Diabetes Orders Before Each Meal: < 80 mg/dl: 0 80-100 mg/dl: 11 101-120 mg/dl: 13 121-150 mg/dl: 13 151-200 mg/dl: 15 201-250 mg/dl: 17 251-300 mg/dl: 19 301-350 mg/dl: 21 351-400 mg/dl: 23 > 400 mg/dl: 25 Bedtime: < 80 mg/dl: 0 80-100 mg/dl: 0 101-120 mg/dl: 0 121-150 mg/dl: 0 151-200 mg/dl: 2 201-250 mg/dl: 4 251-300 mg/dl: 6 301-350 mg/dl: 8 351-400 mg/dl: 10 > 400 mg/dl: 12 Subjective Subjective: His blood glucose wee between 120-340 over the past 24 hours. He was able to eat. Objective Last 24 Hrs of Vital Signs/I&O Vital Signs Date Time Temp Pulse Resp B/P B/P Pulse O2 O2 Flow FiO2 Mean Ox Delivery Rate 01/22 0840 77 150/76 01/22 0840 77 150/76 01/22 0831 96 Nasal 3.0L Cannula 01/22 0711 97.8 76 20 160/98 97 01/22 0110 93 Nasal 3.0L Cannula 01/22 0000 Nasal 3.0L Cannula 01/21 2210 98.2 71 20 154/90 98 Room Air 01/21 2119 97 Nasal 2.0L Cannula 01/21 2037 98.0 72 18 168/90 01/21 1529 94 Room Air 01/21 1452 98.0 72 18 168/90 92 Room Air 01/21 1014 Nasal 2.0L Cannula 01/21 1011 95 Nasal 2.0L Cannula Intake & Output 01/22 1600 01/22 0800 01/22 0000 Intake Total 240 Output Total Balance 240 Intake, Oral 240 Patient 283 lb Weight
[2018-01-22 15:33] VITALS: BP 142/80
--- NOTE | 2018-01-22 15:55 | PN- Cardiology ---
Subjective Subjective: Net fluid loss > 2L yesterday. Remains in SR. No acute events, no chest pains. Objective Vital Signs and I&Os Vital Signs Date Time Temp Pulse Resp B/P B/P Pulse O2 O2 Flow FiO2 Mean Ox Delivery Rate 01/22 1533 98.2 77 20 142/80 96 Nasal Cannula 01/22 0840 77 150/76 01/22 0840 77 150/76 01/22 0831 96 Nasal 3.0L Cannula 01/22 0800 97 Nasal 3.0L Cannula 01/22 0711 97.8 76 20 160/98 97 01/22 0110 93 Nasal 3.0L Cannula 01/22 0000 Nasal 3.0L Cannula 01/21 2210 98.2 71 20 154/90 98 Room Air 01/219 97 Nasal 2.0L Cannula 01/21 2037 98.0 72 18 168/90 Intake & Output 01/22 1600 01/22 0800 01/22 0000 01/21 1600 01/21 0800 01/21 0000 Intake Total 680 240 700 400 600 Output Total 675 2850 600 1100 Balance 5 240 -2150 -200 -500 Intake, Oral 680 240 700 400 600 Output, Urine 675 2850 600 1100 Patient 283 lb 332 lb 325 lb Weight Weight Bed scale Measurement Method Physical Exam: General Appearance Alert, Oriented X3, Cooperative, Moderate Distress Neck Supple, No JVD Cardiovascular Regular Rate, Normal S1, Normal S2, No Murmurs, Gallops, Rubs Lungs wheezes, right > left; globally decreased air movement Abdomen hard, distended; no appreciable sign of ascites Neurological Normal Speech, Strength at 5/5 X4 Ext, Sensation Intact Extremities bilateral lower extremities edema, ad mid-thighs Current Medications: Current Medications Sig/[place] Start time Last Medication Dose Route Stop Time Status Admin Albuterol Sulfate 3 ML Q4P PRN 01/20 1400 AC 01/22 INH 0104 Amiodarone HCl 400 MG BID 01/20 2100 AC 01/22 PO 0840 Apixaban 5 MG BID 01/20 PO 0840 Carvedilol 6.25 MG BID 01/20 2100 AC 01/22 PO 0840 Furosemide 80 MG 7:30 AM, & 4:30 PM 01/21 0745 AC 01/22 IV 0630 Gabapentin 300 MG TID 01/20 1400 AC 01/22 PO 1300 Insulin Aspart 0 TIDAC/HS 01/20 1700 AC 01/22 SC 1300 Insulin Detemir 66 UNITS DAILY 01/22 0900 AC 01/22 SC 0839 Ipratropium [place] 2.5 ML Q4P PRN 01/21 0945 AC 01/22 INH 0103 Neomycin/Polymyxin/ 1 MARISOL BID PRN 01/22 0930 AC Bacitracin EXT Nicotine 21 MG DAILY 01/20 1836 AC 01/20 TOP 1934 Non-Formulary See Dose DAILY 01/23 0900 UNV Medication Insts (1) ANY Patient Medication 1 ED ONE ONE 01/21 1815 DC 01/21 Teaching ED 01/21 1816 1900 Pravastatin Sodium 40 MG 1700 01/20 1700 AC 01/21 PO 1738 Dose Instructions: (1)Non-Formulary Medication: Entresto 50 mg daily Results Last 48 Hrs of Labs/Mics: Laboratory Tests 01/22/18 0644: Anion Gap 7, Estimated GFR 48 L, BUN/Creatinine Ratio 21.3 01/21/18 0640: Anion Gap 8, Estimated GFR 52 L, BUN/Creatinine Ratio 26.4 H, Magnesium 2.4 H 01/20/18 2300: Troponin I Cancelled 01/20/18 1805: Troponin I 0.02 Assessment/Plan Assessment/Plan Diastolic CHf exacerbation, superimposed on COPD. Atrial flutter converted, remains in SR, continue amiodarone. Continue lasix 80 mg IV BID. BNP tomorrow. Continue telemetry? Yes
[2018-01-22 22:22] VITALS: BP 130/76
[2018-01-23 05:56] VITALS: BP 138/62
--- NOTE | 2018-01-23 08:04 | PN- Housestaff ---
[facility]: Subjective Follow-up For: Acute on chronic diastolic heart failure Uncontrolled diabetes Tele-Events Since Last Visit: Patient remained in sinus rhythm with heart rate between 6977 Review of Systems Constitutional: Denies: chills, fever. EENTM: Reports: no symptoms. Cardiovascular: Denies: chest pain, palpitations. Respiratory: Reports: short of breath. Denies: cough, sputum production, wheezing. Gastrointestinal: Denies: abdominal pain, constipation, diarrhea, nausea, vomiting. Genitourinary: Reports: no symptoms. Musculoskeletal: Reports: no symptoms. Neurological/Psychological: Reports: no symptoms. Objective Last 24 Hrs of Vital Signs/I&O Vital Signs Date Time Temp Pulse Resp B/P B/P Pulse O2 O2 Flow FiO2 Mean Ox Delivery Rate 01/23 0907 98.3 73 20 138/62 01/23 0906 98.3 73 20 138/62 01/23 0834 98 Nasal 3.0L Cannula 01/23 0556 98.3 73 20 138/62 96 Nasal Cannula 01/22 2222 98.6 78 20 130/76 93 Nasal Cannula 01/22 2040 93 Nasal 3.0L Cannula 01/22 2036 78 130/76 01/22 2035 78 130/76 01/22 1825 95 Nasal 3.0L Cannula 01/22 1533 98.2 77 20 142/80 96 Nasal Cannula Physical Exam General Appearance: Alert, Oriented X3, Cooperative Skin Temp/Moisture Exam: Warm/Dry Sepsis Skin Exam (color): Normal for Ethnicity HEENT: Atraumatic, PERRLA, EOMI Neck: Supple Cardiovascular: Normal S1, Normal S2 Lungs: Clear to Auscultation Abdomen: Soft, No Tenderness Neurological: Normal Speech, Strength at 5/5 X4 Ext, Normal Tone Extremities: b/l pedal edema Assessment/Plan Assessment: 62 YO M, morbid obese, currently smokes 6 cigs/day- previously a heavy smoker with PMH of HTN, HLD and CAD s/p triple-vessel bypass in 2015, A. fib on anticoagulation, prior substance abuse with cocaine , uncontrolled diabetes, CHF with EF of 45-50% on echo in 11/2017, atrial flutter status post cardioversion, discharged on 01/18/18 came to ED with chief complaint of shortness of breath. Seeing the patient on tele floor for following problems. Acute on chronic diastolic heart failure: -Non compliant to medication and in the setting of ischemic cardiomyopathy. -Supplemental oxygen as needed to keep his saturation above 92%. -Patient had last echocardiogram in November that showed ejection fraction 4550% with mild globally reduced left ventricular systolic function and moderate ventricular hypertrophy. Recent echocardiogram showed ejection fraction 5560% with left ventricular moderate hypertrophy. -Continue Lasix IV 80 mg twice daily -Monitor input and output and daily weight -Follow up cardiology recommended. -Follow-up chest x-ray two-view to look for congestion or pleural effusions. Acute kidney injury: -Cr 1.4 and GFR is 52 -possibly due to lasix use. -We will follow his kidney functions Current smoker: -Smoking cessation -Nicotine patch as needed History of CAD status post CABG: -Continue entrasto to 50 mg twice daily. -His carvedilol was continued. Atrial flutter/fibrillation status post electrical cardioversion: -Patient is in sinus rhythm -Continue Eliquis 5 mg twice daily for anticoagulation -Amiodarone 400 mg bid for rhythm control History of hypertension hyperlipidemia: -Discontinued lisinopril. We will start entresto 50mg daily from tomorrow. -Continue Lipitor History of uncontrolled diabetes: -Continue Accu-Cheks. His fasting blood sugar is 289 today. -Continue Levemir 66 units in p.m. and Levemir 10 units in a.m. changed by endocrinology today. -Continue insulin NovoLog according to sliding scale. -Follow-up endocrinology recommendations -Holding his metformin. -Continue jauardiance 10 mg that can help to get rate of excessive fluid and to control blood sugar level. History of peripheral neuropathy: -Continue gabapentin History of COPD: -Continue nebulizer treatment -TRC nebulization as needed -Follow-up pulmonology recommendations. -He will get outpatient sleep study. DVT prophylaxis: Mechanical and patient already on Eliquis CODE STATUS: Full code Problem List: 1. Acute kidney injury 2. Uncontrolled diabetes mellitus 3. CHF exacerbation Pain Ratin Pain Location: none Pain Goal: Remain pain free Pain Plan: pain pathway Tomorrow's Labs & Rationales: bep/mag Reza TANNER,Dayna 01/23/18 0950: Attending MD Review Statement Attending Statement Attending MD Statement: examined this patient, discuss w/resident/PA/SOFTWARE PROGRAM MANAGER, agreed w/resident/PA/SOFTWARE PROGRAM MANAGER, reviewed EMR data (avail), discussed with nursing, discussed with case mgmt, reviewed images Attending Assessment/Plan: Patient continues to be very edematous. He is also now on oxygen which he was not before. We are treating acute systolic heart failure in the setting of A. fib and obesity. We have him on IV Lasix at 80 IV twice daily and will repeat the chest x-ray PA and lateral today. The mushroom press operator saw him an endocrine is helping us out with his uncontrolled diabetes with noncompliance with the diet.
--- NOTE | 2018-01-23 08:18 | PN- Diabetes ---
Assessment/Plan Diabetes Assessment: This is 62-year-old gentleman with type 2 diabetes presented with CHF exacerbation. Home regimen include Levemir 66 units daily, NovoLog coverage for meals and jardiance 10 mg daily. Plan: Change Levemir to 66 units in AM and 10 units in PM If his blood glucose remains controlled by the time he is discharged, he can use the inpatient insulin regimen and resume Jardiance 10 mg daily at home. He has follow up appointment with me. Will follow while he is in hospital. Subjective Subjective: His blood glucose went down to 100s yesterday, however, it went up over the night. Objective Last 24 Hrs of Vital Signs/I&O Vital Signs Date Time Temp Pulse Resp B/P B/P Pulse O2 O2 Flow FiO2 Mean Ox Delivery Rate 01/23 0556 98.3 73 20 138/62 96 Nasal Cannula 01/22 2222 98.6 78 20 130/76 93 Nasal Cannula 01/22 2040 93 Nasal 3.0L Cannula 01/226 78 130/76 01/22 2035 78 130/76 01/22 1825 95 Nasal 3.0L Cannula 01/22 1533 98.2 77 20 142/80 96 Nasal Cannula 01/22 0840 77 150/76 01/22 0840 77 150/76 01/22 0831 96 Nasal 3.0L Cannula
--- NOTE | 2018-01-23 09:57 | PN- Pulmonary ---
Subjective HPI/Critical Care Issues: pt seen and examined feeling much better able to ambulate dyspnea, now on oxygen no n/v/d/c, no cp, no nunez significant leg edema Objective Current Medications: Current Medications Sig/[place] Start time Last Medication Dose Route Stop Time Status Admin Acetaminophen 0 .STK-MED ONE 01/23 0101 DC PO Acetaminophen 650 MG Q4P PRN 01/23 0100 AC 01/23 PO 0059 Albuterol Sulfate 3 ML Q4P PRN 01/20 1400 AC 01/23 INH 0843 Amiodarone HCl 400 MG BID 01/20 2100 AC 01/23 PO 0907 Apixaban 5 MG BID 01/20 2100 AC 01/23 PO 0906 Carvedilol 6.25 MG BID 01/20 2100 AC 01/23 PO 0906 Furosemide 80 MG 7:30 AM, & 4:30 PM 01/21 0745 AC 01/23 IV 0905 Gabapentin 300 MG TID 01/20 1400 AC 01/23 PO 0906 Insulin Aspart 0 TIDAC/HS 01/20 1700 AC 01/23 SC 0905 Insulin Detemir 66 UNITS DAILY 01/22 0900 AC 01/23 SC 0904 Ipratropium [place] 2.5 ML Q4P PRN 01/21 0945 AC 01/23 INH 0843 Neomycin/Polymyxin/ 1 MARISOL BID PRN 01/22 0930 AC Bacitracin EXT Nicotine 21 MG DAILY 01/20 1836 AC 01/20 TOP 1934 Pravastatin Sodium 40 MG 1700 01/20 1700 AC 01/22 PO 1712 Sacubitril/Valsartan 1 TAB BID 01/23 0900 AC 01/23 PO 0915 Vital Signs & I&O Last 24 Hrs of Vitals and I&O: Vital Signs Date Time Temp Pulse Resp B/P B/P Pulse O2 O2 Flow FiO2 Mean Ox Delivery Rate 01/23 0907 98.3 73 20 138/62 01/23 0906 98.3 73 20 138/62 01/23 0834 98 Nasal 3.0L Cannula 01/23 0556 98.3 73 20 13862 96 Nasal Cannula 01/22 2222 98.6 78 20 130/76 93 Nasal Cannula 01/220 93 Nasal 3.0L Cannula 01/23 2036 78 130/76 01/22 2035 78 130/76 01/22 1825 95 Nasal 3.0L Cannula 01/22 1533 98.2 77 20 142/80 96 Nasal Cannula Exam Other Physical Findings: gen-awake, alert, somewhat lethargic but arousable and appropriate heent-o2, mallampati score 4 cvs-s1,s2 lungs-reduced bs bilaterally, rhonchi scattered abd-increased abdominal girth ext-edema Results Last 24 Hrs of Lab Results: Laboratory Tests 01/23/18 0606: Anion Gap 10, Estimated GFR 52 L, BUN/Creatinine Ratio 20.7 Impression/Plan Impression/Plan Impression/Plan: Impression 62 year old man * acute decompensated chf * underlying COPD - poorly controlled and not optimized * hypercarbia - concern for underlying sleep apnea * tobacco dependence Plan -CXR today -sleep lab will arrange sleep study on an outpatient basis -consultation also requested for evaluation of likely underlying sleep apnea - patient has excessive daytime somnolence. ESS of 15, neck size >18. Snoring, gasping for air. Not feeling refreshed in the morning. Will order SPLIT study for patient and arrange this for him prior to our office visit follow up. -In review of Mr. Rock's inhalers they appear to be excessive - they include and he actively takes - Flovent (ICS), Symbicort (ICS/LABA), Stiolto (LABA/LAMA) , proair/ventolin/proventil (mostly empty). These could have contributed to tachycardia PCO2 56 on ABG. -at this time it would be best to treat his chf/fluid overload aggressively with diuresis and f/u cardiology recommendations -continue TRC/Nebulized therapy with albuterol and ipratropium -would discontinue hand held inhalers - it will create both confusion and excessive administration without any record of complete PFT's -he does not meet criteria for any non-invasive ventilation at this time -he is also on amiodarone and it is essential to obtain baseline lung volumes -he will benefit from outpatient sleep testing, this was discussed -smoking cessation counseling DVT prophylaxis at all times
--- NOTE | 2018-01-23 10:15 | RADIOLOGY REPORT ---
EXAMINATION: XR CHEST CLINICAL INFORMATION: Shortness of breath. COMPARISON: 01/20/2018 TECHNIQUE: 2 views of the chest were obtained. FINDINGS: Mild cardiomegaly, status post coronary artery bypass graft surgery, with intact sternotomy wires in place. Again noted is pulmonary vascular congestion and prominence of the peribronchial interstitium, suggestive of mild edema. Persistent trace right pleural effusion. No pneumothorax or other significant interval change. IMPRESSION: The findings of congestive heart failure remain similar in appearance compared to 01/20/2018.
--- NOTE | 2018-01-23 12:22 | Cons- Psychiatry ---
Psychiatric Consult Date of Consult: 01/23/18 Reason for Consult: Evaluation for depression/bipolar disorder at the request of the patient's sister. History of Present Illness: This 62-year-old male was admitted on January 20 with dyspnea. He is a past medical history significant for insulin-dependent diabetes mellitus, hypertension, hyperlipidemia, coronary artery disease status post CABG in 2016, new onset atrial fibrillation. The patient was recently admitted at [place], cardioverted and discharged 2 days prior to re-presentation. Presenting complaints: "I am not happy" Patient reports that he is frustrated with his physical health issues. His sleep is poor with initial insomnia and host wakening. Concentration is poor "I am all over the place". He reports that he is irritable intermittently. He states "I put on my own life got happy face" but that is not how I feel. He does not want to but states "I want to feel alive while in the life". He is angry with himself for the years he wasted using drugs and feels that his current health condition may be his just desserts. There are no psychotic symptoms. Past psychiatric history: The patient was attending [facility] where he saw Brit Valdivia APRN. He carries a diagnosis of bipolar 1 disorder moderate. Medication adherence was poor and the patient has not taken medication for several months. He also has a therapist Karen, and telegraphic typewriter mechanic called My Buckley. I spoke with My as well as with another nurse practitioner called Pat and discussed the patient's case. They will arrange a follow-up appointment for the patient on discharge. Neither of them has ever seen the patient manic. We discussed the possibility of starting the patient on an antidepressant and old agreed that at this juncture it is the most appropriate choice. The patient is unable to describe any periods of david or hypomania stating that he has never had a time when he has had excess energy. There is no history of deliberate self-harm or suicide attempts. Substance abuse history: Patient has a long history of polysubstance dependence. His drug of choice was crack cocaine which he used for almost 30 years along with alcohol. He was never intravenous user. Patient has been clean for almost 5 years. 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 Family psychiatric history: Mother, brother and sister positive for alcohol dependence. His brother also seems to have had a severe mental illness, diagnosis unknown. Social/personal history: The patient has a large extended family with a lot of support. He lives with his sister Mara. As mentioned she is also very active in the recovery community. Allergies: Coded Allergies: No Known Allergies (11/19/16) Current Medications: Med Acetaminophen 650 MG PO Q4P PRN 01/23/18 0100 Albuterol Sulfate 3 ML INH Q4P PRN 01/20/18 1400 Amiodarone HCl 400 MG PO BID 01/20/18 2100 Apixaban 5 MG PO BID 01/20/18 2100 Carvedilol 6.25 MG PO BID 01/20/18 2100 Furosemide 80 MG IV 7:30 AM, & 4:30 PM 01/21/18 0745 Gabapentin 300 MG PO TID 01/20/18 1400 Insulin Aspart SC TIDAC/HS 01/20/18 1700 Insulin Detemir 10 UNITS SC QAM 01/24/18 0900 Insulin Detemir 66 UNITS SC QPM 01/23/18 2100 Ipratropium [place] 2.5 ML INH Q4P PRN 01/21/18 0945 Neomycin/Polymyxin/Bacitracin 1 MARISOL EXT BID PRN 01/22/18 0930 Nicotine 21 MG TOP DAILY 01/20/18 1836 Pravastatin Sodium 40 MG PO 1700 01/20/18 1700 Sacubitril/Valsartan 1 TAB PO BID 01/23/18 0900 Past History Past Medical History Neurological: peripheral neuropathy EENT: NONE Cardiovascular: AFIB, hyperlipidemia Respiratory: asthma, CHF Gastrointestinal: NONE Hepatic: NONE Renal: NONE Musculoskeletal: NONE Psychiatric: NONE Endocrine: diabetes Blood Disorders: NONE Cancer(s): NONE SHIP CAPTAIN/Reproductive: NONE Past Surgical History Surgical History: CABG Substance Abuse Treatment Comments: See HPI for psychiatric and substance abuse history Assessment/Plan Mental Status Orientation: Person, Place, Situation Mental Status Exam: The patient is a large black 62-year-old male sitting by the side of his bed in hospital attire. He has significant bilateral lower extremity edema and complained of pain. He was alert and oriented 3. Eye contact was good. Speech was normal in rate, rhythm, volume and tone. His mood was depressed and his affect was mood congruent with some irritability. He was not suicidal or homicidal. Thought process was normal in tempo, stream and form with no delusions or obsessions. Attention and concentration were good. There was no perceptual abnormality. Impulse control was good. Intelligence level is average, fund of knowledge average, use of language appropriate. Recent and remote memory are intact. The patient's insight is good and judgment is unimpaired. Impression: -The patient carries a diagnosis of bipolar 1 disorder by history. However he does not recall and cannot describe any periods consistent with hypomania or david. There is no family history of bipolar disorder. The providers I spoke with have never seen him manic. He is currently presenting as depressed with neurovegetative symptoms. Provisional Treatment Plan: - Start escitalopram 5 mg p.o. today, increase to 10 mg tomorrow - Please call Pat at [facility], telephone #[phone] extension [phone] for an appointment prior to discharge - Please fax copies of discharge medication to Pat at [phone] Psychiatry will follow and monitor for signs of emergent david/hypomania. Thank you for consulting us on this patient.
--- NOTE | 2018-01-23 12:59 | Patient Discharge Instructions ---
Discharge Instructions General Discharge Information You were seen/treated for: Acute on chronic diastolic heart failure Uncontrolled diabetes Acute kidney injury Depression Watch for these problems: Chest pain, palpitation, shortness of breath, nausea, vomiting, anxiety, depression, lightheadedness, abdominal pain and dysuria. If you experience any of the symptoms please come to ED or call to your primary care physician. Special Instructions: From Psych: Please call Pat at care, telephone #[phone] extension [phone] for an appointment prior to discharge - Please fax copies of discharge medication to [facility] at [phone] -Appointment has been scheduled with . On February 21, please call above number and confirm it. Follow-up with your primary care physician in 1 week Follow-up with your cytology manager in 1 week Follow-up outpatient wellness clinic for CHF after the discharge. Follow-up with your charter pilot for sleep study after the discharge. Diet Recommended Diet: Diabetic Activity Activity Self Limited: Yes Acute Coronary Syndrome Inclusion Criteria At DC or during hospital stay patient has or had the following: ACS DIAGNOSIS No Discharge Core Measures Meds if any: Prescribed or Continued at Discharge Meds if any: NOT Prescribed or Continued at Discharge Congestive Heart Failure Inclusion Criteria At DC or during hospital stay patient has or had the following: CHF DIAGNOSIS Yes Discharge Core Measures Meds if any: Prescribed or Continued at Discharge Meds if any: NOT Prescribed or Continued at Discharge Comment he is on lisinopril Cerebrovascular accident Inclusion Criteria At DC or during hospital stay patient has or had the following: CVA/TIA Diagnosis No Discharge Core Measures Meds if any: Prescribed or Continued at Discharge Meds if any: NOT Prescribed or Continued at Discharge Venous thromboembolism Inclusion Criteria VTE Diagnosis No VTE Type NONE VTE Confirmed by (Test) NONE Discharge Core Measures - Per Current guidelines, there needs to be overlap - treatment for the first 5 days of Warfarin therapy. - If discharged on Warfarin prior to 5 days of - overlap therapy, the patient will need to be - assessed for post discharge needs including - *Post discharge parental anticoagulation - *Warfarin and/or parental anticoagulation education - *Follow up date to check INR post discharge At least 5 days overlap therapy as Inpatient No Meds if any: Prescribed or Continued at Discharge Note: Overlap Therapy is Warfarin and Anticoagulant Meds if any: NOT Prescribed or Continued at Discharge
[2018-01-23 14:21] VITALS: BP 148/80
[2018-01-23] MEDS ORDERED: ENTRESTO 49MG/51MG PO (16:02)
--- NOTE | 2018-01-23 16:25 | PN- Cardiology ---
Subjective Subjective: Patient is generally unhappy. Remains in SR. No chest pains. Complaining of SOB although net fluid loss has been quite satisfactory with lasix 80 mg IV bid. CXR still showing pulmonary congestion similar to 01/20. Objective Vital Signs and I&Os Vital Signs Date Time Temp Pulse Resp B/P B/P Pulse O2 O2 Flow FiO2 Mean Ox Delivery Rate 01/23 1421 98.3 69 17 148/80 98 Nasal 2.0L Cannula 01/23 0907 98.3 73 20 138/62 01/23 0906 98.3 73 20 138/62 01/23 0834 98 Nasal 3.0L Cannula 01/23 0556 98.3 73 20 138/62 96 Nasal Cannula 01/22 2222 98.6 78 20 130/76 93 Nasal Cannula 01/22 2040 93 Nasal 3.0L Cannula 01/23 2036 78 130/76 01/22 203 78 130/76 01/22 1825 95 Nasal 3.0L Cannula Intake & Output 01/23 1600 01/23 0800 01/23 0000 01/22 1600 01/22 0800 01/22 0000 Intake Total 1860 240 Output Total 2600 Balance -740 240 Intake, Oral 1860 240 Number 1 Bowel Movements Output, Urine 2600 Patient 283 lb 283 lb Weight Physical Exam: General Appearance Alert, Oriented X3, Cooperative, Moderate Distress Neck Supple, No JVD Cardiovascular Regular Rate, Normal S1, Normal S2, No Murmurs, Gallops, Rubs Lungs wheezes, right > left; globally decreased air movement Abdomen hard, distended; no appreciable sign of ascites Neurological Normal Speech, Strength at 5/5 X4 Ext, Sensation Intact Extremities bilateral lower extremities edema Current Medications: Current Medications Sig/[place] Start time Last Medication Dose Route Stop Time Status Admin Acetaminophen 0 .STK-MED ONE 01/23 010 DC PO Acetaminophen 650 MG Q4P PRN 01/23 0100 AC 01/23 PO 0059 Albuterol Sulfate 3 ML Q4P PRN 01/20 1400 AC 01/23 INH 0843 Amiodarone HCl 400 MG BID 01/20 2100 AC 01/23 PO 906 Apixaban 5 MG BID 01/20 2100 AC 01/23 PO 905 Carvedilol 6.25 MG BID 01/20 2100 AC 01/23 PO 905 Escitalopram Oxalate 10 MG DAILY 01/24 0900 AC PO Escitalopram Oxalate 5 MG ONCE ONE 01/23 1300 DC 01/23 PO 01/23 1301 1504 Furosemide 80 MG 7:30 AM, & 4:30 PM 01/21 0745 AC 01/23 IV 0905 Gabapentin 300 MG TID 01/20 1400 AC 01/23 PO 1504 Insulin Aspart 0 TIDAC/HS 01/20 1700 AC 01/23 SC 1256 Insulin Detemir 10 UNITS QAM 01/24 0900 DC SC Insulin Detemir 66 UNITS QAM 01/24 0900 AC SC Insulin Detemir 66 UNITS QPM 01/23 2100 DC SC Insulin Detemir 10 UNITS QPM 01/23 2100 AC SC Insulin Detemir 66 UNITS DAILY 01/22 0900 DC 01/23 SC 0904 Ipratropium [place] 2.5 ML Q4P PRN 01/21 0945 AC 01/23 INH 0843 Neomycin/Polymyxin/ 1 MARISOL BID PRN 01/22 0930 AC Bacitracin EXT Nicotine 21 MG DAILY 01/20 1836 AC 01/20 TOP 1934 Pravastatin Sodium 40 MG 1700 01/20 1700 AC 01/22 PO 1712 Sacubitril/Valsartan 1 TAB BID 01/23 0900 AC 01/23 PO 0915 Results Last 48 Hrs of Labs/Mics: Laboratory Tests 01/23/18 0606: Anion Gap 10, Estimated GFR 52 L, BUN/Creatinine Ratio 20.7 01/22/18 0644: Anion Gap 7, Estimated GFR 48 L, BUN/Creatinine Ratio 21.3 Assessment/Plan Assessment/Plan Diastolic heart failure superimposed on COPD. Good urine output but complicance is under question. Before discharge lasix dose can be changed to 80 po bid, but the patient should definitely go to the CHF clinic the day following discharge given how fast he came back to the hospital this time. Continue telemetry? Yes
[2018-01-23 22:09] VITALS: BP 148/82
[2018-01-24 06:30] VITALS: BP 132/84
--- NOTE | 2018-01-24 07:36 | PN- Housestaff ---
See Addendum Subjective Follow-up For: Acute on chronic diastolic heart failure Uncontrolled diabetes PRAVEEN (resolved) Depression Tele-Events Since Last Visit: Patient remained in sinus rhythm with heart rate between 6478 Subjective: No overnight events. Patient remained afebrile. Seen and examined this morning. He is using 2 L of oxygen maintaining saturation 95%. Patient denied chest pain, palpitation, nausea, vomiting, chill, fever, abdominal pain dysuria. Complaining of mild short of breath on ambulation. On room air patient is maintaining saturation 94%. We will try to wean off his oxygen today. We will ambulate the patient and check saturation. Review of Systems Constitutional: Denies: chills, fever. EENTM: Reports: no symptoms. Cardiovascular: Denies: chest pain, palpitations. Respiratory: Reports: short of breath. Denies: cough, sputum production. Gastrointestinal: Denies: abdominal pain, constipation, nausea, vomiting. Genitourinary: Reports: no symptoms. Musculoskeletal: Reports: no symptoms. Neurological/Psychological: Reports: see HPI. Objective Last 24 Hrs of Vital Signs/I&O Vital Signs Date Time Temp Pulse Resp B/P B/P Pulse O2 O2 Flow FiO2 Mean Ox Delivery Rate 01/24 0630 98.5 62 18 132/84 95 01/23 2209 98.3 74 18 148/82 94 Nasal 2.0L Cannula 01/23 2203 74 148/82 01/23 2203 74 148/82 01/23 2151 94 Nasal 2.0L Cannula 01/23 2140 96 Nasal 2.0L Cannula 01/23 1421 98.3 69 17 148/80 98 Nasal 2.0L Cannula 01/23 0907 98.3 73 20 138/62 01/23 0906 98.3 73 20 138/62 01/23 0834 98 Nasal 3.0L Cannula 01/23 0800 Nasal 3.0L Cannula Intake & Output 01/24 0800 01/24 0000 01/23 1600 Intake Total 360 860 Output Total 2075 3725 Balance -2074 -3365 860 Intake, Oral 360 860 Output, Urine 5 3725 Physical Exam General Appearance: Alert, Oriented X3, Cooperative Skin Temp/Moisture Exam: Warm/Dry Sepsis Skin Exam (color): Normal for Ethnicity HEENT: Atraumatic, PERRLA, EOMI Neck: Supple Cardiovascular: Normal S1, Normal S2 Lungs: decreased breath sounds b/l and bibasilar crackles. Abdomen: Soft, No Tenderness Neurological: Normal Speech, Strength at 5/5 X4 Ext, Normal Tone Extremities: b/l pedal edema with blisters and dressing. Assessment/Plan Assessment: 62 YO M, morbid obese, currently smokes 6 cigs/day- previously a heavy smoker with PMH of HTN, HLD and CAD s/p triple-vessel bypass in 2015, A. fib on anticoagulation, prior substance abuse with cocaine , uncontrolled diabetes, CHF with EF of 45-50% on echo in 11/2017, atrial flutter status post cardioversion, discharged on 01/18/18 came to ED with chief complaint of shortness of breath. Seeing the patient on tele floor for following problems. Acute on chronic diastolic heart failure: -Non compliant to medication and in the setting of ischemic cardiomyopathy. -Supplemental oxygen as needed to keep his saturation above 92%. On room air patient is maintaining saturation 94%. We will try to wean off his oxygen today. -Patient had last echocardiogram in November that showed ejection fraction 4550% with mild globally reduced left ventricular systolic function and moderate ventricular hypertrophy. Recent echocardiogram showed ejection fraction 5560% with left ventricular moderate hypertrophy. -Continue Lasix PO 80 mg twice daily -Monitor input and output and daily weight -Follow up cardiology recommended. -His follow-up chest x-ray showed similar findings as previous one with mild pulmonary edema. Acute kidney injury:(resolved) -Cr 1.4 and GFR is 52 yesterday. -Today her creatinine is 1.2 and GFR is more than 60. -possibly due to lasix use. -Patient's acute kidney injury stable and not improving or worsening. Current smoker: -Smoking cessation -Nicotine patch as needed Bilateral leg swelling: -Patient has bilateral leg swelling with blisters and skin tears. -He is getting daily dressing. Depression: -Patient has depression symptoms as evaluated by psychiatry yesterday. -Psychiatry recommended escitalopram 10 mg daily. -Patient will follow care after the discharge. We will make an appointment before he being discharged telephone #[phone] . History of CAD status post CABG: -Continue entrasto to 50 mg twice daily. -His carvedilol was continued. Atrial flutter/fibrillation status post electrical cardioversion: -Patient is in sinus rhythm -Continue Eliquis 5 mg twice daily for anticoagulation -Amiodarone 400 mg bid for rhythm control History of hypertension hyperlipidemia: -Discontinued lisinopril. We will start entresto 50mg daily from tomorrow. -Continue Lipitor History of uncontrolled diabetes: -Type 2 diabetes -Continue Accu-Cheks. His fasting blood sugar is 177 today. -Continue Levemir 66 units in am and Levemir 10 units in pm. changed by endocrinology today. -Continue insulin NovoLog according to sliding scale. -Follow-up endocrinology recommendations -Holding his metformin. -Continue jauardiance 10 mg that can help to get rate of excessive fluid and to control blood sugar level. History of peripheral neuropathy: -Continue gabapentin History of COPD: -Continue nebulizer treatment -TRC nebulization as needed -Follow-up pulmonology recommendations. -He will get outpatient sleep study. DVT prophylaxis: Mechanical and patient already on Eliquis CODE STATUS: Full code Problem List: 1. Uncontrolled diabetes mellitus 2. CHF exacerbation Pain Ratin Pain Location: none Pain Goal: Remain pain free Pain Plan: pain pathway Tomorrow's Labs & Rationales: none
--- NOTE | 2018-01-24 08:12 | PN- Diabetes ---
Assessment/Plan Diabetes Assessment: 62-year-old gentleman who presented with shortness of breath and was found to have CHF exacerbation. Currently he is on Levemir 66 units daily in the morning and 10 unitsat bedtime, Novolog coverage before meals and Novolog coverage at bedtime. Before Each Meal: < 80 mg/dl: 0 80-100 mg/dl: 11 101-120 mg/dl: 13 121-150 mg/dl: 13 151-200 mg/dl: 15 201-250 mg/dl: 17 251-300 mg/dl: 19 301-350 mg/dl: 21 351-400 mg/dl: 23 > 400 mg/dl: 25 Bedtime: < 80 mg/dl: 0 80-100 mg/dl: 0 101-120 mg/dl: 0 121-150 mg/dl: 0 151-200 mg/dl: 2 201-250 mg/dl: 4 251-300 mg/dl: 6 301-350 mg/dl: 8 351-400 mg/dl: 10 > 400 mg/dl: 12 His FSGs were 289, 184, 148, 249 and 177. Plan: continue the current insulin regimen as inpatient; if he is medically stable for discharge, the discharge plan for diabetes: ---Levemir 66 units in the morning, 10 units at bedtime; ---Jardiance 10 mg daily; ---current Novolog coverage before meals; ---no Novolog coverage at bedtime; ---monitor FSGs x 4 times a day; ---f/u with Dr. Montgomery after discharge. Subjective Subjective: He feels better and most likely he will go home today. Objective Last 24 Hrs of Vital Signs/I&O Vital Signs Date Time Temp Pulse Resp B/P B/P Pulse O2 O2 Flow FiO2 Mean Ox Delivery Rate 01/24 0630 98.5 62 18 132/84 95 01/23 2209 98.3 74 18 148/82 94 Nasal 2.0L Cannula 01/23 2203 74 148/82 01/23 2203 74 148/82 01/23 2151 94 Nasal 2.0L Cannula 01/24 2140 96 Nasal 2.0L Cannula 01/23 1421 98.3 69 17 148/80 98 Nasal 2.0L Cannula 01/23 0907 98.3 73 20 138/62 01/23 0906 98.3 73 20 138/62 01/23 0834 98 Nasal 3.0L Cannula Intake & Output 01/24 1600 01/24 0800 01/24 0000 Intake Total 360 Output Total 2074 372 Balance -2074 Intake, Oral 360 Output, Urine 2074 3724 Findings Pertinent Lab/Jose J Results: Laboratory Tests 01/24 637 Chemistry Sodium (137 - 145 mmol/L) 139 Potassium (3.5 - 5.1 mmol/L) 4.1 Chloride (98 - 107 mmol/L) 98 Carbon Dioxide (22 - 30 mmol/L) 36 H Anion Gap (5 - 16) 5 BUN (9 - 20 mg/dL) 28 H Creatinine (0.7 - 1.2 mg/dL) 1.2 Estimated GFR (>60 ml/min) > 60 BUN/Creatinine Ratio (7 - 25 %) 23.3 Magnesium (1.6 - 2.3 mg/dL) 2.1
[2018-01-24] MEDS ORDERED: LEVEMIR100 UNIT/1 SC (08:22)
[2018-01-24] MEDS ORDERED: LEVEMIR FL100 UNIT/1 SC (08:23)
--- NOTE | 2018-01-24 08:26 | Discharge Summary ---
Visit Information Visit Dates Admission Date: 01/20/18 Discharge Date: 01/24/18 Hospital Course Course Attending Physician: Reza TANENR,Dayna Nelson Primary Care Physician: Radha Luevano APRN Hospital Course: 62 YO M, morbid obese, currently smokes 6 cigs/day- previously a heavy smoker with PMH of HTN, HLD and CAD s/p triple-vessel bypass in 2015, A. fib on anticoagulation, prior substance abuse with cocaine , uncontrolled diabetes, CHF with EF of 45-50% on echo in 11/2017, atrial flutter status post cardioversion, discharged on 01/18/18 came to ED with chief complaint of shortness of breath. ED course: Vital: Temperature 98.6, pulse 78, respiratory 20, blood pressure 130/76, oxygen saturation 93% on 3 L of oxygen. Labs: Sodium 138, potassium 4.7, BUN 29, creatinine 1.4, anion gap 12, BUN/ creatinine ratio 20.7, GFR 52, WBC count 9.0, hemoglobin 13.6, hematocrit 41.7, platelet count 315, proBNP 1240 Acute on chronic diastolic heart failure: Patient was noncompliant to medications and also he has ischemic cardiomyopathy. He came in with acute on chronic diastolic congestive heart failure. Cardiology consult was obtained and recommendations were followed. Patient was started on IV Lasix 80 mg twice daily. Echocardiogram was done that showed ejection fraction 5560% with left ventricular moderate hypertrophy. During hospital stay patient was given supplemental oxygen to keep oxygen saturation above 92% But patient was not meeting the criteria respiratory failure. Patient's oxygen was weaned off and before discharge he was maintaining saturation 94% on room air. Patient was discharged with IV Lasix 80 mg twice daily and was advised to see his switchboard wire worker helper after the discharge. Patient was also advised to go to [facility] for CHF. Acute kidney injury: Patient had acute kidney injury possibly due to Lasix use. On presentation his creatinine was 1.4 and GFR was 52. His kidney function was monitored that improved before his being discharged. And the day of discharge his creatinine was 1.2 and GFR was more than 60. Current smoker: Smoking cessation counseling was provided and patient was advised to quit smoking, he was provided assistance with nicotine patch as needed. Patient was advised to see his primary care physician for further assistance to quit smoking. Bilateral leg swelling: Patient had bilateral swelling with blisters and some skin tears. During the hospital stay patient was getting dressing every day. He was advised to keep his legs elevated to decrease his swelling. Depression: Patient was evaluated by psychiatrist for depression and he had depression symptoms. Psychiatry recommended escitalopram 10 mg daily. Patient was advised to follow [facility] with Pat after the discharge. His appointment was scheduled at [facility] on February 21 patient was advised to call at telephone # [phone] to confirm the appointment. Uncontrolled diabetes: Patient had uncontrolled diabetes type 2. Endocrinology recommendations were obtained. His Levemir was continued 66 units in a.m. daily subcutaneous. Considering his elevated morning fasting blood sugar level in 200s and sometimes in 300s endocrinology recommended Levemir 10 units in evening subcutaneous. Insulin NovoLog sliding scale was changed accordingly. Patient blood sugar remained under control below 200 in the morning. Endocrinology recommended to continue Levemir 66 units in a.m. and 10 units in p.m. after the discharge. They recommended to continue insulin NovoLog sliding scale during mealtime. Patient was advised to follow diabetic diet strictly and cut down his carbs. Continued jauardiance 10 mg that can help to get rate of excessive fluid and to control blood sugar level. Patient was advised to follow endocrinology as outpatient after the discharge. His metformin was continued after the discharge. History of CAD status post CABG: Patient was on lisinopril that was discontinued and he was started on entrance to 49 mg/51 mg twice daily. His carvedilol was continued. Atrial flutter/fibrillation status post electrical cardioversion: Patient had a history of atrial flutter that was recently electrically cardioverted. Patient remained in sinus rhythm during hospital stay. We continued his Eliquis 5 mg twice daily for anticoagulation for stroke prevention. His amiodarone was continued 400 mg twice daily for rhythm control. History of hypertension hyperlipidemia: His lisinopril was discontinued and started on entrasto. His Lipitor was continued. History of peripheral neuropathy: Continued gabapentin. History of COPD and undiagnosed obstructive sleep apnea: Patient had history of COPD and undiagnosed obstructive sleep apnea. Pulmonology consult was obtained and recommendations were followed. Patient was using multiple inhalers having same meds. Pulmonology recommended to discontinue excessive inhalers. Over the discharge he was given tiotropium and albuterol. Pulmonology recommended to follow outpatient for sleep study for the diagnosis of obstructive sleep apnea. Patient received TRC nebulization as needed during hospitalization. Patient was advised to follow pulmonology as outpatient for his sleep study. DVT prophylaxis: Mechanical and patient already on Eliquis CODE STATUS: Full code Allergies: Coded Allergies: No Known Allergies (11/19/16) Disposition Summary Disposition Principal Diagnosis: Acute on chronic diastolic heart failure Acute kidney injury Uncontrolled diabetes. Depression Current smoker Additional Diagnosis: History of hypertension hyperlipidemia History of atrial flutter/A. fib status post cardioversion History of CAD status post CABG Discharge Disposition: home health services Discharge Instructions General Discharge Information Code Status: Full Code Patient's Diet: Diabetic diet Patient's Activity: Self-limited Follow-Up Instructions/Appts: Follow-up with your primary care physician in 1 week Follow-up with your switchboard wire worker helper in 1 week Follow-up with your senior sales compensation analyst in 1 week for sleep study Follow-up with [facility] for psychiatric problems. Medications at Discharge Discharge Medications: Stop taking the following medications: Lisinopril (Lisinopril) 20 MG TABLET ORAL DAILY Qty = 90 Albuterol Sulfate (Albuterol Sulfate) 2.5 MG/3 ML (0.083 %) VIAL.NEB Inhale Solution EVERY 4 HOURS NEEDED as needed for SOB Qty = 50 Diltiazem HCl (Diltiazem 24HR ER) 180 MG CAP.ER.24H ORAL DAILY Qty = 60 Fluticasone Propionate (Flovent Hfa) 110 MCG/ACTUATION AER.W.ADAP Inhale through mouth TWICE DAILY Qty = 12 Continue taking these medications: Apixaban (Eliquis) 5 MG TABLET 1 Tablet ORAL TWICE DAILY Qty = 60 Comments: Last Taken: 01/24/18 Time: 8:30 AM Metformin HCl (Metformin HCl) 1,000 MG TABLET 1 Tablet ORAL Q12H Qty = 180 Comments: NOT GIVEN Gabapentin (Gabapentin) 300 MG CAPSULE 1 Capsule ORAL THREE TIMES DAILY Qty = 270 Comments: Last Taken: 01/24/18 Time: 3:00 PM Pravastatin Sodium (Pravastatin Sodium) 40 MG TABLET 1 Tablet ORAL Every night Qty = 90 Comments: Last Taken: 01/23/18 Time: 6:00 PM Tiotropium Br/Olodaterol HCl (Stiolto Respimat Inhal [place]) 2.5 MCG-2.5 MCG/ ACTUATION MIST.INHAL 2 PUFF Inhale through mouth TWICE DAILY Qty = 4 Albuterol Sulfate (Ventolin Hfa) 90 MCG HFA.AER.AD 2 Puff Inhale through mouth EVERY 4 HOURS NEEDED as needed for COPD Qty = 18 Comments: Last Taken: 01/23/18 Time: 9:40 PM Empagliflozin (Jardiance) 10 MG TABLET 1 Tablet ORAL DAILY Qty = 90 Comments: NOT GIVEN Amiodarone (Cordarone) 200 MG TAB 2 Tablet ORAL TWICE DAILY Qty = 30 Comments: Last Taken: 01/24/18 Time: 8:30 AM Start taking the following new medications: [ENTRESTO 49MG/51MG] 1 Tablet ORAL TWICE DAILY Qty = 60 No Refills Instructions: . Comments: Last Taken: 01/24/18 Time: 08:30 AM Carvedilol (Carvedilol) 6.25 MG TABLET 6.25 Milligram ORAL TWICE DAILY Qty = 60 No Refills Comments: Last Taken: 01/24/18 Time: 08:30 AM Insulin Detemir (Levemir) 100 UNIT/ML VIAL 10 Units SC Every night Qty = 1 No Refills Comments: Last Taken: 01/23/18 Time: 10:00 PM Escitalopram Oxalate (Lexapro) 10 MG TABLET 1 Tablet ORAL DAILY Qty = 30 No Refills Comments: Last Taken: 01/24/18 Time: 08:30 AM The following medications have been changed: Old: Insulin Detemir (Levemir Flextouch) 100 UNIT/ML (3 ML) INSULN.PEN 66 Units SC DAILY Qty = 15 New: Insulin Detemir (Levemir Flextouch) 100 UNIT/ML (3 ML) INSULN.PEN 66 Units SC Every Morning Qty = 15 Comments: Last Taken: 01/24/18 Time: 8:00 AM Old: Furosemide (Furosemide) 40 MG TABLET 1 Tablet ORAL TWICE DAILY Qty = 90 New: Furosemide (Furosemide) 80 MG TABLET 1 Tablet ORAL TWICE DAILY Qty = 30 Comments: Last Taken: 01/24/18 Time: 08:30 AM Old: Insulin Aspart, Recombinant (Novolog Flexpen) 100 UNIT/ML INSULN.PEN 0 SC BEFORE MEALS AND AT BEDTIME Qty = 20 New: Insulin Aspart, Recombinant (Novolog Flexpen) 100 UNIT/ML INSULN.PEN 0 SC 3 TIMES DAILY BEFORE MEALS Qty = 20 Instructions: Before Each Meal: < 80 mg/dl: 0 80-100 mg/dl: 11 101-120 mg/dl: 13 121-150 mg/dl: 13 151-200 mg/dl: 15 201-250 mg/dl: 17 251-300 mg/dl: 19 301-350 mg/dl: 21 351-400 mg/dl: 23 > 400 mg/dl: 25 Comments: Last Taken: 01/24/18 Time: 12:22 PM SHORT ACTING NOVOLOG GIVEN PER SLIDING SCALE Last Taken: 12/02/17 Time: 11:OO AM Copies To: Salima TANNER,José; Radha Luevano APRN; Mikey TANNER,Zane
[2018-01-24] MEDS ORDERED: FUROSEMIDE80 M1 PO (08:58)
[2018-01-24] MEDS ORDERED: NOVOLOG FL100 UNIT/1 SC ×2 (10:47→10:49)
[2018-01-24 11:11] VITALS: BP 110/62
--- NOTE | 2018-01-24 11:31 | PN- Pulmonary ---
Subjective HPI/Critical Care Issues: pt seen and examined feeling much better able to ambulate no n/v/d/c, no cp, no nunez significant leg edema Objective Current Medications: Current Medications Sig/[place] Start time Last Medication Dose Route Stop Time Status Admin Acetaminophen 650 MG Q4P PRN 01/23 0100 DC 01/24 PO 0026 Albuterol Sulfate 3 ML Q4P PRN 01/20 1400 AC 01/23 INH 2140 Amiodarone HCl 400 MG BID 01/20 2100 AC 01/24 PO 0830 Apixaban 5 MG BID 01/20 2100 AC 01/24 PO 0830 Carvedilol 6.25 MG BID 01/20 2100 AC 01/24 PO 0830 Escitalopram Oxalate 10 MG DAILY 01/24 0900 AC 01/24 PO 0831 Escitalopram Oxalate 5 MG ONCE ONE 01/23 1300 DC 01/23 PO 01/23 1301 1504 Furosemide 80 MG 7:30 AM, & 4:30 PM 01/21 0745 AC 01/24 IV 0830 Gabapentin 300 MG TID 01/20 1400 AC 01/24 PO 0830 Insulin Aspart 0 TIDAC/HS 01/20 1700 AC 01/24 SC 0840 Insulin Detemir 10 UNITS QAM 01/24 0900 DC SC Insulin Detemir 66 UNITS QAM 01/24 0900 AC 01/24 SC 0839 Insulin Detemir 66 UNITS QPM 01/23 2100 DC SC Insulin Detemir 10 UNITS QPM 01/23 2100 AC 01/23 SC 2204 Ipratropium [place] 2.5 ML Q4P PRN 01/21 0945 AC 01/23 INH 2140 Neomycin/Polymyxin/ 1 MARISOL BID PRN 01/22 0930 AC Bacitracin EXT Nicotine 21 MG DAILY 01/20 1836 AC 01/20 TOP 1934 Pravastatin Sodium 40 MG 1700 01/20 1700 AC 01/23 PO 1750 Sacubitril/Valsartan 1 TAB BID 01/23 0900 AC 01/24 PO 0830 Vital Signs & I&O Last 24 Hrs of Vitals and I&O: Vital Signs Date Time Temp Pulse Resp B/P B/P Pulse O2 O2 Flow FiO2 Mean Ox Delivery Rate 01/24 1111 98.2 66 18 110/62 94 Room Air 01/24 08 98.5 62 18 132/84 01/24 0830 98.5 62 18 132/84 01/24 0630 98.5 62 18 132/84 95 01/23 2209 98.3 74 18 148/82 94 Nasal 2.0L Cannula 01/23 2203 74 148/82 01/23 220 74 148/82 01/23 2151 94 Nasal 2.0L Cannula 01/230 96 Nasal 2.0L Cannula 01/23 1421 98.3 69 17 148/80 98 Nasal 2.0L Cannula Intake & Output 01/24 1600 01/24 0800 01/24 0000 Intake Total 360 Output Total 2074 3725 Balance -2074 -3364 Intake, Oral 360 Output, Urine 2074 3725 Exam Other Physical Findings: gen-awake, alert, somewhat lethargic but arousable and appropriate heent-o2, mallampati score 4 cvs-s1,s2 lungs-reduced bs bilaterally, rhonchi scattered abd-increased abdominal girth ext-edema Results Last 24 Hrs of Lab Results: Laboratory Tests 01/24/18 0637: Anion Gap 5, Estimated GFR > 60, BUN/Creatinine Ratio 23.3, Magnesium 2.1 Impression/Plan Impression/Plan Impression/Plan: Impression 62 year old man * acute decompensated chf * underlying COPD - poorly controlled and not optimized * hypercarbia - concern for underlying sleep apnea * tobacco dependence Plan -please evaluate oxygen requirements to see if patient qualifies for oxygen prior to discharge -sleep lab will arrange sleep study on an outpatient basis -consultation also requested for evaluation of likely underlying sleep apnea - patient has excessive daytime somnolence. ESS of 15, neck size >18. Snoring, gasping for air. Not feeling refreshed in the morning. Will order SPLIT study for patient and arrange this for him prior to our office visit follow up. -In review of Mr. Rock's inhalers they appear to be excessive - they include and he actively takes - Flovent (ICS), Symbicort (ICS/LABA), Stiolto (LABA/LAMA) , proair/ventolin/proventil (mostly empty). These could have contributed to tachycardia PCO2 56 on ABG. -at this time it would be best to treat his chf/fluid overload aggressively with diuresis and f/u cardiology recommendations -continue TRC/Nebulized therapy with albuterol and ipratropium -would discontinue hand held inhalers - it will create both confusion and excessive administration without any record of complete PFT's -he does not meet criteria for any non-invasive ventilation at this time -he is also on amiodarone and it is essential to obtain baseline lung volumes -he will benefit from outpatient sleep testing, this was discussed -smoking cessation counseling DVT prophylaxis at all times
--- NOTE | 2018-01-24 12:24 | PN- Psychiatry ---
Assessment/Plan Impression: The patient remains depressed but is more insightful. He is open to treatment. He is future oriented. He is not suicidal or homicidal and there are psychotic symptoms. He denies craving but is aware of the potential for relapse. Psychiatry will sign off. Please feel free to reconsult us if we can be of any further assistance. Thank you for allowing us to participate in the care of this patient. Suggestion: Follow-up with [facility] as documented yesterday. Continue S-Citalopram as ordered. Subjective Subjective: "I have been reminded about how I really feel about things". The patient reports that "I am going to deal with this and do what I have to do". Objective Last 24 Hrs of Vital Signs/I&O Vital Signs Date Time Temp Pulse Resp B/P B/P Pulse O2 O2 Flow FiO2 Mean Ox Delivery Rate 01/24 1111 98.2 66 18 110/62 94 Room Air 01/24 0830 98.5 62 18 132/84 01/24 0830 98.5 62 18 132/84 01/24 0630 98.5 62 18 132/84 95 01/23 2209 98.3 74 18 148/82 94 Nasal 2.0L Cannula 01/23 2203 74 148/82 01/23 2203 74 148/82 01/23 2151 94 Nasal 2.0L Cannula 01/23 2140 96 Nasal 2.0L Cannula 01/23 1421 98.3 69 17 148/80 98 Nasal 2.0L Cannula Intake & Output 01/24 1600 01/24 0800 01/24 0000 Intake Total 360 Output Total 2075 3725 Balance -2075 -3365 Intake, Oral 360 Output, Urine 5 3725 Physical Exam: Alert and oriented 3. Good eye contact, well-groomed. Speech normal in rate, rhythm, volume and tone. Mood depressed with congruent affect. Not suicidal or homicidal. Thought process normal in tempo, stream and form with no delusions or obsessions. Attention and concentration good. No perceptual abnormality. Impulse control good. Intelligence level average, fund of knowledge average, use of language appropriate. Recent and remote memory intact. Insight good. Judgment unimpaired.
[2018-01-24] MEDS ORDERED: LEXAPRO10 M1 PO (13:35)
[2018-01-24 14:17] VITALS: BP 118/64
[2018-01-24] MEDS ORDERED: ENTRESTO 49MG/51MG PO (16:11)
== END 2018-01-24 16:05 | disposition home health service (06) | DRG 194 ==
LOC: ERH 09:56 → 1NO 12:55 → ERHI 12:55 → EDBEDREQ 13:35 → ENRESERV 13:53 → ENTRNSPT 16:48 → 1NO 17:21 → CMPTRNSPT 17:25 → 1NO 17:31 → ENPENDDIS 01-24 14:50 → ENTRNSPT 01-24 15:15 → EDTRNSPTSTS 01-24 15:31 → EDTRNSPT 01-24 15:31 → CMPTRNSPT 01-24 15:45 → 1NO 01-24 16:05
PROVIDERS: Physician Assistant Medical
DX: I11.0 Hypertensive heart disease with heart failure (principal); I50.43 Acute on chronic combined systolic (congestive) and diastolic (congestive) heart failure; E78.5 Hyperlipidemia, unspecified; Z79.4 Long term (current) use of insulin; Z79.84 Long term (current) use of oral hypoglycemic drugs; I48.91 Unspecified atrial fibrillation; Z79.01 Long term (current) use of anticoagulants; E11.42 Type 2 diabetes mellitus with diabetic polyneuropathy; E11.65 Type 2 diabetes mellitus with hyperglycemia; I25.10 Atherosclerotic heart disease of native coronary artery without angina pectoris; Z95.1 Presence of aortocoronary bypass graft; Z91.11 Patient's noncompliance with dietary regimen; Z91.14 Patient's other noncompliance with medication regimen; J44.9 Chronic obstructive pulmonary disease, unspecified; R06.89 Other abnormalities of breathing; E66.01 Morbid (severe) obesity due to excess calories; Z68.42 Body mass index [BMI] 45.0-49.9, adult; I25.5 Ischemic cardiomyopathy; N17.9 Acute kidney failure, unspecified; G47.33 Obstructive sleep apnea (adult) (pediatric); Z79.51 Long term (current) use of inhaled steroids; I48.92 Unspecified atrial flutter; R00.0 Tachycardia, unspecified; T49.1X5A Adverse effect of antipruritics, initial encounter; F32.9 Major depressive disorder, single episode, unspecified; F17.210 Nicotine dependence, cigarettes, uncomplicated
CPT/HCPCS: 1NP; 36592; 71046; 81001; 82436; 93005; 93010; 93306; J1940; J3490